=== PATIENT | female | born 1995 | race Caucasian/White ===

== ENCOUNTER 2021-11-25 11:50 | Emergency (ER) | payer OTHER, SELFPAY ==
--- NOTE | ~2021-11-25 | CT_ITS ---
EXAMINATION: NONCONTRAST HEAD CT NONCONTRAST CERVICAL SPINE CT INDICATION INFORMATION: Fall on head with frontal laceration. COMPARISON: None TECHNIQUE: Separate noncontrast CT examinations of the head and cervical spine were performed. Coronal and sagittal images were created for each examination at the technologist workstation. This CT examination was performed using dose optimization techniques as appropriate, variously including the following: *Automated exposure control *Adjustment of mA and/or kV according to patient size (this includes techniques or standardized protocols for targeted exams where dose is matched to indication/reason for exam; i.e. extremities or head) *Use of iterative reconstruction technique DLP: 840 mGy-cm FINDINGS: HEAD: No intra or extra-axial fluid collection, hemorrhage, or mass. No ventriculomegaly. No midline shift or herniation. Basal cisterns are patent. Gill-white matter differentiation is maintained. No territorial encephalomalacia. No significant volume loss. There is no abnormal attenuation within the brain parenchyma. Mild soft tissue swelling and laceration in the right frontal scalp/forehead. No calvarial fracture. The mastoid air cells and visualized portions of the paranasal sinuses are well aerated. CERVICAL SPINE: Alignment: Normal. No subluxation. Vertebra: No acute fracture. No prevertebral soft tissue swelling. Degenerative disc disease: No significant. Preserved intervertebral disc heights. Anterior intervertebral disc calcification at C5-C6 noted. Other findings: No cervical lymphadenopathy. Visualized major salivary glands and thyroid gland are unremarkable. Visualized lung apices are clear. CT/CT cervical spine wo IV con IMPRESSION: 1. No intracranial hemorrhage or calvarial fracture. 2. Mild anterior right scalp/forehead swelling and laceration. 3. No traumatic subluxation or acute cervical spine fracture.
--- NOTE | ~2021-11-25 | CT_ITS ---
EXAMINATION: NONCONTRAST HEAD CT NONCONTRAST CERVICAL SPINE CT INDICATION INFORMATION: Fall on head with frontal laceration. COMPARISON: None TECHNIQUE: Separate noncontrast CT examinations of the head and cervical spine were performed. Coronal and sagittal images were created for each examination at the technologist workstation. This CT examination was performed using dose optimization techniques as appropriate, variously including the following: *Automated exposure control *Adjustment of mA and/or kV according to patient size (this includes techniques or standardized protocols for targeted exams where dose is matched to indication/reason for exam; i.e. extremities or head) *Use of iterative reconstruction technique DLP: 840 mGy-cm FINDINGS: HEAD: No intra or extra-axial fluid collection, hemorrhage, or mass. No ventriculomegaly. No midline shift or herniation. Basal cisterns are patent. Gill-white matter differentiation is maintained. No territorial encephalomalacia. No significant volume loss. There is no abnormal attenuation within the brain parenchyma. Mild soft tissue swelling and laceration in the right frontal scalp/forehead. No calvarial fracture. The mastoid air cells and visualized portions of the paranasal sinuses are well aerated. CERVICAL SPINE: Alignment: Normal. No subluxation. Vertebra: No acute fracture. No prevertebral soft tissue swelling. Degenerative disc disease: No significant. Preserved intervertebral disc heights. Anterior intervertebral disc calcification at C5-C6 noted. Other findings: No cervical lymphadenopathy. Visualized major salivary glands and thyroid gland are unremarkable. Visualized lung apices are clear. CT/CT head/brain wo IV con IMPRESSION: 1. No intracranial hemorrhage or calvarial fracture. 2. Mild anterior right scalp/forehead swelling and laceration. 3. No traumatic subluxation or acute cervical spine fracture.
[2021-11-25 13:18] VITALS: BP 143/79; PULSE 69; RESP 18; TEMP 36.9; O2SAT 100; BMI 25.8
--- NOTE | 2021-11-25 15:29 | ED_ITS ---
HPI - General Adult General Chief complaint: Head Injury Stated complaint: Head INJ Time Seen by Provider: 11/25/21 15:21 Source: patient Mode of arrival: ambulatory Limitations: no limitations History of Present Illness HPI narrative: 26-year-old female healthy presents to ED for head trauma. Patient states she t ripped and fell at work. Patient states she fell face forward onto her head which caused right frontal laceration. Patient states she felt slight nausea and dizziness and since than has been asymptomatic. Patient denies loss of consciousness. Patient states incident occurred around 10:00. Related Data Allergies Allergy/AdvReac Type Severity Reaction Status Date / Time No Known Allergies Allergy Verified 11/25/21 15:27 Review of Systems Review of Systems: Right fore laceration. Fall Yes all other systems are reviewed and are negative [facility] Social History Social History Advance Directives: No Advance Directives Information Provided: No Physical Exam ED Vital Signs: Vital Signs - 24 hr 11/25/21 13:18 Temperature 98.5 F Pulse Rate 69 Respiratory Rate 18 Blood Pressure 143/79 H Pulse Oximetry 100 Oxygen Delivery Method Room Air BMI result Body Mass Index 25.8 Const General: cooperative, healthy appearing, comfortable, no acute distress, well developed, alert, awake and Physically active Orientation/consciousness: oriented to time and patient oriented x3 HENMT Head: Yes normal to inspection, Yes No palpable skull fracture present, Yes normocephalic, Yes atraumatic and Yes abrasion Head images: 1. Very small it is very superficial laceration and bleeding control. No laceration repair indicated. Eyes General: appearance normal, both eyes and all related structures Neck Neck: Yes normal visual inspection, Yes full ROM, Yes no lymphadenopathy, Yes no meningeal signs, Yes trachea midline, Yes supple, No anterior neck swelling and No tender Chest Chest palpation & inspection: normal inspection of the chest and normal palpation of entire chest wall Resp Effort & Inspection: normal respiratory effort and able to speak in complete sentences Auscultation: clear to auscultation bilaterally Cardio Jugular venous distension: no JVD Heart sounds: S1 normal heart sound present and S2 normal heart sound present GI Inspection: Yes normal to inspection and No abdominal wall ecchymosis Palpation (GI): Soft to palpation, not firm, nontender, no guarding and not ri gid General: No CVA tenderness and Yes no CVA tenderness Back/Spine/Pelvis Back: no CVA tenderness, No CVA tenderness and No back tenderness Skin General skin exam: no rashes or lesions noted and elasticity normal Neuro General: oriented to time, patient oriented x3, gait normal, tone normal and no meningeal signs Extrem General: Yes normal to inspection and Yes full ROM Psych Appearance: grossly normal, well kempt and not disheveled Course Course Course Narrative: Patient well-appearing. Laceration done the repair. Up-to-date with tetanus. D mechanism patient have imaging although very unlikely brain bleed. Reevaluation(s) Reevaluation #1: Head CT cervical spine CT normal. Patient is safe for discharge. Patient to follow-up were connection. Patient given packets of bacitracin to clean very superficial laceration Time: 16:57 Medical Decision Making MDM Narrative Medical decision making narrative: Head injury Discharge Plan Discharge Clinical Impression: Closed head injury Patient Disposition: Home, Self-Care Instructions: Head Injury (ED) Additional Instructions: You're images came back normal. You laceration does not need repair. Please follow up with work connection. Return to the ED immediately for headache, nausea, vomitting, photophobia, weakness, chest pain, shortness of breath, abdominal pain, bleeding from any orifice, or any other concerning symptoms. Referrals: [facility] [Outside] (Head Injury at work) Stand Alone Forms: Work/School Release Interventions: ED Discharge Assessment Last Done: 11/25/21 18:00 Discharge Date/Time: 11/25/21 18:01 Print Language: Gabonese
--- OUTSIDE RECORDS SUMMARY | 2021-11-25 15:49 | XMS_ITS | Continuity of Care Document ---
:1995 Author Organization [facility] ic Address [address] [place] [id number]- Care Team Providers Name Role Phone Tutu MCINTOSH, Kelvin Duffy Primary Care Physician Encounter [facility] Date(s): 09/06/20 - 10/14/[address] [address]- Attending Physician: Not on Staff, Attending MD Allergies, Adverse Reactions, Alerts Substance Reaction Severity Status penicillin Rash Active Extent of radial penetration Immunizations Given and Recorded Vaccine Date Status Refusal Reason influenza virus vaccine, inactivated 11/24/14 Given influenza virus vaccine, inactivated1 12/14/11 Given influenza virus vaccine, inactivated 11/14/10 Given influenza virus vaccine, inactivated 04/22/10 Given influenza virus vaccine, inactivated2 12/04/07 Given tetanus/diphtheria/pertussis, acel(Tdap) 10/09/14 Given influ virus vac, H1N1, inactive(oldterm)3 12/23/08 Given Human Papillomavirus Vaccine 12/09/08 Given Human Papillomavirus Vaccine 12/04/07 Given Human Papillomavirus Vaccine4 04/30/07 Given Meningococcal Conjugate Vaccine5 04/30/07 Given Influenza Virus Vaccine (oldterm)6 04/30/07 Given Tet/Diphth/Acel, Pertussis (oldterm)7 04/30/07 Given Influenza Inactive (IM) (oldterm)8 01/06/03 Given Measles/Mumps/Rubella Virus Vaccine9 11/04/98 Given Measles/Mumps/Rubella Virus Pomhzvl77 07/10/94 Given Poliovirus Vaccine, Gfkdyvqaqye23 11/04/98 Given Poliovirus Vaccine, Ockanbcbkvc45 03/12/96 Given Poliovirus Vaccine, Frbdgoyzksv83 05/08/95 Given Poliovirus Vaccine, Ogpuyintcic55 07/10/94 Given Diphth/Pertussis, Whl Cell/Tet(oldterm)15 11/04/98 Given Diphth/Pertussis, Whl Cell/Tet(oldterm)16 10/15/96 Given Diphth/Pertussis, Whl Cell/Tet(oldterm)17 03/12/96 Given Diphth/Pertussis, Whl Cell/Tet(oldterm)18 05/08/95 Given Diphth/Pertussis, Whl Cell/Tet(oldterm)19 07/10/94 Given Haemophilus B Conj Vaccine (oldterm)20 10/15/96 Given Haemophilus B Conj Vaccine (oldterm)21 07/10/94 Given Hepatitis B Vaccine (old term) 05/08/95 Given Hepatitis B Vaccine (old term)22 07/10/94 Given Hepatitis B Vaccine (old term) 93 Given 1Early/Late Reason: Accommodate D/K0Mcgqf Note: INEQFN4Esmbw Note: VIS given4 Admin Note: VIS BFASH9Nbrxt Note: VIS GIVEN---MENACTRA, SANOFI VWNFELE2Khdem Note: SANOFI PASTEUR VIS GIVEN VETXV0Vhfbv Note: vis wuhcf4Digka Note: HX VARICELLA '959Admin Note: JRU61Dehqy Note: OBZ44Dsdjp Note: IPV/ROH82Eswxt Note: IPV/ANA71Flsdr Note: IPV/XQF89Sitrb Note: IPV/AMF87Vszwa Note: KHM49Squlv Note: XXC45Wwytj Note: YVY75Artsk Note: LFY60Xdtrv Note: EEW24Byudy Note: GYD04Ifzue Note: YBE60Uaqgl Note: HEP B Medications aspirin 81 mg oral delayed release tablet 162 mg, 2, tablet, By Mouth, Daily, To start at 12 weeks gestational age, July 13, 2020, # 90 tablet, Refills 2, Tot. Refills 2, Maintenance, 08/09/20 9:35:00 EDT, Route to Pharmacy Electronically, [facility] #[id number], Partial fill upon patie... Start Date: 08/09/20 Status: OrderedContour Next EZ Test Strips See Instructions, # 750 application, Refills 4, Tot. Refills 4, Maintenance, Test 6-8 times daily. 250.03, 648.03 using insulin pump, 07/29/15 9:46:21, Compound Start Date: 09/16/14 Status: OrderedHandheld Electric Breast Pump See Instructions, # 1 each, Maintenance, Per emergency specialist instructions, 12/06/14 6:03:50, Compound Start Date: 12/06/14 Status: OrderedHumalog Kwik Pen 100 units/mL subcutaneous injection See Instructions, Max daily dose 30 units. E10.65, # 30 mL, 5 Refills, Maintenance, 07/12/20 13:52:00 EDT, Solution, [facility] #[id number], Partial fill upon patient request if the prescription is for a schedule II opioid drug., 152.5, cm, 07/12... Start Date: 07/12/20 Status: OrderedInsulin Glargine Inj 0.24 mL = 24 units, Subcutaneous Injection, Daily at bedtime, 0 Refills, Maintenance, 09/03/20 11:10:00 EDT, Injection, Partial fill upon patient request if the prescription is for a schedule II opioiddrug. Start Date: 09/03/20 Status: OrderedKetostix See Instructions, # 50 each, Refills 11, Tot. Refills 11, Maintenance, Use to check urine for ketones up to 2 times/day for BGs above 250 mg/dl or when sick., 05/10/20 11:20:00 EDT, DxE10.65, Compound,152.5, cm, 07/09/19 12:58:00 EDT, Height Start Date: 05/10/20 Stop Date: 05/05/21 Status: Orderedlevothyroxine 0.05 mg oral tablet 1 tablet = 50 mcg, By Mouth, Daily, Take 1 tablet daily. Have labs in 4 weeks., # 30 tablet, 5 Refills, Maintenance, 08/19/20 12:01:00 EDT, Tablet, [facility] #[id number], 152.5, cm, 08/09/20 9:25:00 EDT, Height, 53, kg, 06/25/20 16:25:00 EDT, Start Date: 08/19/20 Status: Orderedmetoclopramide 10 mg oral tablet 1 tablet = 10 mg, By Mouth, 3 times a day before meals and bedtime, PRN Nausea & Vomiting, 30 minutes before meals and at bedtime, # 50 tablet, 0 Refills, Maintenance, 07/30/20 15:26:00 EDT, Tablet, [facility] #[id number], Partial fill upon patie... Start Date: 07/30/20 Stop Date: 08/13/20 Status: Orderedondansetron 4 mg oral tablet, disintegrating 1 tablet = 4 mg, By Mouth, Every 8 hours, PRN as needed for nausea/vomiting, # 25 tablet, 0 Refills,Maintenance, 09/03/20 14:41:00 EDT, DIS Tablet, [facility], Partial fill upon patient request if the prescription is for a schedule II o... Start Date: 09/03/20 Status: OrderedPen [place], 32 G x 4 mm BD Ultra Fine III See instructions, # 200 each, Refills 11, Tot. Refills 11, Maintenance, use as directed for Type 1 Diabetes Mellitus; tests up to 7 times/d, 06/11/14 16:56:06, Compound Start Date: 06/11/14 Stop Date: 06/06/15 Status: OrderedPrenatal 1 1, Every 24 hours, 0 Refills, Maintenance, 08/31/20 23:25:00 EDT, Partial fill upon patient request if the prescription is for a schedule II opioid drug. Start Date: 08/31/20 Status: OrderedUnisom 25 mg oral tablet 1 tablet = 25 mg, By Mouth, Daily at bedtime, PRN Nausea, # 32 tablet, 0 Refills, Maintenance, 09/03/20 14:41:00 EDT, Tablet, [facility], Partial fill upon patient request if the prescription is for a schedule II opioid drug., 150, cm, 0... Start Date: 09/03/20 Status: OrderedVitamin B6 50 mg oral tablet 25 mg, 0.5, tablet, By Mouth, 3 times a day, # 100 tablet, Refills 0, Tot. Refills 0, Maintenance, 09/03/20 11:11:00 EDT, Route to Pharmacy Electronically, [facility], Partial fill upon patient request if the prescription is for a schedu... 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 Active delivery, antepartum(Confirmed) Social History Social History Type Response Smoking Status Never smoker entered on: 01/08/14 Sex Female
--- OUTSIDE RECORDS SUMMARY | 2021-11-25 15:49 | XMS_ITS | Continuity of Care Document ---
:1995 Author Organization [facility] Address [address] [place] [address]- Care Team Providers Name Role Phone Tutu MCINTOSH, Kelvin Duffy Primary Care Physician Encounter [facility] Date(s): 05/31/20 - 06/30/20 [facility] [address] [place] [id number] Allergies, Adverse Reactions, Alerts Substance Reaction Severity [...] Measles/Mumps/Rubella Virus Vaccine9 11/04/98 Given Measles/Mumps/Rubella Virus Kkzpgvz27 07/10/94 Given Poliovirus Vaccine, Wtxdfakvlyk58 11/04/98 Given Poliovirus Vaccine, Hawbkijglku85 03/12/96 Given Poliovirus Vaccine, Vspaeaoykww44 05/08/95 Given Poliovirus Vaccine, Batgegtlrmw89 07/10/94 Given Diphth/Pertussis, Whl Cell/Tet(oldterm)15 11/04/98 Given [...] (old term) 93 Given 1Early/Late Reason: Accommodate D/T0Oqoys Note: PTCDLU2Fwvvn Note: VIS given4 Admin Note: VIS PGQSV7Xobgy Note: VIS GIVEN---MENACTRA, SANOFI ZKZXJGJ6Rdjlh Note: SANOFI PASTEUR VIS GIVEN VUYGD6Mwsvp Note: vis pxedi4Vrdck Note: HX VARICELLA '959Admin Note: TIZ23Elpld Note: YEW01Bcciu Note: IPV/MWQ46Kxias Note: IPV/XLZ92Lbehy Note: IPV/MHG15Mlmxb Note: IPV/GGU58Ajekd Note: JDJ77Skjas Note: PUX81Zlvmx Note: ENO15Nsnbe Note: VRE11Qjuob Note: MEU71Hoqzf Note: GYY57Dbxzy Note: WSA19Csrqy Note: HEP B Medications aspirin 81 mg oral delayed release tablet 162 mg, 2, tablet, By Mouth, Daily, To start at 12 weeks gestational age, July 13, 2020, # 90 tablet, Refills 2, Tot. Refills 2, Maintenance, 06/25/20 16:23:00 EDT, Route to Pharmacy Electronically, [facility] #[id number], Partial fill upon irais... Start Date: 06/25/20 Status: OrderedContour Next EZ Test Strips See Instructions, # 725 application, Refills 4, Tot. Refills 4, Maintenance, BGM 8 times/day. 250.03, 648.03 using insulin pump, 06/03/14 15:36:12, Compound Start Date: 06/03/14 Status: OrderedContour Next EZ Test Strips See Instructions, # 750 application, Refills 4, Tot. Refills 4, Maintenance, Test 6-8 times daily. 250.03, 648.03 using insulin pump, 09/16/14 9:46:21, Compound Start Date: 09/16/14 Status: OrdereddiphenhydrAMINE 25 mg oral tablet 1 tablet = 25 mg, By Mouth, Every 6 hours, PRN as needed for nausea/vomiting, for 14 days, # 56 tablet, 0 Refills, Acute 07/07/20 10:43:00 EDT, 06/23/20 10:43:00 EDT, Tablet, [facility], Partial fill upon patient request if the prescript... Start Date: 06/23/20 Stop Date: 07/07/20 Status: Orderedfamotidine 20 mg oral tablet 20 mg, 1, tablet, By Mouth, 2 times a day, # 60 tablet, Refills 0, Tot. Refills 0, Maintenance, 06/22/20 9:26:00 EDT, Route to Pharmacy Electronically, [facility], Partial fill upon patient request if the prescription is for a schedule I... Start Date: 06/22/20 Status: OrderedHandheld Electric Breast Pump See Instructions, # 1 each, Maintenance, Per food inspector instructions, 12/06/14 6:03:50, Compound Start Date: 12/06/14 Status: OrderedInsulin Lispro 2-8 units, Subcutaneous Injection, 3 times a day before meals, << Sliding Scale Comments >> 70 - 119 2 units Call if less than 100 120 - 169 3 units 170 - 219 4 units 220 - 269 5 units 270 - 319 6 units 320 - 369 7 units 370 -... Start Date: 06/23/20 Status: OrderedKetostix See Instructions, # 50 each, Refills 11, Tot. Refills 11, Maintenance, Use to check urine for ketones up to 2 times/day for BGs above 250 mg/dl or when sick., 05/10/20 11:20:00 EDT, DxE10.65, Compound,152.5, cm, 07/09/19 12:58:00 EDT, Height Start Date: 05/10/20 Stop Date: 05/05/21 Status: OrderedLantus Inj 0.28 mL = 28 units, Subcutaneous Injection, Daily before lunch, 0 Refills, Maintenance, 06/23/20 10:37:00 EDT, Injection, Partial fill upon patient request if the prescription is for a schedule II opioid drug. Start Date: 06/23/20 Status: Orderedmetoclopramide 10 mg oral tablet 1 tablet = 10 mg, By Mouth, 3 times a day before meals and bedtime, PRN Nausea & Vomiting, 30 minutes before meals and at bedtime, # 50 tablet, 0 Refills, Maintenance, 06/23/20 10:45:00 EDT, Tablet, [facility], Partial fill upon patient... Start Date: 06/23/20 Stop Date: 07/07/20 Status: OrderedPen [place], 32 G x 4 mm BD Ultra Fine III See instructions, # 200 each, Refills 11, Tot. Refills 11, Maintenance, use as directed for Type 1 Diabetes Mellitus; tests up to 7 times/d, 06/11/14 16:56:06, Compound Start Date: 06/11/14 Stop Date: 06/06/15 Status: OrderedPrenatal Multivitamins with Folic Acid 0.4 mg oral tablet 1 tablet, By Mouth, Daily, # 90 tablet, 0 Refills, Maintenance, 04/26/20 15:33:00 EST, Tablet, [facility] #[id number], Partial fill upon patient request if the prescription is for a schedule II opioid drug., 1 tablet By Mouth Daily, 152.5, cm, 05... Start Date: 04/26/20 Status: Orderedsucralfate 1 gm oral tablet 1 Gm, 1, tablet, By Mouth, Every 6 hours, # 56 tablet, Refills 0, Tot. Refills 0, Maintenance, 06/23/20 10:43:00 EDT, Route to Pharmacy Electronically, [facility], Partial fill upon patient request if the prescription is for a schedule I... Start Date: 06/23/20 Stop Date: 07/07/20 Status: OrderedVitamin B6 25 mg oral tablet 1 tablet = 25 mg, By Mouth, 3 times a day, PRN Nausea & Vomiting, # 90 tablet, 1 Refills, Acute 09/03/20 14:24:00 EDT, 06/03/20 14:24:00 EDT, [facility] #[id number], Partial fill upon patient request if the prescription is for a schedule II opioi... Start Date: 06/03/20 Stop Date: 09/03/20 Status: Ordered Problem List Condition Effective Dates Status Health Status Informant Depression(Confirmed) Active Diabetes mellitus type 1(Confirmed) Active Fibroadenoma(Confirmed) 07/05/12 Active Hyperthyroidism(Confirmed) Active Iron deficiency anemia(Confirmed) Active Microalbuminuria(Confirmed) Active Hypertension in , Active preeclampsia, severe(Confirmed) Social History Social History Type Response Smoking Status Never smoker entered on: 01/08/14 Sex Female
--- OUTSIDE RECORDS SUMMARY | 2021-11-25 15:49 | XMS_ITS | Continuity of Care Document ---
:1995 Author Organization [facility] Address [address] [place] [address]- Care Team Providers Name Role Phone Kelvin Cam MD Primary Care Physician Encounter [facility] Date(s): 07/10/20 - 11/07/20 [facility] [address] [place] [id number] Attending Physician: Claudia Diaz MD Admitting Physician: Constantino Diaz MDitordi Referring Physician: Kelvin Cam MD Allergies, Adverse Reactions, Alerts Substance Reaction [...] Measles/Mumps/Rubella Virus Vaccine9 11/04/98 Given Measles/Mumps/Rubella Virus Fnvukql14 07/10/94 Given Poliovirus Vaccine, Rafzzcsygkt04 11/04/98 Given Poliovirus Vaccine, Ozcyptahswr56 03/12/96 Given Poliovirus Vaccine, Uwdplcnuvzv94 05/08/95 Given Poliovirus Vaccine, Apuwrstfiws69 07/10/94 Given Diphth/Pertussis, Whl Cell/Tet(oldterm)15 11/04/98 Given [...] (old term) 93 Given 1Early/Late Reason: Accommodate D/V0Dvxvx Note: YYOPIF6Kweql Note: VIS given4 Admin Note: VIS ASKAN6Hxbes Note: VIS GIVEN---MENACTRA, SANOFI FGGJDNA3Hpriw Note: SANOFI PASTEUR VIS GIVEN OFGMM2Lbcvh Note: vis icyox4Adtmv Note: HX VARICELLA '959Admin Note: PBU00Dhppk Note: UXF95Bwndw Note: IPV/DQD84Hfatw Note: IPV/BEA12Uelec Note: IPV/VSN87Lnyrt Note: IPV/VBO33Xgsmy Note: RAV75Jvdzt Note: QWE55Cuntq Note: CYC07Zwkdq Note: DGC39Bkwvl Note: TUG23Qgawe Note: ADP52Psuxs Note: VMR44Iflco Note: HEP B Medications aspirin 81 mg oral delayed release tablet 162 mg, 2, tablet, By Mouth, Daily, To start at 12 weeks gestational age, July 13, 2020, # 90 tablet, Refills 2, Tot. Refills 2, Maintenance, 08/09/20 9:35:00 EDT, Route to Pharmacy Electronically, [facility] #[id number], Partial fill upon patie... Start Date: 08/09/20 Status: OrderedContour Next EZ Test Strips See Instructions, # 750 application, Refills 4, Tot. Refills 4, Maintenance, Test 6-8 times daily. 250.03, 648.03 using insulin pump, 09/16/14 9:46:21, Compound Start Date: 09/16/14 Status: Orderedferrous sulfate 325 mg oral tablet 1 tablet = 325 mg, By Mouth, 2 times a day, # 60 tablet, 3 Refills, Maintenance, 11/01/20 16:56:00 EDT, [facility] #[id number], Partial fill upon patient request if the prescription is for a schedule II opioid drug., 150, cm, 11/01/20 9:32:00 EDT... Start Date: 11/01/20 Status: OrderedHandheld Electric Breast Pump See Instructions, # 1 each, Maintenance, Per supervisor shuttle veneering instructions, 12/06/14 6:03:50, Compound Start Date: 12/06/14 Status: OrderedHumalog Kwik Pen 100 units/mL subcutaneous injection See Instructions, Max daily dose 30 units. E10.65, # 30 mL, 5 Refills, Maintenance, 07/12/20 13:52:00 EDT, Solution, [facility] #[id number], Partial fill upon patient request if the [...] 5 Refills, Maintenance, 08/19/20 12:01:00 EDT, Tablet, [facility] #[id number], 152.5, cm, 08/09/20 9:25:00 EDT, Height, 53, kg, 06/25/20 16:25:00 EDT, Start Date: 08/19/20 Status: Orderedmetoclopramide 10 mg oral tablet 1 tablet = 10 mg, By Mouth, 3 times a day before meals and bedtime, PRN Nausea & Vomiting, 30 minutes before meals and at bedtime, # 50 tablet, 0 Refills, Maintenance, 07/30/20 15:26:00 EDT, Tablet, [facility] #[id number], Partial fill upon patie... Start Date: 07/30/20 Stop Date: 08/13/20 Status: OrderedPen [place], 32 G x 4 mm BD Ultra [...] II opioid drug. Start Date: 08/31/20 Status: OrderedVitamin B6 50 mg oral tablet 25 mg, 0.5, tablet, By Mouth, 3 times a day, # 100 tablet, Refills 0, Tot. Refills 0, Maintenance, 09/03/20 11:11:00 EDT, Route to Pharmacy Electronically, [facility], Partial fill upon patient request [...]
--- OUTSIDE RECORDS SUMMARY | 2021-11-25 15:49 | XMS_ITS | Continuity of Care Document ---
:1995 Author Organization [facility] Address [address] [place] [phone]- Care Team Providers Name Role Phone Tutu MCINTOSH, Kelvin Duffy Primary Care Physician [place] [facility] [place]20 - 02/10/21 [facility] [address] [place] [id number] Attending Physician: Tim Angulo MD Admitting Physician: Adele MCINTOSH, Tim Referring Physician: Tim Angulo MD Allergies, Adverse Reactions, Alerts Substance Reaction Severity Status penicillin Rash Active Extent of radial penetration Immunizations Given and Recorded Vaccine Date Status Refusal Reason SARS-CoV-2 (COVID-19) mRNA BNT-162b2 vac 12/20/20 Recorde d SARS-CoV-2 (COVID-19) mRNA BNT-162b2 vac1 11/29/20 Given tetanus/diphtheria/pertussis, acel(Tdap) 11/22/20 Given tetanus/diphtheria/pertussis, acel(Tdap) 10/09/14 Given influenza virus vaccine, inactivated 11/24/14 Given influenza virus vaccine, inactivated2 12/14/11 Given influenza virus vaccine, inactivated 11/14/10 Given influenza virus vaccine, inactivated 04/22/10 Given influenza virus vaccine, inactivated3 12/04/07 Given influ virus vac, H1N1, inactive(oldterm)4 12/23/08 Given Human Papillomavirus Vaccine 12/09/08 Given Human Papillomavirus Vaccine 12/04/07 Given Human Papillomavirus Vaccine5 04/30/07 Given Meningococcal Conjugate Vaccine6 04/30/07 Given Influenza Virus Vaccine (oldterm)7 04/30/07 Given Tet/Diphth/Acel, Pertussis (oldterm)8 04/30/07 Given Influenza Inactive (IM) (oldterm)9 01/06/03 Given Measles/Mumps/Rubella Virus Ddxrwpq68 11/04/98 Given Measles/Mumps/Rubella Virus Jbmcciy70 07/10/94 Given Poliovirus Vaccine, Nhebfsbptka80 11/04/98 Given Poliovirus Vaccine, Esocxxwgvsf80 03/12/96 Given Poliovirus Vaccine, Snhfnmeytvs39 05/08/95 Given Poliovirus Vaccine, Vsvjvymurep92 07/10/94 Given Diphth/Pertussis, Whl Cell/Tet(oldterm)16 11/04/98 Given Diphth/Pertussis, Whl Cell/Tet(oldterm)17 10/15/96 Given Diphth/Pertussis, Whl Cell/Tet(oldterm)18 03/12/96 Given Diphth/Pertussis, Whl Cell/Tet(oldterm)19 05/08/95 Given Diphth/Pertussis, Whl Cell/Tet(oldterm)20 07/10/94 Given Haemophilus B Conj Vaccine (oldterm)21 10/15/96 Given Haemophilus B Conj Vaccine (oldterm)22 07/10/94 Given Hepatitis B Vaccine (old term) 05/08/95 Given Hepatitis B Vaccine (old term)23 07/10/94 Given Hepatitis B Vaccine (old term) 93 Given Not Given Vaccine Date Status Refusal Reason influenza virus vaccine, inactivated 01/10/21 Not Given Patient Refuses 1Early/Late Reason: Early/Late Reason: Med Not Zsabteush5Qfban/Late Reason: Accommodate D/N0Pvzln Note: AMXUTP4Wqkzp Note: VIS zoakx1Morxi Note: VIS JJBPQ3Eunff Note: VIS GIVEN---MENACTRA, SANOFI RAXDKXL4Qskhh Note: SANOFI PASTEUR VIS GIVEN PDJRF6Nnxyl Note: vis aajah4Jbkzg Note: HX VARICELLA '9510Admin Note: SDH22Akiew Note: HIY74Bafgk Note: IPV/OPV13 Admin Note: IPV/ATQ67Nrmjf Note: IPV/AGK29Nkuvm Note: IPV/ZXW46Hmygu Note: DPT17 Admin Note: GKK18Oeerc Note: [place]46Pozmr Note: FNZ09Bbhqw Note: WLT66Nzbcn Note: BXX81Sogbl Note: YEU75Uivvh Note: HEP B Medications acetaminophen 500 mg oral tablet 2 tablet = 1,000 mg, By Mouth, Every 6 hours, PRN for fever, # 50 tablet, 0 Refills, Maintenance, 12/28/20 9:44:00 EST, Tablet, [email or web address] #[id number], Partial fill upon patient request if the prescription is for a schedule II opioid drug., 155,... Start Date: 12/28/20 Status: OrderedContour Next EZ Test Strips See Instructions, # 750 application, Refills 4, Tot. Refills 4, Maintenance, Test 6-8 times daily. 250.03, 648.03 using insulin pump, 09/16/14 9:46:21, Compound Start Date: 09/16/14 Status: OrderedHandheld Electric Breast Pump See Instructions, # 1 each, Maintenance, Per sap solution manager consultant instructions, 12/06/14 6:03:50, Compound Start Date: 12/06/14 Status: OrderedHumaLOG 100 units/mL injectable solution See Instructions, via pump , for type 1 DM, max daily dose 50 units., # 10 mL, 3 Refills, Maintenance, 01/11/21 11:25:00 EST, [email or web address] #[id number], Partial fill upon patient request if the prescription is for a schedule II opioid drug., 155, cm... Start Date: 01/11/21 Status: OrderedHumalog Kwik Pen 100 units/mL subcutaneous injection See Instructions, Inject 2 units Subcutaneously for blood sugar 120 mg/dL and 1 additional unit for every 50 mg/dL increment in blood sugar 3 times daily before meals, with a maximum of 4 units, 0 Refills, Maintenance, 11/26/20 16:21:00 EDT, Partial f... Start Date: 11/26/20 Status: Orderedibuprofen 800 mg oral tablet 800 mg, 1, tablet, By Mouth, Every 8 hours, # 50 tablet, Refills 0, Tot. Refills 0, Maintenance, 12/28/20 9:44:00 EST, Route to Pharmacy Electronically, [email or web address] #[id number], Partial fill upon patient request if the prescription is for a schedu... Start Date: 12/28/20 Status: OrderedInsulin Lispro 0.19 mL = 19 units, Subcutaneous Injection, 3 times a day before meals, << Sliding Scale Comments >> 10 - 19 1 units 20 - 29 2 units 30 - 39 3 units 40 - 49 4 units 50 - 59 5 units 60 - 69 6 units 70 - 79 7 units 80 - 89... Start Date: 01/10/21 Status: Orderedinsulin lispro 100 u/ml subcutaneous injection 1-7 units, Subcutaneous Injection, 3 times a day before meals, << Sliding Scale Comments >> 150 - 199 1 units Call if less than 70 200 - 249 2 units 250 - 299 3 units 300 - 349 4 units 350 - 399 5 units 400 - 449 6 units 450 -... Start Date: 01/10/21 Status: OrderedKetostix See Instructions, # 50 each, Refills 11, Tot. Refills 11, Maintenance, Use to check urine for ketones up to 2 times/day for BGs above 250 mg/dl or when sick., 05/10/20 11:20:00 EDT, DxE10.65, Compound,152.5, cm, 07/09/19 12:58:00 EDT, Height Start Date: 05/10/20 Stop Date: 05/05/21 Status: OrderedLantus Inj 0.2 mL = 20 units, Subcutaneous Injection, Daily at bedtime, 0 Refills, Maintenance, 01/10/21 13:55:00 EST, Injection, Partial fill upon patient request if the prescription is for a schedule II opioid drug. Start Date: 01/10/21 Status: Orderedlevothyroxine 0.05 mg oral tablet 1 tablet = 50 mcg, By Mouth, Daily, Take 1 tablet daily. Have labs in 4 weeks., # 30 tablet, 7 Refills, Maintenance, 12/08/20 17:50:00 EDT, Tablet, [facility] #[id number], 156, cm, 12/06/20 11:33:00 EDT, Height, 56.2, kg, 11/25/20 12:46:00 EDT, D... Start Date: 12/08/20 Status: OrderedMiraLax oral powder for reconstitution = 17 Gm, By Mouth, Daily, dissolve in water before taking, # 255 Gm, 0 Refills, Maintenance, 12/28/20 9:45:00 EST, REC Powder, [facility] #[id number], Partial fill upon patient request if the prescription is for a schedule II opioid drug., 17 Gm... Start Date: 12/28/20 Status: OrderedNIFEdipine 30 mg oral tablet, extended release 30 mg, 1, tablet, By Mouth, Daily, # 30 tablet, Refills 0, Tot. Refills 0, Maintenance, 12/29/20 8:31:00 EST, Route to Pharmacy Electronically, [email or web address] #[id number], Partial fill upon patient request if the prescription is for a schedule II opi... Start Date: 12/29/20 Status: OrderedoxyCODONE 5 mg oral tablet 5 mg, 1, tablet, By Mouth, Every 3 hours, PRN, (7-10), # 12 tablet, Refills 0, Tot. Refills 0, Maintenance, Pain , Severe, 12/28/20 9:44:00 EST, Route to Pharmacy Electronically, [email or web address] #[id number], Partial fill upon patient request if the pr... Start Date: 12/28/20 Status: OrderedPen [place], 32 G x 4 mm BD Ultra Fine III See instructions, # 200 each, Refills 11, Tot. Refills 11, Maintenance, use as directed for Type 1 Diabetes Mellitus; tests up to 7 times/d, 06/11/14 16:56:06, Compound Start Date: 06/11/14 Stop Date: 06/06/15 Status: Orderedsimethicone 80 mg oral tablet, chewable 80 mg, 1, tablet, Chew, 3 times a day, # 36 tablet, Refills 0, Tot. Refills 0, Maintenance, 219:44:00 EST, Route to Pharmacy Electronically, [email or web address] #[id number], Partial fill upon patient request if the prescription is for a schedule II... Start Date: 12/28/20 Status: Ordered Problem List Condition Effective Dates Status Health Status Informant Depression(Confirmed) Active Diabetes mellitus type 1(Confirmed) Active History of severe Active pre-eclampsia(Confirmed) Hyperthyroidism(Confirmed) Active Hypothyroidism(Confirmed) Active Microalbuminuria(Confirmed) Active Uterine scar from previous Active delivery, antepartum(Confirmed) Social History Social History Type Response Smoking Status Never smoker entered on: 01/08/14 Sex
--- OUTSIDE RECORDS SUMMARY | 2021-11-25 15:49 | XMS_ITS | Continuity of Care Document ---
:1995 Author Organization [facility] Address [address] [place] [address]- Care Team Providers Name Role Phone Tutu MCINTOSH, Kelvin Duffy Primary Care Physician Encounter [facility] [place]s): 11/01/20 - 12/29/20 [facility] [address] [place] [address] Attending Physician: Arnold Pate MD Admitting Physician: Arnold Pate MD Referring Physician: Arnold Pate MD Allergies, Adverse Reactions, Alerts Substance Reaction Severity Status penicillin Rash Active Extent of radial penetration Immunizations Given and Recorded Vaccine Date Status Refusal Reason SARS-CoV-2 (COVID-19) mRNA BNT-162b2 vac1 11/29/20 Given [...] Inactive (IM) (oldterm)9 01/06/03 Given Measles/Mumps/Rubella Virus Ztkwmmx79 11/04/98 Given Measles/Mumps/Rubella Virus Jumbthb24 07/10/94 Given Poliovirus Vaccine, Kgntsuzzrgt68 11/04/98 Given Poliovirus Vaccine, Ofgzxldvgae13 03/12/96 Given Poliovirus Vaccine, Rdkhivtvkel17 05/08/95 Given Poliovirus Vaccine, Symgwbcxlwj09 07/10/94 Given Diphth/Pertussis, Whl Cell/Tet(oldterm)16 11/04/98 Given [...] Vaccine (old term) 93 Given 1Early/Late Reason: Early/Late Reason: Med Not Exmbmievs7Ausmy/Late Reason: Accommodate D/B0Edipc Note: NWUDZD4Aeeuk Note: VIS xzvmt5Ifaog Note: VIS TFIUJ9Xwtha Note: VIS GIVEN---MENACTRA, SANOFI XENWVIK6Dqecp Note: SANOFI PASTEUR VIS GIVEN SCGSI0Bkgkm Note: vis ngbqf3Dhimd Note: HX VARICELLA '9510Admin Note: YPE29Wrcho Note: PHF97Ybzgb Note: IPV/OPV13 Admin Note: IPV/OFK01Fihdo Note: IPV/QBD34Hmrnv Note: IPV/MMB93Bgxqr Note: DPT17 Admin Note: OCR84Difle Note: ANL80Uowta Note: HAZ10Inzcj Note: YWV30Bzicr Note: REP36Ssdxl Note: EYK05Inpcs Note: HEP B Medications acetaminophen 500 mg oral tablet 2 tablet = 1,000 mg, By Mouth, Every 6 hours, PRN for fever, # 50 tablet, 0 Refills, Maintenance, 12/28/20 9:44:00 EST, Tablet, [facility] #[id number], Partial fill upon patient request if the prescription is for a schedule II opioid drug., 155,... Start Date: 12/28/20 Status: OrderedContour Next EZ Test Strips See Instructions, # 750 application, Refills 4, Tot. Refills 4, Maintenance, Test 6-8 times daily. 250.03, 648.03 using insulin pump, 09/16/14 9:46:21, Compound Start Date: 09/16/14 Status: OrderedHandheld Electric Breast Pump See Instructions, # 1 each, Maintenance, Per vice president of news instructions, 12/06/14 6:03:50, Compound Start Date: 12/06/14 Status: OrderedHumalog Kwik Pen 100 units/mL subcutaneous injection <Using sliding scale > 70 -119 10 units 120-169 12 units 170-219 14 units 220- 269 16 units 270- 319 18 units 320 - 369 20 units 370 and up 22 units if you are not using the scale, please give 16units for breakfast and 20 units for lunch and... Start Date: 11/26/20 Status: Orderedibuprofen 800 mg oral tablet 800 mg, 1, tablet, By Mouth, Every 8 hours, # 50 tablet, Refills 0, Tot. Refills 0, Maintenance, 12/28/20 9:44:00 EST, Route to Pharmacy Electronically, [facility] #[id number], Partial fill upon patient request if the prescription is for a schedu... Start Date: 12/28/20 Status: OrderedInsulin Glargine Inj 27, Subcutaneous Injection, Daily at bedtime, 0 Refills, Maintenance, 11/29/20 16:57:00 EDT, Injection, Partial fill upon patient request if the prescription is for a schedule II opioid drug. Start Date: 11/29/20 Status: OrderedKetostix See Instructions, # 50 each, [...] 7 Refills, Maintenance, 12/08/20 17:50:00 EDT, Tablet, [facility] #[id number], 156, cm, 12/06/20 11:33:00 EDT, Height, 56.2, kg, 11/25/20 12:46:00 EDT, D... Start Date: 12/08/20 Status: OrderedMiraLax oral powder for reconstitution = 17 Gm, By Mouth, Daily, dissolve in water before taking, # 255 Gm, 0 Refills, Maintenance, 12/28/20 9:45:00 EST, REC Powder, [facility] #[id number], Partial fill upon patient request if the prescription is for a schedule II opioid drug., 17 Gm... Start Date: 12/28/20 Status: OrderedNIFEdipine 30 mg oral tablet, extended release 30 mg, 1, tablet, By Mouth, Daily, # 30 tablet, Refills 0, Tot. Refills 0, Maintenance, 12/29/20 8:31:00 EST, Route to Pharmacy Electronically, [facility] #[id number], Partial fill upon patient request if the prescription is for a schedule II opi... Start Date: 12/29/20 Status: OrderedoxyCODONE 5 mg oral tablet 5 mg, 1, tablet, By Mouth, Every 3 hours, PRN, (7-10), # 12 tablet, Refills 0, Tot. Refills 0, Maintenance, Pain , Severe, 12/28/20 9:44:00 EST, Route to Pharmacy Electronically, [facility] #[id number], Partial fill upon patient request if the pr... Start Date: 12/28/20 Status: OrderedPen [place], 32 G x 4 mm BD Ultra [...] II opioid drug. Start Date: 08/31/20 Status: Orderedsimethicone 80 mg oral tablet, chewable 80 mg, 1, tablet, Chew, 3 times a day, # 36 tablet, Refills 0, Tot. Refills 0, Maintenance, 219:44:00 EST, Route to Pharmacy Electronically, [facility] #[id number], Partial fill upon patient request if the [...]
--- OUTSIDE RECORDS SUMMARY | 2021-11-25 15:49 | XMS_ITS | Continuity of Care Document ---
:1995 Author Organization [facility] Address [address] [place] [address]- Care Team Providers Name Role Phone Tutu MCINTOSH, Kelvin Duffy Primary Care Physician Encounter [facility] [place] Date(s): 11/12/20 - 11/12/[address] [id number] Discharge Disposition: A-D/C Home Attending Physician: Wanda Carter NP Admitting Physician: Wanda Carter NP Referring Physician: Wanda Carter NP Allergies, Adverse Reactions, Alerts Substance Reaction Severity [...] Measles/Mumps/Rubella Virus Vaccine9 11/04/98 Given Measles/Mumps/Rubella Virus Xlzuutq28 07/10/94 Given Poliovirus Vaccine, Glqwegezqjx98 11/04/98 Given Poliovirus Vaccine, Bfzjxswpmqa75 03/12/96 Given Poliovirus Vaccine, Etscvhszluo43 05/08/95 Given Poliovirus Vaccine, Jjbvazvfety72 07/10/94 Given Diphth/Pertussis, Whl Cell/Tet(oldterm)15 11/04/98 Given [...] (old term) 93 Given 1Early/Late Reason: Accommodate D/J5Vcdyb Note: DBOONY6Ajqxx Note: VIS given4 Admin Note: VIS CBTOJ9Delua Note: VIS GIVEN---MENACTRA, SANOFI NUCZPVF0Mtcir Note: SANOFI PASTEUR VIS GIVEN VCFFA9Gjhjb Note: vis jpjcf5Ehhym Note: HX VARICELLA '959Admin Note: TAL03Qeawj Note: WVU17Ffcyk Note: IPV/BRL14Mvkrf Note: IPV/GQJ59Qnzid Note: IPV/DDS52Bchsb Note: IPV/HQJ39Qcxel Note: DTV09Whatm Note: ZZY00Nnjgm Note: ZRE81Zkisw Note: WJF54Zqhgv Note: LUS22Perwv Note: YYJ59Uhqbl Note: FGQ67Qrasz Note: HEP B Medications aspirin 81 mg oral delayed release tablet 162 mg, 2, tablet, By Mouth, Daily, To start at 12 weeks gestational age, July 13, 2020, # 90 tablet, Refills 2, Tot. Refills 2, Maintenance, 08/09/20 9:35:00 EDT, Route to Pharmacy Electronically, [facility] #[id number], Partial fill upon patie... Start Date: 08/09/20 [...] tablet, 3 Refills, Maintenance, 11/01/20 16:56:00 EDT, [facility] #[id number], Partial fill upon patient request if the prescription is for a schedule II opioid drug., 150, cm, 11/01/20 9:32:00 EDT... Start Date: 11/01/20 Status: OrderedHandheld Electric Breast Pump See Instructions, # 1 each, Maintenance, Per geophysical prospecting surveyor instructions, 12/06/14 6:03:50, Compound Start Date: 12/06/14 Status: OrderedHumalog Kwik Pen 100 units/mL subcutaneous injection See Instructions, 12 units before breakfast; 12 units before lunch; 20 units before dinner, # 30 mL,5 Refills, Maintenance, 07/12/20 13:52:00 EDT, Solution, [facility] #[id number], Partial fill upon patient request if the prescription is for a s... Start Date: 07/12/20 Status: OrderedInsulin Glargine Inj [...] 5 Refills, Maintenance, 08/19/20 12:01:00 EDT, Tablet, [facility] #[id number], 152.5, cm, 08/09/20 9:25:00 EDT, Height, 53, kg, 06/25/20 16:25:00 EDT, Start Date: 08/19/20 Status: Orderedmetoclopramide 10 mg oral tablet 1 tablet = 10 mg, By Mouth, 3 times a day before meals and bedtime, PRN Nausea & Vomiting, 30 minutes before meals and at bedtime, # 50 tablet, 0 Refills, Maintenance, 07/30/20 15:26:00 EDT, Tablet, [facility] #[id number], Partial fill upon patie... Start Date: 07/30/20 Stop Date: 08/13/20 Status: OrderedPen [place], 32 G x 4 mm BD Ultra [...] 09/03/20 11:11:00 EDT, Route to Pharmacy Electronically, [facility], Partial fill upon patient request if [...]
--- OUTSIDE RECORDS SUMMARY | 2021-11-25 15:49 | XMS_ITS | Continuity of Care Document ---
:1995 Author Organization [facility] Address [address] [place] [phone]- Care Team Providers Name Role Phone Tutu MCINTOSH, Kelvin Duffy Primary Care Physician Encounter [facility] [place](s): 12/29/20 - 02/10/21 [facility] [address] [place] [id number] Attending Physician: Tim Angulo MD Admitting Physician: Tim Angulo MD Referring Physician: Wanda Carter NP Allergies, Adverse [...] Inactive (IM) (oldterm)9 01/06/03 Given Measles/Mumps/Rubella Virus Xmazskw37 11/04/98 Given Measles/Mumps/Rubella Virus Whfomnk32 07/10/94 Given Poliovirus Vaccine, Ntobuqvgpye06 11/04/98 Given Poliovirus Vaccine, Ucqoqorgmuw26 03/12/96 Given Poliovirus Vaccine, Mlvsxulualv54 05/08/95 Given Poliovirus Vaccine, Grfdpdljfko39 07/10/94 Given Diphth/Pertussis, Whl Cell/Tet(oldterm)16 11/04/98 Given [...] Refuses 1Early/Late Reason: Early/Late Reason: Med Not Omlwowavg9Sjzdu/Late Reason: Accommodate D/I3Meoti Note: DYLQEL2Wfqvm Note: VIS syzyr2Bakxi Note: VIS YYFXJ3Ejeft Note: VIS GIVEN---MENACTRA, SANOFI LVMOUUR0Eplkp Note: SANOFI PASTEUR VIS GIVEN LGUHE3Xqruy Note: vis gkloh2Dthaw Note: HX VARICELLA '9510Admin Note: TCP49Awfwd Note: GFE14Neuvp Note: IPV/OPV13 Admin Note: IPV/TDT45Vlxvl Note: IPV/UXT31Whfrx Note: IPV/QOT27Hyeuc Note: DPT17 Admin Note: MYJ58Qcroa Note: VTE15Qfjsd Note: HXE18Phbqz Note: DGU45Mtnxk Note: HZI94Fnkyp Note: CFD83Cbvye Note: HEP B Medications acetaminophen 500 mg oral tablet 2 tablet = 1,000 mg, By Mouth, Every 6 hours, PRN for fever, # 50 tablet, 0 Refills, Maintenance, 12/28/20 9:44:00 EST, Tablet, [facility] #[id number], Partial fill upon patient request if the prescription is for a schedule II opioid drug., 155,... Start Date: 12/28/20 Status: OrderedContour Next EZ Test Strips See Instructions, # 750 application, Refills 4, Tot. Refills 4, Maintenance, Test 6-8 times daily. 250.03, 648.03 using insulin pump, 09/16/14 9:46:21, Compound Start Date: 09/16/14 Status: OrderedHandheld Electric Breast Pump See Instructions, # 1 each, Maintenance, Per gas charger instructions, 12/06/14 6:03:50, Compound Start Date: 12/06/14 Status: OrderedHumaLOG 100 units/mL injectable solution See Instructions, via pump , for type 1 DM, max daily dose 50 units., # 10 mL, 3 Refills, Maintenance, 01/11/21 11:25:00 EST, [facility] #[id number], Partial fill upon patient request if the [...] 12/28/20 9:44:00 EST, Route to Pharmacy Electronically, [facility] #[id number], Partial fill upon patient request if the [...] 7 Refills, Maintenance, 12/08/20 17:50:00 EDT, Tablet, [facility] #[id number], 156, cm, 12/06/20 11:33:00 EDT, Height, 56.2, kg, 11/25/20 12:46:00 EDT, D... Start Date: 12/08/20 Status: OrderedMiraLax oral powder for reconstitution = 17 Gm, By Mouth, Daily, dissolve in water before taking, # 255 Gm, 0 Refills, Maintenance, 12/28/20 9:45:00 EST, REC Powder, [facility][id number], Partial fill upon patient request if the prescription is for a schedule II opioid drug., 17 Gm... Start Date: 12/28/20 Status: OrderedNIFEdipine 30 mg oral tablet, extended release 30 mg, 1, tablet, By Mouth, Daily, # 30 tablet, Refills 0, Tot. Refills 0, Maintenance, 12/29/20 8:31:00 EST, Route to Pharmacy Electronically, [facility] #[id number], Partial fill upon patient request if the prescription is for a schedule II opi... Start Date: 12/29/20 Status: OrderedoxyCODONE 5 mg oral tablet 5 mg, 1, tablet, By Mouth, Every 3 hours, PRN, (7-10), # 12 tablet, Refills 0, Tot. Refills 0, Maintenance, Pain , Severe, 12/28/20 9:44:00 EST, Route to Pharmacy Electronically, [facility] #[id number], Partial fill upon patient request if the pr... Start Date: 12/28/20 Status: OrderedPen [place], 32 G x 4 mm BD Ultra [...] Maintenance, 219:44:00 EST, Route to Pharmacy Electronically, [facility] #[id number], Partial fill upon patient request if the [...]
--- OUTSIDE RECORDS SUMMARY | 2021-11-25 15:49 | XMS_ITS | Continuity of Care Document ---
:1995 Author Organization [facility] Address [address] [place] [address]- Care Team Providers Name Role Phone Kelvin Cam MD Primary Care Physician Encounter [facility] [place] Date(s): 06/27/19 - 09/26/19 [facility] [address] [place] [address]- [facility] Attending Physician: Malika Olivarez MD Admitting Physician: Malika Olivarez MD Referring Physician: Kelvin Cam MD Allergies, Adverse [...] Measles/Mumps/Rubella Virus Vaccine9 11/04/98 Given Measles/Mumps/Rubella Virus Xmpcthv37 07/10/94 Given Poliovirus Vaccine, Ufdthvuxyjg92 11/04/98 Given Poliovirus Vaccine, Tfdkoddrrir44 03/12/96 Given Poliovirus Vaccine, Cmgenzpncsq82 05/08/95 Given Poliovirus Vaccine, Achgyjaxfbk71 07/10/94 Given Diphth/Pertussis, Whl Cell/Tet(oldterm)15 11/04/98 Given [...] (old term) 93 Given 1Early/Late Reason: Accommodate D/Q5Ezfdg Note: LETNKJ3Fxutu Note: VIS given4 Admin Note: VIS MBAJB8Wfnps Note: VIS GIVEN---MENACTRA, SANOFI FJRRIPG3Demya Note: SANOFI PASTEUR VIS GIVEN EKFFR7Gwpxo Note: vis ngknu7Ijcqc Note: HX VARICELLA '959Admin Note: VKO86Newmm Note: TWT74Vjxnu Note: IPV/JSH53Klaqr Note: IPV/CJA89Ughfv Note: IPV/HHM78Bgpwd Note: IPV/PER26Njeyu Note: XYL38Kpggs Note: QPE42Gwiis Note: ADN04Hhakv Note: FHU07Kwmyz Note: UFQ07Ohfjm Note: VMS99Wbogg Note: YTH91Hrmar Note: HEP B Medications Admelog SoloStar 100 units/mL injectable solution See Instructions, Inject 2-15 units tid w/ meals via ISS, Max dose daily dose 45 units, E10.9, # 30 mL, 6 Refills, Maintenance, 06/27/19 14:42:00 EDT, [facility] #[id number], 152.5, cm, 05/29/19 11:15:00 EDT, Height Start Date: 06/27/19 Status: OrderedContour Next EZ Test Strips See Instructions, # 750 application, Refills 4, Tot. Refills 4, Maintenance, Test 6-8 times daily. 250.03, 648.03 using insulin pump, 09/16/14 9:46:21, Compound Start Date: 09/16/14 Status: OrderedContour Next EZ Test Strips See Instructions, # 725 application, Refills 4, Tot. Refills 4, Maintenance, BGM 8 times/day. 250.03, 648.03 using insulin pump, 06/03/14 15:36:12, Compound Start Date: 06/03/14 Status: OrderedHandheld Electric Breast Pump See Instructions, # 1 each, Maintenance, Per tunnel drier operator instructions, 12/06/14 6:03:50, Compound Start Date: 12/06/14 Status: OrderedHumalog 100 u/ml subcutaneous injection See Instructions, Subcutaneous Infusionj via insulin pump up to 70 units/day, 0 Refills, Maintenance, 06/05/14 9:53:51 Start Date: 06/05/14 Status: OrderedHumalog 100 u/ml subcutaneous injection See Instructions, Pt to infuse up to 50 units via insulin pump for dx of E10, # 20 mL, 3 Refills, Maintenance, 02/24/15 7:40:00, Pt to infuse up to 50 units via insulin pump for dx of E10 Start Date: 02/24/15 Status: OrderedHumalog Kwik Pen 100 units/mL subcutaneous injection See Instructions, Subcutaneous Infusion, Use as directed for Diabetes mellitus type 1. (Max Dose=50 units/day), # 3 each, 11 Refills, Maintenance, 06/11/14 16:55:52, Use as directed for Diabetes mellitus type 1. (Max Dose=50 units/day) Start Date: 06/11/14 Stop Date: 06/06/15 Status: OrderedKetostix See Instructions, # 2 vials, Refills 11, Tot. Refills 11, Maintenance, use as directed for Type 1 Diabetes Mellitus, 08/12/14 13:56:14, Compound Start Date: 08/12/14 Stop Date: 08/07/15 Status: OrderedLantus Solostar Pen 100 units/mL subcutaneous solution See Instructions, 50 units Subcutaneous Injection twice a day, # 50 mL, 3 Refills, Maintenance, 06/27/19 13:50:00 EDT, Solution, [facility] #[id number], 152.5, cm, 05/29/19 11:15:00 EDT, Height Start Date: 06/27/19 Status: OrderedLevemir FlexTouch 100 units/mL subcutaneous solution See Instructions, 15 units subQ twice daily, # 3 units, 11 Refills, Maintenance, 06/11/14 15:29:26, 15 units subQ twice daily Start Date: 06/11/14 Status: Orderedlevothyroxine 0.05 mg oral tablet 1 tablet = 50 mcg, By Mouth, Daily, # 90 tablet, 0 Refills, Maintenance, 07/23/19 13:25:00 EDT, Tablet, [facility] #[id number], 152.5, cm, 07/09/19 12:58:00 EDT, Height Start Date: 07/23/19 Status: OrderedNexplanon 68 mg subcutaneous implant 1 each = 68 mg, Subcutaneous Infusion, Once, # 1 each, 0 Refills, Soft Stop, 10/31/16 16:43:40, [id number] Start Date: 10/31/16 Status: OrderedNovoLOG FlexPen 100 units/mL subcutaneous solution See Instructions, 2-8 units Subcutaneous Injection 3 times a day, # 30 mL, 3 Refills, Maintenance, 06/27/19 13:50:00 EDT, Solution, [facility] #[id number], 152.5, cm, 05/29/19 11:15:00 EDT, Height Start Date: 06/27/19 Status: OrderedPen [place], 32 G x 4 mm BD Ultra Fine III See instructions, # 200 each, Refills 11, Tot. Refills 11, Maintenance, use as directed for Type 1 Diabetes Mellitus; tests up to 7 times/d, 06/11/14 16:56:06, Compound Start Date: 06/11/14 Stop Date: 06/06/15 Status: Ordered Problem List Condition Effective Dates Status Health Status Informant Depression(Confirmed) Active Diabetes mellitus type 1(Confirmed) Active Fibroadenoma(Confirmed) 07/05/12 Active Hyperthyroidism(Confirmed) Active Iron deficiency anemia(Confirmed) Active Microalbuminuria(Confirmed) Active Hypertension in , Active preeclampsia, severe(Confirmed) Social History Social History Type Response Smoking Status Never smoker entered on: 01/08/14 Sex Female
--- OUTSIDE RECORDS SUMMARY | 2021-11-25 15:49 | XMS_ITS | Continuity of Care Document ---
:1995 Author Organization [facility] Address [address] [place] [address]- Care Team Providers Name Role Phone Tutu MCINTOSH, Kelvin Duffy Primary Care Physician En[place] [facility] [place] Date(s): 11/23/20 - 12/29/20 [facility] [address] [place] [id number] Attending Physician: Wanda Carter NP Admitting Physician: [...] Inactive (IM) (oldterm)9 01/06/03 Given Measles/Mumps/Rubella Virus Eybagni44 11/04/98 Given Measles/Mumps/Rubella Virus Sfpmetz43 07/10/94 Given Poliovirus Vaccine, Fljeknquzzd19 11/04/98 Given Poliovirus Vaccine, Cwfuwcwutly57 03/12/96 Given Poliovirus Vaccine, Gshnuaafrlo16 05/08/95 Given Poliovirus Vaccine, Dkqaebrtzfw63 07/10/94 Given Diphth/Pertussis, Whl Cell/Tet(oldterm)16 11/04/98 Given [...] Given 1Early/Late Reason: Early/Late Reason: Med Not Ixhplhywm7Anrqa/Late Reason: Accommodate D/L2Kaeqz Note: KQATXK1Kxiro Note: VIS ghcsw4Clvfo Note: VIS OEYKW9Lyive Note: VIS GIVEN---MENACTRA, SANOFI UVIHFBL5Mwfqu Note: SANOFI PASTEUR VIS GIVEN HADFQ1Yojkp Note: vis lzupv2Nvnwh Note: HX VARICELLA '9510Admin Note: UTL83Sashr Note: UZE65Crukd Note: IPV/OPV13 Admin Note: IPV/ZXZ21Rzzee Note: IPV/CLH04Pthfv Note: IPV/YVB99Bbsti Note: DPT17 Admin Note: BGY81Jynhc Note: KOP69Csrwt Note: SET61Qxfim Note: YUG40Jkfyv Note: TQD31Zryki Note: EPR38Tqtcc Note: HEP B Medications acetaminophen 500 mg oral tablet 2 tablet = 1,000 mg, By Mouth, Every 6 hours, PRN for fever, # 50 tablet, 0 Refills, Maintenance, 12/28/20 9:44:00 EST, Tablet, [facility] #[id number], Partial fill upon patient request if the prescription is for a schedule II opioid drug., 155,... Start Date: 12/28/20 Status: OrderedContour Next EZ Test Strips See Instructions, # 750 application, Refills 4, Tot. Refills 4, Maintenance, Test 6-8 times daily. 250.03, 648.03 using insulin pump, 09/16/14 9:46:21, Compound Start Date: 09/16/14 Status: OrderedHandheld Electric Breast Pump See Instructions, # 1 each, Maintenance, Per linemarker instructions, 12/06/14 6:03:50, Compound Start Date: 12/06/14 [...] 12/28/20 9:44:00 EST, Route to Pharmacy Electronically, [facility] #[id number], Partial fill upon patient request if the [...] 7 Refills, Maintenance, 12/08/20 17:50:00 EDT, Tablet, [facility] #[id number], 156, cm, 12/06/20 11:33:00 EDT, Height, 56.2, kg, 11/25/20 12:46:00 EDT, D... Start Date: 12/08/20 Status: OrderedMiraLax oral powder for reconstitution = 17 Gm, By Mouth, Daily, dissolve in water before taking, # 255 Gm, 0 Refills, Maintenance, 12/28/20 9:45:00 EST, REC Powder, [facility] #[id number], Partial fill upon patient request if the prescription is for a schedule II opioid drug., 17 Gm... Start Date: 12/28/20 Status: OrderedNIFEdipine 30 mg oral tablet, extended release 30 mg, 1, tablet, By Mouth, Daily, # 30 tablet, Refills 0, Tot. Refills 0, Maintenance, 12/29/20 8:31:00 EST, Route to Pharmacy Electronically, [facility] #[id number], Partial fill upon patient request if the prescription is for a schedule II opi... Start Date: 12/29/20 Status: OrderedoxyCODONE 5 mg oral tablet 5 mg, 1, tablet, By Mouth, Every 3 hours, PRN, (7-10), # 12 tablet, Refills 0, Tot. Refills 0, Maintenance, Pain , Severe, 12/28/20 9:44:00 EST, Route to Pharmacy Electronically, [facility] #[id number], Partial fill upon patient request if the pr... Start Date: 12/28/20 Status: OrderedPen [place], 32 G x 4 mm BD Ultra [...] Maintenance, 219:44:00 EST, [facility], [id number], Partial fill upon patient request if the [...]
--- OUTSIDE RECORDS SUMMARY | 2021-11-25 15:49 | XMS_ITS | Continuity of Care Document ---
:1995 Author Organization [facility] Address [address] [place] [phone]- Care Team Providers Name Role Phone Tutu MCINTOSH, Kelvin Duffy Primary Care Physician Encounter [facility] [place] Date(s): 09/16/20 - 10/16/20 [facility] [address] [place] [address] Attending Physician: Jacklyn Franco Admitting Physician: AdmJacklyn garland Referring Physician: Admtr, Jacklyn Allergies, Adverse Reactions, Alerts Substance Reaction Severity [...] Measles/Mumps/Rubella Virus Vaccine9 11/04/98 Given Measles/Mumps/Rubella Virus Lngkonn25 07/10/94 Given Poliovirus Vaccine, Gmjjurehzsc30 11/04/98 Given Poliovirus Vaccine, Xndroyztids12 03/12/96 Given Poliovirus Vaccine, Bzhwmfnoafz75 05/08/95 Given Poliovirus Vaccine, Xblghelngkx35 07/10/94 Given Diphth/Pertussis, Whl Cell/Tet(oldterm)15 11/04/98 Given [...] (old term) 93 Given 1Early/Late Reason: Accommodate D/E0Lwgbc Note: MPPITL2Cmgbe Note: VIS given4 Admin Note: VIS FLSKG9Ndunb Note: VIS GIVEN---MENACTRA, SANOFI JLTFOMK6Cncfj Note: SANOFI PASTEUR VIS GIVEN YXOSA7Zxtgp Note: vis olsme5Gcgpi Note: HX VARICELLA '959Admin Note: BQE33Nqbdl Note: CDZ54Gbuqi Note: IPV/IBM31Mtsty Note: IPV/LSS07Qdmov Note: IPV/ZKI24Raeag Note: IPV/CTW52Eghgd Note: ILK15Xaxoa Note: OGV66Whxcx Note: HDM86Khpqd Note: MUO51Uejtv Note: SMI66Qmrfc Note: XUY73Rbgyr Note: QIJ76Dqusm Note: HEP B Medications aspirin 81 mg oral delayed release tablet 162 mg, 2, tablet, By Mouth, Daily, To start at 12 weeks gestational age, July 13, 2020, # 90 tablet, Refills 2, Tot. Refills 2, Maintenance, 08/09/20 9:35:00 EDT, Route to Pharmacy Electronically, [facility] #[id number], Partial fill upon patie... Start Date: 08/09/20 Status: OrderedContour Next EZ Test Strips See Instructions, # 750 application, Refills 4, Tot. Refills 4, Maintenance, Test 6-8 times daily. 250.03, 648.03 using insulin pump, 09/16/14 9:46:21, Compound Start Date: 09/16/14 Status: OrderedHandheld Electric Breast Pump See Instructions, # 1 each, Maintenance, Per surplus property disposal agent instructions, 12/06/14 6:03:50, Compound Start Date: 12/06/14 Status: OrderedHumalog Kwik Pen 100 units/mL subcutaneous injection See Instructions, Max daily dose 30 units. E10.65, # 30 mL, 5 Refills, Maintenance, 07/12/20 13:52:00 EDT, Solution, [facility] #[id number], Partial fill upon patient request if the [...] 5 Refills, Maintenance, 08/19/20 12:01:00 EDT, Tablet, [facility] #[id number], 152.5, cm, 08/09/20 9:25:00 EDT, Height, 53, kg, 06/25/20 16:25:00 EDT, Start Date: 08/19/20 Status: Orderedmetoclopramide 10 mg oral tablet 1 tablet = 10 mg, By Mouth, 3 times a day before meals and bedtime, PRN Nausea & Vomiting, 30 minutes before meals and at bedtime, # 50 tablet, 0 Refills, Maintenance, 07/30/20 15:26:00 EDT, Tablet, [facility] #[id number], Partial fill upon patie... Start Date: 07/30/20 Stop Date: 08/13/20 Status: Orderedondansetron 4 mg oral tablet, disintegrating 1 tablet = 4 mg, By Mouth, Every 8 hours, PRN as needed for nausea/vomiting, # 25 tablet, 0 Refills,Maintenance, 09/03/20 14:41:00 EDT, DIS Tablet, [facility], Partial fill upon patient request if the prescription is for a schedule II o... Start Date: 09/03/20 Status: OrderedPen [place], 32 G x 4 mm BD Ultra [...] 0 Refills, Maintenance, 09/03/20 14:41:00 EDT, Tablet, [facility], Partial fill upon patient request if the prescription is for a schedule II opioid drug., 150, cm, 0... Start Date: 09/03/20 Status: OrderedVitamin B6 50 mg oral tablet 25 mg, 0.5, tablet, By Mouth, 3 times a day, # 100 tablet, Refills 0, Tot. Refills 0, Maintenance, 09/03/20 11:11:00 EDT, Route to Pharmacy Electronically, [facility], Partial fill upon patient request [...]
--- OUTSIDE RECORDS SUMMARY | 2021-11-25 15:49 | XMS_ITS | Continuity of Care Document ---
:1995 Author Organization [facility] Address [address] [place] [address]- Care Team Providers Name Role Phone Tutu MCINTOSH, Kelvin Duffy Primary Care Physician Encounter [facility] [place] Date(s): 03/03/21 - 04/02/21 [facility] [address] [place] [id number] Attending Physician: AdmJacklyn garland Admitting Physician: AdmtrJacklyn Referring Physician: Admtr, Ar8 Allergies, Adverse Reactions, Alerts Substance Reaction Severity [...] Inactive (IM) (oldterm)9 01/06/03 Given Measles/Mumps/Rubella Virus Tiifrvu00 11/04/98 Given Measles/Mumps/Rubella Virus Ctyuwnc91 07/10/94 Given Poliovirus Vaccine, Fmdzqzdxrue49 11/04/98 Given Poliovirus Vaccine, Jndvaszlxul18 03/12/96 Given Poliovirus Vaccine, Lmwrljrccvn81 05/08/95 Given Poliovirus Vaccine, Erjcbdjbwkq58 07/10/94 Given Diphth/Pertussis, Whl Cell/Tet(oldterm)16 11/04/98 Given [...] Refuses 1Early/Late Reason: Early/Late Reason: Med Not Aevnbfkxs6Rcrvs/Late Reason: Accommodate D/K7Diuzw Note: EWVSGB1Lypcr Note: VIS hsiwk5Igmmm Note: VIS QBEMM4Zbhbz Note: VIS GIVEN---MENACTRA, SANOFI MHWBDVU7Bwlxi Note: SANOFI PASTEUR VIS GIVEN TRRXN6Fuklx Note: vis gbtre3Pifsj Note: HX VARICELLA '9510Admin Note: FTB01Ogthj Note: FJQ21Umdjw Note: IPV/OPV13 Admin Note: IPV/ABQ68Xcdcq Note: IPV/AKP90Jyvey Note: IPV/RGA50Cgdgt Note: DPT17 Admin Note: SWY41Jahzf Note: TZQ30Evdsv Note: MMO02Wwkec Note: YGH18Vnefp Note: TKB54Btpko Note: RNR04Ghhft Note: HEP B Medications acetaminophen 500 mg oral tablet 2 tablet = 1,000 mg, By Mouth, Every 6 hours, PRN for fever, # 50 tablet, 0 Refills, Maintenance, 12/28/20 9:44:00 EST, Tablet, [facility] #[id number], Partial fill upon patient request if the prescription is for a schedule II opioid drug., 155,... Start Date: 12/28/20 Status: OrderedContour Next EZ Test Strips See Instructions, # 750 application, Refills 4, Tot. Refills 4, Maintenance, Test 6-8 times daily. 250.03, 648.03 using insulin pump, 09/16/14 9:46:21, Compound Start Date: 09/16/14 Status: OrderedHandheld Electric Breast Pump See Instructions, # 1 each, Maintenance, Per carbide grinder instructions, 12/06/14 6:03:50, Compound Start Date: 12/06/14 Status: OrderedHumaLOG 100 units/mL injectable solution See Instructions, via pump , for type 1 DM, max daily dose 50 units., # 10 mL, 3 Refills, Maintenance, 01/11/21 11:25:00 EST, [facility] #[id number], Partial fill upon patient request if the [...] 12/28/20 9:44:00 EST, Route to Pharmacy Electronically, [facility] #[id number], Partial fill upon patient request if the [...] 7 Refills, Maintenance, 12/08/20 17:50:00 EDT, Tablet, [facility] #[id number], 156, cm, 12/06/20 11:33:00 EDT, Height, 56.2, kg, 11/25/20 12:46:00 EDT, D... Start Date: 12/08/20 Status: OrderedMiraLax oral powder for reconstitution = 17 Gm, By Mouth, Daily, dissolve in water before taking, # 255 Gm, 0 Refills, Maintenance, 12/28/20 9:45:00 EST, REC Powder, [facility] #[id number], Partial fill upon patient request if the prescription is for a schedule II opioid drug., 17 Gm... Start Date: 12/28/20 Status: OrderedNIFEdipine 30 mg oral tablet, extended release 30 mg, 1, tablet, By Mouth, Daily, # 30 tablet, Refills 0, Tot. Refills 0, Maintenance, 12/29/20 8:31:00 EST, Route to Pharmacy Electronically, [facility] #[id number], Partial fill upon patient request if the prescription is for a schedule II opi... Start Date: 12/29/20 Status: OrderedoxyCODONE 5 mg oral tablet 5 mg, 1, tablet, By Mouth, Every 3 hours, PRN, (7-10), # 12 tablet, Refills 0, Tot. Refills 0, Maintenance, Pain , Severe, 12/28/20 9:44:00 EST, Route to Pharmacy Electronically, [facility] #[id number], Partial fill upon patient request if the pr... Start Date: 12/28/20 Status: OrderedPen [place], 32 G x 4 mm BD Ultra [...] Maintenance, 219:44:00 EST, Route to Pharmacy Electronically, [facility] #[id number], Partial fill upon patient request if the [...]
--- OUTSIDE RECORDS SUMMARY | 2021-11-25 15:50 | XMS_ITS | Continuity of Care Document ---
:1995 Author Organization [facility] Address [address] [place] [address]- Care Team Providers Name Role Phone Kelvin Cam MD Primary Care Physician Encounter [facility] [place] Date(s): 08/21/19 - 10/09/[address] [address]- [facility] Attending Physician: Claudia Diaz MD Admitting Physician: Claudia Diaz MD Referring Physician: Kelvin Cam MD Allergies, [...] Measles/Mumps/Rubella Virus Vaccine9 11/04/98 Given Measles/Mumps/Rubella Virus Jddcqea70 07/10/94 Given Poliovirus Vaccine, Daxucpthfmn72 11/04/98 Given Poliovirus Vaccine, Nxomapghzzj33 03/12/96 Given Poliovirus Vaccine, Dqgtfrmuwpc14 05/08/95 Given Poliovirus Vaccine, Gnltcvivncy93 07/10/94 Given Diphth/Pertussis, Whl Cell/Tet(oldterm)15 11/04/98 Given [...] (old term) 93 Given 1Early/Late Reason: Accommodate D/T6Jfemd Note: HGQFPJ8Jyjmv Note: VIS given4 Admin Note: VIS QYMGH1Utywv Note: VIS GIVEN---MENACTRA, SANOFI NNLAZGK3Rvgep Note: SANOFI PASTEUR VIS GIVEN GPRLE6Tpeqg Note: vis avxwx7Bqrws Note: HX VARICELLA '959Admin Note: UFG61Klogg Note: USC50Hpxop Note: IPV/VQB32Jkekn Note: IPV/DSI18Jaott Note: IPV/JHL79Gzify Note: IPV/BTV90Vwzag Note: YSH73Gelgb Note: POF75Lymvw Note: OBI46Icchi Note: XKG10Ysqox Note: QIF13Pfovy Note: IKR90Kvgtx Note: WHW07Gcnnq Note: HEP B Medications Admelog SoloStar 100 units/mL injectable solution See Instructions, Inject 2-15 units tid w/ meals via ISS, Max dose daily dose 45 units, E10.9, # 30 mL, 6 Refills, Maintenance, 06/27/19 14:42:00 EDT, [facility] #[id number], 152.5, cm, 05/29/19 11:15:00 EDT, Height Start [...] See Instructions, # 1 each, Maintenance, Per ore miner blasting instructions, 12/06/14 6:03:50, Compound Start Date: 12/06/14 [...] 3 Refills, Maintenance, 06/27/19 13:50:00 EDT, Solution, [facility] #[id number], 152.5, cm, 05/29/19 11:15:00 EDT, Height Start Date: 06/27/19 Status: OrderedLevemir FlexTouch 100 units/mL subcutaneous solution See Instructions, 15 units subQ twice daily, # 3 units, 11 Refills, Maintenance, 06/11/14 15:29:26, 15 units subQ twice daily Start Date: 06/11/14 Status: Orderedlevothyroxine 0.05 mg oral tablet 1 tablet = 50 mcg, By Mouth, Daily, # 90 tablet, 0 Refills, Maintenance, 07/23/19 13:25:00 EDT, Tablet, [facility] #[id number], 152.5, cm, 07/09/19 12:58:00 EDT, Height Start Date: 07/23/19 Status: OrderedNexplanon 68 mg subcutaneous implant 1 each = 68 mg, Subcutaneous Infusion, Once, # 1 each, 0 Refills, Soft Stop, 10/31/16 16:43:40, [id number] Start Date: 10/31/16 Status: OrderedNovoLOG FlexPen 100 units/mL subcutaneous solution See Instructions, 2-8 units Subcutaneous Injection 3 times a day, # 30 mL, 3 Refills, Maintenance, 06/27/19 13:50:00 EDT, Solution, [facility] #[id number], 152.5, cm, 05/29/19 11:15:00 EDT, Height Start Date: 06/27/19 Status: OrderedPen [place], 32 G x 4 mm BD Ultra [...]
--- OUTSIDE RECORDS SUMMARY | 2021-11-25 15:50 | XMS_ITS | Continuity of Care Document ---
:1995 Author Organization [facility] Address [address] [place] [address]- Care Team Providers Name Role Phone Tutu MCINTOSH, Kelvin Duffy Primary Care Physician Encounter [facility] Date(s): 09/06/20 - 11/04/[address] [address]- Attending Physician: Not on Staff, Attending MD [...] Measles/Mumps/Rubella Virus Vaccine9 11/04/98 Given Measles/Mumps/Rubella Virus Wqmtjru34 07/10/94 Given Poliovirus Vaccine, Mgejbgisljg91 11/04/98 Given Poliovirus Vaccine, Pdgwrfzhewl54 03/12/96 Given Poliovirus Vaccine, Zcsqqvvfmns53 05/08/95 Given Poliovirus Vaccine, Uohmioxqcrr26 07/10/94 Given Diphth/Pertussis, Whl Cell/Tet(oldterm)15 11/04/98 Given [...] (old term) 93 Given 1Early/Late Reason: Accommodate D/E8Lhdjo Note: JGCISR7Vpexe Note: VIS given4 Admin Note: VIS XOYHD6Ytdsw Note: VIS GIVEN---MENACTRA, SANOFI HAYRWEZ5Wbgzb Note: SANOFI PASTEUR VIS GIVEN AWNWE4Nfufs Note: vis tsqzl3Kdabs Note: HX VARICELLA '959Admin Note: EDM88Skoei Note: TIX14Bgosz Note: IPV/JZD04Cqocq Note: IPV/HPD39Xanry Note: IPV/USH66Nlusa Note: IPV/RZP28Lspjx Note: FVZ01Cdmxq Note: FZS15Thmde Note: VSC20Itwnd Note: UXE07Zvghj Note: RED61Jhxml Note: ZMB37Umgia Note: FVB23Qzyhx Note: HEP B Medications aspirin 81 mg oral delayed release tablet 162 mg, 2, tablet, By Mouth, Daily, To start at 12 weeks gestational age, July 13, 2020, # 90 tablet, Refills 2, Tot. Refills 2, Maintenance, 08/09/20 9:35:00 EDT, Route to Pharmacy Electronically, [facility] #[id number], Partial fill upon patie... Start Date: 08/09/20 [...] tablet, 3 Refills, Maintenance, 11/01/20 16:56:00 EDT, [facility] #[id number], Partial fill upon patient request if the prescription is for a schedule II opioid drug., 150, cm, 11/01/20 9:32:00 EDT... Start Date: 11/01/20 Status: OrderedHandheld Electric Breast Pump See Instructions, # 1 each, Maintenance, Per steak tenderizer machine instructions, 12/06/14 6:03:50, Compound Start Date: 12/06/14 Status: OrderedHumalog Kwik Pen 100 units/mL subcutaneous injection See Instructions, Max daily dose 30 units. E10.65, # 30 mL, 5 Refills, Maintenance, 07/12/20 13:52:00 EDT, Solution, [facility] #[id number], Partial fill upon patient request if the [...] 5 Refills, Maintenance, 08/19/20 12:01:00 EDT, Tablet, [facility] #[id number], 152.5, cm, 08/09/20 9:25:00 EDT, Height, 53, kg, 06/25/20 16:25:00 EDT, Start Date: 08/19/20 Status: Orderedmetoclopramide 10 mg oral tablet 1 tablet = 10 mg, By Mouth, 3 times a day before meals and bedtime, PRN Nausea & Vomiting, 30 minutes before meals and at bedtime, # 50 tablet, 0 Refills, Maintenance, 07/30/20 15:26:00 EDT, Tablet, [facility] #[id number], Partial fill upon patie... Start Date: 07/30/20 Stop Date: 08/13/20 Status: OrderedPen [place], 32 G x 4 mm BD Ultra [...] 09/03/20 11:11:00 EDT, Route to Pharmacy Electronically, [facility], Partial fill upon patient request [...]
--- OUTSIDE RECORDS SUMMARY | 2021-11-25 15:50 | XMS_ITS | Continuity of Care Document ---
:1995 Author Organization [facility] ic Address [address] [place] [address]- Care Team Providers Name Role Phone Tutu MCINTOSH, Kelvin Duffy Primary Care Physician Encounter [facility] Date(s): 10/05/20 - 12/30/[address] [address]- Attending Physician: Not on Staff, Attending MD [...] Inactive (IM) (oldterm)9 01/06/03 Given Measles/Mumps/Rubella Virus Yxsrwtf50 11/04/98 Given Measles/Mumps/Rubella Virus Covlbhc83 07/10/94 Given Poliovirus Vaccine, Nosotrepznc61 11/04/98 Given Poliovirus Vaccine, Tmslikoxorr11 03/12/96 Given Poliovirus Vaccine, Oorqgwnmyvb55 05/08/95 Given Poliovirus Vaccine, Lqzjzgkwhjj26 07/10/94 Given Diphth/Pertussis, Whl Cell/Tet(oldterm)16 11/04/98 Given [...] Given 1Early/Late Reason: Early/Late Reason: Med Not Waqromgfg9Rbmzb/Late Reason: Accommodate D/N0Tjhwr Note: NLAFQF2Pqcnc Note: VIS hllag4Ciscq Note: VIS LFYJC0Atmwt Note: VIS GIVEN---MENACTRA, SANOFI SVCAAJA5Gqzit Note: SANOFI PASTEUR VIS GIVEN ENQXV7Incmv Note: vis dpkte3Wjcix Note: HX VARICELLA '9510Admin Note: JMI05Pujpm Note: MVP59Ryhvi Note: IPV/OPV13 Admin Note: IPV/AYZ38Wafhp Note: IPV/ERS36Atyxx Note: IPV/MMF00Nvhnw Note: DPT17 Admin Note: WMD62Bnqxm Note: FAK02Tuazc Note: DNN53Tzhqr Note: CPX11Qwdre Note: BPA71Yorau Note: KGK12Zwuey Note: HEP B Medications acetaminophen 500 mg oral tablet 2 tablet = 1,000 mg, By Mouth, Every 6 hours, PRN for fever, # 50 tablet, 0 Refills, Maintenance, 12/28/20 9:44:00 EST, Tablet, [facility] #[id number], Partial fill upon patient request if the prescription is for a schedule II opioid drug., 155,... Start Date: 12/28/20 Status: OrderedContour Next EZ Test Strips See Instructions, # 750 application, Refills 4, Tot. Refills 4, Maintenance, Test 6-8 times daily. 250.03, 648.03 using insulin pump, 09/16/14 9:46:21, Compound Start Date: 09/16/14 Status: OrderedHandheld Electric Breast Pump See Instructions, # 1 each, Maintenance, Per manufacturing mechanic instructions, 12/06/14 6:03:50, Compound Start Date: 12/06/14 [...] 12/28/20 9:44:00 EST, Route to Pharmacy Electronically, [facility] #[id number], Partial fill upon patient request if the prescription is for a schedu... Start Date: 12/28/20 Status: OrderedInsulin Glargine Inj = 6 units, Subcutaneous Injection, Daily at bedtime, 0 [...] 7 Refills, Maintenance, 12/08/20 17:50:00 EDT, Tablet, [facility] #[id number], 156, cm, 12/06/20 11:33:00 EDT, Height, 56.2, kg, 11/25/20 12:46:00 EDT, D... Start Date: 12/08/20 Status: OrderedMiraLax oral powder for reconstitution = 17 Gm, By Mouth, Daily, dissolve in water before taking, # 255 Gm, 0 Refills, Maintenance, 12/28/20 9:45:00 EST, REC Powder, [facility] #[id number], Partial fill upon patient request if the prescription is for a schedule II opioid drug., 17 Gm... Start Date: 12/28/20 Status: OrderedNIFEdipine 30 mg oral tablet, extended release 30 mg, 1, tablet, By Mouth, Daily, # 30 tablet, Refills 0, Tot. Refills 0, Maintenance, 12/29/20 8:31:00 EST, Route to Pharmacy Electronically, [facility] #[id number], Partial fill upon patient request if the prescription is for a schedule II opi... Start Date: 12/29/20 Status: OrderedoxyCODONE 5 mg oral tablet 5 mg, 1, tablet, By Mouth, Every 3 hours, PRN, (7-10), # 12 tablet, Refills 0, Tot. Refills 0, Maintenance, Pain , Severe, 12/28/20 9:44:00 EST, Route to Pharmacy Electronically, [facility] #[id number], Partial fill upon patient request if the pr... Start Date: 12/28/20 Status: OrderedPen [place], 32 G x 4 mm BD Ultra [...] Maintenance, 219:44:00 EST, Route to Pharmacy Electronically, [facility] #[id number], Partial fill upon patient request if the [...]
--- OUTSIDE RECORDS SUMMARY | 2021-11-25 15:50 | XMS_ITS | Continuity of Care Document ---
:1995 Author Organization [facility] Address [address] [place] [address]- Care Team Providers Name Role Phone Tutu MCINTOSH, Kelvin Duffy Primary Care Physician Encounter [facility] Date(s): 11/26/20 - 12/26/20 [facility] [address] [place] [id number] Allergies, Adverse Reactions, Alerts Substance Reaction Severity [...] Inactive (IM) (oldterm)9 01/06/03 Given Measles/Mumps/Rubella Virus Gxltmsl85 11/04/98 Given Measles/Mumps/Rubella Virus Crztdzy80 07/10/94 Given Poliovirus Vaccine, Treyyhelmna35 11/04/98 Given Poliovirus Vaccine, Ljkjknismah62 03/12/96 Given Poliovirus Vaccine, Gylgczbpywz51 05/08/95 Given Poliovirus Vaccine, Qwsaemytgmh14 07/10/94 Given Diphth/Pertussis, Whl Cell/Tet(oldterm)16 11/04/98 Given [...] Given 1Early/Late Reason: Early/Late Reason: Med Not Jdugewxxx2Arfdv/Late Reason: Accommodate D/K9Brave Note: PZFTOZ1Byrls Note: VIS kbtiy4Zzzru Note: VIS XWZXA4Ykfzd Note: VIS GIVEN---MENACTRA, SANOFI SCHTDSU8Bwjzr Note: SANOFI PASTEUR VIS GIVEN BUEPU5Smkds Note: vis qrsnr6Wqwrb Note: HX VARICELLA '9510Admin Note: ZKZ06Foxmv Note: BIH03Dldlg Note: IPV/OPV13 Admin Note: IPV/VUM66Bcjee Note: IPV/ZOB47Gacqo Note: IPV/DJT67Nbzwt Note: DPT17 Admin Note: DZI05Hftzs Note: MHE43Mehuc Note: VLC80Ctzpt Note: CQJ37Obddv Note: HOG51Yucld Note: KNU75Yiayd Note: HEP B Medications aspirin 81 mg oral delayed release tablet 162 mg, 2, tablet, By Mouth, Daily, To start at 12 weeks gestational age, July 13, 2020, # 90 tablet, Refills 2, Tot. Refills 2, Maintenance, 08/09/20 9:35:00 EDT, Route to Pharmacy Electronically, [facility] #[id number], Partial fill upon patie... Start Date: 08/09/20 [...] tablet, 3 Refills, Maintenance, 11/01/20 16:56:00 EDT, [facility] #[id number], Partial fill upon patient request if the prescription is for a schedule II opioid drug., 150, cm, 11/01/20 9:32:00 EDT... Start Date: 11/01/20 Status: OrderedHandheld Electric Breast Pump See Instructions, # 1 each, Maintenance, Per raimann machine operator instructions, 12/06/14 6:03:50, Compound Start Date: [...] for lunch and... Start Date: 11/26/20 Status: OrderedInsulin Glargine Inj 27, Subcutaneous Injection, [...] 7 Refills, Maintenance, 12/08/20 17:50:00 EDT, Tablet, [facility] #[id number], 156, cm, 12/06/20 11:33:00 EDT, Height, 56.2, kg, 11/25/20 12:46:00 EDT, D... Start Date: 12/08/20 Status: Orderedmetoclopramide 10 mg oral tablet 1 tablet = 10 mg, By Mouth, 3 times a day before meals and bedtime, PRN Nausea & Vomiting, 30 minutes before meals and at bedtime, # 50 tablet, 0 Refills, Maintenance, 12/14/20 12:03:00 EDT, Tablet, [facility] #[id number], Partial fill upon patie... Start Date: 12/14/20 Stop Date: 12/28/20 Status: OrderedPen [place], 32 G x 4 mm BD [...] 09/03/20 11:11:00 EDT, Route to Pharmacy Electronically, [facility], Partial fill upon patient [...]
--- OUTSIDE RECORDS SUMMARY | 2021-11-25 15:50 | XMS_ITS | Continuity of Care Document ---
:1995 Author Organization [facility] Address [address] [place] [address]- Care Team Providers Name Role Phone Tutu MCINTOSH, Kelvin Duffy Primary Care Physician Encounter [facility] Date(s): 01/19/21 - 02/18/21 [facility] [address] [place] [id number] Attending Physician: Not on Staff, Attending MD Referring Physician: Adele MCINTOSH, Tim Allergies, Adverse Reactions, Alerts Substance Reaction Severity [...] Inactive (IM) (oldterm)9 01/06/03 Given Measles/Mumps/Rubella Virus Hfbbsew35 11/04/98 Given Measles/Mumps/Rubella Virus Zmmwkrr90 07/10/94 Given Poliovirus Vaccine, Auacpblordb06 11/04/98 Given Poliovirus Vaccine, Gonjruqplis89 03/12/96 Given Poliovirus Vaccine, Trqoxyfcgcy27 05/08/95 Given Poliovirus Vaccine, Nkqqnhblkhi00 07/10/94 Given Diphth/Pertussis, Whl Cell/Tet(oldterm)16 11/04/98 Given [...] Refuses 1Early/Late Reason: Early/Late Reason: Med Not Vwccfvlhl6Tlggk/Late Reason: Accommodate D/H4Eulef Note: OSWHOL3Fuwge Note: VIS rmsft2Avrvz Note: VIS FDHHZ4Evzry Note: VIS GIVEN---MENACTRA, SANOFI XOLOZVR6Fggqj Note: SANOFI PASTEUR VIS GIVEN DKPMM5Jknmt Note: vis akbdo5Ewcvd Note: HX VARICELLA '9510Admin Note: IXN53Tevvb Note: JIM39Tnjwe Note: IPV/OPV13 Admin Note: IPV/BBG61Ywqvb Note: IPV/GLI51Zlbbk Note: IPV/SKV10Wcyjj Note: DPT17 Admin Note: FCT08Tkaur Note: XGW53Mxptt Note: AJR20Jqcni Note: NDR14Jqsex Note: DSY25Comxn Note: NHX20Paycs Note: HEP B Medications acetaminophen 500 mg oral tablet 2 tablet = 1,000 mg, By Mouth, Every 6 hours, PRN for fever, # 50 tablet, 0 Refills, Maintenance, 12/28/20 9:44:00 EST, Tablet, [facility] #[id number], Partial fill upon patient request if the prescription is for a schedule II opioid drug., 155,... Start Date: 12/28/20 Status: OrderedContour Next EZ Test Strips See Instructions, # 750 application, Refills 4, Tot. Refills 4, Maintenance, Test 6-8 times daily. 250.03, 648.03 using insulin pump, 09/16/14 9:46:21, Compound Start Date: 09/16/14 Status: OrderedHandheld Electric Breast Pump See Instructions, # 1 each, Maintenance, Per antisqueak applier instructions, 12/06/14 6:03:50, Compound Start Date: 12/06/14 Status: OrderedHumaLOG 100 units/mL injectable solution See Instructions, via pump , for type 1 DM, max daily dose 50 units., # 10 mL, 3 Refills, Maintenance, 01/11/21 11:25:00 EST, [facility] #[id number], Partial fill upon patient request if the [...] 12/28/20 9:44:00 EST, Route to Pharmacy Electronically, [facility] #[id number], Partial fill upon patient request if the [...] 7 Refills, Maintenance, 12/08/20 17:50:00 EDT, Tablet, [facility] #[id number], 156, cm, 12/06/20 11:33:00 EDT, Height, 56.2, kg, 11/25/20 12:46:00 EDT, D... Start Date: 12/08/20 Status: OrderedMiraLax oral powder for reconstitution = 17 Gm, By Mouth, Daily, dissolve in water before taking, # 255 Gm, 0 Refills, Maintenance, 12/28/20 9:45:00 EST, REC Powder, [facility] #[id number], Partial fill upon patient request if the prescription is for a schedule II opioid drug., 17 Gm... Start Date: 12/28/20 Status: OrderedNIFEdipine 30 mg oral tablet, extended release 30 mg, 1, tablet, By Mouth, Daily, # 30 tablet, Refills 0, Tot. Refills 0, Maintenance, 12/29/20 8:31:00 EST, Route to Pharmacy Electronically, [facility] #[id number], Partial fill upon patient request if the prescription is for a schedule II opi... Start Date: 12/29/20 Status: OrderedoxyCODONE 5 mg oral tablet 5 mg, 1, tablet, By Mouth, Every 3 hours, PRN, (7-10), # 12 tablet, Refills 0, Tot. Refills 0, Maintenance, Pain , Severe, 12/28/20 9:44:00 EST, Route to Pharmacy Electronically, [facility] #[id number], Partial fill upon patient request if the pr... Start Date: 12/28/20 Status: OrderedPen [place], 32 G x 4 mm BD Ultra [...] Maintenance, 219:44:00 EST, Route to Pharmacy Electronically, [facility] #[id number], Partial fill upon patient request if the [...]
--- OUTSIDE RECORDS SUMMARY | 2021-11-25 15:50 | XMS_ITS | Continuity of Care Document ---
:1995 Author Organization [facility] Address [address] [place] [address]- Care Team Providers Name Role Phone Tutu MCINTOSH, Kelvin Duffy Primary Care Physician Encounter [facility] Date(s): 12/09/20 - 01/08/[address] [address]- Attending Physician: Jacklyn Franco Admitting Physician: AdmJacklyn garland Referring Physician: AdmtrJacklyn Allergies, Adverse Reactions, Alerts Substance Reaction Severity [...] (oldterm)8 04/30/07 Given Influenza Inactive (IM) (oldterm)9 11/18/03 Given Measles/Mumps/Rubella Virus Ssipery30 11/04/98 Given Measles/Mumps/Rubella Virus Yfgjurc85 07/10/94 Given Poliovirus Vaccine, Tacfvycpcon36 11/04/98 Given Poliovirus Vaccine, Oezrnkgofkm51 03/12/96 Given Poliovirus Vaccine, Ctsxnoshxrs74 05/08/95 Given Poliovirus Vaccine, Sskawdxfdad59 07/10/94 Given Diphth/Pertussis, Whl Cell/Tet(oldterm)16 11/04/98 Given [...] Given 1Early/Late Reason: Early/Late Reason: Med Not Snxdmqczo5Rvyjw/Late Reason: Accommodate D/D1Ynkjz Note: RDQSNY6Nnsgr Note: VIS yhtgm5Xowzf Note: VIS VPGTD1Owkqr Note: VIS GIVEN---MENACTRA, SANOFI OHCXWKL8Eewud Note: SANOFI PASTEUR VIS GIVEN NJIUY3Mqxlk Note: vis nvpan7Kclis Note: HX VARICELLA '9510Admin Note: RXU32Scsja Note: IXM88Ptmia Note: IPV/OPV13 Admin Note: IPV/IVK10Vxxkd Note: IPV/FJW23Gkskr Note: IPV/ADZ03Xfeqc Note: DPT17 Admin Note: MPH96Sjads Note: SQK77Gozyj Note: MGO93Miitm Note: SCQ79Znxrs Note: OKV37Fczww Note: CHZ15Idahm Note: HEP B Medications acetaminophen 500 mg oral tablet 2 tablet = 1,000 mg, By Mouth, Every 6 hours, PRN for fever, # 50 tablet, 0 Refills, Maintenance, 12/28/20 9:44:00 EST, Tablet, [facility] #[id number], Partial fill upon patient request if the prescription is for a schedule II opioid drug., 155,... Start Date: 12/28/20 Status: OrderedContour Next EZ Test Strips See Instructions, # 750 application, Refills 4, Tot. Refills 4, Maintenance, Test 6-8 times daily. 250.03, 648.03 using insulin pump, 09/16/14 9:46:21, Compound Start Date: 09/16/14 Status: OrderedHandheld Electric Breast Pump See Instructions, # 1 each, Maintenance, Per expander machine operator instructions, 12/06/14 6:03:50, Compound Start [...] 12/28/20 9:44:00 EST, Route to Pharmacy Electronically, [facility] #[id number], Partial fill upon patient request if the [...] 7 Refills, Maintenance, 12/08/20 17:50:00 EDT, Tablet, [facility] #[id number], 156, cm, 12/06/20 11:33:00 EDT, Height, 56.2, kg, 11/25/20 12:46:00 EDT, D... Start Date: 12/08/20 Status: OrderedMiraLax oral powder for reconstitution = 17 Gm, By Mouth, Daily, dissolve in water before taking, # 255 Gm, 0 Refills, Maintenance, 12/28/20 9:45:00 EST, REC Powder, [facility] #[id number], Partial fill upon patient request if the prescription is for a schedule II opioid drug., 17 Gm... Start Date: 12/28/20 Status: OrderedNIFEdipine 30 mg oral tablet, extended release 30 mg, 1, tablet, By Mouth, Daily, # 30 tablet, Refills 0, Tot. Refills 0, Maintenance, 12/29/20 8:31:00 EST, Route to Pharmacy Electronically, [facility] #[id number], Partial fill upon patient request if the prescription is for a schedule II opi... Start Date: 12/29/20 Status: OrderedoxyCODONE 5 mg oral tablet 5 mg, 1, tablet, By Mouth, Every 3 hours, PRN, (7-10), # 12 tablet, Refills 0, Tot. Refills 0, Maintenance, Pain , Severe, 12/28/20 9:44:00 EST, Route to Pharmacy Electronically, [facility] #[id number], Partial fill upon patient request if the pr... Start Date: 12/28/20 Status: OrderedPen [place], 32 G x 4 mm BD Ultra [...] Maintenance, 219:44:00 EST, [id number], Partial fill upon patient request if the [...]
--- OUTSIDE RECORDS SUMMARY | 2021-11-25 15:50 | XMS_ITS | Continuity of Care Document ---
:1995 Author Organization [facility] ic Address [address] [place] [address]- Care Team Providers Name Role Phone Tutu MCINTOSH, Kelvin Duffy Primary Care Physician Encounter [facility] Date(s): 07/12/20 - 10/07/[address] [address]- Attending Physician: Not on Staff, Attending MD [...] Measles/Mumps/Rubella Virus Vaccine9 11/04/98 Given Measles/Mumps/Rubella Virus Tfqzfpd13 07/10/94 Given Poliovirus Vaccine, Klyvmlutqyu46 11/04/98 Given Poliovirus Vaccine, Rcqyyqerphi90 03/12/96 Given Poliovirus Vaccine, Qrcfughwjte35 05/08/95 Given Poliovirus Vaccine, Nayhdtvruxr23 07/10/94 Given Diphth/Pertussis, Whl Cell/Tet(oldterm)15 11/04/98 Given [...] (old term) 93 Given 1Early/Late Reason: Accommodate D/U8Usxpa Note: YVNIBF5Gflyx Note: VIS given4 Admin Note: VIS WTSBT6Ptsfx Note: VIS GIVEN---MENACTRA, SANOFI XFDUWCH5Ilrcu Note: SANOFI PASTEUR VIS GIVEN QLUTU2Cbpvh Note: vis zitbx3Kzqpz Note: HX VARICELLA '959Admin Note: MFY54Lscsi Note: BXE35Vksge Note: IPV/ZNX12Qogph Note: IPV/JGT29Fgqbn Note: IPV/FUG08Gefvt Note: IPV/BDM36Qydrb Note: RLF44Snjjn Note: BSK09Mctjh Note: NNT13Xxjnx Note: DZV35Bhomr Note: SFL97Vikhi Note: IWU21Ariig Note: NUT45Jwpku Note: HEP B Medications aspirin 81 mg oral delayed release tablet 162 mg, 2, tablet, By Mouth, Daily, To start at 12 weeks gestational age, July 13, 2020, # 90 tablet, Refills 2, Tot. Refills 2, Maintenance, 08/09/20 9:35:00 EDT, Route to Pharmacy Electronically, [facility] #[id number], Partial fill upon patie... Start Date: 08/09/20 Status: OrderedContour Next EZ Test Strips See Instructions, # 750 application, Refills 4, Tot. Refills 4, Maintenance, Test 6-8 times daily. 250.03, 648.03 using insulin pump, 07/29/15 9:46:21, Compound Start Date: 09/16/14 Status: OrderedHandheld Electric Breast Pump See Instructions, # 1 each, Maintenance, Per cloth presser instructions, 12/06/14 6:03:50, Compound Start Date: 12/06/14 Status: OrderedHumalog Kwik Pen 100 units/mL subcutaneous injection See Instructions, Max daily dose 30 units. E10.65, # 30 mL, 5 Refills, Maintenance, 07/12/20 13:52:00 EDT, Solution, [facility] #[id number], Partial fill upon patient request if the [...] 5 Refills, Maintenance, 08/19/20 12:01:00 EDT, Tablet, [facility] #[id number], 152.5, cm, 08/09/20 9:25:00 EDT, Height, 53, kg, 06/25/20 16:25:00 EDT, Start Date: 08/19/20 Status: Orderedmetoclopramide 10 mg oral tablet 1 tablet = 10 mg, By Mouth, 3 times a day before meals and bedtime, PRN Nausea & Vomiting, 30 minutes before meals and at bedtime, # 50 tablet, 0 Refills, Maintenance, 07/30/20 15:26:00 EDT, Tablet, [facility] #[id number], Partial fill upon patie... Start Date: 07/30/20 Stop Date: 08/13/20 Status: Orderedondansetron 4 mg oral tablet, disintegrating 1 tablet = 4 mg, By Mouth, Every 8 hours, PRN as needed for nausea/vomiting, # 25 tablet, 0 Refills,Maintenance, 09/03/20 14:41:00 EDT, DIS Tablet, [facility], Partial fill upon patient request if the prescription is for a schedule II o... Start Date: 09/03/20 Status: OrderedPen [place], 32 G x 4 mm BD Ultra [...] 0 Refills, Maintenance, 09/03/20 14:41:00 EDT, Tablet, [facility], Partial fill upon patient request if the prescription is for a schedule II opioid drug., 150, cm, 0... Start Date: 09/03/20 Status: OrderedVitamin B6 50 mg oral tablet 25 mg, 0.5, tablet, By Mouth, 3 times a day, # 100 tablet, Refills 0, Tot. Refills 0, Maintenance, 09/03/20 11:11:00 EDT, Route to Pharmacy Electronically, [facility], Partial fill upon patient request if [...]
--- OUTSIDE RECORDS SUMMARY | 2021-11-25 15:50 | XMS_ITS | Continuity of Care Document ---
:1995 Author Organization [facility] ic Address [address] [place] [address]- Care Team Providers Name Role Phone Tutu MCINTOSH, Kelvin Duffy Primary Care Physician Encounter [facility] Date(s): 09/28/20 - 11/03/[address] [address]- Attending Physician: Janet Stanford MD Admitting Physician: Janet Stanford MD Referring Physician: Latisha Luis DO Allergies, Adverse Reactions, Alerts Substance Reaction Severity [...] Measles/Mumps/Rubella Virus Vaccine9 11/04/98 Given Measles/Mumps/Rubella Virus Ontmycx09 07/10/94 Given Poliovirus Vaccine, Mhgztepzosb31 11/04/98 Given Poliovirus Vaccine, Gnxofctqutb42 03/12/96 Given Poliovirus Vaccine, Zrmtmfnrlas27 05/08/95 Given Poliovirus Vaccine, Miighcuzkuq51 07/10/94 Given Diphth/Pertussis, Whl Cell/Tet(oldterm)15 11/04/98 Given [...] (old term) 93 Given 1Early/Late Reason: Accommodate D/I2Uipac Note: HFHSTI8Lcncw Note: VIS given4 Admin Note: VIS POWJP8Bkzxa Note: VIS GIVEN---MENACTRA, SANOFI IUVMYOM4Wlnft Note: SANOFI PASTEUR VIS GIVEN HTIYF8Wxbwl Note: vis xthvi6Dzljx Note: HX VARICELLA '959Admin Note: YTK70Hxukz Note: MKB52Ewtth Note: IPV/QGN81Btqcn Note: IPV/JRB75Rxvey Note: IPV/IGL17Lfues Note: IPV/NNO78Qnizn Note: ITM44Gkgry Note: XMP93Pkusu Note: VBQ85Nclft Note: VRT35Slytw Note: ILM43Csnda Note: HVN46Ipjeo Note: KFT91Bruyi Note: HEP B Medications aspirin 81 mg oral delayed release tablet 162 mg, 2, tablet, By Mouth, Daily, To start at 12 weeks gestational age, July 13, 2020, # 90 tablet, Refills 2, Tot. Refills 2, Maintenance, 08/09/20 9:35:00 EDT, Route to Pharmacy Electronically, [facility] #[id number], Partial fill upon patie... Start Date: 08/09/20 [...] tablet, 3 Refills, Maintenance, 11/01/20 16:56:00 EDT, [facility] #[id number], Partial fill upon patient request if the prescription is for a schedule II opioid drug., 150, cm, 11/01/20 9:32:00 EDT... Start Date: 11/01/20 Status: OrderedHandheld Electric Breast Pump See Instructions, # 1 each, Maintenance, Per manager of manufacturing instructions, 12/06/14 6:03:50, Compound Start Date: 12/06/14 Status: OrderedHumalog Kwik Pen 100 units/mL subcutaneous injection See Instructions, Max daily dose 30 units. E10.65, # 30 mL, 5 Refills, Maintenance, 07/12/20 13:52:00 EDT, Solution, [facility] #[id number], Partial fill upon patient request if the [...] 5 Refills, Maintenance, 08/19/20 12:01:00 EDT, Tablet, [facility] #[id number], 152.5, cm, 08/09/20 9:25:00 EDT, Height, 53, kg, 06/25/20 16:25:00 EDT, Start Date: 08/19/20 Status: Orderedmetoclopramide 10 mg oral tablet 1 tablet = 10 mg, By Mouth, 3 times a day before meals and bedtime, PRN Nausea & Vomiting, 30 minutes before meals and at bedtime, # 50 tablet, 0 Refills, Maintenance, 07/30/20 15:26:00 EDT, Tablet, [facility] #[id number], Partial fill upon patie... Start Date: 07/30/20 Stop Date: 08/13/20 Status: OrderedPen [place], 32 G x 4 mm BD Ultra [...] 09/03/20 11:11:00 EDT, Route to Pharmacy Electronically, [facility], Partial fill upon patient request [...]
--- OUTSIDE RECORDS SUMMARY | 2021-11-25 15:50 | XMS_ITS | Continuity of Care Document ---
:1995 Author Organization [facility] Address [address] [place] [phone]- Care Team Providers Name Role Phone Tutu MCINTOSH, Kelvin Duffy Primary Care Physician [place] [facility] [place] 03/11/[facility] [address] [place] [id number] Attending Physician: Jacklyn Franco Admitting Physician: Jacklyn Franco Referring Physician: Jacklyn Franco Referring Physician: Niesha Snell Allergies, Adverse Reactions, Alerts Substance Reaction Severity [...] Inactive (IM) (oldterm)9 01/06/03 Given Measles/Mumps/Rubella Virus Rvimytn19 11/04/98 Given Measles/Mumps/Rubella Virus Dufefjg70 07/10/94 Given Poliovirus Vaccine, Rutaiygnknn31 11/04/98 Given Poliovirus Vaccine, Poojjtdcmdg59 03/12/96 Given Poliovirus Vaccine, Vvcnxmgurfz36 05/08/95 Given Poliovirus Vaccine, Fquocefzmhr08 07/10/94 Given Diphth/Pertussis, Whl Cell/Tet(oldterm)16 11/04/98 Given [...] Refuses 1Early/Late Reason: Early/Late Reason: Med Not Fhonyzegc7Phbrk/Late Reason: Accommodate D/K1Sbqfk Note: ITRWHR7Pycii Note: VIS messr5Odveg Note: VIS NOBNQ9Xaylf Note: VIS GIVEN---MENACTRA, SANOFI LMQIYZY1Geuvi Note: SANOFI PASTEUR VIS GIVEN SEJFM5Pjvwp Note: vis bgpqw1Lwjoa Note: HX VARICELLA '9510Admin Note: QGB91Psynv Note: HUX80Audtm Note: IPV/OPV13 Admin Note: IPV/YNX44Zlxbz Note: IPV/UNJ72Nyfcj Note: IPV/ISB80Gobfa Note: DPT17 Admin Note: RPA72Upfub Note: IMO42Bunqi Note: ZDB08Ozatn Note: WEE55Mzrfd Note: DIK69Opmlm Note: PTL50Adsis Note: HEP B Medications acetaminophen 500 mg oral tablet 2 tablet = 1,000 mg, By Mouth, Every 6 hours, PRN for fever, # 50 tablet, 0 Refills, Maintenance, 12/28/20 9:44:00 EST, Tablet, [facility] #[id number], Partial fill upon patient request if the prescription is for a schedule II opioid drug., 155,... Start Date: 12/28/20 Status: OrderedContour Next EZ Test Strips See Instructions, # 750 application, Refills 4, Tot. Refills 4, Maintenance, Test 6-8 times daily. 250.03, 648.03 using insulin pump, 09/16/14 9:46:21, Compound Start Date: 09/16/14 Status: OrderedHandheld Electric Breast Pump See Instructions, # 1 each, Maintenance, Per communications systems engineer instructions, 12/06/14 6:03:50, Compound Start Date: 12/06/14 Status: OrderedHumaLOG 100 units/mL injectable solution See Instructions, via pump , for type 1 DM, max daily dose 50 units., # 10 mL, 3 Refills, Maintenance, 01/11/21 11:25:00 EST, [facility] #[id number], Partial fill upon patient request if the [...] 12/28/20 9:44:00 EST, Route to Pharmacy Electronically, [facility] #[id number], Partial fill upon patient request if the [...] 7 Refills, Maintenance, 12/08/20 17:50:00 EDT, Tablet, [facility] #[id number], 156, cm, 12/06/20 11:33:00 EDT, Height, 56.2, kg, 11/25/20 12:46:00 EDT, D... Start Date: 12/08/20 Status: OrderedMiraLax oral powder for reconstitution = 17 Gm, By Mouth, Daily, dissolve in water before taking, # 255 Gm, 0 Refills, Maintenance, 12/28/20 9:45:00 EST, REC Powder, [facility] #[id number], Partial fill upon patient request if the prescription is for a schedule II opioid drug., 17 Gm... Start Date: 12/28/20 Status: OrderedNIFEdipine 30 mg oral tablet, extended release 30 mg, 1, tablet, By Mouth, Daily, # 30 tablet, Refills 0, Tot. Refills 0, Maintenance, 12/29/20 8:31:00 EST, Route to Pharmacy Electronically, [facility] #[id number], Partial fill upon patient request if the prescription is for a schedule II opi... Start Date: 12/29/20 Status: OrderedoxyCODONE 5 mg oral tablet 5 mg, 1, tablet, By Mouth, Every 3 hours, PRN, (7-10), # 12 tablet, Refills 0, Tot. Refills 0, Maintenance, Pain , Severe, 12/28/20 9:44:00 EST, Route to Pharmacy Electronically, [facility] #[id number], Partial fill upon patient request if the pr... Start Date: 12/28/20 Status: OrderedPen Krypton, 32 G x 4 mm BD Ultra [...] Maintenance, 219:44:00 EST, Route to Pharmacy Electronically, [facility] #[id number], Partial fill upon patient request if the [...]
--- OUTSIDE RECORDS SUMMARY | 2021-11-25 15:50 | XMS_ITS | Continuity of Care Document ---
:1995 Author Organization [facility] Address [address] [place] [address]- Care Team Providers Name Role Phone Kelvin Cam MD Primary Care Physician En[place] [facility] [place](s): 06/22/20 - 10/03/20 [facility] [address] [place] [id number] Attending Physician: Claudia Diaz MD Admitting [...] Measles/Mumps/Rubella Virus Vaccine9 11/04/98 Given Measles/Mumps/Rubella Virus Uovlgxl69 07/10/94 Given Poliovirus Vaccine, Vraajakoqdf97 11/04/98 Given Poliovirus Vaccine, Gtgpilttsvu59 03/12/96 Given Poliovirus Vaccine, Niybqtsvsfv02 05/08/95 Given Poliovirus Vaccine, Yokzxvdebuj20 07/10/94 Given Diphth/Pertussis, Whl Cell/Tet(oldterm)15 11/04/98 Given [...] (old term) 93 Given 1Early/Late Reason: Accommodate D/C4Zopoi Note: XIPFNI5Eyuwt Note: VIS given4 Admin Note: VIS GGLCQ3Xdwut Note: VIS GIVEN---MENACTRA, SANOFI UJUHAPW3Pxkck Note: SANOFI PASTEUR VIS GIVEN CSSED9Ijpll Note: vis azcio4Ijvdt Note: HX VARICELLA '959Admin Note: YLK00Pwekb Note: RVQ94Vvtui Note: IPV/PGG36Eydjr Note: IPV/EZF12Bwzbe Note: IPV/JUD22Spcer Note: IPV/SJL00Sdnym Note: JHH31Djhpy Note: OKC84Cwqaf Note: CBV45Nodfg Note: JWK96Yvvek Note: SCH47Hrpqw Note: UWT26Svvnm Note: FMO34Agrnz Note: HEP B Medications aspirin 81 mg oral delayed release tablet 162 mg, 2, tablet, By Mouth, Daily, To start at 12 weeks gestational age, July 13, 2020, # 90 tablet, Refills 2, Tot. Refills 2, Maintenance, 08/09/20 9:35:00 EDT, Route to Pharmacy Electronically, [facility] #[id number], Partial fill upon patie... Start Date: 08/09/20 Status: OrderedContour Next EZ Test Strips See Instructions, # 750 application, Refills 4, Tot. Refills 4, Maintenance, Test 6-8 times daily. 250.03, 648.03 using insulin pump, 09/16/14 9:46:21, Compound Start Date: 09/16/14 Status: OrderedHandheld Electric Breast Pump See Instructions, # 1 each, Maintenance, Per broadcast correspondent instructions, 12/06/14 6:03:50, Compound Start Date: 12/06/14 Status: OrderedHumalog Kwik Pen 100 units/mL subcutaneous injection See Instructions, Max daily dose 30 units. E10.65, # 30 mL, 5 Refills, Maintenance, 07/12/20 13:52:00 EDT, Solution, [facility] #[id number], Partial fill upon patient request if the [...] 5 Refills, Maintenance, 08/19/20 12:01:00 EDT, Tablet, [facility] #[id number], 152.5, cm, 08/09/20 9:25:00 EDT, Height, 53, kg, 06/25/20 16:25:00 EDT, . Start Date: 08/19/20 Status: Orderedmetoclopramide 10 mg oral tablet 1 tablet = 10 mg, By Mouth, 3 times a day before meals and bedtime, PRN Nausea & Vomiting, 30 minutes before meals and at bedtime, # 50 tablet, 0 Refills, Maintenance, 07/30/20 15:26:00 EDT, Tablet, [facility] #[id number], Partial fill upon patie... Start Date: 07/30/20 Stop Date: 08/13/20 Status: Orderedondansetron 4 mg oral tablet, disintegrating 1 tablet = 4 mg, By Mouth, Every 8 hours, PRN as needed for nausea/vomiting, # 25 tablet, 0 Refills,Maintenance, 09/03/20 14:41:00 EDT, DIS Tablet, [facility], Partial fill upon patient request if the prescription is for a schedule II o... Start Date: 09/03/20 Status: OrderedPen [place], 32 G x 4 mm BD Ultra [...] 0 Refills, Maintenance, 09/03/20 14:41:00 EDT, Tablet, [facility], Partial fill upon patient request if the prescription is for a schedule II opioid drug., 150, cm, 0... Start Date: 09/03/20 Status: OrderedVitamin B6 50 mg oral tablet 25 mg, 0.5, tablet, By Mouth, 3 times a day, # 100 tablet, Refills 0, Tot. Refills 0, Maintenance, 09/03/20 11:11:00 EDT, Route to Pharmacy Electronically, [facility], Partial fill upon patient request if [...]
--- OUTSIDE RECORDS SUMMARY | 2021-11-25 15:50 | XMS_ITS | Continuity of Care Document ---
:1995 Author Organization [facility] Address [address] [place] [phone]- Care Team Providers Name Role Phone Tutu MCINTOSH, Kelvin Duffy Primary Care Physician [place] [facility] 02/06/21 [facility] [address] [place] [address]- Attending Physician: Jacklyn Franco Admitting Physician: Admtr, Jacklyn Referring Physician: Admtr, Ar8 Allergies, Adverse Reactions, [...] Inactive (IM) (oldterm)9 01/06/03 Given Measles/Mumps/Rubella Virus Rxydbml73 11/04/98 Given Measles/Mumps/Rubella Virus Irfjqre29 07/10/94 Given Poliovirus Vaccine, Kpibrabwpnt72 11/04/98 Given Poliovirus Vaccine, Oxqwpzjadpc54 03/12/96 Given Poliovirus Vaccine, Cbbcuicospq20 05/08/95 Given Poliovirus Vaccine, Rjyzvqcevyf30 07/10/94 Given Diphth/Pertussis, Whl Cell/Tet(oldterm)16 11/04/98 Given [...] Refuses 1Early/Late Reason: Early/Late Reason: Med Not Akljspyti8Ihkkx/Late Reason: Accommodate D/Q5Gqwpi Note: CSHWQZ3Qsqsh Note: VIS ulxub2Tdhbs Note: VIS KMSMX7Txuwd Note: VIS GIVEN---MENACTRA, SANOFI WCKWGUO3Kbhzx Note: SANOFI PASTEUR VIS GIVEN QXJBV4Xuxth Note: vis nysjc1Xwjuc Note: HX VARICELLA '9510Admin Note: DRN39Jikks Note: AWF19Mnqse Note: IPV/OPV13 Admin Note: IPV/GEH45Ebrcj Note: IPV/DQN73Cniik Note: IPV/BZB58Appyy Note: DPT17 Admin Note: OBU52Lasmu Note: USB01Jmuft Note: COV49Ljwhu Note: FBW29Pumwt Note: AQQ85Yqton Note: WWR16Xosyc Note: HEP B Medications acetaminophen 500 mg oral tablet 2 tablet = 1,000 mg, By Mouth, Every 6 hours, PRN for fever, # 50 tablet, 0 Refills, Maintenance, 12/28/20 9:44:00 EST, Tablet, [facility] #[id number], Partial fill upon patient request if the prescription is for a schedule II opioid drug., 155,... Start Date: 12/28/20 Status: OrderedContour Next EZ Test Strips See Instructions, # 750 application, Refills 4, Tot. Refills 4, Maintenance, Test 6-8 times daily. 250.03, 648.03 using insulin pump, 09/16/14 9:46:21, Compound Start Date: 09/16/14 Status: OrderedHandheld Electric Breast Pump See Instructions, # 1 each, Maintenance, Per business loan processor instructions, 12/06/14 6:03:50, Compound Start Date: 12/06/14 Status: OrderedHumaLOG 100 units/mL injectable solution See Instructions, via pump , for type 1 DM, max daily dose 50 units., # 10 mL, 3 Refills, Maintenance, 01/11/21 11:25:00 EST, [facility] #[id number], Partial fill upon patient request if the [...] 12/28/20 9:44:00 EST, Route to Pharmacy Electronically, [facility] #[id number], Partial fill upon patient request if the [...] 7 Refills, Maintenance, 12/08/20 17:50:00 EDT, Tablet, [facility] #[id number], 156, cm, 12/06/20 11:33:00 EDT, Height, 56.2, kg, 11/25/20 12:46:00 EDT, D... Start Date: 12/08/20 Status: OrderedMiraLax oral powder for reconstitution = 17 Gm, By Mouth, Daily, dissolve in water before taking, # 255 Gm, 0 Refills, Maintenance, 12/28/20 9:45:00 EST, REC Powder, [facility] #[id number], Partial fill upon patient request if the prescription is for a schedule II opioid drug., 17 Gm... Start Date: 12/28/20 Status: OrderedNIFEdipine 30 mg oral tablet, extended release 30 mg, 1, tablet, By Mouth, Daily, # 30 tablet, Refills 0, Tot. Refills 0, Maintenance, 12/29/20 8:31:00 EST, Route to Pharmacy Electronically, [facility] #[id number], Partial fill upon patient request if the prescription is for a schedule II opi... Start Date: 12/29/20 Status: OrderedoxyCODONE 5 mg oral tablet 5 mg, 1, tablet, By Mouth, Every 3 hours, PRN, (7-10), # 12 tablet, Refills 0, Tot. Refills 0, Maintenance, Pain , Severe, 12/28/20 9:44:00 EST, Route to Pharmacy Electronically, [facility] #[id number], Partial fill upon patient request if the pr... Start Date: 12/28/20 Status: OrderedPen [place], 32 G x 4 mm BD Ultra [...] Maintenance, 219:44:00 EST, Route to Pharmacy Electronically, [facility] #[id number], Partial fill upon patient request if the [...]
--- OUTSIDE RECORDS SUMMARY | 2021-11-25 15:50 | XMS_ITS | Continuity of Care Document ---
:1993 Author Organization [facility] Address [address] [place] [phone]- Care Team Providers Name Role Phone Tutu MCINTOSH, Kelvin Duffy Primary Care Physician [place] [facility] [place]s): 06/23/20 - 08/21/20 [facility] [address] [place] [id number] Attending Physician: Tim Angulo MD Admitting Physician: Adele MCINTOSH, Tim Referring Physician: Nancy Kwon MD Allergies, Adverse Reactions, Alerts Substance Reaction [...] Measles/Mumps/Rubella Virus Vaccine9 11/04/98 Given Measles/Mumps/Rubella Virus Dfrqopw81 07/10/94 Given Poliovirus Vaccine, Jhqqxwyiodn90 11/04/98 Given Poliovirus Vaccine, Jpmzbugrdnn98 03/12/96 Given Poliovirus Vaccine, Bdisudoxmpo85 05/08/95 Given Poliovirus Vaccine, Mjdprangzfq34 07/10/94 Given Diphth/Pertussis, Whl Cell/Tet(oldterm)15 11/04/98 Given [...] (old term) 93 Given 1Early/Late Reason: Accommodate D/Q6Ywnpk Note: UFUSBZ2Gwrty Note: VIS given4 Admin Note: VIS SEQAK9Irtdl Note: VIS GIVEN---MENACTRA, SANOFI DRHVYUK8Azmmx Note: SANOFI PASTEUR VIS GIVEN ENBIF6Wtyae Note: vis lushq2Chdyb Note: HX VARICELLA '959Admin Note: RWV20Corpz Note: WOM53Lksjm Note: IPV/UUY75Zrfkp Note: IPV/OWO56Hgtpv Note: IPV/SXC72Hhoqn Note: IPV/CUS55Rpxum Note: GUQ35Ubcyt Note: GHY84Fzlkg Note: PGZ72Drziy Note: YGG19Qoeiw Note: AJJ54Wxqxi Note: FFF47Gokzs Note: DEG28Texlr Note: HEP B Medications aspirin 81 mg oral delayed release tablet 162 mg, 2, tablet, By Mouth, Daily, To start at 12 weeks gestational age, July 13, 2020, # 90 tablet, Refills 2, Tot. Refills 2, Maintenance, 08/09/20 9:35:00 EDT, Route to Pharmacy Electronically, [facility][id number], Partial fill upon patie... Start Date: 08/09/20 Status: OrderedContour Next EZ Test Strips See Instructions, # 750 application, Refills 4, Tot. Refills 4, Maintenance, Test 6-8 times daily. 250.03, 648.03 using insulin pump, 09/16/14 9:46:21, Compound Start Date: 09/16/14 Status: OrderedHandheld Electric Breast Pump See Instructions, # 1 each, Maintenance, Per molding process technician instructions, 12/06/14 6:03:50, Compound Start Date: 12/06/14 Status: OrderedHumalog Kwik Pen 100 units/mL subcutaneous injection See Instructions, Max daily dose 30 units. E10.65, # 30 mL, 5 Refills, Maintenance, 07/12/20 13:52:00 EDT, Solution, [facility] #[id number], Partial fill upon patient request if the prescription is for a schedule II opioid drug., 152.5, cm, 07/12... Start Date: 07/12/20 Status: OrderedKetostix See Instructions, # 50 each, [...] II opioid drug. Start Date: 06/23/20 Status: Orderedlevothyroxine 0.05 mg oral tablet 1 tablet = 50 mcg, By Mouth, Daily, Take 1 tablet daily. Have labs in 4 weeks., # 30 tablet, 5 Refills, Maintenance, 08/19/20 12:01:00 EDT, Tablet, [facility] #[id number], 152.5, cm, 08/09/20 9:25:00 EDT, Height, 53, kg, 06/25/20 16:25:00 EDT, . Start Date: 08/19/20 Status: Orderedmetoclopramide 10 mg oral tablet 1 tablet = 10 mg, By Mouth, 3 times a day before meals and bedtime, PRN Nausea & Vomiting, 30 minutes before meals and at bedtime, # 50 tablet, 0 Refills, Maintenance, 07/30/20 15:26:00 EDT, Tablet, [id number], Partial fill upon patie... Start Date: 07/30/20 Stop Date: 08/13/20 Status: OrderedPen [place], 32 G x 4 mm BD Ultra [...] History of severe Active pre-eclampsia(Confirmed) Hyperthyroidism(Confirmed) Active Microalbuminuria(Confirmed) Active Uterine scar from previous Active delivery, antepartum(Confirmed) Social History Social History Type Response Smoking Status Never smoker entered on: 01/08/14 Sex Female
--- OUTSIDE RECORDS SUMMARY | 2021-11-25 15:50 | XMS_ITS | Continuity of Care Document ---
:1995 Author Organization [facility] Address [address] [place] [phone]- Care Team Providers Name Role Phone Tutu MCINTOSH, Kelvin Duffy Primary Care Physician Encounter [facility] Date(s): 07/15/19 - 07/22/[address] [address]- [facility] Attending Physician: Emily MCINTOSH, Claudia Referring Physician: Kelvin Cam MD Allergies, Adverse [...] Measles/Mumps/Rubella Virus Vaccine9 11/04/98 Given Measles/Mumps/Rubella Virus Jujhsgj28 07/10/94 Given Poliovirus Vaccine, Qdowhycszcg65 11/04/98 Given Poliovirus Vaccine, Clfsvvfzjyy50 03/12/96 Given Poliovirus Vaccine, Roucwdlxqor30 05/08/95 Given Poliovirus Vaccine, Drdcpeomqfw78 07/10/94 Given Diphth/Pertussis, Whl Cell/Tet(oldterm)15 11/04/98 Given [...] (old term) 93 Given 1Early/Late Reason: Accommodate D/I8Bnqoz Note: WUKIOJ6Rgmsy Note: VIS given4 Admin Note: VIS KRULW1Jjemz Note: VIS GIVEN---MENACTRA, SANOFI CNBVULX7Jnuwy Note: SANOFI PASTEUR VIS GIVEN RUSKC7Mfeaz Note: vis acbiu1Qzzqv Note: HX VARICELLA '959Admin Note: SFA16Vxeys Note: PCG79Ckjjc Note: IPV/EIG11Nwnpb Note: IPV/QAS29Zxerr Note: IPV/IWP22Licgi Note: IPV/GOL06Rzzef Note: NSA48Hhkgt Note: DXB88Hfoin Note: JKT27Eqcrb Note: GHA38Zfdkm Note: FKW10Xyaka Note: TPM84Ihxxe Note: SUL24Qteum Note: HEP B Medications Admelog SoloStar 100 units/mL injectable solution See Instructions, Inject 2-15 units tid w/ meals via ISS, Max dose daily dose 45 units, E10.9, # 30 mL, 6 Refills, Maintenance, 06/27/19 14:42:00 EDT, [facility] #[id number], 152.5, cm, 05/29/19 11:15:00 EDT, Height Start [...] See Instructions, # 1 each, Maintenance, Per supply specialist instructions, 12/06/14 6:03:50, Compound Start Date: [...] 3 Refills, Maintenance, 06/27/19 13:50:00 EDT, Solution, [facility] #[id number], 152.5, cm, 05/29/19 11:15:00 EDT, Height Start Date: 06/27/19 Status: OrderedLevemir FlexTouch 100 units/mL subcutaneous solution See Instructions, 15 units subQ twice daily, # 3 units, 11 Refills, Maintenance, 06/11/14 15:29:26, 15 units subQ twice daily Start Date: 06/11/14 Status: OrderedNexplanon 68 mg subcutaneous implant 1 each = 68 mg, Subcutaneous Infusion, Once, # 1 each, 0 Refills, Soft Stop, 10/31/16 16:43:40, [id number] Start Date: 10/31/16 Status: OrderedNovoLOG FlexPen 100 units/mL subcutaneous solution See Instructions, 2-8 units Subcutaneous Injection 3 times a day, # 30 mL, 3 Refills, Maintenance, 06/27/19 13:50:00 EDT, Solution, [facility] #[id number], 152.5, cm, 05/29/19 11:15:00 EDT, Height Start Date: 06/27/19 Status: OrderedPen [place], 32 G x 4 mm BD Ultra [...]
--- OUTSIDE RECORDS SUMMARY | 2021-11-25 15:50 | XMS_ITS | Continuity of Care Document ---
:1995 Author Organization [facility] Address [address] [place] [address]- Care Team Providers Name Role Phone Tutu MCINTOSH, Kelvin Duffy Primary Care Physician [place] [facility] [place] [facility] [address] [place] [id number] Allergies, Adverse Reactions, Alerts Substance Reaction Severity [...] Inactive (IM) (oldterm)9 01/06/03 Given Measles/Mumps/Rubella Virus Nzujict22 11/04/98 Given Measles/Mumps/Rubella Virus Aavhgrh67 07/10/94 Given Poliovirus Vaccine, Txoqnxpqghv47 11/04/98 Given Poliovirus Vaccine, Lgtpzyjslfg85 03/12/96 Given Poliovirus Vaccine, Ilrruvfvpuk13 05/08/95 Given Poliovirus Vaccine, Lucqlbpotot34 07/10/94 Given Diphth/Pertussis, Whl Cell/Tet(oldterm)16 11/04/98 Given [...] Refuses 1Early/Late Reason: Early/Late Reason: Med Not Fezkikhky8Kcrhs/Late Reason: Accommodate D/A1Foovc Note: ZOUQNY7Brech Note: VIS hdskw2Jupyk Note: VIS JSWIX8Xfwqi Note: VIS GIVEN---MENACTRA, SANOFI WNZWHUU5Sbiop Note: SANOFI PASTEUR VIS GIVEN PQMZO1Zlqiz Note: vis jsuwp3Yjpsx Note: HX VARICELLA '9510Admin Note: GPM02Utgsc Note: NTA75Laduf Note: IPV/OPV13 Admin Note: IPV/BUF69Cqeol Note: IPV/LRG75Lawmh Note: IPV/XTB75Mcorz Note: DPT17 Admin Note: JTU44Htahd Note: CCK83Ugjlx Note: TCB99Wyoja Note: OAA64Gqhem Note: IAY57Mnvxc Note: ISH25Ebuqn Note: HEP B Medications Apri 0.15 mg-0.03 mg oral tablet 1 tablet, By Mouth, Daily, # 84 tablet, 4 Refills, Maintenance, 10/03/21 13:56:00 EDT, [id number], Partial fill upon patient request if the prescription is for a schedule II opioid drug., 1 tablet By Mouth Daily, 155, cm, 09/19... Start Date: 10/03/21 Status: OrderedContour Next EZ Test Strips See Instructions, # 750 application, Refills 4, Tot. Refills 4, Maintenance, Test 6-8 times daily. 250.03, 648.03 using insulin pump, 09/16/14 9:46:21, Compound Start Date: 09/16/14 Status: OrderedHandheld Electric Breast Pump See Instructions, # 1 each, Maintenance, Per wood milling machine tender instructions, 12/06/14 6:03:50, Compound Start Date: 12/06/14 Status: OrderedHumaLOG 100 units/mL injectable solution See Instructions, via pump , for type 1 DM, max daily dose 50 units., # 10 mL, 6 Refills, Maintenance, 07/28/21 15:26:00 EDT, [facility] #[id number], Partial fill upon patient request if the prescription is for a schedule II opioid drug., 155, cm... Start Date: 07/28/21 Status: OrderedInsulin Lispro 0.19 mL = 19 units, Subcutaneous Injection, 3 times a day before meals, << Sliding Scale Comments >> 10 - 19 1 units 20 - 29 2 units 30 - 39 3 units 40 - 49 4 units 50 - 59 5 units 60 - 69 6 units 70 - 79 7 units 80 - 89... Start Date: 01/10/21 Status: OrderedKetostix See Instructions, [...] 7 Refills, Maintenance, 12/08/20 17:50:00 EDT, Tablet, [facility] #[id number], 156, cm, 12/06/20 11:33:00 EDT, Height, 56.2, kg, 11/25/20 12:46:00 EDT, D... Start Date: 12/08/20 Status: OrderedPen [place], 32 G x 4 mm BD Ultra [...]
--- OUTSIDE RECORDS SUMMARY | 2021-11-25 15:50 | XMS_ITS | Continuity of Care Document ---
:1995 Author Organization [facility] Address [address] [place] [address]- Care Team Providers Name Role Phone Tutu MCINTOSH, Kelvin Duffy Primary Care Physician Encounter [facility] Date(s): 07/22/20 - 08/21/20 [facility] [address] [place] [address] Attending Physician: Jacklyn Franco Admitting Physician: AdmJacklyn [...] Measles/Mumps/Rubella Virus Vaccine9 11/04/98 Given Measles/Mumps/Rubella Virus Hkkwrck30 07/10/94 Given Poliovirus Vaccine, Okhaiqxeysv39 11/04/98 Given Poliovirus Vaccine, Laavsnphtao23 03/12/96 Given Poliovirus Vaccine, Iykilousmzg98 05/08/95 Given Poliovirus Vaccine, Lumltfihzyw69 07/10/94 Given Diphth/Pertussis, Whl Cell/Tet(oldterm)15 11/04/98 Given [...] (old term) 93 Given 1Early/Late Reason: Accommodate D/O3Yaarq Note: HQMAJK6Eaqzm Note: VIS given4 Admin Note: VIS YFJFW4Jipty Note: VIS GIVEN---MENACTRA, SANOFI NSZCLHH1Wbeqx Note: SANOFI PASTEUR VIS GIVEN ORONB7Mfcik Note: vis feund4Inivr Note: HX VARICELLA '959Admin Note: ISV10Hjnul Note: ASO64Inqso Note: IPV/AMG02Zwdic Note: IPV/TDX38Ubpmh Note: IPV/FEC75Rsjgr Note: IPV/DVA21Xqbov Note: EKG37Wlcwk Note: GKU50Aporr Note: YFR24Vqibm Note: EAC19Phrtb Note: VSS77Wyjjp Note: JOT89Abzqu Note: YQL83Hlqca Note: HEP B Medications aspirin 81 mg oral delayed release tablet 162 mg, 2, tablet, By Mouth, Daily, To start at 12 weeks gestational age, July 13, 2020, # 90 tablet, Refills 2, Tot. Refills 2, Maintenance, 08/09/20 9:35:00 EDT, Route to Pharmacy Electronically, [facility] #[id number], Partial fill upon patie... Start Date: 08/09/20 Status: OrderedContour Next EZ Test Strips See Instructions, # 750 application, Refills 4, Tot. Refills 4, Maintenance, Test 6-8 times daily. 250.03, 648.03 using insulin pump, 09/16/14 9:46:21, Compound Start Date: 09/16/14 Status: OrderedHandheld Electric Breast Pump See Instructions, # 1 each, Maintenance, Per casting technician instructions, 12/06/14 6:03:50, Compound Start Date: 12/06/14 Status: OrderedHumalog Kwik Pen 100 units/mL subcutaneous injection See Instructions, Max daily dose 30 units. E10.65, # 30 mL, 5 Refills, Maintenance, 07/12/20 13:52:00 EDT, Solution, [facility] #[id number], Partial fill upon patient request if the [...] 5 Refills, Maintenance, 08/19/20 12:01:00 EDT, Tablet, [facility] #[id number], 152.5, cm, 08/09/20 9:25:00 EDT, Height, 53, kg, 06/25/20 16:25:00 EDT, . Start Date: 08/19/20 Status: Orderedmetoclopramide 10 mg oral tablet 1 tablet = 10 mg, By Mouth, 3 times a day before meals and bedtime, PRN Nausea & Vomiting, 30 minutes before meals and at bedtime, # 50 tablet, 0 Refills, Maintenance, 07/30/20 15:26:00 EDT, Tablet, [facility] #[id number], Partial fill upon patie... Start Date: 07/30/20 Stop Date: 08/13/20 Status: OrderedPen [place], 32 G x 4 mm BD Ultra [...]
--- OUTSIDE RECORDS SUMMARY | 2021-11-25 15:50 | XMS_ITS | Continuity of Care Document ---
:1995 Author Organization [facility] ic Address [address] [place] [address]- Care Team Providers Name Role Phone Not on Staff, PCP Primary Care Physician Unavailable Encounter [facility] Date(s): 05/24/20 - 06/23/[address] [address] Allergies, Adverse Reactions, Alerts Substance Reaction [...] Measles/Mumps/Rubella Virus Vaccine9 11/04/98 Given Measles/Mumps/Rubella Virus Qghqzjo06 07/10/94 Given Poliovirus Vaccine, Zagjmztolgf20 11/04/98 Given Poliovirus Vaccine, Xnrzgpykrqb14 03/12/96 Given Poliovirus Vaccine, Babwnriopfz40 05/08/95 Given Poliovirus Vaccine, Ajfwsnkukzg83 07/10/94 Given Diphth/Pertussis, Whl Cell/Tet(oldterm)15 11/04/98 Given [...] (old term) 93 Given 1Early/Late Reason: Accommodate D/A5Rhcry Note: PXMBFW5Ekzfm Note: VIS given4 Admin Note: VIS AAIBI2Fqmkp Note: VIS GIVEN---MENACTRA, SANOFI VHCQTEY5Ufdnk Note: SANOFI PASTEUR VIS GIVEN OVUJI2Zcmqx Note: vis elwoy8Bymxc Note: HX VARICELLA '959Admin Note: GJH11Dkyvw Note: LBY41Lxhrh Note: IPV/CWK84Kxhpp Note: IPV/OLJ51Ubdvs Note: IPV/CDT66Dwtpd Note: IPV/OOH00Ldxdv Note: YQZ04Kxvqx Note: OKL47Jkoug Note: VQI44Irzde Note: GIH08Qugnd Note: HEW97Mqtkf Note: BUG46Ivdve Note: SKE78Wkrlx Note: HEP B Medications Contour Next EZ Test Strips See Instructions, # [...] 07/07/20 10:43:00 EDT, 06/23/20 10:43:00 EDT, Tablet, [facility], Partial fill upon patient request if the prescript... Start Date: 06/23/20 Stop Date: 07/07/20 Status: Orderedfamotidine 20 mg oral tablet 20 mg, 1, tablet, By Mouth, 2 times a day, # 60 tablet, Refills 0, Tot. Refills 0, Maintenance, 06/22/20 9:26:00 EDT, Route to Pharmacy Electronically, [facility], Partial fill upon patient request if the prescription is for a schedule I... Start Date: 06/22/20 Status: OrderedHandheld Electric Breast Pump See Instructions, # 1 each, Maintenance, Per public health service officer instructions, 12/06/14 6:03:50, Compound Start Date: 12/06/14 [...] 0 Refills, Maintenance, 06/23/20 10:45:00 EDT, Tablet, [facility], Partial fill upon patient... Start Date: 06/23/20 Stop Date: 07/07/20 Status: OrderedPen [place], 32 G x 4 mm BD Ultra [...] 0 Refills, Maintenance, 04/26/20 15:33:00 EST, Tablet, [facility] #[id number], Partial fill upon patient request if the prescription is for a schedule II opioid drug., 1 tablet By Mouth Daily, 152.5, cm, 05... Start Date: 04/26/20 Status: Orderedsucralfate 1 gm oral tablet 1 Gm, 1, tablet, By Mouth, Every 6 hours, # 56 tablet, Refills 0, Tot. Refills 0, Maintenance, 06/23/20 10:43:00 EDT, Route to Pharmacy Electronically, [facility], Partial fill upon patient request if the prescription is for a schedule I... Start Date: 06/23/20 Stop Date: 07/07/20 Status: OrderedVitamin B6 25 mg oral tablet 1 tablet = 25 mg, By Mouth, 3 times a day, PRN Nausea & Vomiting, # 90 tablet, 1 Refills, Acute 09/03/20 14:24:00 EDT, 06/03/20 14:24:00 EDT, [facility] #[id number], Partial fill upon patient request if the [...]
--- OUTSIDE RECORDS SUMMARY | 2021-11-25 15:50 | XMS_ITS | Continuity of Care Document ---
:1995 Author Organization [facility] Address [address] [place] [address]- Care Team Providers Name Role Phone Kelvin Cam MD Primary Care Physician Encounter [facility] Date(s): 08/21/19 - 12/11/19 [facility] [address] [place] [address] [facility] Attending Physician: Claudia Diaz MD Admitting Physician: [...] Measles/Mumps/Rubella Virus Vaccine9 11/04/98 Given Measles/Mumps/Rubella Virus Bciuxid04 07/10/94 Given Poliovirus Vaccine, Veuagwpdmym96 11/04/98 Given Poliovirus Vaccine, Xbghvectvob51 03/12/96 Given Poliovirus Vaccine, Cxdgvctomyc52 05/08/95 Given Poliovirus Vaccine, Ipycfthrzhb59 07/10/94 Given Diphth/Pertussis, Whl Cell/Tet(oldterm)15 11/04/98 Given [...] (old term) 93 Given 1Early/Late Reason: Accommodate D/H5Ohzxk Note: IKZAOM9Iptdj Note: VIS given4 Admin Note: VIS KYSHM7Nnoqs Note: VIS GIVEN---MENACTRA, SANOFI LJLGPZY2Rvqqh Note: SANOFI PASTEUR VIS GIVEN TRCQJ0Bosyx Note: vis keuhm6Ciqlt Note: HX VARICELLA '959Admin Note: EOL65Qkgft Note: DLS17Zxxvs Note: IPV/EQM59Ldlbb Note: IPV/LBE35Hebch Note: IPV/LUH70Ebktw Note: IPV/IOT83Ehbup Note: GMH38Hwuvb Note: ROR55Rakyp Note: SDY09Xxkwo Note: SSG31Cmhhz Note: CFK01Ikmnj Note: TJR13Hyshr Note: ZHE43Tufkx Note: HEP B Medications Admelog SoloStar 100 units/mL injectable solution See Instructions, Inject 2-15 units tid w/ meals via ISS, Max dose daily dose 45 units, E10.9, # 30 mL, 6 Refills, Maintenance, 06/27/19 14:42:00 EDT, [facility] #[id number], 152.5, cm, 05/29/19 11:15:00 EDT, Height Start [...] See Instructions, # 1 each, Maintenance, Per academic services coordinator instructions, 12/06/14 6:03:50, Compound Start Date: 12/06/14 [...] 3 Refills, Maintenance, 06/27/19 13:50:00 EDT, Solution, [facility] #[id number], 152.5, cm, 05/29/19 11:15:00 EDT, Height Start Date: 06/27/19 Status: OrderedLevemir FlexTouch 100 units/mL subcutaneous solution See Instructions, 15 units subQ twice daily, # 3 units, 11 Refills, Maintenance, 06/11/14 15:29:26, 15 units subQ twice daily Start Date: 06/11/14 Status: Orderedlevothyroxine 0.05 mg oral tablet 1 tablet = 50 mcg, By Mouth, Daily, # 90 tablet, 0 Refills, Maintenance, 07/23/19 13:25:00 EDT, Tablet, [facility] #[id number], 152.5, cm, 07/09/19 12:58:00 EDT, Height Start Date: 07/23/19 Status: OrderedNexplanon 68 mg subcutaneous implant 1 each = 68 mg, Subcutaneous Infusion, Once, # 1 each, 0 Refills, Soft Stop, 10/31/16 16:43:40, [id number] Start Date: 10/31/16 Status: OrderedNovoLOG FlexPen 100 units/mL subcutaneous solution See Instructions, 2-8 units Subcutaneous Injection 3 times a day, # 30 mL, 3 Refills, Maintenance, 06/27/19 13:50:00 EDT, Solution, [facility] #[id number], 152.5, cm, 05/29/19 11:15:00 EDT, Height Start Date: 06/27/19 Status: OrderedPen [place], 32 G x 4 mm BD Ultra [...]
--- OUTSIDE RECORDS SUMMARY | 2021-11-25 15:50 | XMS_ITS | Continuity of Care Document ---
:1995 Author Organization [facility] Address [address] [place] [address]- Care Team Providers Name Role Phone Kelvin Cam MD Primary Care Physician Encounter [facility] [facility] Date(s): 08/11/19 - 09/13/[address] [address] [facility] Attending Physician: Kelvin Cam MD Admitting Physician: Kelvin Cam MD Referring Physician: Malika Olivarez MD Allergies, Adverse Reactions, Alerts Substance Reaction [...] Measles/Mumps/Rubella Virus Vaccine9 11/04/98 Given Measles/Mumps/Rubella Virus Rriupbd40 07/10/94 Given Poliovirus Vaccine, Uovtcigpgou41 11/04/98 Given Poliovirus Vaccine, Dppnqmaohae33 03/12/96 Given Poliovirus Vaccine, Rscztxdotau54 05/08/95 Given Poliovirus Vaccine, Pvhizaefjun02 07/10/94 Given Diphth/Pertussis, Whl Cell/Tet(oldterm)15 11/04/98 Given [...] (old term) 93 Given 1Early/Late Reason: Accommodate D/P6Fifbj Note: OTNLJT6Ilxlq Note: VIS given4 Admin Note: VIS XSRDH3Ifauc Note: VIS GIVEN---MENACTRA, SANOFI MHXHRCL9Himoo Note: SANOFI PASTEUR VIS GIVEN SXZNX0Nbpcf Note: vis wgkem6Vbqen Note: HX VARICELLA '959Admin Note: KDI00Oruif Note: RFA96Giqyd Note: IPV/HWZ74Ffdck Note: IPV/DXW68Fngtk Note: IPV/QHO42Fsrlx Note: IPV/XVK56Zhxbq Note: ZSG34Pdyxx Note: KHT54Slruf Note: TOX96Gfaew Note: IMO60Yjgqd Note: IJD94Ubznr Note: KTP98Ljtpj Note: FRD47Knvnm Note: HEP B Medications Admelog SoloStar 100 units/mL injectable solution See Instructions, Inject 2-15 units tid w/ meals via ISS, Max dose daily dose 45 units, E10.9, # 30 mL, 6 Refills, Maintenance, 06/27/19 14:42:00 EDT, [facility] #[id number], 152.5, cm, 05/29/19 11:15:00 EDT, Height Start [...] See Instructions, # 1 each, Maintenance, Per emt intermediate instructions, 12/06/14 6:03:50, Compound Start Date: 12/06/14 [...] 3 Refills, Maintenance, 06/27/19 13:50:00 EDT, Solution, [facility] #[id number], 152.5, cm, 05/29/19 11:15:00 EDT, Height Start Date: 06/27/19 Status: OrderedLevemir FlexTouch 100 units/mL subcutaneous solution See Instructions, 15 units subQ twice daily, # 3 units, 11 Refills, Maintenance, 06/11/14 15:29:26, 15 units subQ twice daily Start Date: 06/11/14 Status: Orderedlevothyroxine 0.05 mg oral tablet 1 tablet = 50 mcg, By Mouth, Daily, # 90 tablet, 0 Refills, Maintenance, 07/23/19 13:25:00 EDT, Tablet, [facility] #[id number], 152.5, cm, 07/09/19 12:58:00 EDT, Height Start Date: 07/23/19 Status: OrderedNexplanon 68 mg subcutaneous implant 1 each = 68 mg, Subcutaneous Infusion, Once, # 1 each, 0 Refills, Soft Stop, 10/31/16 16:43:40, [id number] Start Date: 10/31/16 Status: OrderedNovoLOG FlexPen 100 units/mL subcutaneous solution See Instructions, 2-8 units Subcutaneous Injection 3 times a day, # 30 mL, 3 Refills, Maintenance, 06/27/19 13:50:00 EDT, Solution, [facility] #74170, 152.5, cm, 05/29/19 11:15:00 EDT, Height Start Date: 06/27/19 Status: OrderedPen [place], 32 G x 4 mm BD Ultra [...]
--- OUTSIDE RECORDS SUMMARY | 2021-11-25 15:51 | XMS_ITS | Continuity of Care Document ---
:1995 Author Organization [facility] ic Address [address] [place] [address]- Care Team Providers Name Role Phone Tutu MCINTOSH, Kelvin Duffy Primary Care Physician Encounter [facility] Date(s): 09/21/20 - 10/21/[address] [address]- Allergies, Adverse Reactions, Alerts Substance Reaction Severity [...] Measles/Mumps/Rubella Virus Vaccine9 11/04/98 Given Measles/Mumps/Rubella Virus Kkkdnyt74 07/10/94 Given Poliovirus Vaccine, Wqktedixxwl95 11/04/98 Given Poliovirus Vaccine, Tguqdtnzops60 03/12/96 Given Poliovirus Vaccine, Ayvmktqwzdv52 05/08/95 Given Poliovirus Vaccine, Noypbvibypj07 07/10/94 Given Diphth/Pertussis, Whl Cell/Tet(oldterm)15 11/04/98 Given [...] (old term) 93 Given 1Early/Late Reason: Accommodate D/Z2Btrjo Note: YXZSXP4Kitcl Note: VIS given4 Admin Note: VIS BFLZN6Tvzgj Note: VIS GIVEN---MENACTRA, SANOFI TUYQKDZ5Vcfno Note: SANOFI PASTEUR VIS GIVEN NUOLQ9Gixvn Note: vis zejzn1Arrtp Note: HX VARICELLA '959Admin Note: RGO10Rhyat Note: DTK54Xazmv Note: IPV/FCL76Ltxhe Note: IPV/WJW86Dblpj Note: IPV/FGE00Lhtqa Note: IPV/GMC63Bzsfj Note: XDW41Dwnnp Note: IKU49Vpoxy Note: HQM01Bztqr Note: CHA03Blsmi Note: BBH77Cgseb Note: QVZ97Pbmkh Note: BNQ03Pwyzy Note: HEP B Medications aspirin 81 mg oral delayed release tablet 162 mg, 2, tablet, By Mouth, Daily, To start at 12 weeks gestational age, July 13, 2020, # 90 tablet, Refills 2, Tot. Refills 2, Maintenance, 08/09/20 9:35:00 EDT, Route to Pharmacy Electronically, [facility] #[id number], Partial fill upon patie... Start Date: 08/09/20 Status: OrderedContour Next EZ Test Strips See Instructions, # 750 application, Refills 4, Tot. Refills 4, Maintenance, Test 6-8 times daily. 250.03, 648.03 using insulin pump, 09/16/14 9:46:21, Compound Start Date: 09/16/14 Status: OrderedHandheld Electric Breast Pump See Instructions, # 1 each, Maintenance, Per naval aircrewman tactical helicopter instructions, 12/06/14 6:03:50, Compound Start Date: 12/06/14 Status: OrderedHumalog Kwik Pen 100 units/mL subcutaneous injection See Instructions, Max daily dose 30 units. E10.65, # 30 mL, 5 Refills, Maintenance, 07/12/20 13:52:00 EDT, Solution, [facility] #[id number], Partial fill upon patient request if the [...] 5 Refills, Maintenance, 08/19/20 12:01:00 EDT, Tablet, [facility] #[id number], 152.5, cm, 08/09/20 9:25:00 EDT, Height, 53, kg, 06/25/20 16:25:00 EDT, . Start Date: 08/19/20 Status: Orderedmetoclopramide 10 mg oral tablet 1 tablet = 10 mg, By Mouth, 3 times a day before meals and bedtime, PRN Nausea & Vomiting, 30 minutes before meals and at bedtime, # 50 tablet, 0 Refills, Maintenance, 07/30/20 15:26:00 EDT, Tablet, [facility] #[id number], Partial fill upon patie... Start Date: 07/30/20 Stop Date: 08/13/20 Status: OrderedPen [place], 32 G x 4 mm BD Ultra [...] 09/03/20 11:11:00 EDT, Route to Pharmacy Electronically, [facility], Partial fill upon patient request if [...]
--- OUTSIDE RECORDS SUMMARY | 2021-11-25 15:51 | XMS_ITS | Continuity of Care Document ---
:1993 Author Organization [facility] Address [address] [place] [address]- Care Team Providers Name Role Phone Tutu MCINTOSH, Kelvin Duffy Primary Care Physician Encounter [facility] Date(s): 03/24/21 - 04/23/[address] [address] Attending Physician: AdmJacklyn garland Admitting Physician: Admtr, Jacklyn Referring Physician: Admtr, [...] Inactive (IM) (oldterm)9 01/06/03 Given Measles/Mumps/Rubella Virus Dlfkpih49 11/04/98 Given Measles/Mumps/Rubella Virus Rtgmouj84 07/10/94 Given Poliovirus Vaccine, Dyjwwfylqcy31 11/04/98 Given Poliovirus Vaccine, Telnnabocie78 03/12/96 Given Poliovirus Vaccine, Nqhvncjkrdc37 05/08/95 Given Poliovirus Vaccine, Siryjckbefv62 07/10/94 Given Diphth/Pertussis, Whl Cell/Tet(oldterm)16 11/04/98 Given [...] Refuses 1Early/Late Reason: Early/Late Reason: Med Not Sqmguzyiv5Gxebz/Late Reason: Accommodate D/D7Wpkzx Note: JBZTQR2Silqh Note: VIS txucj7Wmuli Note: VIS WFEZT9Sjfcg Note: VIS GIVEN---MENACTRA, SANOFI BBBOTXA7Ighkb Note: SANOFI PASTEUR VIS GIVEN KXMHZ0Tingb Note: vis hqnvf7Djokj Note: HX VARICELLA '9510Admin Note: HFV13Rsmcc Note: PKV88Dwegh Note: IPV/OPV13 Admin Note: IPV/KDS56Ebrfb Note: IPV/OZS93Hxdpf Note: IPV/UAN50Fdzmu Note: DPT17 Admin Note: FMS76Sdnun Note: KSM01Fvwhg Note: ITH73Dxvey Note: ZYS22Pxjjb Note: LIF91Zptyj Note: YUM67Onrgn Note: HEP B Medications acetaminophen 500 mg oral tablet 2 tablet = 1,000 mg, By Mouth, Every 6 hours, PRN for fever, # 50 tablet, 0 Refills, Maintenance, 11/09/21 9:44:00 EST, Tablet, [facility] #[id number], Partial fill upon patient request if the prescription is for a schedule II opioid drug., 155,... Start Date: 12/28/20 Status: OrderedContour Next EZ Test Strips See Instructions, # 750 application, Refills 4, Tot. Refills 4, Maintenance, Test 6-8 times daily. 250.03, 648.03 using insulin pump, 09/16/14 9:46:21, Compound Start Date: 09/16/14 Status: OrderedHandheld Electric Breast Pump See Instructions, # 1 each, Maintenance, Per medical assistant float instructions, 12/06/14 6:03:50, Compound Start Date: 12/06/14 Status: OrderedHumaLOG 100 units/mL injectable solution See Instructions, via pump , for type 1 DM, max daily dose 50 units., # 10 mL, 3 Refills, Maintenance, 01/11/21 11:25:00 EST, [facility] #[id number], Partial fill upon patient request if the [...] 12/28/20 9:44:00 EST, Route to Pharmacy Electronically, [facility] #[id number], Partial fill upon patient request if the [...] 7 Refills, Maintenance, 12/08/20 17:50:00 EDT, Tablet, [facility] #[id number], 156, cm, 12/06/20 11:33:00 EDT, Height, 56.2, kg, 11/25/20 12:46:00 EDT, D... Start Date: 12/08/20 Status: OrderedMiraLax oral powder for reconstitution = 17 Gm, By Mouth, Daily, dissolve in water before taking, # 255 Gm, 0 Refills, Maintenance, 12/28/20 9:45:00 EST, REC Powder, [facility] #[id number], Partial fill upon patient request if the prescription is for a schedule II opioid drug., 17 Gm... Start Date: 12/28/20 Status: OrderedNIFEdipine 30 mg oral tablet, extended release 30 mg, 1, tablet, By Mouth, Daily, # 30 tablet, Refills 0, Tot. Refills 0, Maintenance, 12/29/20 8:31:00 EST, Route to Pharmacy Electronically, [facility] #[id number], Partial fill upon patient request if the prescription is for a schedule II opi... Start Date: 12/29/20 Status: OrderedoxyCODONE 5 mg oral tablet 5 mg, 1, tablet, By Mouth, Every 3 hours, PRN, (7-10), # 12 tablet, Refills 0, Tot. Refills 0, Maintenance, Pain , Severe, 12/28/20 9:44:00 EST, Route to Pharmacy Electronically, [facility] #[id number], Partial fill upon patient request if the pr... Start Date: 12/28/20 Status: OrderedPen [place], 32 G x 4 mm BD Ultra [...] Maintenance, 219:44:00 EST, Route to Pharmacy Electronically, [facility] #[id number], Partial fill upon patient request if the [...]
--- OUTSIDE RECORDS SUMMARY | 2021-11-25 15:51 | XMS_ITS | Continuity of Care Document ---
:1993 Author Organization [facility] ic Address [address] [place] [address]- Care Team Providers Name Role Phone Tutu MCINTOSH, Kelvin Duffy Primary Care Physician Encounter [facility] Date(s): 08/09/20 - 11/03/[address] [address]- Attending Physician: Not on Staff, Attending MD [...] Measles/Mumps/Rubella Virus Vaccine9 11/04/98 Given Measles/Mumps/Rubella Virus Uvjdcaa50 07/10/94 Given Poliovirus Vaccine, Dtnqtrxmdtv92 11/04/98 Given Poliovirus Vaccine, Vknvoxhggse23 03/12/96 Given Poliovirus Vaccine, Dhrbhutuzua23 05/08/95 Given Poliovirus Vaccine, Pfcralnmsdb95 07/10/94 Given Diphth/Pertussis, Whl Cell/Tet(oldterm)15 11/04/98 Given [...] (old term) 93 Given 1Early/Late Reason: Accommodate D/C6Aeaua Note: QUPWCC4Rcvnn Note: VIS given4 Admin Note: VIS FGRGT3Quuni Note: VIS GIVEN---MENACTRA, SANOFI QGSPWKB0Imqak Note: SANOFI PASTEUR VIS GIVEN XFHEE4Qjibj Note: vis hltgz4Xszcc Note: HX VARICELLA '959Admin Note: CTE80Itgge Note: VOF44Hckcj Note: IPV/ZZP59Zobiw Note: IPV/KNB30Zdqef Note: IPV/WJK69Wwicf Note: IPV/REC35Hlrof Note: WFC03Hortv Note: NWR02Georq Note: EIQ84Pbtzs Note: BQB06Ycghe Note: BJK42Hphzo Note: ZWW25Jfnxg Note: RWS22Alngf Note: HEP B Medications aspirin 81 mg oral delayed release tablet 162 mg, 2, tablet, By Mouth, Daily, To start at 12 weeks gestational age, July 13, 2020, # 90 tablet, Refills 2, Tot. Refills 2, Maintenance, 08/09/20 9:35:00 EDT, Route to Pharmacy Electronically, [facility] #[id number], Partial fill upon patie... Start Date: 08/09/20 [...] tablet, 3 Refills, Maintenance, 11/01/20 16:56:00 EDT, [facility] #[id number], Partial fill upon patient request if the prescription is for a schedule II opioid drug., 150, cm, 11/01/20 9:32:00 EDT... Start Date: 11/01/20 Status: OrderedHandheld Electric Breast Pump See Instructions, # 1 each, Maintenance, Per bioinformatics technician instructions, 12/06/14 6:03:50, Compound Start Date: 12/06/14 Status: OrderedHumalog Kwik Pen 100 units/mL subcutaneous injection See Instructions, Max daily dose 30 units. E10.65, # 30 mL, 5 Refills, Maintenance, 07/12/20 13:52:00 EDT, Solution, [facility] #[id number], Partial fill upon patient request if the [...] 5 Refills, Maintenance, 08/19/20 12:01:00 EDT, Tablet, [facility] #[id number], 152.5, cm, 08/09/20 9:25:00 EDT, Height, 53, kg, 06/25/20 16:25:00 EDT, Start Date: 08/19/20 Status: Orderedmetoclopramide 10 mg oral tablet 1 tablet = 10 mg, By Mouth, 3 times a day before meals and bedtime, PRN Nausea & Vomiting, 30 minutes before meals and at bedtime, # 50 tablet, 0 Refills, Maintenance, 07/30/20 15:26:00 EDT, Tablet, [facility] #[id number], Partial fill upon patie... Start Date: 07/30/20 Stop Date: 08/13/20 Status: OrderedPen [place], 32 G x 4 mm BD Ultra [...] 09/03/20 11:11:00 EDT, Route to Pharmacy Electronically, [facility], Partial fill upon patient request if [...]
--- OUTSIDE RECORDS SUMMARY | 2021-11-25 15:51 | XMS_ITS | Continuity of Care Document ---
:1995 Author Organization [facility] ic Address [address] [place] [address]- Care Team Providers Name Role Phone Not on Staff, PCP Primary Care Physician Unavailable [facility] Date[facility]): [facility]/20 - 06/24/[address] [address] Allergies, Adverse Reactions, Alerts Substance Reaction Severity [...] Measles/Mumps/Rubella Virus Vaccine9 11/04/98 Given Measles/Mumps/Rubella Virus Vwszxez41 07/10/94 Given Poliovirus Vaccine, Pohcdllslqs88 11/04/98 Given Poliovirus Vaccine, Dpqlwwjhyku81 03/12/96 Given Poliovirus Vaccine, Rkruyveuwyd29 05/08/95 Given Poliovirus Vaccine, Fjdqgboifnw10 07/10/94 Given Diphth/Pertussis, Whl Cell/Tet(oldterm)15 11/04/98 Given [...] (old term) 93 Given 1Early/Late Reason: Accommodate D/W5Nxdgg Note: ICLIMV9Hnaal Note: VIS given4 Admin Note: VIS LZHRH8Wuwhj Note: VIS GIVEN---MENACTRA, SANOFI SIWDVBD1Ynxoi Note: SANOFI PASTEUR VIS GIVEN QOMFS2Vajcl Note: vis rgchq8Gsyss Note: HX VARICELLA '959Admin Note: PTS51Isaau Note: CDF73Vmzgu Note: IPV/JYL70Wrpoo Note: IPV/FQM02Tnfuu Note: IPV/JAY55Pkozt Note: IPV/MEF15Fcfbn Note: KPQ49Qmuly Note: LMJ51Ohfbj Note: RCK32Capwq Note: JGS92Dmpiw Note: FNB11Iyqxb Note: IVW64Wxmul Note: JWZ19Xvtvw Note: HEP B Medications Contour Next EZ [...] 07/07/20 10:43:00 EDT, 06/23/20 10:43:00 EDT, Tablet, [facility], Partial fill upon patient request if the prescript... Start Date: 06/23/20 Stop Date: 07/07/20 Status: Orderedfamotidine 20 mg oral tablet 20 mg, 1, tablet, By Mouth, 2 times a day, # 60 tablet, Refills 0, Tot. Refills 0, Maintenance, 06/22/20 9:26:00 EDT, Route to Pharmacy Electronically, [facility], Partial fill upon patient request if the prescription is for a schedule I... Start Date: 06/22/20 Status: OrderedHandheld Electric Breast Pump See Instructions, # 1 each, Maintenance, Per tile layer helper instructions, 12/06/14 6:03:50, Compound Start Date: 12/06/14 [...] 0 Refills, Maintenance, 06/23/20 10:45:00 EDT, Tablet, [facility], Partial fill upon patient... Start Date: 06/23/20 Stop Date: 07/07/20 Status: OrderedPen [place], 32 G x 4 mm BD Ultra [...] 0 Refills, Maintenance, 04/26/20 15:33:00 EST, Tablet, [facility] #[id number], Partial fill upon patient request if the prescription is for a schedule II opioid drug., 1 tablet By Mouth Daily, 152.5, cm, 05... Start Date: 04/26/20 Status: Orderedsucralfate 1 gm oral tablet 1 Gm, 1, tablet, By Mouth, Every 6 hours, # 56 tablet, Refills 0, Tot. Refills 0, Maintenance, 06/23/20 10:43:00 EDT, Route to Pharmacy Electronically, [facility], Partial fill upon patient request if the prescription is for a schedule I... Start Date: 06/23/20 Stop Date: 07/07/20 Status: OrderedVitamin B6 25 mg oral tablet 1 tablet = 25 mg, By Mouth, 3 times a day, PRN Nausea & Vomiting, # 90 tablet, 1 Refills, Acute 09/03/20 14:24:00 EDT, 06/03/20 14:24:00 EDT, [facility] #[id number], Partial fill upon patient request if the [...]
--- OUTSIDE RECORDS SUMMARY | 2021-11-25 15:51 | XMS_ITS | Continuity of Care Document ---
:1995 Author Organization [facility] Address [address] [place] [address]- Care Team Providers Name Role Phone Tutu MCINTOSH, Kelvin Duffy Primary Care Physician [facility] Date(s): 06/27/19 - 07/04/19 [facility] [address] [place] [address]- [facility] Attending Physician: Malika Olivarez MD Referring Physician: Ashutosh PALOMO, Sharla Lopez Allergies, Adverse Reactions, Alerts Substance Reaction Severity [...] Measles/Mumps/Rubella Virus Vaccine9 11/04/98 Given Measles/Mumps/Rubella Virus Mfrprmu83 07/10/94 Given Poliovirus Vaccine, Cpxqxtbrtia85 11/04/98 Given Poliovirus Vaccine, Xqmqoslehsf22 03/12/96 Given Poliovirus Vaccine, Aknxhbxwazv41 05/08/95 Given Poliovirus Vaccine, Nowebnpmyqz96 07/10/94 Given Diphth/Pertussis, Whl Cell/Tet(oldterm)15 11/04/98 Given [...] (old term) 93 Given 1Early/Late Reason: Accommodate D/X3Rhfpc Note: OSUIPZ7Ynhdt Note: VIS given4 Admin Note: VIS KOFYY9Rongr Note: VIS GIVEN---MENACTRA, SANOFI PMCORZS4Ibeck Note: SANOFI PASTEUR VIS GIVEN EDXME7Rvcdc Note: vis zycmw4Wiqqa Note: HX VARICELLA '959Admin Note: KFX03Ffqbr Note: CAW96Pcuzp Note: IPV/AOX53Anrvw Note: IPV/HTT41Wuwiz Note: IPV/PRY09Drcqt Note: IPV/KMY29Mucix Note: YZL97Dhtpj Note: TTQ85Cousd Note: MQN44Toila Note: YIQ58Fmfaf Note: IIP74Wfltb Note: RWG61Apvjr Note: BER99Jtknh Note: HEP B Medications Admelog SoloStar 100 units/mL injectable solution See Instructions, Inject 2-15 units tid w/ meals via ISS, Max dose daily dose 45 units, E10.9, # 30 mL, 6 Refills, Maintenance, 06/27/19 14:42:00 EDT, [facility] #[id number], 152.5, cm, 05/29/19 11:15:00 EDT, Height Start [...] See Instructions, # 1 each, Maintenance, Per central office supervisor instructions, 12/06/14 6:03:50, Compound Start Date: 12/06/14 [...] 3 Refills, Maintenance, 06/27/19 13:50:00 EDT, Solution, [facility] #[id number], 152.5, cm, 05/29/19 11:15:00 EDT, Height Start Date: 06/27/19 Status: OrderedLevemir FlexTouch 100 units/mL subcutaneous solution See Instructions, 15 units subQ twice daily, # 3 units, 11 Refills, Maintenance, 06/11/14 15:29:26, 15 units subQ twice daily Start Date: 06/11/14 Status: OrderedNexplanon 68 mg subcutaneous implant 1 each = 68 mg, Subcutaneous Infusion, Once, # 1 each, 0 Refills, Soft Stop, 10/31/16 16:43:40, [id number] Start Date: 10/31/16 Status: OrderedNovoLOG FlexPen 100 units/mL subcutaneous solution See Instructions, 2-8 units Subcutaneous Injection 3 times a day, # 30 mL, 3 Refills, Maintenance, 06/27/19 13:50:00 EDT, Solution, [id number], 152.5, cm, 05/29/19 11:15:00 EDT, Height Start Date: 06/27/19 Status: OrderedPen [place], 32 G x 4 mm BD Ultra [...]
--- OUTSIDE RECORDS SUMMARY | 2021-11-25 15:51 | XMS_ITS | Continuity of Care Document ---
:1995 Author Organization [facility] ic Address [address] [place] [address]- Care Team Providers Name Role Phone Tutu MCINTOSH, Kelvin Duffy Primary Care Physician [facility] Date[facility]s): 06/08/20 - 07/10/[address] [address]- Attending Physician: Not on Staff, Attending MD [...] Measles/Mumps/Rubella Virus Vaccine9 11/04/98 Given Measles/Mumps/Rubella Virus Etrkvch12 07/10/94 Given Poliovirus Vaccine, Ontdzrpsgnp78 11/04/98 Given Poliovirus Vaccine, Iyntxgzpqlf87 03/12/96 Given Poliovirus Vaccine, Cgppatodebh80 05/08/95 Given Poliovirus Vaccine, Afhxzfzuzfl27 07/10/94 Given Diphth/Pertussis, Whl Cell/Tet(oldterm)15 11/04/98 Given [...] (old term) 93 Given 1Early/Late Reason: Accommodate D/M8Dryqq Note: QLSTRQ9Uvmof Note: VIS given4 Admin Note: VIS LJDQJ8Qoszs Note: VIS GIVEN---MENACTRA, SANOFI ICCJQLH3Zrgxo Note: SANOFI PASTEUR VIS GIVEN IQAFQ7Fvxej Note: vis lycsd3Almrw Note: HX VARICELLA '959Admin Note: WOD78Wcfxg Note: WPE94Imldl Note: IPV/VRI85Mldit Note: IPV/NQQ52Fyszz Note: IPV/KYG55Bcjct Note: IPV/OIN86Oyxqz Note: VNO37Rrtuw Note: QBI03Skjyc Note: SUS99Gsqik Note: RBY49Luhik Note: DUX72Gycpm Note: XQB03Kvaha Note: GMA47Dbtuc Note: HEP B Medications aspirin 81 mg oral delayed release tablet 162 mg, 2, tablet, By Mouth, Daily, To start at 12 weeks gestational age, July 13, 2020, # 90 tablet, Refills 2, Tot. Refills 2, Maintenance, 06/25/20 16:23:00 EDT, Route to Pharmacy Electronically, [facility] #[id number], Partial fill upon irais... Start Date: 06/25/20 [...] 09/16/14 9:46:21, Compound Start Date: 09/16/14 Status: Orderedfamotidine 20 mg oral tablet 20 mg, 1, tablet, By Mouth, 2 times a day, # 60 tablet, Refills 0, Tot. Refills 0, Maintenance, 06/22/20 9:26:00 EDT, Route to Pharmacy Electronically, [facility], Partial fill upon patient request if the prescription is for a schedule I... Start Date: 06/22/20 Status: OrderedHandheld Electric Breast Pump See Instructions, # 1 each, Maintenance, Per strand buncher fine wire instructions, 12/06/14 6:03:50, Compound Start Date: 12/06/14 [...] 0 Refills, Maintenance, 06/23/20 10:45:00 EDT, Tablet, [facility], Partial fill upon patient... Start Date: 06/23/20 Stop Date: 07/07/20 Status: OrderedPen [place], 32 G x 4 mm BD Ultra [...] 0 Refills, Maintenance, 04/26/20 15:33:00 EST, Tablet, [facility], [facility] #[id number], Partial fill upon patient request if the prescription is for a schedule II opioid drug., 1 tablet By Mouth Daily, 152.5, cm, 05... Start Date: 04/26/20 Status: Orderedsucralfate 1 gm oral tablet 1 Gm, 1, tablet, By Mouth, Every 6 hours, # 56 tablet, Refills 0, Tot. Refills 0, Maintenance, 06/23/20 10:43:00 EDT, Route to Pharmacy Electronically, [facility], Partial fill upon patient request if the prescription is for a schedule I... Start Date: 06/23/20 Stop Date: 07/07/20 Status: OrderedVitamin B6 25 mg oral tablet 1 tablet = 25 mg, By Mouth, 3 times a day, PRN Nausea & Vomiting, # 90 tablet, 1 Refills, Acute 09/03/20 14:24:00 EDT, 06/03/20 14:24:00 EDT, [facility], an [facility] #[id number], Partial fill upon patient request if the [...]
--- OUTSIDE RECORDS SUMMARY | 2021-11-25 15:51 | XMS_ITS | Continuity of Care Document ---
:1995 Author Organization [facility] ic Address [address] [place] [address]- Care Team Providers Name Role Phone Tutu MCINTOSH, Kelvin Duffy Primary Care Physician [facility]counter [facility] Date(s): 04/26/20 - 05/26/[address] [address]- Allergies, Adverse Reactions, Alerts Substance Reaction Severity [...] Measles/Mumps/Rubella Virus Vaccine9 11/04/98 Given Measles/Mumps/Rubella Virus Jbglrad02 07/10/94 Given Poliovirus Vaccine, Gwabqcjjmhg70 11/04/98 Given Poliovirus Vaccine, Moczgvuwrox51 03/12/96 Given Poliovirus Vaccine, Vyfflqzkidl15 05/08/95 Given Poliovirus Vaccine, Mdgvtcpxftv67 07/10/94 Given Diphth/Pertussis, Whl Cell/Tet(oldterm)15 11/04/98 Given [...] (old term) 93 Given 1Early/Late Reason: Accommodate D/F0Pzcxn Note: CXXUIC8Jinuf Note: VIS given4 Admin Note: VIS JGUAL5Qjvtf Note: VIS GIVEN---MENACTRA, SANOFI ZDVCNIZ8Kwabe Note: SANOFI PASTEUR VIS GIVEN ZXMVZ4Cokkh Note: vis ygllt8Hychu Note: HX VARICELLA '959Admin Note: EVH07Evrpj Note: EXI41Zvpuj Note: IPV/RDV03Uuwez Note: IPV/VDK98Gumcg Note: IPV/IEU48Jthko Note: IPV/HKE32Gbnsj Note: HXV79Sevsl Note: PWG23Ecbqd Note: ODG62Hfkla Note: APP63Xzptx Note: SUH20Xuzqm Note: BYA00Wbfiq Note: YYM98Vmuga Note: HEP B Medications Contour Next EZ [...] See Instructions, # 1 each, Maintenance, Per master rigger instructions, 12/06/14 6:03:50, Compound Start Date: 12/06/14 Status: OrderedHumalog Kwik Pen 100 units/mL subcutaneous injection See Instructions, Inject 3 times/day with meals per sliding scale. Max daily dose 75 units, # 30 mL,5 Refills, Maintenance, 05/10/20 14:14:00 EDT, [facility] #[id number], Partial fill upon patient request if the prescription is for a schedule II... Start Date: 05/10/20 Status: OrderedKetostix See Instructions, # 50 each, Refills 11, Tot. Refills 11, Maintenance, Use to check urine for ketones up to 2 times/day for BGs above 250 mg/dl or when sick., 05/10/20 11:20:00 EDT, DxE10.65, Compound,152.5, cm, 07/09/19 12:58:00 EDT, Height Start Date: 05/10/20 Stop Date: 05/05/21 Status: OrderedLantus Solostar Pen 100 units/mL subcutaneous solution See Instructions, 50 units Subcutaneous Injection twice a day, # 50 mL, 3 Refills, Maintenance, 06/27/19 13:50:00 EDT, Solution, [facility] #[id number], 152.5, cm, 05/29/19 11:15:00 EDT, Height Start Date: 06/27/19 Status: Orderedlevothyroxine 0.05 mg oral tablet 1 tablet = 50 mcg, By Mouth, Daily, # 90 tablet, 0 Refills, Maintenance, 07/23/19 13:25:00 EDT, Tablet, [facility] #[id number], 152.5, cm, 07/09/19 12:58:00 EDT, Height Start Date: 07/23/19 Status: OrderedNexplanon 68 mg subcutaneous implant 1 each = 68 mg, Subcutaneous Infusion, Once, # 1 each, 0 Refills, Soft Stop, 10/31/16 16:43:40, [id number] Start Date: 10/31/16 Status: OrderedPen [place], 32 G x 4 mm BD Ultra Fine III See instructions, # 200 each, Refills 11, Tot. Refills 11, Maintenance, use as directed for Type 1 Diabetes Mellitus; tests up to 7 times/d, 04/23/15 16:56:06, Compound Start Date: 06/11/14 Stop Date: 06/06/15 Status: OrderedPrenatal Multivitamins with Folic Acid 0.4 mg oral tablet 1 tablet, By Mouth, Daily, # 90 tablet, 0 Refills, Maintenance, 04/26/20 15:33:00 EST, Tablet, [facility] #[id number], Partial fill upon patient request if the prescription is for a schedule II opioid drug., 1 tablet By Mouth Daily, 152.5, cm, 05... Start Date: 04/26/20 Status: Ordered Problem List Condition Effective Dates Status Health Status Informant Depression(Confirmed) Active Diabetes mellitus type 1(Confirmed) Active Fibroadenoma(Confirmed) 07/05/12 Active Hyperthyroidism(Confirmed) Active Iron deficiency anemia(Confirmed) Active Microalbuminuria(Confirmed) Active Hypertension in , Active preeclampsia, severe(Confirmed) Social History Social History Type Response Smoking Status Never smoker entered on: 01/08/14 Sex Female
--- OUTSIDE RECORDS SUMMARY | 2021-11-25 15:51 | XMS_ITS | Continuity of Care Document ---
:1995 Author Organization [facility] Address [address] [place] [address]- Care Team Providers Name Role Phone Tutu MCINTOSH, Kelvin Duffy Primary Care Physician Encounter [facility] Date(s): 02/04/21 - 03/06/21 [facility] [address] [place] [id number] Allergies, Adverse Reactions, Alerts Substance [...] Inactive (IM) (oldterm)9 01/06/03 Given Measles/Mumps/Rubella Virus Toyurwp09 11/04/98 Given Measles/Mumps/Rubella Virus Ssugcjg99 07/10/94 Given Poliovirus Vaccine, Ptkpiakomdx85 11/04/98 Given Poliovirus Vaccine, Ijqzuqumvfr21 03/12/96 Given Poliovirus Vaccine, Nxqnecblgpe27 05/08/95 Given Poliovirus Vaccine, Qfsqdziajew37 07/10/94 Given Diphth/Pertussis, Whl Cell/Tet(oldterm)16 11/04/98 Given [...] Refuses 1Early/Late Reason: Early/Late Reason: Med Not Muarbchxs4Fxlui/Late Reason: Accommodate D/B0Kxoco Note: EVSMJJ0Puqsy Note: VIS rtfsx9Qarci Note: VIS GYEYD7Xraue Note: VIS GIVEN---MENACTRA, SANOFI FYISYSM1Tmkls Note: SANOFI PASTEUR VIS GIVEN CMOIC1Nssaf Note: vis qryqn0Vzuow Note: HX VARICELLA '95[address]Admin Note: ALV41Skfug Note: RQP99Irbnw Note: IPV/OPV13 Admin Note: IPV/DQX31Dehcb Note: IPV/MWS63Hggoy Note: IPV/FVD32Zegwv Note: DPT17 Admin Note: QHO50Wgnfg Note: AMP38Uoidh Note: DOW36Hwarr Note: PKZ12Yndub Note: XZN97Salyy Note: IXC31Vjxzl Note: HEP B Medications acetaminophen 500 mg oral tablet 2 tablet = 1,000 mg, By Mouth, Every 6 hours, PRN for fever, # 50 tablet, 0 Refills, Maintenance, 12/28/20 9:44:00 EST, Tablet, [facility] #[id number], Partial fill upon patient request if the prescription is for a schedule II opioid drug., 155,... Start Date: 12/28/20 Status: OrderedContour Next EZ Test Strips See Instructions, # 750 application, Refills 4, Tot. Refills 4, Maintenance, Test 6-8 times daily. 250.03, 648.03 using insulin pump, 09/16/14 9:46:21, Compound Start Date: 09/16/14 Status: OrderedHandheld Electric Breast Pump See Instructions, # 1 each, Maintenance, Per outside solar sales consultant instructions, 12/06/14 6:03:50, Compound Start Date: 12/06/14 Status: OrderedHumaLOG 100 units/mL injectable solution See Instructions, via pump , for type 1 DM, max daily dose 50 units., # 10 mL, 3 Refills, Maintenance, 01/11/21 11:25:00 EST, [facility] #[id number], Partial fill upon patient request if the [...] 12/28/20 9:44:00 EST, Route to Pharmacy Electronically, [facility] #[id number], Partial fill upon patient request if the [...] 7 Refills, Maintenance, 12/08/20 17:50:00 EDT, Tablet, [facility] #[id number], 156, cm, 12/06/20 11:33:00 EDT, Height, 56.2, kg, 11/25/20 12:46:00 EDT, D... Start Date: 12/08/20 Status: OrderedMiraLax oral powder for reconstitution = 17 Gm, By Mouth, Daily, dissolve in water before taking, # 255 Gm, 0 Refills, Maintenance, 12/28/20 9:45:00 EST, REC Powder, [facility] #[id number], Partial fill upon patient request if the prescription is for a schedule II opioid drug., 17 Gm... Start Date: 12/28/20 Status: OrderedNIFEdipine 30 mg oral tablet, extended release 30 mg, 1, tablet, By Mouth, Daily, # 30 tablet, Refills 0, Tot. Refills 0, Maintenance, 12/29/20 8:31:00 EST, Route to Pharmacy Electronically, [facility] #[id number], Partial fill upon patient request if the prescription is for a schedule II opi... Start Date: 12/29/20 Status: OrderedoxyCODONE 5 mg oral tablet 5 mg, 1, tablet, By Mouth, Every 3 hours, PRN, (7-10), # 12 tablet, Refills 0, Tot. Refills 0, Maintenance, Pain , Severe, 12/28/20 9:44:00 EST, Route to Pharmacy Electronically, [facility] #[id number], Partial fill upon patient request if the pr... Start Date: 12/28/20 Status: OrderedPen [place], 32 G x 4 mm BD Ultra [...] Maintenance, 219:44:00 EST, Route to Pharmacy Electronically, [facility] #[id number], Partial fill upon patient request if the [...]
--- OUTSIDE RECORDS SUMMARY | 2021-11-25 15:51 | XMS_ITS | Continuity of Care Document ---
:1995 Author Organization [facility] Address [address] [place] [phone]- Care Team Providers Name Role Phone Tutu MCINTOSH, Kelvin Duffy Primary Care Physician [place] [facility] [place] 08/07/21 [facility] [address] [place] [address] Allergies, Adverse Reactions, Alerts Substance Reaction Severity [...] Inactive (IM) (oldterm)9 01/06/03 Given Measles/Mumps/Rubella Virus Zuassar87 11/04/98 Given Measles/Mumps/Rubella Virus Qfylyek79 07/10/94 Given Poliovirus Vaccine, Wmghmjwnldz59 11/04/98 Given Poliovirus Vaccine, Ghythnpkqwi52 03/12/96 Given Poliovirus Vaccine, Gxnwkygboog50 05/08/95 Given Poliovirus Vaccine, Olmkfzqvddj88 07/10/94 Given Diphth/Pertussis, Whl Cell/Tet(oldterm)16 11/04/98 Given [...] Refuses 1Early/Late Reason: Early/Late Reason: Med Not Piantvxtk4Uxksh/Late Reason: Accommodate D/O6Zgxyp Note: HASIOK0Tonyr Note: VIS oyabt5Otpqq Note: VIS VJGZA6Rjzrb Note: VIS GIVEN---MENACTRA, SANOFI LFXMOWW3Ebaap Note: SANOFI PASTEUR VIS GIVEN LOQHZ1Eljzr Note: vis sgwdo1Brqzw Note: HX VARICELLA '95[address]Admin Note: DBB51Hwrrt Note: QTR24Rsnay Note: IPV/OPV13 Admin Note: IPV/YQD44Wcywb Note: IPV/OVH59Aznpu Note: IPV/FKE84Yahdp Note: DPT17 Admin Note: SWV48Bxkst Note: NXA36Vkcfd Note: KZC91Hlzqi Note: LUS68Tzfto Note: BBW98Klaol Note: SKQ50Rwbmr Note: HEP B Medications acetaminophen 500 mg oral tablet 2 tablet = 1,000 mg, By Mouth, Every 6 hours, PRN for fever, # 50 tablet, 0 Refills, Maintenance, 12/28/20 9:44:00 EST, Tablet, [facility] #[id number], Partial fill upon patient request if the prescription is for a schedule II opioid drug., 155,... Start Date: 12/28/20 Status: OrderedContour Next EZ Test Strips See Instructions, # 750 application, Refills 4, Tot. Refills 4, Maintenance, Test 6-8 times daily. 250.03, 648.03 using insulin pump, 09/16/14 9:46:21, Compound Start Date: 09/16/14 Status: OrderedHandheld Electric Breast Pump See Instructions, # 1 each, Maintenance, Per scientific database curator instructions, 12/06/14 6:03:50, Compound Start Date: 12/06/14 Status: OrderedHumaLOG 100 units/mL injectable solution See Instructions, via pump , for type 1 DM, max daily dose 50 units., # 10 mL, 6 Refills, Maintenance, 07/28/21 15:26:00 EDT, [facility] #[id number], Partial fill upon patient request if the prescription is for a schedule II opioid drug., 155, cm... Start Date: 07/28/21 Status: Orderedibuprofen 800 mg oral tablet 800 mg, 1, tablet, By Mouth, Every 8 hours, # 50 tablet, Refills 0, Tot. Refills 0, Maintenance, 12/28/20 9:44:00 EST, Route to Pharmacy Electronically, [facility] #[id number], Partial fill upon patient request if the [...] 7 Refills, Maintenance, 12/08/20 17:50:00 EDT, Tablet, [facility] #[id number], 156, cm, 12/06/20 11:33:00 EDT, Height, 56.2, kg, 11/25/20 12:46:00 EDT, D... Start Date: 12/08/20 Status: OrderedMiraLax oral powder for reconstitution = 17 Gm, By Mouth, Daily, dissolve in water before taking, # 255 Gm, 0 Refills, Maintenance, 12/28/20 9:45:00 EST, REC Powder, [facility] #[id number], Partial fill upon patient request if the prescription is for a schedule II opioid drug., 17 Gm... Start Date: 12/28/20 Status: OrderedNIFEdipine 30 mg oral tablet, extended release 30 mg, 1, tablet, By Mouth, Daily, # 30 tablet, Refills 0, Tot. Refills 0, Maintenance, 12/29/20 8:31:00 EST, Route to Pharmacy Electronically, [facility] #[id number], Partial fill upon patient request if the prescription is for a schedule II opi... Start Date: 12/29/20 Status: OrderedoxyCODONE 5 mg oral tablet 5 mg, 1, tablet, By Mouth, Every 3 hours, PRN, (7-10), # 12 tablet, Refills 0, Tot. Refills 0, Maintenance, Pain , Severe, 12/28/20 9:44:00 EST, Route to Pharmacy Electronically, [facility] #[id number], Partial fill upon patient request if the pr... Start Date: 12/28/20 Status: OrderedPen [place], 32 G x 4 mm BD Ultra [...] Maintenance, 219:44:00 EST, Route to Pharmacy Electronically, [facility] #[id number], Partial fill upon patient request if the [...]
--- OUTSIDE RECORDS SUMMARY | 2021-11-25 15:51 | XMS_ITS | Continuity of Care Document ---
:1995 Author Organization [facility] ic Address [address] [place] [phone]- Care Team Providers Name Role Phone Tutu MCINTOSH, Kelvin Duffy Primary Care Physician [place] [facility] [place] 08/17/20 - 12/15/[address] [address]- Attending Physician: Not on Staff, Attending MD Admitting Physician: Not on Staff, Admitting MD Referring Physician: Not on Staff, Referring MD Allergies, Adverse Reactions, Alerts Substance Reaction [...] Inactive (IM) (oldterm)9 01/06/03 Given Measles/Mumps/Rubella Virus Aibewiq68 11/04/98 Given Measles/Mumps/Rubella Virus Soowjbj53 07/10/94 Given Poliovirus Vaccine, Tylgllkpmrj94 11/04/98 Given Poliovirus Vaccine, Zfaexzjquuu88 03/12/96 Given Poliovirus Vaccine, Awmrvewfwqp41 05/08/95 Given Poliovirus Vaccine, Ouoskuovouh01 07/10/94 Given Diphth/Pertussis, Whl Cell/Tet(oldterm)16 11/04/98 Given [...] Given 1Early/Late Reason: Early/Late Reason: Med Not Scqesczkd4Fhfnt/Late Reason: Accommodate D/H9Vpkzs Note: YZALTB9Fiwil Note: VIS ejmpr4Phvoc Note: VIS HREEW5Fvlxf Note: VIS GIVEN---MENACTRA, SANOFI LUAQPLF7Mtysi Note: SANOFI PASTEUR VIS GIVEN WSVPU9Fowrg Note: vis xqbna7Dcrdi Note: HX VARICELLA '9510Admin Note: RJX75Rxunr Note: CWE18Zcboh Note: IPV/OPV13 Admin Note: IPV/ZBN79Biutb Note: IPV/SFS08Iwtce Note: IPV/NOM46Vdhvw Note: DPT17 Admin Note: FNH57Bying Note: ZNG39Redpf Note: BTU07Cgmfq Note: GKU43Slrva Note: BWI32Sxteu Note: IUF08Anpjv Note: HEP B Medications aspirin 81 mg oral delayed release tablet 162 mg, 2, tablet, By Mouth, Daily, To start at 12 weeks gestational age, July 13, 2020, # 90 tablet, Refills 2, Tot. Refills 2, Maintenance, 08/09/20 9:35:00 EDT, Route to Pharmacy Electronically, [facility] #[id number], Partial fill upon patie... Start Date: 08/09/20 [...] tablet, 3 Refills, Maintenance, 11/01/20 16:56:00 EDT, [facility] #[id number], Partial fill upon patient request if the prescription is for a schedule II opioid drug., 150, cm, 11/01/20 9:32:00 EDT... Start Date: 11/01/20 Status: OrderedHandheld Electric Breast Pump See Instructions, # 1 each, Maintenance, Per data warehouse consultant instructions, 12/06/14 6:03:50, Compound Start Date: [...] Start Date: 11/26/20 Status: OrderedInsulin Glargine Inj 0.28 mL = 28 units, Subcutaneous Injection, Daily at bedtime, 0 Refills, Maintenance, 11/29/20 16:57:00 EDT, Injection, Partial fill upon patient request if the prescription is for a schedule II opioiddrug. Start Date: 11/29/20 Status: OrderedKetostix See Instructions, [...] 7 Refills, Maintenance, 12/08/20 17:50:00 EDT, Tablet, [facility] #[id number], 156, cm, 12/06/20 11:33:00 EDT, Height, 56.2, kg, 11/25/20 12:46:00 EDT, D... Start Date: 12/08/20 Status: Orderedmetoclopramide 10 mg oral tablet 1 tablet = 10 mg, By Mouth, 3 times a day before meals and bedtime, PRN Nausea & Vomiting, 30 minutes before meals and at bedtime, # 50 tablet, 0 Refills, Maintenance, 12/14/20 12:03:00 EDT, Tablet, [facility] #[id number], Partial fill upon patie... Start Date: 12/14/20 Stop Date: 12/28/20 Status: OrderedPen [place], 32 G x 4 mm BD Ultra [...] 09/03/20 11:11:00 EDT, Route to Pharmacy Electronically, [facility], Partial fill upon patient [...]
--- OUTSIDE RECORDS SUMMARY | 2021-11-25 15:51 | XMS_ITS | Continuity of Care Document ---
:1995 Author Organization [facility] Address [address] [place] [address]- Care Team Providers Name Role Phone Tutu MCINTOSH, Kelvin Duffy Primary Care Physician [place] [facility] [place] [facility] [address] [place] [id number] Attending Physician: Jacklyn Franco Admitting Physician: Admtr, [...] Inactive (IM) (oldterm)9 01/06/03 Given Measles/Mumps/Rubella Virus Akcxjlr63 11/04/98 Given Measles/Mumps/Rubella Virus Nvdyvqn64 07/10/94 Given Poliovirus Vaccine, Sxjvdjdhakz42 11/04/98 Given Poliovirus Vaccine, Zpfefkqjpis77 03/12/96 Given Poliovirus Vaccine, Otxsdtmoruc54 05/08/95 Given Poliovirus Vaccine, Ynssofjyfrx17 07/10/94 Given Diphth/Pertussis, Whl Cell/Tet(oldterm)16 11/04/98 Given [...] Given 1Early/Late Reason: Early/Late Reason: Med Not Hzsblpwfz5Ugpaz/Late Reason: Accommodate D/X2Mfnlj Note: DRRFOO6Vrgow Note: VIS qlobq7Eqxal Note: VIS HDCWI3Uthco Note: VIS GIVEN---MENACTRA, SANOFI SZXNYVY6Lqlfd Note: SANOFI PASTEUR VIS GIVEN NBOZL7Mvxvj Note: vis pfjwx7Pzqgt Note: HX VARICELLA '9510Admin Note: XIY77Yqfgv Note: EWX99Gxofd Note: IPV/OPV13 Admin Note: IPV/AKP93Vinzc Note: IPV/FJL50Dzdmt Note: IPV/CSV12Obkhd Note: DPT17 Admin Note: DVT02Ogxmh Note: JKT57Kktnz Note: OKI65Fawjx Note: VZK49Tbtqg Note: OMJ92Wieto Note: PSM62Lxsfn Note: HEP B Medications acetaminophen 500 mg oral tablet 2 tablet = 1,000 mg, By Mouth, Every 6 hours, PRN for fever, # 50 tablet, 0 Refills, Maintenance, 12/28/20 9:44:00 EST, Tablet, [facility] #[id number], Partial fill upon patient request if the prescription is for a schedule II opioid drug., 155,... Start Date: 12/28/20 Status: OrderedContour Next EZ Test Strips See Instructions, # 750 application, Refills 4, Tot. Refills 4, Maintenance, Test 6-8 times daily. 250.03, 648.03 using insulin pump, 09/16/14 9:46:21, Compound Start Date: 09/16/14 Status: OrderedHandheld Electric Breast Pump See Instructions, # 1 each, Maintenance, Per fire ranger instructions, 12/06/14 6:03:50, Compound Start Date: 12/06/14 [...] 12/28/20 9:44:00 EST, Route to Pharmacy Electronically, [facility] #[id number], Partial fill upon patient request if the [...] 7 Refills, Maintenance, 12/08/20 17:50:00 EDT, Tablet, [facility] #[id number], 156, cm, 12/06/20 11:33:00 EDT, Height, 56.2, kg, 11/25/20 12:46:00 EDT, D... Start Date: 12/08/20 Status: OrderedMiraLax oral powder for reconstitution = 17 Gm, By Mouth, Daily, dissolve in water before taking, # 255 Gm, 0 Refills, Maintenance, 12/28/20 9:45:00 EST, REC Powder, [facility] #[id number], Partial fill upon patient request if the prescription is for a schedule II opioid drug., 17 Gm... Start Date: 12/28/20 Status: OrderedNIFEdipine 30 mg oral tablet, extended release 30 mg, 1, tablet, By Mouth, Daily, # 30 tablet, Refills 0, Tot. Refills 0, Maintenance, 12/29/20 8:31:00 EST, Route to Pharmacy Electronically, [facility] #[id number], Partial fill upon patient request if the prescription is for a schedule II opi... Start Date: 12/29/20 Status: OrderedoxyCODONE 5 mg oral tablet 5 mg, 1, tablet, By Mouth, Every 3 hours, PRN, (7-10), # 12 tablet, Refills 0, Tot. Refills 0, Maintenance, Pain , Severe, 12/28/20 9:44:00 EST, Route to Pharmacy Electronically, [facility] #[id number], Partial fill upon patient request if the pr... Start Date: 12/28/20 Status: OrderedPen [place], 32 G x 4 mm BD Ultra [...] Maintenance, 219:44:00 EST, Route to Pharmacy Electronically, [facility] #[id number], Partial fill upon patient request if the [...]
--- OUTSIDE RECORDS SUMMARY | 2021-11-25 15:51 | XMS_ITS | Continuity of Care Document ---
:1995 Author Organization [facility] ic Address [address] [place] [address]- Care Team Providers Name Role Phone Tutu MCINTOSH, Kelvin Duffy Primary Care Physician Encounter [facility] Date(s): 04/21/20 - 05/21/[address] [address]- Allergies, Adverse Reactions, Alerts Substance Reaction Severity [...] Measles/Mumps/Rubella Virus Vaccine9 11/04/98 Given Measles/Mumps/Rubella Virus Ibjyufz31 07/10/94 Given Poliovirus Vaccine, Uofuvrdlutn22 11/04/98 Given Poliovirus Vaccine, Mahxzkoncat90 03/12/96 Given Poliovirus Vaccine, Zbazlodjktg70 05/08/95 Given Poliovirus Vaccine, Cydtmcylxyo04 07/10/94 Given Diphth/Pertussis, Whl Cell/Tet(oldterm)15 11/04/98 Given [...] (old term) 93 Given 1Early/Late Reason: Accommodate D/Z1Rnuoe Note: BCJJWC2Nafax Note: VIS given4 Admin Note: VIS VGHNH9Gkqoa Note: VIS GIVEN---MENACTRA, SANOFI RIOGXPY6Nfzse Note: SANOFI PASTEUR VIS GIVEN MUBBF4Zvqlt Note: vis dptbt5Snbfp Note: HX VARICELLA '959Admin Note: KXU99Mvfef Note: RDG71Lrloa Note: IPV/FMI05Oxciq Note: IPV/OHO13Jgjdz Note: IPV/VZA91Qfbpl Note: IPV/LBA66Sfoni Note: OTA94Oqohf Note: SIJ29Uoqgh Note: WVK07Pgami Note: STP25Sdskf Note: BNU81Cfnfq Note: LSR17Ewuce Note: OPY41Ibjpr Note: HEP B Medications Contour Next EZ [...] See Instructions, # 1 each, Maintenance, Per side laster staple instructions, 12/06/14 6:03:50, Compound Start Date: 12/06/14 Status: OrderedHucecilia Kwik Pen 100 units/mL subcutaneous injection See Instructions, Inject 3 times/day with meals per sliding scale. Max daily dose 75 units, # 30 mL,5 Refills, Maintenance, 05/10/20 14:14:00 EDT, [facility] #[id number], Partial fill upon patient request if the [...] 3 Refills, Maintenance, 06/27/19 13:50:00 EDT, Solution, [facility] #[id number], 152.5, cm, 05/29/19 11:15:00 EDT, Height Start Date: 06/27/19 Status: Orderedlevothyroxine 0.05 mg oral tablet 1 tablet = 50 mcg, By Mouth, Daily, # 90 tablet, 0 Refills, Maintenance, 07/23/19 13:25:00 EDT, Tablet, [facility] #[id number], 152.5, cm, 07/09/19 12:58:00 EDT, Height Start Date: 07/23/19 Status: OrderedNexplanon 68 mg subcutaneous implant 1 each = 68 mg, Subcutaneous Infusion, Once, # 1 each, 0 Refills, Soft Stop, 10/31/16 16:43:40, [id number] Start Date: 10/31/16 Status: OrderedPen [place], 32 G x 4 mm BD [...] 0 Refills, Maintenance, 04/26/20 15:33:00 EST, Tablet, [facility] #[id number], Partial fill upon patient request if the [...]
--- OUTSIDE RECORDS SUMMARY | 2021-11-25 15:51 | XMS_ITS | Continuity of Care Document ---
:1995 Author Organization [facility] Address [address] [place] [address]- Care Team Providers Name Role Phone Tutu MCINTOSH, Kelvin Duffy Primary Care Physician [place] [facility] [place] 01/09/21 - 01/10/[address] [address] Discharge Disposition: A-D/C Home Attending Physician: Arnold Pate MD Admitting Physician: [...] Inactive (IM) (oldterm)9 01/06/03 Given Measles/Mumps/Rubella Virus Juzwxfj85 11/04/98 Given Measles/Mumps/Rubella Virus Nzuzhrc54 07/10/94 Given Poliovirus Vaccine, Ljcwdeiwtmv70 11/04/98 Given Poliovirus Vaccine, Evnhfrhdqgx99 03/12/96 Given Poliovirus Vaccine, Rcgtjozzioq02 05/08/95 Given Poliovirus Vaccine, Cymvtuanvzf64 07/10/94 Given Diphth/Pertussis, Whl Cell/Tet(oldterm)16 11/04/98 Given [...] Refuses 1Early/Late Reason: Early/Late Reason: Med Not Iugeldxvp0Egvbv/Late Reason: Accommodate D/D0Rdqgp Note: YUOAST2Iuyiz Note: VIS kpqyk9Xtxek Note: VIS STGAE1Daaim Note: VIS GIVEN---MENACTRA, SANOFI RSPBLRZ1Dbpvc Note: SANOFI PASTEUR VIS GIVEN IIHDZ4Bfgyd Note: vis qthxv6Bktti Note: HX VARICELLA '95[address]Admin Note: VXL56Yoava Note: MIW06Btrjy Note: IPV/OPV13 Admin Note: IPV/VNL20Xlerd Note: IPV/AYH81Jbqga Note: IPV/QCH42Yriby Note: DPT17 Admin Note: CSS19Fsiax Note: DOH13Artdi Note: KWT77Xkbii Note: LPI39Kmgkn Note: KJF57Hjovq Note: XJY17Iided Note: HEP B Medications acetaminophen 500 mg oral tablet 2 tablet = 1,000 mg, By Mouth, Every 6 hours, PRN for fever, # 50 tablet, 0 Refills, Maintenance, 12/28/20 9:44:00 EST, Tablet, [facility] #[id number], Partial fill upon patient request if the prescription is for a schedule II opioid drug., 155,... Start Date: 12/28/20 Status: OrderedContour Next EZ Test Strips See Instructions, # 750 application, Refills 4, Tot. Refills 4, Maintenance, Test 6-8 times daily. 250.03, 648.03 using insulin pump, 09/16/14 9:46:21, Compound Start Date: 09/16/14 Status: OrderedHandheld Electric Breast Pump See Instructions, # 1 each, Maintenance, Per network engineering advisor instructions, 12/06/14 6:03:50, Compound Start Date: 12/06/14 [...] 12/28/20 9:44:00 EST, Route to Pharmacy Electronically, [facility] #[id number], Partial fill upon patient request if the [...] 7 Refills, Maintenance, 12/08/20 17:50:00 EDT, Tablet, [facility] #[id number], 156, cm, 12/06/20 11:33:00 EDT, Height, 56.2, kg, 11/25/20 12:46:00 EDT, D... Start Date: 12/08/20 Status: OrderedMiraLax oral powder for reconstitution = 17 Gm, By Mouth, Daily, dissolve in water before taking, # 255 Gm, 0 Refills, Maintenance, 12/28/20 9:45:00 EST, REC Powder, [facility] #[id number], Partial fill upon patient request if the prescription is for a schedule II opioid drug., 17 Gm... Start Date: 12/28/20 Status: OrderedNIFEdipine 30 mg oral tablet, extended release 30 mg, 1, tablet, By Mouth, Daily, # 30 tablet, Refills 0, Tot. Refills 0, Maintenance, 12/29/20 8:31:00 EST, Route to Pharmacy Electronically, [facility] #[id number], Partial fill upon patient request if the prescription is for a schedule II opi... Start Date: 12/29/20 Status: OrderedoxyCODONE 5 mg oral tablet 5 mg, 1, tablet, By Mouth, Every 3 hours, PRN, (7-10), # 12 tablet, Refills 0, Tot. Refills 0, Maintenance, Pain , Severe, 12/28/20 9:44:00 EST, Route to Pharmacy Electronically, [facility] #[id number], Partial fill upon patient request if the pr... Start Date: 12/28/20 Status: OrderedPen [place], 32 G x 4 mm BD Ultra [...] Maintenance, 219:44:00 EST, Route to Pharmacy Electronically, [facility] #[id number], Partial fill upon patient request if the prescription is for a schedule II... Start Date: 12/28/20 Status: Ordered Problem List Condition Effective Dates Status Health Status Informant Depression(Confirmed) Active Diabetes mellitus type 1(Confirmed) Active History of severe Active pre-eclampsia(Confirmed) Hyperthyroidism(Confirmed) Active Hypothyroidism(Confirmed) Active Microalbuminuria(Confirmed) Active Uterine scar from previous Active delivery, antepartum(Confirmed) Vital Signs Most recent to oldest 1 2 3 [Reference Range]: Height 155 cm 155 cm (01/09/21 5:07 AM) (01/08/21 10:59 PM) Weight 52.0 kg 50.2 kg (01/09/21 5:07 AM) (01/08/21 10:59 PM) Oxygen Saturation [94-100 100 % 99 % 98 % %] (01/10/21 6:00 AM) (01/10/21 5:00 AM) (01/10/21 4:00 AM) Pulse Rate [55-90 bpm] 58 bpm (01/09/21 5:07 AM) Body Mass Index 21.64 [18.5-24.99] (01/09/21 5:07 AM) Blood Pressure 104/60 mm Hg 107/60 mm Hg 107/67 mm Hg [90-138/55-84 mm Hg] (01/10/21 1:34 PM) (01/10/21 10:06 AM) ( 7:58 AM) Respiratory Rate [16-30 16 br/min 16 br/min 16 br/mi n br/min] (01/10/21 7:58 AM) (01/09/21 5:04 PM) (01/09/21 4:00 PM) Temperature [96.8-100.4 98.4 DegF 97.8 DegF 97.7 Deg F DegF] (01/10/21 7:58 AM) (01/10/21 12:00 AM) (01/09/21 4:00 PM) Mode of Delivery (Oxygen) Room air Room air Room a ir (01/09/21 10:26 AM) (01/09/21 7:35 AM) (01/09/21 7:00 AM) Blood pressure sites Arm, left Arm, left Arm, left (01/09/21 7:35 AM) (01/09/21 7:00 AM) (01/09/21 6:31 AM) Temperature Route Oral Oral Oral (01/10/21 7:58 AM) (01/10/21 12:00 AM) (01/09/21 5:07 AM) Dry Weight 52.0 kg 50.2 kg (01/09/21 5:07 AM) (01/08/21 10:59 PM) Weight Obtained Via Standing scale (01/08/21 10:59 PM) Dry Weight Obtained Via Standing scale (01/08/21 10:59 PM) Social History Social History Type Response Smoking Status Never smoker entered on: 01/08/14 Sex
--- OUTSIDE RECORDS SUMMARY | 2021-11-25 15:51 | XMS_ITS | Continuity of Care Document ---
:1995 Author Organization [facility] Address [address] [place] [address]- Care Team Providers Name Role Phone Tutu MCINTOSH, Kelvin Duffy Primary Care Physician [place] [facility] [place] 11/12/20 - 12/18/[address] [address] Attending Physician: Wanda Carter NP Admitting Physician: [...] Inactive (IM) (oldterm)9 01/06/03 Given Measles/Mumps/Rubella Virus Ieqyrxx68 11/04/98 Given Measles/Mumps/Rubella Virus Oxreogx10 07/10/94 Given Poliovirus Vaccine, Skmmvuvragu09 11/04/98 Given Poliovirus Vaccine, Fpowymjvpww27 03/12/96 Given Poliovirus Vaccine, Lwgcrzyeqkd04 05/08/95 Given Poliovirus Vaccine, Sxkbmxtunae36 07/10/94 Given Diphth/Pertussis, Whl Cell/Tet(oldterm)16 11/04/98 Given [...] Given 1Early/Late Reason: Early/Late Reason: Med Not Vgeovknpg8Xhxgz/Late Reason: Accommodate D/M7Fuynu Note: UFOLZK5Ekbeo Note: VIS awjxa6Imjtf Note: VIS GXKII8Dkhcr Note: VIS GIVEN---MENACTRA, SANOFI QCZROCU1Cnjxe Note: SANOFI PASTEUR VIS GIVEN KKTIQ2Tzqzn Note: vis kaqrh6Anbuo Note: HX VARICELLA '9510Admin Note: MFU88Fiucu Note: ZVU87Xdmxs Note: IPV/OPV13 Admin Note: IPV/QKP32Gwrey Note: IPV/TJR63Kcdxh Note: IPV/BIQ89Ooxky Note: DPT17 Admin Note: VTE72Ttkpp Note: NSI96Tzjbf Note: OGE92Wsysz Note: OGD69Dfvqc Note: OVE00Wwxpb Note: AZB46Ueeah Note: HEP B Medications aspirin 81 mg oral delayed release tablet 162 mg, 2, tablet, By Mouth, Daily, To start at 12 weeks gestational age, July 13, 2020, # 90 tablet, Refills 2, Tot. Refills 2, Maintenance, 08/09/20 9:35:00 EDT, Route to Pharmacy Electronically, [facility] #[id number], Partial fill upon patie... Start Date: 08/09/20 [...] tablet, 3 Refills, Maintenance, 11/01/20 16:56:00 EDT, [facility] #[id number], Partial fill upon patient request if the prescription is for a schedule II opioid drug., 150, cm, 11/01/20 9:32:00 EDT... Start Date: 11/01/20 Status: OrderedHandheld Electric Breast Pump See Instructions, # 1 each, Maintenance, Per associate editor instructions, 12/06/14 6:03:50, Compound Start Date: 12/06/14 [...] 7 Refills, Maintenance, 12/08/20 17:50:00 EDT, Tablet, [facility] #[id number], 156, cm, 12/06/20 11:33:00 EDT, Height, 56.2, kg, 11/25/20 12:46:00 EDT, D... Start Date: 12/08/20 Status: Orderedmetoclopramide 10 mg oral tablet 1 tablet = 10 mg, By Mouth, 3 times a day before meals and bedtime, PRN Nausea & Vomiting, 30 minutes before meals and at bedtime, # 50 tablet, 0 Refills, Maintenance, 12/14/20 12:03:00 EDT, Tablet, [facility] #[id number], Partial fill upon patie... Start Date: 12/14/20 Stop Date: 12/28/20 Status: OrderedPen [place], 32 G x 4 mm BD Ultra [...] 11:11:00 EDT, Route to Pharmacy Electronically, [facility], Partial fill upon patient [...]
--- OUTSIDE RECORDS SUMMARY | 2021-11-25 15:51 | XMS_ITS | Continuity of Care Document ---
:1995 Author Organization [facility] Address [address] [place] [address]- Care Team Providers Name Role Phone Tutu MCINTOSH, Kelvin Duffy Primary Care Physician Encounter [facility] Date(s): 08/31/20 - 09/30/[address] [address]- Allergies, Adverse Reactions, Alerts Substance Reaction Severity [...] Measles/Mumps/Rubella Virus Vaccine9 11/04/98 Given Measles/Mumps/Rubella Virus Pxdqybv26 07/10/94 Given Poliovirus Vaccine, Kneifwwuimk00 11/04/98 Given Poliovirus Vaccine, Pmawjovfzqr50 03/12/96 Given Poliovirus Vaccine, Dmvjcvbuqcj81 05/08/95 Given Poliovirus Vaccine, Cqtwoglihxx76 07/10/94 Given Diphth/Pertussis, Whl Cell/Tet(oldterm)15 11/04/98 Given [...] (old term) 93 Given 1Early/Late Reason: Accommodate D/O3Mdhcq Note: IDOMXZ5Dqyrc Note: VIS given4 Admin Note: VIS VBBAY3Dcnnv Note: VIS GIVEN---MENACTRA, SANOFI UGJWHWK9Iiuha Note: SANOFI PASTEUR VIS GIVEN LOSGB2Eicnd Note: vis nomdo1Fdvql Note: HX VARICELLA '959Admin Note: HQL02Excia Note: LVS94Qqarf Note: IPV/QIZ44Teqdz Note: IPV/RSD75Tafyw Note: IPV/TQD11Zqlfq Note: IPV/AYE94Qtffm Note: BOE94Thrtm Note: IBH45Jjmyf Note: UIQ11Wmvpa Note: RSW62Onaxq Note: COS24Btamx Note: HAF20Xhpdc Note: JHF00Gpuxd Note: HEP B Medications aspirin 81 mg oral delayed release tablet 162 mg, 2, tablet, By Mouth, Daily, To start at 12 weeks gestational age, July 13, 2020, # 90 tablet, Refills 2, Tot. Refills 2, Maintenance, 08/09/20 9:35:00 EDT, Route to Pharmacy Electronically, [facility] #[id number], Partial fill upon patie... Start Date: 08/09/20 Status: OrderedContour Next EZ Test Strips See Instructions, # 750 application, Refills 4, Tot. Refills 4, Maintenance, Test 6-8 times daily. 250.03, 648.03 using insulin pump, 09/16/14 9:46:21, Compound Start Date: 09/16/14 Status: OrderedHandheld Electric Breast Pump See Instructions, # 1 each, Maintenance, Per private household worker instructions, 12/06/14 6:03:50, Compound Start Date: 12/06/14 Status: OrderedHumalog Kwik Pen 100 units/mL subcutaneous injection See Instructions, Max daily dose 30 units. E10.65, # 30 mL, 5 Refills, Maintenance, 07/12/20 13:52:00 EDT, Solution, [facility] #[id number], Partial fill upon patient request if the [...] 5 Refills, Maintenance, 08/19/20 12:01:00 EDT, Tablet, [facility] #[id number], 152.5, cm, 08/09/20 9:25:00 EDT, Height, 53, kg, 06/25/20 16:25:00 EDT, . Start Date: 08/19/20 Status: Orderedmetoclopramide 10 mg oral tablet 1 tablet = 10 mg, By Mouth, 3 times a day before meals and bedtime, PRN Nausea & Vomiting, 30 minutes before meals and at bedtime, # 50 tablet, 0 Refills, Maintenance, 07/30/20 15:26:00 EDT, [id number], Partial fill upon patie... Start Date: 07/30/20 Stop Date: 08/13/20 Status: Orderedondansetron 4 mg oral tablet, disintegrating 1 tablet = 4 mg, By Mouth, Every 8 hours, PRN as needed for nausea/vomiting, # 25 tablet, 0 Refills,Maintenance, 09/03/20 14:41:00 EDT, DIS Tablet, [facility], Partial fill upon patient request if the prescription is for a schedule II o... Start Date: 09/03/20 Status: OrderedPen [place], 32 G x 4 mm BD Ultra [...] 0 Refills, Maintenance, 09/03/20 14:41:00 EDT, Tablet, [facility], Partial fill upon patient request if the prescription is for a schedule II opioid drug., 150, cm, 0... Start Date: 09/03/20 Status: OrderedVitamin B6 50 mg oral tablet 25 mg, 0.5, tablet, By Mouth, 3 times a day, # 100 tablet, Refills 0, Tot. Refills 0, Maintenance, 09/03/20 11:11:00 EDT, Route to Pharmacy Electronically, [facility], Partial fill upon patient [...]
--- OUTSIDE RECORDS SUMMARY | 2021-11-25 15:51 | XMS_ITS | Continuity of Care Document ---
:1995 Author Organization [facility] Address [address] [place] [address] Drive [address] [place] [address]- Care Team Providers Name Role Phone Tutu MCINTOSH, Kelvin Duffy Primary Care Physician Encounter [facility] [place] Date(s): 04/09/20 - 05/09/20 [facility] [address] [place] [address] Drive [address] [place], [place] [address] Allergies, Adverse Reactions, [...] Measles/Mumps/Rubella Virus Vaccine9 11/04/98 Given Measles/Mumps/Rubella Virus Xjokjka51 07/10/94 Given Poliovirus Vaccine, Culkiglhmzy89 11/04/98 Given Poliovirus Vaccine, Mrdvgxzawmr91 03/12/96 Given Poliovirus Vaccine, Ivsbaesidbz16 05/08/95 Given Poliovirus Vaccine, Nkucrlrpqnt74 07/10/94 Given Diphth/Pertussis, Whl Cell/Tet(oldterm)15 11/04/98 Given [...] (old term) 93 Given 1Early/Late Reason: Accommodate D/X4Pjfle Note: HPIMPN9Gckzy Note: VIS given4 Admin Note: VIS GPLFL5Uekxk Note: VIS GIVEN---MENACTRA, SANOFI LWCRXSB4Isiba Note: SANOFI PASTEUR VIS GIVEN BVPRE4Pyyua Note: vis rjhaa6Izhkw Note: HX VARICELLA '959Admin Note: BGH71Qidbe Note: LQI72Mgvmj Note: IPV/HLT60Dfhzp Note: IPV/JEX57Rjjtj Note: IPV/IQM28Pwbzr Note: IPV/COG97Ycwxy Note: YOV90Exfay Note: HHT24Hvacr Note: LJW21Aimqn Note: NKQ58Oobew Note: ZWT17Zvngn Note: YNJ25Mzwwc Note: FWM07Qahhr Note: HEP B Medications Contour Next EZ [...] See Instructions, # 1 each, Maintenance, Per decision support analyst instructions, 12/06/14 6:03:50, Compound Start Date: 12/06/14 Status: OrderedKetostix See Instructions, # 2 vials, Refills 11, Tot. Refills 11, Maintenance, use as directed for Type 1 Diabetes Mellitus, 08/12/14 13:56:14, Compound Start Date: 08/12/14 Stop Date: 08/07/15 Status: OrderedLantus Solostar Pen 100 units/mL subcutaneous solution See Instructions, 50 units Subcutaneous Injection twice a day, # 50 mL, 3 Refills, Maintenance, 06/27/19 13:50:00 EDT, Solution, [facility] #[id number], 152.5, cm, 05/29/19 11:15:00 EDT, Height Start Date: 06/27/19 Status: OrderedLevemir FlexTouch 100 units/mL subcutaneous solution See Instructions, 15 units subQ twice daily, # 3 units, 11 Refills, Maintenance, 06/11/14 15:29:26, 15 units subQ twice daily Start Date: 06/11/14 Status: Orderedlevothyroxine 0.05 mg oral tablet 1 tablet = 50 mcg, By Mouth, Daily, # 90 tablet, 0 Refills, Maintenance, 07/23/19 13:25:00 EDT, Tablet, [facility] #[id number], 152.5, cm, 07/09/19 12:58:00 EDT, Height Start Date: 07/23/19 Status: OrderedNexplanon 68 mg subcutaneous implant 1 each = 68 mg, Subcutaneous Infusion, Once, # 1 each, 0 Refills, Soft Stop, 10/31/16 16:43:40, [id number] Start Date: 10/31/16 Status: OrderedNovoLOG FlexPen 100 units/mL subcutaneous solution See Instructions, Inject insulin subcutaneously 3x a day via Insulin sliding scale, Max daily dose 75 units, E10.9, # 45 mL, 3 Refills, Maintenance, 04/28/20 13:06:00 EST, Solution, [facility] #[id number], 152.5, cm, 07/09/19 12:58:00 EDT, Height Start Date: 04/28/20 Status: OrderedPen [place], 32 G x 4 mm BD Ultra [...] 0 Refills, Maintenance, 04/26/20 15:33:00 EST, Tablet, [facility] #[id number], Partial fill upon patient request if the [...]
--- OUTSIDE RECORDS SUMMARY | 2021-11-25 15:51 | XMS_ITS | Continuity of Care Document ---
:1995 Author Organization [facility] ic Address [address] [place] [address]- Care Team Providers Name Role Phone Tutu MCINTOSH, Kelvin Duffy Primary Care Physician Encounter [facility] Date(s): 02/24/20 - 03/25/[address] [address]- Attending Physician: Jacklyn Franco Admitting Physician: Jacklyn Franco Referring Physician: Jacklyn Franco Allergies, Adverse Reactions, Alerts Substance Reaction Severity [...] Measles/Mumps/Rubella Virus Vaccine9 11/04/98 Given Measles/Mumps/Rubella Virus Fiwtbjt91 07/10/94 Given Poliovirus Vaccine, Aeijssrjzby28 11/04/98 Given Poliovirus Vaccine, Stqvnzozspg99 03/12/96 Given Poliovirus Vaccine, Indhzjxkgua07 05/08/95 Given Poliovirus Vaccine, Ypfuabambgn39 07/10/94 Given Diphth/Pertussis, Whl Cell/Tet(oldterm)15 11/04/98 Given [...] (old term) 93 Given 1Early/Late Reason: Accommodate D/G4Fnxaw Note: IQIGMT8Rmvou Note: VIS given4 Admin Note: VIS BOJKM1Ddfva Note: VIS GIVEN---MENACTRA, SANOFI BXXNIRN0Sswhb Note: SANOFI PASTEUR VIS GIVEN MCEMA7Qlheh Note: vis cwjeo8Dbliz Note: HX VARICELLA '959Admin Note: INE09Auzds Note: LLT65Nmhvh Note: IPV/SSI28Guqvq Note: IPV/XFA03Fouzc Note: IPV/XXK01Rczqf Note: IPV/OAN14Hvapd Note: JEN35Gmuce Note: XVI67Xjlow Note: AHP04Gknwy Note: YLR66Yezoy Note: ZMB83Dftqm Note: YCK43Tnxfn Note: XBO17Giwmj Note: HEP B Medications Admelog SoloStar 100 units/mL injectable solution See Instructions, Inject 2-15 units tid w/ meals via ISS, Max dose daily dose 45 units, E10.9, # 30 mL, 6 Refills, Maintenance, 06/27/19 14:42:00 EDT, [facility] #[id number], 152.5, cm, 05/29/19 11:15:00 EDT, Height Start [...] See Instructions, # 1 each, Maintenance, Per hospital nurse instructions, 12/06/14 6:03:50, Compound Start Date: 12/06/14 Status: OrderedHumalog 100 u/ml subcutaneous injection See Instructions, Pt to infuse up to 50 units via insulin pump for dx of E10, # 20 mL, 3 Refills, Maintenance, 02/24/15 7:40:00, Pt to infuse up to 50 units via insulin pump for dx of E10 Start Date: 02/24/15 Status: OrderedHumalog 100 u/ml subcutaneous injection See Instructions, Subcutaneous Infusionj via insulin pump up to 70 units/day, 0 Refills, Maintenance, 06/05/14 9:53:51 Start Date: 06/05/14 Status: OrderedHumalog Kwik Pen 100 units/mL subcutaneous [...] 3 Refills, Maintenance, 06/27/19 13:50:00 EDT, Solution, [facility] #[id number], 152.5, cm, 05/29/19 11:15:00 EDT, Height Start Date: 06/27/19 Status: OrderedLevemir FlexTouch 100 units/mL subcutaneous solution See Instructions, 15 units subQ twice daily, # 3 units, 11 Refills, Maintenance, 06/11/14 15:29:26, 15 units subQ twice daily Start Date: 06/11/14 Status: Orderedlevothyroxine 0.05 mg oral tablet 1 tablet = 50 mcg, By Mouth, Daily, # 90 tablet, 0 Refills, Maintenance, 07/23/19 13:25:00 EDT, Tablet, [facility] #74690, 152.5, cm, 07/09/19 12:58:00 EDT, Height Start Date: 07/23/19 Status: OrderedNexplanon 68 mg subcutaneous implant 1 each = 68 mg, Subcutaneous Infusion, Once, # 1 each, 0 Refills, Soft Stop, 10/31/16 16:43:40, [id number] Start Date: 10/31/16 Status: OrderedNovoLOG FlexPen 100 units/mL subcutaneous solution See Instructions, 2-8 units Subcutaneous Injection 3 times a day, # 30 mL, 3 Refills, Maintenance, 06/27/19 13:50:00 EDT, Solution, [facility] #07942, 152.5, cm, 05/29/19 11:15:00 EDT, Height Start Date: 06/27/19 Status: OrderedPen [place], 32 G x 4 mm BD [...]
--- OUTSIDE RECORDS SUMMARY | 2021-11-25 15:51 | XMS_ITS | Continuity of Care Document ---
:1995 Author Organization [facility] Address [address] [place] [address]- Care Team Providers Name Role Phone Tutu MCINTOSH, Kelvin Duffy Primary Care Physician [place] [facility] 03/01/20 - 03/31/20 [facility] [address] [place] [address] [address] Attending Physician: Jacklyn Franco Admitting Physician: [...] Measles/Mumps/Rubella Virus Vaccine9 11/04/98 Given Measles/Mumps/Rubella Virus Imvosrv52 07/10/94 Given Poliovirus Vaccine, Cobriqeethy50 11/04/98 Given Poliovirus Vaccine, Ckhfidproiv37 03/12/96 Given Poliovirus Vaccine, Nfvpbebvkug58 05/08/95 Given Poliovirus Vaccine, Olciovtmfnq76 07/10/94 Given Diphth/Pertussis, Whl Cell/Tet(oldterm)15 11/04/98 Given [...] (old term) 93 Given 1Early/Late Reason: Accommodate D/D4Sbqlb Note: SPTRYG7Yigxf Note: VIS given4 Admin Note: VIS KYDJO6Mzrrg Note: VIS GIVEN---MENACTRA, SANOFI FXVQXBH2Gpbmd Note: SANOFI PASTEUR VIS GIVEN ZEYMU9Lkyeb Note: vis uzfzx4Xneqr Note: HX VARICELLA '959Admin Note: PVD21Wemwg Note: GWG43Rdmnu Note: IPV/TTM86Gxugv Note: IPV/GVL46Ianoq Note: IPV/IUA84Dzvmp Note: IPV/YNS68Gmoop Note: IRJ82Jgioi Note: QQH05Mhyoc Note: XNA06Bqqix Note: IRX37Cscmx Note: OVJ74Katcb Note: GCP25Hkvgt Note: ZLS88Wtjke Note: HEP B Medications Admelog SoloStar 100 units/mL injectable solution See Instructions, Inject 2-15 units tid w/ meals via ISS, Max dose daily dose 45 units, E10.9, # 30 mL, 6 Refills, Maintenance, 06/27/19 14:42:00 EDT, [facility] #[id number], 152.5, cm, 05/29/19 11:15:00 EDT, Height Start [...] See Instructions, # 1 each, Maintenance, Per hog worker instructions, 12/06/14 6:03:50, Compound Start Date: [...] 3 Refills, Maintenance, 06/27/19 13:50:00 EDT, Solution, [facility] #44527, 152.5, cm, 05/29/19 11:15:00 EDT, Height Start Date: 06/27/19 Status: OrderedLevemir FlexTouch 100 units/mL subcutaneous solution See Instructions, 15 units subQ twice daily, # 3 units, 11 Refills, Maintenance, 06/11/14 15:29:26, 15 units subQ twice daily Start Date: 06/11/14 Status: Orderedlevothyroxine 0.05 mg oral tablet 1 tablet = 50 mcg, By Mouth, Daily, # 90 tablet, 0 Refills, Maintenance, 07/23/19 13:25:00 EDT, Tablet, [facility] #97195, 152.5, cm, 07/09/19 12:58:00 EDT, Height Start Date: 07/23/19 Status: OrderedNexplanon 68 mg subcutaneous implant 1 each = 68 mg, Subcutaneous Infusion, Once, # 1 each, 0 Refills, Soft Stop, 10/31/16 16:43:40, [id number] Start Date: 10/31/16 Status: OrderedNovoLOG FlexPen 100 units/mL subcutaneous solution See Instructions, 2-8 units Subcutaneous Injection 3 times a day, # 30 mL, 3 Refills, Maintenance, 06/27/19 13:50:00 EDT, Solution, [facility] #[id number], 152.5, cm, 05/29/19 11:15:00 EDT, Height Start Date: 06/27/19 Status: OrderedPen [place], 32 G x 4 mm BD Ultra [...]
--- OUTSIDE RECORDS SUMMARY | 2021-11-25 15:51 | XMS_ITS | Continuity of Care Document ---
:1995 Author Organization [facility] Address [address] [place] [address]- Care Team Providers Name Role Phone Tutu MCINTOSH, eKlvin Duffy Primary Care Physician Encounter [facility] [place] Date(s): 11/25/20 - 11/25/[address] [address] Discharge Disposition: A-D/C Home Attending Physician: Wanda Carter NP Admitting Physician: Wanda Carter NP Referring Physician: Wanda Carter NP Allergies, Adverse Reactions, Alerts Substance Reaction Severity Status penicillin Rash Active Extent of radial penetration Immunizations Given and Recorded Vaccine Date Status Refusal Reason tetanus/diphtheria/pertussis, acel(Tdap) 11/22/20 Given tetanus/diphtheria/pertussis, acel(Tdap) 10/09/14 Given influenza virus vaccine, inactivated 11/24/14 Given influenza virus vaccine, inactivated1 12/14/11 Given influenza virus vaccine, inactivated 11/14/10 Given influenza virus vaccine, inactivated 04/22/10 Given influenza virus vaccine, inactivated2 12/04/07 Given influ virus vac, H1N1, inactive(oldterm)3 12/23/08 Given Human Papillomavirus Vaccine 12/09/08 Given Human Papillomavirus Vaccine 12/04/07 Given Human Papillomavirus Vaccine4 04/30/07 Given Meningococcal Conjugate Vaccine5 04/30/07 Given Influenza Virus Vaccine (oldterm)6 04/30/07 Given Tet/Diphth/Acel, Pertussis (oldterm)7 04/30/07 Given Influenza Inactive (IM) (oldterm)8 01/06/03 Given Measles/Mumps/Rubella Virus Vaccine9 11/04/98 Given Measles/Mumps/Rubella Virus Oaqwzfl29 07/10/94 Given Poliovirus Vaccine, Nmqnwgtdugv32 11/04/98 Given Poliovirus Vaccine, Wqjwftzzddl14 03/12/96 Given Poliovirus Vaccine, Mliwadlefhb64 05/08/95 Given Poliovirus Vaccine, Ygusnimdsck48 07/10/94 Given Diphth/Pertussis, Whl Cell/Tet(oldterm)15 11/04/98 Given [...] (old term) 93 Given 1Early/Late Reason: Accommodate D/B4Dmkny Note: OBEWNY4Fovhi Note: VIS given4 Admin Note: VIS FNVEQ4Tvaen Note: VIS GIVEN---MENACTRA, SANOFI TYQKFED6Abfzs Note: SANOFI PASTEUR VIS GIVEN JMSVZ2Caqvc Note: vis xqauq2Cnheg Note: HX VARICELLA '959Admin Note: VDV78Hixni Note: TOM31Oxuhu Note: IPV/QSH03Nrfsv Note: IPV/MCT47Vlbtm Note: IPV/ULH99Cxbmg Note: IPV/BKJ27Rrnes Note: FMN85Cvrig Note: LSL27Xvcff Note: BXN78Uwzrh Note: MVA80Pfjcr Note: CXC54Hqtzv Note: BTW62Tnjei Note: ZZE42Utcuj Note: HEP B Medications aspirin 81 mg oral delayed release tablet 162 mg, 2, tablet, By Mouth, Daily, To start at 12 weeks gestational age, July 13, 2020, # 90 tablet, Refills 2, Tot. Refills 2, Maintenance, 08/09/20 9:35:00 EDT, Route to Pharmacy Electronically, [facility] #[id number], Partial fill upon patie... Start Date: 08/09/20 [...] tablet, 3 Refills, Maintenance, 11/01/20 16:56:00 EDT, [facility] #[id number], Partial fill upon patient request if the prescription is for a schedule II opioid drug., 150, cm, 11/01/20 9:32:00 EDT... Start Date: 11/01/20 Status: OrderedHandheld Electric Breast Pump See Instructions, # 1 each, Maintenance, Per port crane operator instructions, 12/06/14 6:03:50, Compound Start Date: 12/06/14 Status: OrderedHumalog Kwik Pen 100 units/mL subcutaneous injection See Instructions, 12 units before breakfast; 12 units before lunch; 20 units before dinner, # 30 mL,5 Refills, Maintenance, 07/12/20 13:52:00 EDT, Solution, [facility] #[id number], Partial fill upon patient request if the [...] 5 Refills, Maintenance, 08/19/20 12:01:00 EDT, Tablet, [facility] #[id number], 152.5, cm, 08/09/20 9:25:00 EDT, Height, 53, kg, 06/25/20 16:25:00 EDT, Start Date: 08/19/20 Status: Orderedmetoclopramide 10 mg oral tablet 1 tablet = 10 mg, By Mouth, 3 times a day before meals and bedtime, PRN Nausea & Vomiting, 30 minutes before meals and at bedtime, # 50 tablet, 0 Refills, Maintenance, 07/30/20 15:26:00 EDT, Tablet, [facility] #[id number], Partial fill upon patie... Start Date: 07/30/20 Stop Date: 08/13/20 Status: OrderedPen [place], 32 G x 4 mm BD Ultra [...] 09/03/20 11:11:00 EDT, Route to Pharmacy Electronically, [facility], Partial fill upon patient request [...]
--- OUTSIDE RECORDS SUMMARY | 2021-11-25 15:52 | XMS_ITS | Continuity of Care Document ---
:1995 Author Organization [facility] ic Address [address] [place] [address]- Care Team Providers Name Role Phone Tutu MCINTOSH, Kelvin Duffy Primary Care Physician En[place] [facility] [place] Date(s): 10/05/20 - 12/16/[address] [address]- Attending Physician: Not on Staff, Attending MD [...] Inactive (IM) (oldterm)9 01/06/03 Given Measles/Mumps/Rubella Virus Llknhzv02 11/04/98 Given Measles/Mumps/Rubella Virus Acioqwq75 07/10/94 Given Poliovirus Vaccine, Baddnnwafwb83 11/04/98 Given Poliovirus Vaccine, Axhcetyhjhx75 03/12/96 Given Poliovirus Vaccine, Ljiyvcsxsnh78 05/08/95 Given Poliovirus Vaccine, Ekokmchkifh07 07/10/94 Given Diphth/Pertussis, Whl Cell/Tet(oldterm)16 11/04/98 Given [...] Given 1Early/Late Reason: Early/Late Reason: Med Not Gjhltsogd8Wvtol/Late Reason: Accommodate D/D1Qxasm Note: LFZEEO1Hxsne Note: VIS yvqoq0Oblxd Note: VIS PYZUO2Mgozz Note: VIS GIVEN---MENACTRA, SANOFI FPFBJCS2Nbbxk Note: SANOFI PASTEUR VIS GIVEN ANGHA4Urikk Note: vis dlozm9Hoyeh Note: HX VARICELLA '9510Admin Note: AET50Qfpwb Note: WJV37Dnmkl Note: IPV/OPV13 Admin Note: IPV/HOX59Iufyl Note: IPV/VCD76Nytpr Note: IPV/JXI09Oasgs Note: DPT17 Admin Note: MOS95Tchlw Note: VOA28Mnuvu Note: GVU57Wtxyq Note: ICQ13Rxhgu Note: YEH40Lgkpf Note: ZIT46Djilc Note: HEP B Medications aspirin 81 mg oral delayed release tablet 162 mg, 2, tablet, By Mouth, Daily, To start at 12 weeks gestational age, July 13, 2020, # 90 tablet, Refills 2, Tot. Refills 2, Maintenance, 08/09/20 9:35:00 EDT, Route to Pharmacy Electronically, [facility] #[id number], Partial fill upon patie... Start Date: 08/09/20 [...] tablet, 3 Refills, Maintenance, 11/01/20 16:56:00 EDT, [facility] #[id number], Partial fill upon patient request if the prescription is for a schedule II opioid drug., 150, cm, 11/01/20 9:32:00 EDT... Start Date: 11/01/20 Status: OrderedHandheld Electric Breast Pump See Instructions, # 1 each, Maintenance, Per sales representative canvas products instructions, 12/06/14 6:03:50, Compound Start Date: 12/06/14 [...] 7 Refills, Maintenance, 12/08/20 17:50:00 EDT, Tablet, [facility] #[id number], 156, cm, 12/06/20 11:33:00 EDT, Height, 56.2, kg, 11/25/20 12:46:00 EDT, D... Start Date: 12/08/20 Status: Orderedmetoclopramide 10 mg oral tablet 1 tablet = 10 mg, By Mouth, 3 times a day before meals and bedtime, PRN Nausea & Vomiting, 30 minutes before meals and at bedtime, # 50 tablet, 0 Refills, Maintenance, 12/14/20 12:03:00 EDT, Tablet, [facility] #[id number], Partial fill upon patie... Start Date: 12/14/20 Stop Date: 12/28/20 Status: OrderedPen [place], 32 G x 4 mm BD Ultra [...] 09/03/20 11:11:00 EDT, Route to Pharmacy Electronically, [facility], Partial fill upon patient [...]
--- OUTSIDE RECORDS SUMMARY | 2021-11-25 15:52 | XMS_ITS | Continuity of Care Document ---
:1995 Author Organization [facility] Address [address] [place] [address]- Care Team Providers Name Role Phone Kelvin Cam MD Primary Care Physician [place] [facility] [place] - 09/10/[address] [address] Attending Physician: Kelvin Cam MD Admitting Physician: [...] Measles/Mumps/Rubella Virus Vaccine9 11/04/98 Given Measles/Mumps/Rubella Virus Eqhknna16 07/10/94 Given Poliovirus Vaccine, Vcanmzasauh76 11/04/98 Given Poliovirus Vaccine, Aywswocfnhb26 03/12/96 Given Poliovirus Vaccine, Bohsqnngbvz33 05/08/95 Given Poliovirus Vaccine, Botbmylwxfz27 07/10/94 Given Diphth/Pertussis, Whl Cell/Tet(oldterm)15 11/04/98 Given [...] (old term) 93 Given 1Early/Late Reason: Accommodate D/E2Rnmyp Note: QVJMDO1Knojk Note: VIS given4 Admin Note: VIS NJZYC1Sahgs Note: VIS GIVEN---MENACTRA, SANOFI NMWIABD0Dpapu Note: SANOFI PASTEUR VIS GIVEN HZZOB9Xxgup Note: vis ppmpi9Nbzlo Note: HX VARICELLA '959Admin Note: EZZ24Jjhes Note: LNR49Osxyg Note: IPV/WIS29Jpycc Note: IPV/RKZ26Kyjbi Note: IPV/BWP30Icrvw Note: IPV/YBE04Tfewj Note: TSY68Kjxdk Note: KNA24Yigeq Note: PZU96Fvmzb Note: PWC68Rcyht Note: AJN93Bzkrz Note: PTC04Jaowh Note: FTX20Ylvpq Note: HEP B Medications Admelog SoloStar 100 units/mL injectable solution See Instructions, Inject 2-15 units tid w/ meals via ISS, Max dose daily dose 45 units, E10.9, # 30 mL, 6 Refills, Maintenance, 06/27/19 14:42:00 EDT, [facility] #[id number], 152.5, cm, 05/29/19 11:15:00 EDT, Height Start [...] See Instructions, # 1 each, Maintenance, Per scoring machine operator instructions, 12/06/14 6:03:50, Compound Start [...] 3 Refills, Maintenance, 06/27/19 13:50:00 EDT, Solution, [facility] #[id number], 152.5, cm, 05/29/19 11:15:00 EDT, Height Start Date: 06/27/19 Status: OrderedLevemir FlexTouch 100 units/mL subcutaneous solution See Instructions, 15 units subQ twice daily, # 3 units, 11 Refills, Maintenance, 06/11/14 15:29:26, 15 units subQ twice daily Start Date: 06/11/14 Status: Orderedlevothyroxine 0.05 mg oral tablet 1 tablet = 50 mcg, By Mouth, Daily, # 90 tablet, 0 Refills, Maintenance, 07/23/19 13:25:00 EDT, Tablet, [facility] #[id number], 152.5, cm, 07/09/19 12:58:00 EDT, Height Start Date: 07/23/19 Status: OrderedNexplanon 68 mg subcutaneous implant 1 each = 68 mg, Subcutaneous Infusion, Once, # 1 each, 0 Refills, Soft Stop, 10/31/16 16:43:40, [id number] Start Date: 10/31/16 Status: OrderedNovoLOG FlexPen 100 units/mL subcutaneous solution See Instructions, 2-8 units Subcutaneous Injection 3 times a day, # 30 mL, 3 Refills, Maintenance, 06/27/19 13:50:00 EDT, Solution, [facility] #[id number], 152.5, cm, 05/29/19 11:15:00 EDT, Height Start Date: 06/27/19 Status: OrderedPen [place], 32 G x 4 mm BD Ultra [...]
--- OUTSIDE RECORDS SUMMARY | 2021-11-25 15:52 | XMS_ITS | Continuity of Care Document ---
:1995 Author Organization [facility] ic Address [address] [place] [address]- Care Team Providers Name Role Phone Tutu MCINTOSH, Kelvin Duffy Primary Care Physician Encounter [facility] Date(s): 06/20/21 - 07/20/[address] [address]- Attending Physician: Jacklyn Franco Admitting Physician: Jacklyn [...] Inactive (IM) (oldterm)9 01/06/03 Given Measles/Mumps/Rubella Virus Qznvxth50 11/04/98 Given Measles/Mumps/Rubella Virus Kbdfype98 07/10/94 Given Poliovirus Vaccine, Fahkvqigncz58 11/04/98 Given Poliovirus Vaccine, Crokjiwuuap35 03/12/96 Given Poliovirus Vaccine, Mstokuuujqc88 05/08/95 Given Poliovirus Vaccine, Wybgbyyexwk67 07/10/94 Given Diphth/Pertussis, Whl Cell/Tet(oldterm)16 11/04/98 Given [...] Refuses 1Early/Late Reason: Early/Late Reason: Med Not Zpfcymwcv4Njiyw/Late Reason: Accommodate D/N5Fqkkk Note: IDWMOB0Imwzm Note: VIS rssrx8Ywhsy Note: VIS TGXIF9Rkrki Note: VIS GIVEN---MENACTRA, SANOFI ZJIFFKS6Zkuoz Note: SANOFI PASTEUR VIS GIVEN NIVTU9Geifw Note: vis ibmzs8Wlylj Note: HX VARICELLA '9510Admin Note: CLO57Mjrea Note: ANZ03Axouw Note: IPV/OPV13 Admin Note: IPV/FMH95Ledur Note: IPV/VTV07Zaslg Note: IPV/TXD33Gplas Note: DPT17 Admin Note: CBW10Stmtm Note: UQY95Amulg Note: DQD33Cfkxp Note: PQZ44Ekuas Note: XCO51Djvjm Note: SET43Ouuia Note: HEP B Medications acetaminophen 500 mg oral tablet 2 tablet = 1,000 mg, By Mouth, Every 6 hours, PRN for fever, # 50 tablet, 0 Refills, Maintenance, 12/28/20 9:44:00 EST, Tablet, [facility] #[id number], Partial fill upon patient request if the prescription is for a schedule II opioid drug., 155,... Start Date: 12/28/20 Status: OrderedContour Next EZ Test Strips See Instructions, # 750 application, Refills 4, Tot. Refills 4, Maintenance, Test 6-8 times daily. 250.03, 648.03 using insulin pump, 09/16/14 9:46:21, Compound Start Date: 09/16/14 Status: OrderedHandheld Electric Breast Pump See Instructions, # 1 each, Maintenance, Per phlebotomist lab assistant instructions, 12/06/14 6:03:50, Compound Start Date: 12/06/14 Status: OrderedHumaLOG 100 units/mL injectable solution See Instructions, via pump , for type 1 DM, max daily dose 50 units., # 10 mL, 3 Refills, Maintenance, 01/11/21 11:25:00 EST, [facility] #[id number], Partial fill upon patient request if the [...] 12/28/20 9:44:00 EST, Route to Pharmacy Electronically, [facility] #[id number], Partial fill upon patient request if the [...] 7 Refills, Maintenance, 12/08/20 17:50:00 EDT, Tablet, [facility] #[id number], 156, cm, 12/06/20 11:33:00 EDT, Height, 56.2, kg, 11/25/20 12:46:00 EDT, D... Start Date: 12/08/20 Status: OrderedMiraLax oral powder for reconstitution = 17 Gm, By Mouth, Daily, dissolve in water before taking, # 255 Gm, 0 Refills, Maintenance, 12/28/20 9:45:00 EST, REC Powder, [facility] #[id number], Partial fill upon patient request if the prescription is for a schedule II opioid drug., 17 Gm... Start Date: 12/28/20 Status: OrderedNIFEdipine 30 mg oral tablet, extended release 30 mg, 1, tablet, By Mouth, Daily, # 30 tablet, Refills 0, Tot. Refills 0, Maintenance, 12/29/20 8:31:00 EST, Route to Pharmacy Electronically, [facility] #[id number], Partial fill upon patient request if the prescription is for a schedule II opi... Start Date: 12/29/20 Status: OrderedoxyCODONE 5 mg oral tablet 5 mg, 1, tablet, By Mouth, Every 3 hours, PRN, (7-10), # 12 tablet, Refills 0, Tot. Refills 0, Maintenance, Pain , Severe, 12/28/20 9:44:00 EST, Route to Pharmacy Electronically, [facility] #[id number], Partial fill upon patient request if the pr... Start Date: 12/28/20 Status: OrderedPen [place], 32 G x 4 mm BD Ultra [...] tablet, Refills 0, Tot. Refills 0, Maintenance, :44:00 EST, Route to Pharmacy Electronically, [facility] #[id number], Partial fill upon patient request if the [...]
--- OUTSIDE RECORDS SUMMARY | 2021-11-25 15:52 | XMS_ITS | Continuity of Care Document ---
:1995 Author Organization [facility] Address [address] [place] [address]- Care Team Providers Name Role Phone Tutu MCINTOSH, Kelvin Duffy Primary Care Phys[place] [facility] [place]/[address] [address] Discharge Disposition: A-D/C Home Attending Physician: Flaca Joseph MD Admitting Physician: Flaca Joseph MD Referring Physician: Flaca Joseph MD Allergies, Adverse Reactions, Alerts Substance Reaction [...] Inactive (IM) (oldterm)9 01/06/03 Given Measles/Mumps/Rubella Virus Sasfaew03 11/04/98 Given Measles/Mumps/Rubella Virus Llgmnxl26 07/10/94 Given Poliovirus Vaccine, Pgnrclkipop90 11/04/98 Given Poliovirus Vaccine, Yqnpqfuwbmt91 03/12/96 Given Poliovirus Vaccine, Iiwugsgwdrj95 05/08/95 Given Poliovirus Vaccine, Bwhexxxuesx73 07/10/94 Given Diphth/Pertussis, Whl Cell/Tet(oldterm)16 11/04/98 Given [...] Given 1Early/Late Reason: Early/Late Reason: Med Not Iudgylfrd4Sapmr/Late Reason: Accommodate D/G7Kxxvt Note: AQKEVD7Tungg Note: VIS zdkcg9Gjexh Note: VIS SEPXR0Qzcjw Note: VIS GIVEN---MENACTRA, SANOFI BYHWSOZ5Baetp Note: SANOFI PASTEUR VIS GIVEN YMLRY4Aklwq Note: vis roasq9Oybhz Note: HX VARICELLA '9510Admin Note: SYM67Meqjv Note: IVN02Scgnv Note: IPV/OPV13 Admin Note: IPV/ZMK10Totha Note: IPV/UDT58Kbknr Note: IPV/EDJ79Opkyo Note: DPT17 Admin Note: UTK45Daeku Note: WIJ40Zazlh Note: CNJ29Qetqt Note: XSX64Giwij Note: GWC34Ocull Note: QFT39Vicsd Note: HEP B Medications Acetaminophen Tablet 650 mg, Tablet, By Mouth, Every 4 hours, PRN for Pain , Moderate, Routine, 12/23/20 16:15:00 EDT Start Date: 12/23/20 Stop Date: 12/24/20 Status: Discontinuedaspirin 81 mg oral delayed release tablet 162 mg, 2, tablet, By Mouth, Daily, To start at 12 weeks gestational age, July 13, 2020, # 90 tablet, Refills 2, Tot. Refills 2, Maintenance, 08/09/20 9:35:00 EDT, Route to Pharmacy Electronically, [facility] #[id number], Partial fill upon patie... Start Date: 08/09/20 [...] tablet, 3 Refills, Maintenance, 11/01/20 16:56:00 EDT, [facility] #[id number], Partial fill upon patient request if the prescription is for a schedule II opioid drug., 150, cm, 11/01/20 9:32:00 EDT... Start Date: 11/01/20 Status: OrderedHandheld Electric Breast Pump See Instructions, # 1 each, Maintenance, Per slip bridge operator instructions, 12/06/14 6:03:50, Compound Start Date: [...] 7 Refills, Maintenance, 12/08/20 17:50:00 EDT, Tablet, [email or web address] #[id number], 156, cm, 12/06/20 11:33:00 EDT, Height, 56.2, kg, 11/25/20 12:46:00 EDT, D... Start Date: 12/08/20 Status: Orderedmetoclopramide 10 mg oral tablet 1 tablet = 10 mg, By Mouth, 3 times a day before meals and bedtime, PRN Nausea & Vomiting, 30 minutes before meals and at bedtime, # 50 tablet, 0 Refills, Maintenance, 12/14/20 12:03:00 EDT, Tablet, [email or web address] #[id number], Partial fill upon patie... Start Date: 12/14/20 Stop Date: 12/28/20 Status: OrderedPen [place], 32 G x 4 mm BD Ultra [...] 09/03/20 11:11:00 EDT, Route to Pharmacy Electronically, [facility], Partial fill upon patient request if the prescription is for a schedu... 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 Active delivery, antepartum(Confirmed) Vital Signs Most recent to oldest 1 2 3 [Reference Range]: Weight 60 kg (12/23/20 2:33 PM) Oxygen Saturation [94-100 %] 100 % 99 % 100 % (12/23/20 4:29 PM) (12/23/20 3:14 PM) (12/23/20 2:4 5 PM) Blood Pressure [90-138/55-84 mm 115/70 mm Hg 134/74 mm Hg 116/68 mm Hg Hg] (12/23/20 4:29 PM) (12/23/20 3:14 PM) (12/23/20 2:4 5 PM) Respiratory Rate [16-30 br/min] 18 br/min 16 br/min (12/23/20 5:25 PM) (12/23/20 2:46 PM) Temperature [96.8-100.4 DegF] 98.9 DegF (12/23/20 2:33 PM) Blood pressure sites Arm, left 1 Arm, left (12/23/20 3:14 PM) (12/23/20 2:45 PM) Temperature Route Oral (12/23/20 2:33 PM) Dry Weight 60 kg (12/23/20 2:33 PM) Weight Obtained Via Standing scale (12/23/20 2:33 PM) 1Result Comment: Left arm circ 25cm Social History Social History Type Response Smoking Status Never smoker entered on: 01/08/14 Sex Female
--- OUTSIDE RECORDS SUMMARY | 2021-11-25 15:52 | XMS_ITS | Continuity of Care Document ---
:1995 Author Organization [facility] Address [address] [place] [address]- Care Team Providers Name Role Phone Tutu MCINTOSH, Kelvin Duffy Primary Care Phys[place] [facility] [place] 02/04/[facility] [address] [place] [id number] Attending Physician: Not on Staff, Attending MD Referring Physician: Shea Alarcon MD Allergies, Adverse Reactions, Alerts Substance Reaction [...] Inactive (IM) (oldterm)9 01/06/03 Given Measles/Mumps/Rubella Virus Mjdsfke37 11/04/98 Given Measles/Mumps/Rubella Virus Azshylw33 07/10/94 Given Poliovirus Vaccine, Rfsvtrdgeso54 11/04/98 Given Poliovirus Vaccine, Uiynmnfwqld02 03/12/96 Given Poliovirus Vaccine, Ifgamlrkzni49 05/08/95 Given Poliovirus Vaccine, Amobnqgjkuc09 07/10/94 Given Diphth/Pertussis, Whl Cell/Tet(oldterm)16 11/04/98 Given [...] Refuses 1Early/Late Reason: Early/Late Reason: Med Not Kjincgsju1Hcbcw/Late Reason: Accommodate D/B9Xwpwb Note: HSCGSS8Ytxfn Note: VIS wanja5Uktlo Note: VIS MCQLH0Cplqn Note: VIS GIVEN---MENACTRA, SANOFI HJJNBTX8Ophpi Note: SANOFI PASTEUR VIS GIVEN QTDRS9Hawvn Note: vis jhvdo2Gvsmd Note: HX VARICELLA '9510Admin Note: ELK09Xpljy Note: SBQ02Pfrqx Note: IPV/OPV13 Admin Note: IPV/SID76Dbvcr Note: IPV/AFM33Pzqcv Note: IPV/BRA71Clmle Note: DPT17 Admin Note: YBV87Cpthv Note: RKI18Mkhhf Note: LEX02Kugbh Note: RTK82Wsaxp Note: UQK47Lyucs Note: SWZ07Cqtki Note: HEP B Medications acetaminophen 500 mg oral tablet 2 tablet = 1,000 mg, By Mouth, Every 6 hours, PRN for fever, # 50 tablet, 0 Refills, Maintenance, 12/28/20 9:44:00 EST, Tablet, [facility] #[id number], Partial fill upon patient request if the prescription is for a schedule II opioid drug., 155,... Start Date: 12/28/20 Status: OrderedContour Next EZ Test Strips See Instructions, # 750 application, Refills 4, Tot. Refills 4, Maintenance, Test 6-8 times daily. 250.03, 648.03 using insulin pump, 09/16/14 9:46:21, Compound Start Date: 09/16/14 Status: OrderedHandheld Electric Breast Pump See Instructions, # 1 each, Maintenance, Per cardiology physician instructions, 12/06/14 6:03:50, Compound Start Date: 12/06/14 Status: OrderedHumaLOG 100 units/mL injectable solution See Instructions, via pump , for type 1 DM, max daily dose 50 units., # 10 mL, 3 Refills, Maintenance, 01/11/21 11:25:00 EST, [facility] #[id number], Partial fill upon patient request if the [...] 12/28/20 9:44:00 EST, Route to Pharmacy Electronically, [facility] #[id number], Partial fill upon patient request if the [...] 7 Refills, Maintenance, 12/08/20 17:50:00 EDT, Tablet, [facility] #[id number], 156, cm, 12/06/20 11:33:00 EDT, Height, 56.2, kg, 11/25/20 12:46:00 EDT, D... Start Date: 12/08/20 Status: OrderedMiraLax oral powder for reconstitution = 17 Gm, By Mouth, Daily, dissolve in water before taking, # 255 Gm, 0 Refills, Maintenance, 12/28/20 9:45:00 EST, REC Powder, [facility] #[id number], Partial fill upon patient request if the prescription is for a schedule II opioid drug., 17 Gm... Start Date: 12/28/20 Status: OrderedNIFEdipine 30 mg oral tablet, extended release 30 mg, 1, tablet, By Mouth, Daily, # 30 tablet, Refills 0, Tot. Refills 0, Maintenance, 12/29/20 8:31:00 EST, Route to Pharmacy Electronically, [facility] #[id number], Partial fill upon patient request if the prescription is for a schedule II opi... Start Date: 12/29/20 Status: OrderedoxyCODONE 5 mg oral tablet 5 mg, 1, tablet, By Mouth, Every 3 hours, PRN, (7-10), # 12 tablet, Refills 0, Tot. Refills 0, Maintenance, Pain , Severe, 12/28/20 9:44:00 EST, Route to Pharmacy Electronically, [facility] #[id number], Partial fill upon patient request if the pr... Start Date: 12/28/20 Status: OrderedPen [place], 32 G x 4 mm BD Ultra [...] Maintenance, 219:44:00 EST, Route to Pharmacy Electronically, [facility] #[id number], Partial fill upon patient request if the [...]
--- OUTSIDE RECORDS SUMMARY | 2021-11-25 15:52 | XMS_ITS | Continuity of Care Document ---
:1995 Author Organization [facility] Address [address] [place] [address]- Care Team Providers Name Role Phone Kelvin Cam MD Primary Care Physician En[place] [facility] [place] 02/07/21 - 04/23/[address] [address] Attending Physician: Claudia Diaz MD Admitting Physician: [...] Inactive (IM) (oldterm)9 01/06/03 Given Measles/Mumps/Rubella Virus Iiyujon98 11/04/98 Given Measles/Mumps/Rubella Virus Batiifk05 07/10/94 Given Poliovirus Vaccine, Fypdewfmxdg09 11/04/98 Given Poliovirus Vaccine, Igjwtgaoouw72 03/12/96 Given Poliovirus Vaccine, Fbyytotxjnv09 05/08/95 Given Poliovirus Vaccine, Yuqogflyhtw75 07/10/94 Given Diphth/Pertussis, Whl Cell/Tet(oldterm)16 11/04/98 Given [...] Refuses 1Early/Late Reason: Early/Late Reason: Med Not Tuvebwhex7Tmdeo/Late Reason: Accommodate D/F4Muapa Note: DFLPKS0Fanoh Note: VIS mvixl2Elqyy Note: VIS MLKSC0Nqwdd Note: VIS GIVEN---MENACTRA, SANOFI EDXVXLO6Hrtcd Note: SANOFI PASTEUR VIS GIVEN KDAVW3Bpxab Note: vis jfull9Wihev Note: HX VARICELLA '9510Admin Note: UCG62Tiorb Note: ZTJ89Cjjzj Note: IPV/OPV13 Admin Note: IPV/XQQ35Usaop Note: IPV/DFW85Rtkij Note: IPV/AAN52Mnqez Note: DPT17 Admin Note: IWA58Ocomb Note: ZOM19Jwlei Note: PBV83Iragq Note: KXO18Fvnqr Note: IQZ66Batwg Note: XES18Jgzsp Note: HEP B Medications acetaminophen 500 mg oral tablet 2 tablet = 1,000 mg, By Mouth, Every 6 hours, PRN for fever, # 50 tablet, 0 Refills, Maintenance, 12/28/20 9:44:00 EST, Tablet, [facility] #[id number], Partial fill upon patient request if the prescription is for a schedule II opioid drug., 155,... Start Date: 12/28/20 Status: OrderedContour Next EZ Test Strips See Instructions, # 750 application, Refills 4, Tot. Refills 4, Maintenance, Test 6-8 times daily. 250.03, 648.03 using insulin pump, 09/16/14 9:46:21, Compound Start Date: 09/16/14 Status: OrderedHandheld Electric Breast Pump See Instructions, # 1 each, Maintenance, Per licensed staff mft instructions, 12/06/14 6:03:50, Compound Start Date: 12/06/14 Status: OrderedHumaLOG 100 units/mL injectable solution See Instructions, via pump , for type 1 DM, max daily dose 50 units., # 10 mL, 3 Refills, Maintenance, 01/11/21 11:25:00 EST, [facility] #[id number], Partial fill upon patient request if the [...] 12/28/20 9:44:00 EST, Route to Pharmacy Electronically, [facility] #[id number], Partial fill upon patient request if the [...] 7 Refills, Maintenance, 12/08/20 17:50:00 EDT, Tablet, [facility] #[id number], 156, cm, 12/06/20 11:33:00 EDT, Height, 56.2, kg, 11/25/20 12:46:00 EDT, D... Start Date: 12/08/20 Status: OrderedMiraLax oral powder for reconstitution = 17 Gm, By Mouth, Daily, dissolve in water before taking, # 255 Gm, 0 Refills, Maintenance, 12/28/20 9:45:00 EST, REC Powder, [facility] #[id number], Partial fill upon patient request if the prescription is for a schedule II opioid drug., 17 Gm... Start Date: 12/28/20 Status: OrderedNIFEdipine 30 mg oral tablet, extended release 30 mg, 1, tablet, By Mouth, Daily, # 30 tablet, Refills 0, Tot. Refills 0, Maintenance, 12/29/20 8:31:00 EST, Route to Pharmacy Electronically, [facility] #[id number], Partial fill upon patient request if the prescription is for a schedule II opi... Start Date: 12/29/20 Status: OrderedoxyCODONE 5 mg oral tablet 5 mg, 1, tablet, By Mouth, Every 3 hours, PRN, (7-10), # 12 tablet, Refills 0, Tot. Refills 0, Maintenance, Pain , Severe, 12/28/20 9:44:00 EST, Route to Pharmacy Electronically, [facility] #[id number], Partial fill upon patient request if the pr... Start Date: 12/28/20 Status: OrderedPen [place], 32 G x 4 mm BD Ultra [...] Maintenance, 219:44:00 EST, Route to Pharmacy Electronically, [facility] #[id number], Partial fill upon patient request if the [...]
--- OUTSIDE RECORDS SUMMARY | 2021-11-25 15:52 | XMS_ITS | Continuity of Care Document ---
:1995 Author Organization [facility] Address [address] [place] [address]- Care Team Providers Name Role Phone Tutu MCINTOSH, Kelvin Duffy Primary Care Physician Encounter [facility] Date(s): 07/09/19 - 08/08/[address] [address]- [facility] Attending Physician: Jakclyn Franco Admitting Physician: Jacklyn Franco Referring Physician: [...] Measles/Mumps/Rubella Virus Vaccine9 11/04/98 Given Measles/Mumps/Rubella Virus Xkwpmzi55 07/10/94 Given Poliovirus Vaccine, Xgzpepsafaa16 11/04/98 Given Poliovirus Vaccine, Htgcyundbxy77 03/12/96 Given Poliovirus Vaccine, Myqlyrtlusl03 05/08/95 Given Poliovirus Vaccine, Kswumaxrofw72 07/10/94 Given Diphth/Pertussis, Whl Cell/Tet(oldterm)15 11/04/98 Given [...] (old term) 93 Given 1Early/Late Reason: Accommodate D/P5Bpvot Note: HAZXMO9Ksnrz Note: VIS given4 Admin Note: VIS FJHGY3Vgwmq Note: VIS GIVEN---MENACTRA, SANOFI REKTCVL1Acjsn Note: SANOFI PASTEUR VIS GIVEN BTAUA9Wzssc Note: vis hjnlk0Vomaq Note: HX VARICELLA '959Admin Note: EEA87Iizan Note: IFQ26Jvghr Note: IPV/CVP92Ttwmo Note: IPV/ORA01Lpxcq Note: IPV/OHI43Bxnkh Note: IPV/XHG77Cxnja Note: HRK88Olfkr Note: EPH77Ufhig Note: YFR80Pglln Note: XPH20Lqmio Note: TQJ84Qajrt Note: AGN48Xmjng Note: JZS93Yelzj Note: HEP B Medications Admelog SoloStar 100 units/mL injectable solution See Instructions, Inject 2-15 units tid w/ meals via ISS, Max dose daily dose 45 units, E10.9, # 30 mL, 6 Refills, Maintenance, 06/27/19 14:42:00 EDT, [facility] #[id number], 152.5, cm, 05/29/19 11:15:00 EDT, Height Start [...] See Instructions, # 1 each, Maintenance, Per copyholder instructions, 12/06/14 6:03:50, Compound Start Date: 12/06/14 [...] 3 Refills, Maintenance, 06/27/19 13:50:00 EDT, Solution, [facility] #[id number], 152.5, cm, 05/29/19 11:15:00 EDT, Height Start Date: 06/27/19 Status: OrderedLevemir FlexTouch 100 units/mL subcutaneous solution See Instructions, 15 units subQ twice daily, # 3 units, 11 Refills, Maintenance, 06/11/14 15:29:26, 15 units subQ twice daily Start Date: 06/11/14 Status: Orderedlevothyroxine 0.05 mg oral tablet 1 tablet = 50 mcg, By Mouth, Daily, # 90 tablet, 0 Refills, Maintenance, 07/23/19 13:25:00 EDT, Tablet, [facility] #[id number], 152.5, cm, 07/09/19 12:58:00 EDT, Height Start Date: 07/23/19 Status: OrderedNexplanon 68 mg subcutaneous implant 1 each = 68 mg, Subcutaneous Infusion, Once, # 1 each, 0 Refills, Soft Stop, 10/31/16 16:43:40, [id number] Start Date: 10/31/16 Status: OrderedNovoLOG FlexPen 100 units/mL subcutaneous solution See Instructions, 2-8 units Subcutaneous Injection 3 times a day, # 30 mL, 3 Refills, Maintenance, 06/27/19 13:50:00 EDT, Solution, [facility] #[id number], 152.5, cm, 05/29/19 11:15:00 EDT, Height Start Date: 06/27/19 Status: OrderedPen [place], 32 G x 4 mm BD Ultra [...]
--- OUTSIDE RECORDS SUMMARY | 2021-11-25 15:52 | XMS_ITS | Continuity of Care Document ---
:1995 Author Organization [facility] Address [address] [place] [address]- Care Team Providers Name Role Phone Tutu MCINTOSH, Kelvin Duffy Primary Care Physician [place] [facility] [place] - 10/21/[address] [address]- Attending Physician: Not on Staff, Attending MD [...] Measles/Mumps/Rubella Virus Vaccine9 11/04/98 Given Measles/Mumps/Rubella Virus Xpyddsx27 07/10/94 Given Poliovirus Vaccine, Xejtzhsjfgx40 11/04/98 Given Poliovirus Vaccine, Zafpzlifjvv28 03/12/96 Given Poliovirus Vaccine, Scevjbehgkt37 05/08/95 Given Poliovirus Vaccine, Lfcwasifqpu72 07/10/94 Given Diphth/Pertussis, Whl Cell/Tet(oldterm)15 11/04/98 Given [...] (old term) 93 Given 1Early/Late Reason: Accommodate D/H9Vjcpb Note: ALFOEL1Udjwk Note: VIS given4 Admin Note: VIS NQUFN2Pgwop Note: VIS GIVEN---MENACTRA, SANOFI TZOIAXZ9Hyxch Note: SANOFI PASTEUR VIS GIVEN AMLZC4Twumz Note: vis nbnoa6Nqzmt Note: HX VARICELLA '959Admin Note: HZG00Lgsqd Note: PGG45Asnwn Note: IPV/ILW83Yngxh Note: IPV/BGC12Qhqhz Note: IPV/IEL15Uafmo Note: IPV/MBU60Pxqve Note: BYD97Bbupt Note: XMH43Tnnyg Note: HSL37Riwla Note: FCG46Iokjq Note: RGO30Cpkve Note: PAW16Kricr Note: HTK86Ppfpb Note: HEP B Medications aspirin 81 mg oral delayed release tablet 162 mg, 2, tablet, By Mouth, Daily, To start at 12 weeks gestational age, July 13, 2020, # 90 tablet, Refills 2, Tot. Refills 2, Maintenance, 08/09/20 9:35:00 EDT, Route to Pharmacy Electronically, [facility] #[id number], Partial fill upon patie... Start Date: 08/09/20 Status: OrderedContour Next EZ Test Strips See Instructions, # 750 application, Refills 4, Tot. Refills 4, Maintenance, Test 6-8 times daily. 250.03, 648.03 using insulin pump, 09/16/14 9:46:21, Compound Start Date: 09/16/14 Status: OrderedHandheld Electric Breast Pump See Instructions, # 1 each, Maintenance, Per customer records division supervisor instructions, 12/06/14 6:03:50, Compound Start Date: 12/06/14 Status: OrderedHumalog Kwik Pen 100 units/mL subcutaneous injection See Instructions, Max daily dose 30 units. E10.65, # 30 mL, 5 Refills, Maintenance, 07/12/20 13:52:00 EDT, Solution, [facility] #[id number], Partial fill upon patient request if the [...] 5 Refills, Maintenance, 08/19/20 12:01:00 EDT, Tablet, [facility] #23768, 152.5, cm, 08/09/20 9:25:00 EDT, Height, 53, kg, 06/25/20 16:25:00 EDT, Start Date: 08/19/20 Status: Orderedmetoclopramide 10 mg oral tablet 1 tablet = 10 mg, By Mouth, 3 times a day before meals and bedtime, PRN Nausea & Vomiting, 30 minutes before meals and at bedtime, # 50 tablet, 0 Refills, Maintenance, 07/30/20 15:26:00 EDT, Tablet, [facility] #[id number], Partial fill upon patie... Start Date: 07/30/20 Stop Date: 08/13/20 Status: OrderedPen [place], 32 G x 4 mm BD Ultra [...] 09/03/20 11:11:00 EDT, Route to Pharmacy Electronically, [facility], Partial fill upon patient [...]
--- OUTSIDE RECORDS SUMMARY | 2021-11-25 15:52 | XMS_ITS | Continuity of Care Document ---
:1995 Author Organization [facility] Address [address] [place] [address]- Care Team Providers Name Role Phone Tutu MCINTOSH, Kelvin Duffy Primary Care Physician Encounter [facility] Date(s): 04/27/21 - 06/10/[address] [address]- Attending Physician: Not on Staff, Attending MD [...] Inactive (IM) (oldterm)9 01/06/03 Given Measles/Mumps/Rubella Virus Llysddc32 11/04/98 Given Measles/Mumps/Rubella Virus Wiyiunr92 07/10/94 Given Poliovirus Vaccine, Hnboewjnnok92 11/04/98 Given Poliovirus Vaccine, Ivluyvvzmej04 03/12/96 Given Poliovirus Vaccine, Psqvglufbbl74 05/08/95 Given Poliovirus Vaccine, Chqszxprsjd18 07/10/94 Given Diphth/Pertussis, Whl Cell/Tet(oldterm)16 11/04/98 Given [...] Refuses 1Early/Late Reason: Early/Late Reason: Med Not Efcecdtox8Mmhon/Late Reason: Accommodate D/G4Filmv Note: UZTUIF4Ehfrj Note: VIS fypfl1Llxrb Note: VIS MGBIO0Srxnn Note: VIS GIVEN---MENACTRA, SANOFI ICFYZCM9Grsmk Note: SANOFI PASTEUR VIS GIVEN TPYTH1Xjcwv Note: vis mlwkm2Baccv Note: HX VARICELLA '9510Admin Note: LRO44Stlig Note: KRG85Yifil Note: IPV/OPV13 Admin Note: IPV/DPV45Ocqwg Note: IPV/ORS27Lspgi Note: IPV/KWK83Nojto Note: DPT17 Admin Note: ARU61Ffesu Note: RKE84Ljckl Note: XOG86Qkzjl Note: JMC29Qowfj Note: KSE23Ygdfm Note: ESJ81Fxukg Note: HEP B Medications acetaminophen 500 mg oral tablet 2 tablet = 1,000 mg, By Mouth, Every 6 hours, PRN for fever, # 50 tablet, 0 Refills, Maintenance, 11/09/21 9:44:00 EST, Tablet, [facility] #[id number], Partial fill upon patient request if the prescription is for a schedule II opioid drug., 155,... Start Date: 12/28/20 Status: OrderedContour Next EZ Test Strips See Instructions, # 750 application, Refills 4, Tot. Refills 4, Maintenance, Test 6-8 times daily. 250.03, 648.03 using insulin pump, 09/16/14 9:46:21, Compound Start Date: 09/16/14 Status: OrderedHandheld Electric Breast Pump See Instructions, # 1 each, Maintenance, Per continuous improvement consultant instructions, 12/06/14 6:03:50, Compound Start Date: 12/06/14 Status: OrderedHumaLOG 100 units/mL injectable solution See Instructions, via pump , for type 1 DM, max daily dose 50 units., # 10 mL, 3 Refills, Maintenance, 01/11/21 11:25:00 EST, [facility] #[id number], Partial fill upon patient request if the [...] 12/28/20 9:44:00 EST, Route to Pharmacy Electronically, [facility] #[id number], Partial fill upon patient request if the [...] 7 Refills, Maintenance, 12/08/20 17:50:00 EDT, Tablet, [facility] #[id number], 156, cm, 12/06/20 11:33:00 EDT, Height, 56.2, kg, 11/25/20 12:46:00 EDT, D... Start Date: 12/08/20 Status: OrderedMiraLax oral powder for reconstitution = 17 Gm, By Mouth, Daily, dissolve in water before taking, # 255 Gm, 0 Refills, Maintenance, 12/28/20 9:45:00 EST, REC Powder, [facility] #[id number], Partial fill upon patient request if the prescription is for a schedule II opioid drug., 17 Gm... Start Date: 12/28/20 Status: OrderedNIFEdipine 30 mg oral tablet, extended release 30 mg, 1, tablet, By Mouth, Daily, # 30 tablet, Refills 0, Tot. Refills 0, Maintenance, 12/29/20 8:31:00 EST, Route to Pharmacy Electronically, [facility] #[id number], Partial fill upon patient request if the prescription is for a schedule II opi... Start Date: 12/29/20 Status: OrderedoxyCODONE 5 mg oral tablet 5 mg, 1, tablet, By Mouth, Every 3 hours, PRN, (7-10), # 12 tablet, Refills 0, Tot. Refills 0, Maintenance, Pain , Severe, 12/28/20 9:44:00 EST, Route to Pharmacy Electronically, [facility] #[id number], Partial fill upon patient request if the pr... Start Date: 12/28/20 Status: OrderedPen [place], 32 G x 4 mm BD Ultra [...] Maintenance, 219:44:00 EST, Route to Pharmacy Electronically, [facility] #[id number], Partial fill upon patient request if the [...]
--- OUTSIDE RECORDS SUMMARY | 2021-11-25 15:52 | XMS_ITS | Continuity of Care Document ---
:1995 Author Organization [facility] Address [address] [place] [address]- Care Team Providers Name Role Phone Tutu MCINTOSH, Kelvin Duffy Primary Care Physician Encounter [facility] Date(s): 04/08/20 - 05/12/[address] [address]- Attending Physician: Not on Staff, Attending MD [...] Measles/Mumps/Rubella Virus Vaccine9 11/04/98 Given Measles/Mumps/Rubella Virus Kibaajj95 07/10/94 Given Poliovirus Vaccine, Dveeiqxooqr29 11/04/98 Given Poliovirus Vaccine, Xukthkpjclk88 03/12/96 Given Poliovirus Vaccine, Bvsmzounvvv66 05/08/95 Given Poliovirus Vaccine, Rjnhfbmzkmn10 07/10/94 Given Diphth/Pertussis, Whl Cell/Tet(oldterm)15 11/04/98 Given [...] (old term) 93 Given 1Early/Late Reason: Accommodate D/I0Pgste Note: ONLAJU5Cvmrs Note: VIS given4 Admin Note: VIS DXUXL5Qyadh Note: VIS GIVEN---MENACTRA, SANOFI GAQPIAA6Wmlwo Note: SANOFI PASTEUR VIS GIVEN APDUM4Awptf Note: vis wlitf2Ecmny Note: HX VARICELLA '959Admin Note: OYW10Tydbf Note: DKH45Kfeln Note: IPV/HMD36Uodga Note: IPV/QEW70Uybvu Note: IPV/BGP14Xdbbn Note: IPV/ZJY89Oryud Note: NAF05Hjxom Note: WFF74Bsyts Note: PWY89Qlass Note: KCT33Khjvj Note: GIN18Sesoc Note: CYX15Wnqef Note: YBP76Xsqxh Note: HEP B Medications Contour Next EZ [...] See Instructions, # 1 each, Maintenance, Per set designer instructions, 12/06/14 6:03:50, Compound Start Date: 12/06/14 Status: OrderedHumalog Kwik Pen 100 units/mL subcutaneous injection See Instructions, Inject 3 times/day with meals per sliding scale. Max daily dose 75 units, # 30 mL,5 Refills, Maintenance, 05/10/20 14:14:00 EDT, [facility][id number], Partial fill upon patient request if the [...] 3 Refills, Maintenance, 06/27/19 13:50:00 EDT, Solution, [facility] #[id number], 152.5, cm, 05/29/19 11:15:00 EDT, Height Start Date: 06/27/19 Status: Orderedlevothyroxine 0.05 mg oral tablet 1 tablet = 50 mcg, By Mouth, Daily, # 90 tablet, 0 Refills, Maintenance, 07/23/19 13:25:00 EDT, Tablet, [facility] #[id number], 152.5, cm, 07/09/19 12:58:00 EDT, Height Start Date: 07/23/19 Status: OrderedNexplanon 68 mg subcutaneous implant 1 each = 68 mg, Subcutaneous Infusion, Once, # 1 each, 0 Refills, Soft Stop, 10/31/16 16:43:40, [id number] Start Date: 10/31/16 Status: OrderedPen [place], 32 G x 4 mm BD [...] 0 Refills, Maintenance, 04/26/20 15:33:00 EST, Tablet, [id number], Partial fill upon patient request if the [...]
--- OUTSIDE RECORDS SUMMARY | 2021-11-25 15:52 | XMS_ITS | Continuity of Care Document ---
:1995 Author Organization [facility] ic Address [address] [place] [address]- Care Team Providers Name Role Phone Tutu MCINTOSH, Kelvin Duffy Primary Care Physician Encounter [facility] Date(s): 11/30/20 - 12/30/[address] [address]- Attending Physician: Jacklyn Franco Admitting Physician: Jacklyn [...] Inactive (IM) (oldterm)9 01/06/03 Given Measles/Mumps/Rubella Virus Hvfgwpk69 11/04/98 Given Measles/Mumps/Rubella Virus Qhwvmpa52 07/10/94 Given Poliovirus Vaccine, Niyantbfndy03 11/04/98 Given Poliovirus Vaccine, Kinezaiclif42 03/12/96 Given Poliovirus Vaccine, Qczbnyfphaw95 05/08/95 Given Poliovirus Vaccine, Skornkbfued03 07/10/94 Given Diphth/Pertussis, Whl Cell/Tet(oldterm)16 11/04/98 Given [...] Given 1Early/Late Reason: Early/Late Reason: Med Not Cmkzfytvc8Lbcae/Late Reason: Accommodate D/R8Mlqcm Note: CBTRRP4Esnqx Note: VIS exvxa6Flnik Note: VIS JUGQL3Njrsn Note: VIS GIVEN---MENACTRA, SANOFI CCXDMVM0Rplac Note: SANOFI PASTEUR VIS GIVEN FMUWI3Ddtpu Note: vis pcbug3Mjaeg Note: HX VARICELLA '9510Admin Note: ZKF19Xxgdn Note: RBW28Lexzy Note: IPV/OPV13 Admin Note: IPV/AUZ02Zujwr Note: IPV/PVC08Mnumy Note: IPV/NNI99Hpabt Note: DPT17 Admin Note: OIN27Hmahv Note: UZA69Bnciy Note: LIQ83Ofvrx Note: FOP61Qeoox Note: LWX35Gyvhg Note: FEO65Qkpvo Note: HEP B Medications acetaminophen 500 mg oral tablet 2 tablet = 1,000 mg, By Mouth, Every 6 hours, PRN for fever, # 50 tablet, 0 Refills, Maintenance, 12/28/20 9:44:00 EST, Tablet, [facility] #[id number], Partial fill upon patient request if the prescription is for a schedule II opioid drug., 155,... Start Date: 12/28/20 Status: OrderedContour Next EZ Test Strips See Instructions, # 750 application, Refills 4, Tot. Refills 4, Maintenance, Test 6-8 times daily. 250.03, 648.03 using insulin pump, 09/16/14 9:46:21, Compound Start Date: 09/16/14 Status: OrderedHandheld Electric Breast Pump See Instructions, # 1 each, Maintenance, Per photographer news instructions, 12/06/14 6:03:50, Compound Start Date: [...] 12/28/20 9:44:00 EST, Route to Pharmacy Electronically, [facility] #[id number], Partial fill upon patient request if the [...] 7 Refills, Maintenance, 12/08/20 17:50:00 EDT, Tablet, [facility] #[id number], 156, cm, 12/06/20 11:33:00 EDT, Height, 56.2, kg, 11/25/20 12:46:00 EDT, D... Start Date: 12/08/20 Status: OrderedMiraLax oral powder for reconstitution = 17 Gm, By Mouth, Daily, dissolve in water before taking, # 255 Gm, 0 Refills, Maintenance, 12/28/20 9:45:00 EST, REC Powder, [facility] #[id number], Partial fill upon patient request if the prescription is for a schedule II opioid drug., 17 Gm... Start Date: 12/28/20 Status: OrderedNIFEdipine 30 mg oral tablet, extended release 30 mg, 1, tablet, By Mouth, Daily, # 30 tablet, Refills 0, Tot. Refills 0, Maintenance, 12/29/20 8:31:00 EST, Route to Pharmacy Electronically, [facility] #[id number], Partial fill upon patient request if the prescription is for a schedule II opi... Start Date: 12/29/20 Status: OrderedoxyCODONE 5 mg oral tablet 5 mg, 1, tablet, By Mouth, Every 3 hours, PRN, (7-10), # 12 tablet, Refills 0, Tot. Refills 0, Maintenance, Pain , Severe, 12/28/20 9:44:00 EST, Route to Pharmacy Electronically, [facility] #[id number], Partial fill upon patient request if the pr... Start Date: 12/28/20 Status: OrderedPen [place], 32 G x 4 mm BD Ultra [...] Maintenance, 219:44:00 EST, Route to Pharmacy Electronically, [facility] #[id number], Partial fill upon patient request if the [...]
--- OUTSIDE RECORDS SUMMARY | 2021-11-25 15:52 | XMS_ITS | Continuity of Care Document ---
:1995 Author Organization [facility] Address [address] [place] [address]- Care Team Providers Name Role Phone Tutu MCINTOSH, Kelvin Duffy Primary Care Physician Encounter [facility] Date(s): 12/18/20 - 01/23/[address] [address] Attending Physician: Wanda Carter NP Admitting [...] Inactive (IM) (oldterm)9 01/06/03 Given Measles/Mumps/Rubella Virus Rfxxmch78 11/04/98 Given Measles/Mumps/Rubella Virus Bueyvhu57 07/10/94 Given Poliovirus Vaccine, Ypgtwkigusr47 11/04/98 Given Poliovirus Vaccine, Klbleqwmneu33 03/12/96 Given Poliovirus Vaccine, Nupsuxskxut92 05/08/95 Given Poliovirus Vaccine, Lnspyeecwpr04 07/10/94 Given Diphth/Pertussis, Whl Cell/Tet(oldterm)16 11/04/98 Given [...] Refuses 1Early/Late Reason: Early/Late Reason: Med Not Dqpzokxjm0Zlliq/Late Reason: Accommodate D/T8Kzvkj Note: RQSHRN9Shxop Note: VIS dlakr9Affho Note: VIS QYRQJ9Kgfbe Note: VIS GIVEN---MENACTRA, SANOFI WKSUGPL3Vuirg Note: SANOFI PASTEUR VIS GIVEN FEWQD8Fbsaq Note: vis xsjdb3Fkgns Note: HX VARICELLA '9510Admin Note: HVC01Ebyag Note: MDI83Ncowo Note: IPV/OPV13 Admin Note: IPV/MVF60Nczcp Note: IPV/IFM70Ipciw Note: IPV/WEM19Jckph Note: DPT17 Admin Note: XXV51Gofrz Note: AJE20Ukrgc Note: HKE97Pvhnr Note: TKU51Xmlim Note: LXY25Qrayr Note: LDR27Xjmvj Note: HEP B Medications acetaminophen 500 mg oral tablet 2 tablet = 1,000 mg, By Mouth, Every 6 hours, PRN for fever, # 50 tablet, 0 Refills, Maintenance, 12/28/20 9:44:00 EST, Tablet, [facility] #[id number], Partial fill upon patient request if the prescription is for a schedule II opioid drug., 155,... Start Date: 12/28/20 Status: OrderedContour Next EZ Test Strips See Instructions, # 750 application, Refills 4, Tot. Refills 4, Maintenance, Test 6-8 times daily. 250.03, 648.03 using insulin pump, 09/16/14 9:46:21, Compound Start Date: 09/16/14 Status: OrderedHandheld Electric Breast Pump See Instructions, # 1 each, Maintenance, Per veneer marker instructions, 12/06/14 6:03:50, Compound Start Date: 12/06/14 Status: OrderedHumaLOG 100 units/mL injectable solution See Instructions, via pump , for type 1 DM, max daily dose 50 units., # 10 mL, 3 Refills, Maintenance, 01/11/21 11:25:00 EST, [facility] #[id number], Partial fill upon patient request if the [...] 12/28/20 9:44:00 EST, Route to Pharmacy Electronically, [facility] #[id number], Partial fill upon patient request if the [...] 7 Refills, Maintenance, 12/08/20 17:50:00 EDT, Tablet, [facility] #[id number], 156, cm, 12/06/20 11:33:00 EDT, Height, 56.2, kg, 11/25/20 12:46:00 EDT, D... Start Date: 12/08/20 Status: OrderedMiraLax oral powder for reconstitution = 17 Gm, By Mouth, Daily, dissolve in water before taking, # 255 Gm, 0 Refills, Maintenance, 12/28/20 9:45:00 EST, REC Powder, [facility] #[id number], Partial fill upon patient request if the prescription is for a schedule II opioid drug., 17 Gm... Start Date: 12/28/20 Status: OrderedNIFEdipine 30 mg oral tablet, extended release 30 mg, 1, tablet, By Mouth, Daily, # 30 tablet, Refills 0, Tot. Refills 0, Maintenance, 12/29/20 8:31:00 EST, Route to Pharmacy Electronically, [facility] #[id number], Partial fill upon patient request if the prescription is for a schedule II opi... Start Date: 12/29/20 Status: OrderedoxyCODONE 5 mg oral tablet 5 mg, 1, tablet, By Mouth, Every 3 hours, PRN, (7-10), # 12 tablet, Refills 0, Tot. Refills 0, Maintenance, Pain , Severe, 12/28/20 9:44:00 EST, Route to Pharmacy Electronically, [facility] #[id number], Partial fill upon patient request if the pr... Start Date: 12/28/20 Status: OrderedPen [place], 32 G x 4 mm BD Ultra [...] Maintenance, 219:44:00 EST, Route to Pharmacy Electronically, [facility] #[id number], Partial fill upon patient request if the [...]
--- OUTSIDE RECORDS SUMMARY | 2021-11-25 15:52 | XMS_ITS | Continuity of Care Document ---
:1995 Author Organization [facility] Address [address] [place] [address]- Care Team Providers Name Role Phone Tutu MCINTOSH, Kelvin Duffy Primary Care Physician Encounter [facility] Date(s): 08/31/20 - 09/03/[address] [address] Discharge Disposition: A-D/C Home Attending Physician: Supa Bowden DO Admitting Physician: Martha Wilson MD Referring Physician: Martha Wilson MD Allergies, Adverse Reactions, Alerts Substance Reaction [...] Measles/Mumps/Rubella Virus Vaccine9 11/04/98 Given Measles/Mumps/Rubella Virus Tgagdwd37 07/10/94 Given Poliovirus Vaccine, Euxnpbelkol98 11/04/98 Given Poliovirus Vaccine, Sspojfwrcyt05 03/12/96 Given Poliovirus Vaccine, Mowpberveha81 05/08/95 Given Poliovirus Vaccine, Baepjtoivof65 07/10/94 Given Diphth/Pertussis, Whl Cell/Tet(oldterm)15 11/04/98 Given [...] (old term) 93 Given 1Early/Late Reason: Accommodate D/G5Skego Note: IGJQBJ6Nbezv Note: VIS given4 Admin Note: VIS MWDWI2Pioqw Note: VIS GIVEN---MENACTRA, SANOFI SHEKLWX0Uhflf Note: SANOFI PASTEUR VIS GIVEN PMEJB6Dkccz Note: vis lpmyx3Jbuvw Note: HX VARICELLA '959Admin Note: POR66Lucbh Note: PMS68Lfths Note: IPV/VUS06Ubpkt Note: IPV/BPU50Vnxce Note: IPV/RNT56Sxltm Note: IPV/DYN76Gvxmn Note: LAP78Gptxw Note: XBL99Upkdp Note: IWK01Deytg Note: RCJ24Jwutn Note: TFP70Djrzz Note: JQX45Farbh Note: IPT84Icnir Note: HEP B Medications aspirin 81 mg oral delayed release tablet 162 mg, 2, tablet, By Mouth, Daily, To start at 12 weeks gestational age, July 13, 2020, # 90 tablet, Refills 2, Tot. Refills 2, Maintenance, 08/09/20 9:35:00 EDT, Route to Pharmacy Electronically, [facility] #[id number], Partial fill upon patie... Start Date: 08/09/20 Status: OrderedContour Next EZ Test Strips See Instructions, # 750 application, Refills 4, Tot. Refills 4, Maintenance, Test 6-8 times daily. 250.03, 648.03 using insulin pump, 09/16/14 9:46:21, Compound Start Date: 09/16/14 Status: OrderedHandheld Electric Breast Pump See Instructions, # 1 each, Maintenance, Per database designer instructions, 12/06/14 6:03:50, Compound Start Date: 12/06/14 Status: OrderedHumalog Kwik Pen 100 units/mL subcutaneous injection See Instructions, Max daily dose 30 units. E10.65, # 30 mL, 5 Refills, Maintenance, 07/12/20 13:52:00 EDT, Solution, [facility] #[id number], Partial fill upon patient request if the [...] 5 Refills, Maintenance, 08/19/20 12:01:00 EDT, Tablet, [facility] #[id number], 152.5, cm, 08/09/20 9:25:00 EDT, Height, 53, kg, 06/25/20 16:25:00 EDT, . Start Date: 08/19/20 Status: Orderedmetoclopramide 10 mg oral tablet 1 tablet = 10 mg, By Mouth, 3 times a day before meals and bedtime, PRN Nausea & Vomiting, 30 minutes before meals and at bedtime, # 50 tablet, 0 Refills, Maintenance, 07/30/20 15:26:00 EDT, Tablet, [facility] #[id number], Partial fill upon patie... Start Date: 07/30/20 Stop Date: 08/13/20 Status: Orderedondansetron 4 mg oral tablet, disintegrating 1 tablet = 4 mg, By Mouth, Every 8 hours, PRN as needed for nausea/vomiting, # 25 tablet, 0 Refills,Maintenance, 09/03/20 14:41:00 EDT, DIS Tablet, [facility], Partial fill upon patient request if the prescription is for a schedule II o... Start Date: 09/03/20 Status: OrderedPen [place], 32 G x 4 mm BD Ultra [...] 0 Refills, Maintenance, 09/03/20 14:41:00 EDT, Tablet, [facility], Partial fill upon patient request if the prescription is for a schedule II opioid drug., 150, cm, 0... Start Date: 09/03/20 Status: OrderedVitamin B6 50 mg oral tablet 25 mg, 0.5, tablet, By Mouth, 3 times a day, # 100 tablet, Refills 0, Tot. Refills 0, Maintenance, 09/03/20 11:11:00 EDT, Route to Pharmacy Electronically, [facility], Partial fill upon patient request if [...] oldest 1 2 3 [Reference Range]: Height 150 cm 150 cm 150 cm (09/03/20 11:16 AM) (09/03/20 9:55 AM) (09/02/20 11 :21 PM) Weight 52 kg 52.1 kg (08/31/20 11:50 PM) (08/31/20 5:21 PM) Oxygen Saturation [94-100 %] 100 % 99 % 99 % (09/03/20 11:16 AM) (09/03/20 7:00 AM) (09/02/20 11 :21 PM) Pulse Rate [55-90 bpm] 83 bpm 75 bpm 92 bpm (09/03/20 11:16 AM) (09/03/20 9:55 AM) *H* (09/03/20 7:00 AM ) Body Mass Index [18.5-24.99] 23.11 (08/31/20 11:50 PM) Blood Pressure [90-138/55-84 106/49 mm Hg 101/58 mm Hg 87/ 51 mm Hg mm Hg] (09/03/20 11:16 AM) (09/03/20 9:55 AM) *L* (09/03/20 7:00 AM ) Respiratory Rate [16-30 19 br/min 19 br/min 20 br/mi n br/min] (09/03/20 11:16 AM) (09/03/20 7:00 AM) (09/02/20 11 :21 PM) Temperature [96.8-100.4 DegF] 97.9 DegF 98.1 DegF 98 .7 DegF (09/03/20 11:16 AM) (09/03/20 7:00 AM) (09/02/20 11 :21 PM) Mode of Delivery (Oxygen) Room air Room air Room a ir (09/03/20 11:16 AM) (09/03/20 7:00 AM) (09/02/20 11 :21 PM) Blood pressure sites Arm, right Arm, left Arm, left (09/03/20 11:16 AM) (09/03/20 9:55 AM) (09/03/20 7: 00 AM) Temperature Route Oral Oral Oral (09/03/20 11:16 AM) (09/03/20 7:00 AM) (09/02/20 11 :21 PM) Dry Weight 52 kg (08/31/20 11:50 PM) Weight Obtained Via Bed scale Standing scale (08/31/20 11:50 PM) (08/31/20 5:21 PM) Social History Social History Type Response Smoking Status Never smoker entered on: 01/08/14 Sex Female
--- OUTSIDE RECORDS SUMMARY | 2021-11-25 15:52 | XMS_ITS | Continuity of Care Document ---
:1995 Author Organization [facility] ic Address [address] [place] [address]- Care Team Providers Name Role Phone Tutu MCINTOSH, Kelvin Duffy Primary Care Physician Encounter [facility] Date(s): 06/03/20 - 07/03/[address] [address]- Allergies, Adverse Reactions, Alerts Substance Reaction Severity [...] Measles/Mumps/Rubella Virus Vaccine9 11/04/98 Given Measles/Mumps/Rubella Virus Ypzdcoq32 07/10/94 Given Poliovirus Vaccine, Gntwsbohzsj83 11/04/98 Given Poliovirus Vaccine, Metjwvxcivo98 03/12/96 Given Poliovirus Vaccine, Hvtqtcdlknn20 05/08/95 Given Poliovirus Vaccine, Miyttwecpgj21 07/10/94 Given Diphth/Pertussis, Whl Cell/Tet(oldterm)15 11/04/98 Given [...] (old term) 93 Given 1Early/Late Reason: Accommodate D/V2Lhlgq Note: PRKHDX0Otdil Note: VIS given4 Admin Note: VIS MOKRY4Gildc Note: VIS GIVEN---MENACTRA, SANOFI LOTOUWP2Ptxap Note: SANOFI PASTEUR VIS GIVEN IKCTO7Bvvju Note: vis qqlsf9Fyqox Note: HX VARICELLA '959Admin Note: YRX56Hvgei Note: PFV59Esbnx Note: IPV/HWR57Bbpwt Note: IPV/MFY63Gnubn Note: IPV/YMZ48Jdpwa Note: IPV/JUX39Ufqzo Note: POE74Gdwbe Note: RNV58Pehpc Note: WGY79Sabim Note: VIH18Yptve Note: CDS72Pagri Note: WRS16Pggje Note: OPK96Mhtce Note: HEP B Medications aspirin 81 mg oral delayed release tablet 162 mg, 2, tablet, By Mouth, Daily, To start at 12 weeks gestational age, July 13, 2020, # 90 tablet, Refills 2, Tot. Refills 2, Maintenance, 06/25/20 16:23:00 EDT, Route to Pharmacy Electronically, [facility] #[id number], Partial fill upon irais... Start Date: 06/25/20 [...] 07/07/20 10:43:00 EDT, 06/23/20 10:43:00 EDT, Tablet, [facility], Partial fill upon patient request if the prescript... Start Date: 06/23/20 Stop Date: 07/07/20 Status: Orderedfamotidine 20 mg oral tablet 20 mg, 1, tablet, By Mouth, 2 times a day, # 60 tablet, Refills 0, Tot. Refills 0, Maintenance, 06/22/20 9:26:00 EDT, Route to Pharmacy Electronically, [facility], Partial fill upon patient request if the prescription is for a schedule I... Start Date: 06/22/20 Status: OrderedHandheld Electric Breast Pump See Instructions, # 1 each, Maintenance, Per milk drier instructions, 12/06/14 6:03:50, Compound Start Date: 12/06/14 [...] 0 Refills, Maintenance, 06/23/20 10:45:00 EDT, Tablet, [facility], Partial fill upon patient... Start Date: 06/23/20 Stop Date: 07/07/20 Status: OrderedPen [place], 32 G x 4 mm BD Ultra [...] 0 Refills, Maintenance, 04/26/20 15:33:00 EST, Tablet, [id number], Partial fill upon patient request if the prescription is for a schedule II opioid drug., 1 tablet By Mouth Daily, 152.5, cm, 05... Start Date: 04/26/20 Status: Orderedsucralfate 1 gm oral tablet 1 Gm, 1, tablet, By Mouth, Every 6 hours, # 56 tablet, Refills 0, Tot. Refills 0, Maintenance, 06/23/20 10:43:00 EDT, Route to Pharmacy Electronically, [facility], Partial fill upon patient request if the prescription is for a schedule I... Start Date: 06/23/20 Stop Date: 07/07/20 Status: OrderedVitamin B6 25 mg oral tablet 1 tablet = 25 mg, By Mouth, 3 times a day, PRN Nausea & Vomiting, # 90 tablet, 1 Refills, Acute 09/03/20 14:24:00 EDT, 06/03/20 14:24:00 EDT, [id number], Partial fill upon patient request if the [...]
--- OUTSIDE RECORDS SUMMARY | 2021-11-25 15:52 | XMS_ITS | Continuity of Care Document ---
:1995 Author Organization [facility] Address [address] [place] [address]- Care Team Providers Name Role Phone Tutu MCINTOSH, Kelvin Duffy Primary Care Physician Encounter [facility] Date(s): 05/10/20 - 06/09/20 [facility] [address] [place] [address] Allergies, Adverse Reactions, Alerts Substance [...] Measles/Mumps/Rubella Virus Vaccine9 11/04/98 Given Measles/Mumps/Rubella Virus Crfxubp93 07/10/94 Given Poliovirus Vaccine, Tfnzrxcjsyc89 11/04/98 Given Poliovirus Vaccine, Zkwwqcbwufn14 03/12/96 Given Poliovirus Vaccine, Qlfzccyfjgf05 05/08/95 Given Poliovirus Vaccine, Nbsmyxhqwda45 07/10/94 Given Diphth/Pertussis, Whl Cell/Tet(oldterm)15 11/04/98 Given [...] (old term) 93 Given 1Early/Late Reason: Accommodate D/Y1Ixrrf Note: CQIEXG3Gidsx Note: VIS given4 Admin Note: VIS NYMLC6Cojhf Note: VIS GIVEN---MENACTRA, SANOFI OEVSYQU0Olmgr Note: SANOFI PASTEUR VIS GIVEN PUTSR6Fhjiz Note: vis fbidb0Nawzo Note: HX VARICELLA '959Admin Note: ZMX19Jdxms Note: SYV94Ewgjv Note: IPV/HLA91Hkkjt Note: IPV/OWS64Nesdq Note: IPV/LGM79Aicmz Note: IPV/ZPL47Miczm Note: CDG74Zxtty Note: LQG78Pmusg Note: UAN03Iietp Note: WJM98Zuehd Note: DKO88Oaoao Note: LMK94Bmgof Note: FJI95Xdnqr Note: HEP B Medications Contour Next EZ [...] See Instructions, # 1 each, Maintenance, Per mold capper helper instructions, 12/06/14 6:03:50, Compound Start Date: 12/06/14 Status: OrderedHumalog Kwik Pen 100 units/mL subcutaneous injection See Instructions, Inject 3 times/day with meals per sliding scale. Max daily dose 75 units, # 30 mL,5 Refills, Maintenance, 05/10/20 14:14:00 EDT, [facility] #[id number], Partial fill upon patient request if the [...] 3 Refills, Maintenance, 06/27/19 13:50:00 EDT, Solution, [facility] #[id number], 152.5, cm, 05/29/19 11:15:00 EDT, Height Start Date: 06/27/19 Status: Orderedlevothyroxine 0.05 mg oral tablet 1 tablet = 50 mcg, By Mouth, Daily, # 90 tablet, 0 Refills, Maintenance, 07/23/19 13:25:00 EDT, Tablet, [facility] #[id number], 152.5, cm, 07/09/19 12:58:00 EDT, Height Start Date: 07/23/19 Status: OrderedNexplanon 68 mg subcutaneous implant 1 each = 68 mg, Subcutaneous Infusion, Once, # 1 each, 0 Refills, Soft Stop, 10/31/16 16:43:40, [id number] Start Date: 10/31/16 Status: OrderedPen [place], 32 G x 4 mm BD Ultra [...] 0 Refills, Maintenance, 04/26/20 15:33:00 EST, Tablet, [facility] #[id number], Partial fill upon patient request if the prescription is for a schedule II opioid drug., 1 tablet By Mouth Daily, 152.5, cm, 05... Start Date: 04/26/20 Status: OrderedUnisom 25 mg oral tablet 1 tablet = 25 mg, By Mouth, Daily at bedtime, PRN Nausea & Vomiting, # 1 tablet, 1 Refills, Acute 09/03/20 14:25:00 EDT, 06/03/20 14:24:00 EDT, [facility] #[id number], Partial fill upon patient request if the prescription is for a schedule II opi... Start Date: 06/03/20 Stop Date: 09/03/20 Status: OrderedVitamin B6 25 mg oral tablet 1 tablet = 25 mg, By Mouth, 3 times a day, PRN Nausea & Vomiting, # 90 tablet, 1 Refills, Acute 09/03/20 14:24:00 EDT, 06/03/20 14:24:00 EDT, [facility] #[id number], Partial fill upon patient request if the [...]
--- OUTSIDE RECORDS SUMMARY | 2021-11-25 15:52 | XMS_ITS | Continuity of Care Document ---
:1995 Author Organization [facility] Address [address] [place] [address]- Care Team Providers Name Role Phone Tutu MCINTOSH, Kelvin Duffy Primary Care Physician Encounter [facility] Date(s): 01/11/21 - 02/17/21 [facility] [address] [place] [id number] Attending Physician: Not on Staff, Attending MD Referring Physician: Wanda Carter NP Allergies, [...] Inactive (IM) (oldterm)9 01/06/03 Given Measles/Mumps/Rubella Virus Yhxgqpg93 11/04/98 Given Measles/Mumps/Rubella Virus Knhkkay32 07/10/94 Given Poliovirus Vaccine, Yhadenvggre86 11/04/98 Given Poliovirus Vaccine, Kbeetyhkfws44 03/12/96 Given Poliovirus Vaccine, Rukbrferfnk49 05/08/95 Given Poliovirus Vaccine, Oydgkbxugnt83 07/10/94 Given Diphth/Pertussis, Whl Cell/Tet(oldterm)16 11/04/98 Given [...] Refuses 1Early/Late Reason: Early/Late Reason: Med Not Rrsosjsiz2Dkwry/Late Reason: Accommodate D/A9Bpzfr Note: OHQQPZ6Tbram Note: VIS kgqoo6Xzwcn Note: VIS AXJBO7Nbvoq Note: VIS GIVEN---MENACTRA, SANOFI PJVPEBT5Xkcjl Note: SANOFI PASTEUR VIS GIVEN LUUVZ2Hgyst Note: vis xlgai2Wpslx Note: HX VARICELLA '9510Admin Note: ZJW23Xkmma Note: REE94Qyezk Note: IPV/OPV13 Admin Note: IPV/EIA53Qedge Note: IPV/CWR54Zvjks Note: IPV/ARB25Mjsxz Note: DPT17 Admin Note: SIY04Iojdo Note: IPZ77Zicsv Note: YTE57Suojt Note: KLU45Pieun Note: ASZ62Pughl Note: VOE72Sfmsz Note: HEP B Medications acetaminophen 500 mg oral tablet 2 tablet = 1,000 mg, By Mouth, Every 6 hours, PRN for fever, # 50 tablet, 0 Refills, Maintenance, 12/28/20 9:44:00 EST, Tablet, [facility] #[id number], Partial fill upon patient request if the prescription is for a schedule II opioid drug., 155,... Start Date: 12/28/20 Status: OrderedContour Next EZ Test Strips See Instructions, # 750 application, Refills 4, Tot. Refills 4, Maintenance, Test 6-8 times daily. 250.03, 648.03 using insulin pump, 09/16/14 9:46:21, Compound Start Date: 09/16/14 Status: OrderedHandheld Electric Breast Pump See Instructions, # 1 each, Maintenance, Per teacher's assistant instructions, 12/06/14 6:03:50, Compound Start Date: 12/06/14 Status: OrderedHumaLOG 100 units/mL injectable solution See Instructions, via pump , for type 1 DM, max daily dose 50 units., # 10 mL, 3 Refills, Maintenance, 01/11/21 11:25:00 EST, [facility] #[id number], Partial fill upon patient request if the [...] 12/28/20 9:44:00 EST, Route to Pharmacy Electronically, [facility] #[id number], Partial fill upon patient request if the [...] 7 Refills, Maintenance, 12/08/20 17:50:00 EDT, Tablet, [facility] #[id number], 156, cm, 12/06/20 11:33:00 EDT, Height, 56.2, kg, 11/25/20 12:46:00 EDT, D... Start Date: 12/08/20 Status: OrderedMiraLax oral powder for reconstitution = 17 Gm, By Mouth, Daily, dissolve in water before taking, # 255 Gm, 0 Refills, Maintenance, 12/28/20 9:45:00 EST, REC Powder, [facility] #[id number], Partial fill upon patient request if the prescription is for a schedule II opioid drug., 17 Gm... Start Date: 12/28/20 Status: OrderedNIFEdipine 30 mg oral tablet, extended release 30 mg, 1, tablet, By Mouth, Daily, # 30 tablet, Refills 0, Tot. Refills 0, Maintenance, 12/29/20 8:31:00 EST, Route to Pharmacy Electronically, [facility] #[id number], Partial fill upon patient request if the prescription is for a schedule II opi... Start Date: 12/29/20 Status: OrderedoxyCODONE 5 mg oral tablet 5 mg, 1, tablet, By Mouth, Every 3 hours, PRN, (7-10), # 12 tablet, Refills 0, Tot. Refills 0, Maintenance, Pain , Severe, 12/28/20 9:44:00 EST, Route to Pharmacy Electronically, [facility] #[id number], Partial fill upon patient request if the pr... Start Date: 12/28/20 Status: OrderedPen [place], 32 G x 4 mm BD Ultra [...] Maintenance, 219:44:00 EST, Route to Pharmacy Electronically, [facility] #[id number], Partial fill upon patient request if the [...]
--- OUTSIDE RECORDS SUMMARY | 2021-11-25 15:52 | XMS_ITS | Continuity of Care Document ---
:1995 Author Organization [facility] ic Address [address] [place] [phone]- Care Team Providers Name Role Phone Tutu MCINTOSH, Kelvin Duffy Primary Care Physician Encounter [facility] Date(s): 07/21/20 - 08/20/[address] [address]- Allergies, Adverse Reactions, Alerts Substance Reaction Severity [...] Measles/Mumps/Rubella Virus Vaccine9 11/04/98 Given Measles/Mumps/Rubella Virus Ypdpqkf70 07/10/94 Given Poliovirus Vaccine, Krasdccbcbg34 11/04/98 Given Poliovirus Vaccine, Igbuytspnyu49 03/12/96 Given Poliovirus Vaccine, Eucirwznoum96 05/08/95 Given Poliovirus Vaccine, Asykjvncklw87 07/10/94 Given Diphth/Pertussis, Whl Cell/Tet(oldterm)15 11/04/98 Given [...] (old term) 93 Given 1Early/Late Reason: Accommodate D/Z5Eijhv Note: YPOGSO2Mgury Note: VIS given4 Admin Note: VIS HPDAH1Xsmvv Note: VIS GIVEN---MENACTRA, SANOFI EZYCVRO8Pabax Note: SANOFI PASTEUR VIS GIVEN LCZXK1Eqduo Note: vis udclo3Gdoeg Note: HX VARICELLA '959Admin Note: DIB19Idlth Note: UKX71Vnqgr Note: IPV/BIU75Impby Note: IPV/YHX47Ajrcy Note: IPV/SGP93Fwjvk Note: IPV/GFH60Mmtkc Note: XPM64Lawtc Note: CNH51Jyfas Note: NWH75Imyju Note: MSD24Ebpez Note: LIX80Ydabe Note: ZTX82Imoxf Note: ZJS44Ogfje Note: HEP B Medications aspirin 81 mg oral delayed release tablet 162 mg, 2, tablet, By Mouth, Daily, To start at 12 weeks gestational age, July 13, 2020, # 90 tablet, Refills 2, Tot. Refills 2, Maintenance, 08/09/20 9:35:00 EDT, Route to Pharmacy Electronically, [facility] #[id number], Partial fill upon patie... Start Date: 08/09/20 Status: OrderedContour Next EZ Test Strips See Instructions, # 750 application, Refills 4, Tot. Refills 4, Maintenance, Test 6-8 times daily. 250.03, 648.03 using insulin pump, 09/16/14 9:46:21, Compound Start Date: 09/16/14 Status: OrderedHandheld Electric Breast Pump See Instructions, # 1 each, Maintenance, Per weed eradicator instructions, 12/06/14 6:03:50, Compound Start Date: 12/06/14 Status: OrderedHumalog Kwik Pen 100 units/mL subcutaneous injection See Instructions, Max daily dose 30 units. E10.65, # 30 mL, 5 Refills, Maintenance, 07/12/20 13:52:00 EDT, Solution, [facility] #[id number], Partial fill upon patient request if the [...] 5 Refills, Maintenance, 08/19/20 12:01:00 EDT, Tablet, [facility] #[id number], 152.5, cm, 08/09/20 9:25:00 EDT, Height, 53, kg, 06/25/20 16:25:00 EDT, . Start Date: 08/19/20 Status: Orderedmetoclopramide 10 mg oral tablet 1 tablet = 10 mg, By Mouth, 3 times a day before meals and bedtime, PRN Nausea & Vomiting, 30 minutes before meals and at bedtime, # 50 tablet, 0 Refills, Maintenance, 07/30/20 15:26:00 EDT, Tablet, [facility] #[id number], Partial fill upon patie... Start Date: 07/30/20 Stop Date: 08/13/20 Status: OrderedPen [place], 32 G x 4 mm BD Ultra [...]
--- OUTSIDE RECORDS SUMMARY | 2021-11-25 15:52 | XMS_ITS | Continuity of Care Document ---
:1995 Author Organization [facility] Address [address] [place] [address]- Care Team Providers Name Role Phone Kelvin Cam MD Primary Care Physician Encounter [facility] Date(s): 03/04/20 - 07/01/20 [facility] [address] [place] [id number] Attending Physician: Claudia Diaz MD Admitting Physician: [...] Measles/Mumps/Rubella Virus Vaccine9 11/04/98 Given Measles/Mumps/Rubella Virus Dclbgfd22 07/10/94 Given Poliovirus Vaccine, Fkyiolbyqle33 11/04/98 Given Poliovirus Vaccine, Csgwrvovbxg73 03/12/96 Given Poliovirus Vaccine, Tlohmuewftv38 05/08/95 Given Poliovirus Vaccine, Vtwpahfotcd09 07/10/94 Given Diphth/Pertussis, Whl Cell/Tet(oldterm)15 11/04/98 Given [...] (old term) 93 Given 1Early/Late Reason: Accommodate D/V9Dckhn Note: BBCLLE6Tkyyj Note: VIS given4 Admin Note: VIS HHKYU0Aevbc Note: VIS GIVEN---MENACTRA, SANOFI YJDMVID7Ctura Note: SANOFI PASTEUR VIS GIVEN ORWZP0Qnvgd Note: vis acjcv4Boodh Note: HX VARICELLA '959Admin Note: QHV29Zgirq Note: BCY08Mqcvp Note: IPV/KFM80Nkzpg Note: IPV/HBP80Lpppj Note: IPV/KMO62Zbmjf Note: IPV/QSZ77Gssln Note: TVR21Nkrce Note: SJY72Tbapa Note: BFI15Bhcvm Note: VYZ08Evxjh Note: KDH54Tqlne Note: OGG03Kkhkt Note: LBP08Fqhdh Note: HEP B Medications aspirin 81 mg oral delayed release tablet 162 mg, 2, tablet, By Mouth, Daily, To start at 12 weeks gestational age, July 13, 2020, # 90 tablet, Refills 2, Tot. Refills 2, Maintenance, 06/25/20 16:23:00 EDT, Route to Pharmacy Electronically, [id number], Partial fill upon irais... Start Date: 06/25/20 [...] 07/07/20 10:43:00 EDT, 06/23/20 10:43:00 EDT, Tablet, [facility], Partial fill upon patient request if the prescript... Start Date: 06/23/20 Stop Date: 07/07/20 Status: Orderedfamotidine 20 mg oral tablet 20 mg, 1, tablet, By Mouth, 2 times a day, # 60 tablet, Refills 0, Tot. Refills 0, Maintenance, 06/22/20 9:26:00 EDT, Route to Pharmacy Electronically, [facility], Partial fill upon patient request if the prescription is for a schedule I... Start Date: 06/22/20 Status: OrderedHandheld Electric Breast Pump See Instructions, # 1 each, Maintenance, Per manufacturing quality manager instructions, 12/06/14 6:03:50, Compound Start Date: 12/06/14 [...] sick., 05/10/20 11:20:00 EDT, DxE10.65, Compound,152.5, cm, 05/20/20 12:58:00 EDT, Height Start Date: 05/10/20 Stop [...] 0 Refills, Maintenance, 06/23/20 10:45:00 EDT, Tablet, [facility], Partial fill upon patient... Start Date: 06/23/20 Stop Date: 07/07/20 Status: OrderedPen [place], 32 G x 4 mm BD Ultra [...] 0 Refills, Maintenance, 04/26/20 15:33:00 EST, Tablet, [facility] #[id number], Partial fill upon patient request if the prescription is for a schedule II opioid drug., 1 tablet By Mouth Daily, 152.5, cm, 05... Start Date: 04/26/20 Status: Orderedsucralfate 1 gm oral tablet 1 Gm, 1, tablet, By Mouth, Every 6 hours, # 56 tablet, Refills 0, Tot. Refills 0, Maintenance, 06/23/20 10:43:00 EDT, Route to Pharmacy Electronically, [facility], Partial fill upon patient request if the prescription is for a schedule I... Start Date: 06/23/20 Stop Date: 07/07/20 Status: OrderedVitamin B6 25 mg oral tablet 1 tablet = 25 mg, By Mouth, 3 times a day, PRN Nausea & Vomiting, # 90 tablet, 1 Refills, Acute 09/03/20 14:24:00 EDT, 06/03/20 14:24:00 EDT, [facility] #[id number], Partial fill upon patient request if the [...]
--- OUTSIDE RECORDS SUMMARY | 2021-11-25 15:52 | XMS_ITS | Continuity of Care Document ---
:1995 Author Organization [facility] ic Address [address] [place] [address]- Care Team Providers Name Role Phone Kelvin Cam MD Primary Care Physician Encounter [facility] [place] Date(s): 10/07/20 - 11/11/[address] [address]- Attending Physician: Not on Staff, Attending MD Referring Physician: Kelvin Cam MD Allergies, [...] Measles/Mumps/Rubella Virus Vaccine9 11/04/98 Given Measles/Mumps/Rubella Virus Eyawojt51 07/10/94 Given Poliovirus Vaccine, Jvxoaoygmwn34 11/04/98 Given Poliovirus Vaccine, Zqwuvufcyhc01 03/12/96 Given Poliovirus Vaccine, Knbrerekfpr47 05/08/95 Given Poliovirus Vaccine, Fnnbjzelhdk21 07/10/94 Given Diphth/Pertussis, Whl Cell/Tet(oldterm)15 11/04/98 Given [...] (old term) 93 Given 1Early/Late Reason: Accommodate D/Q4Japxd Note: WWPEKE8Pfmxf Note: VIS given4 Admin Note: VIS SUMPX0Easib Note: VIS GIVEN---MENACTRA, SANOFI CEQSJFZ9Dadji Note: SANOFI PASTEUR VIS GIVEN ZHTYH7Utzmm Note: vis mcsuu4Akjbf Note: HX VARICELLA '959Admin Note: RTW45Cvgfd Note: YMB26Rclot Note: IPV/YNO56Labch Note: IPV/AWS58Nmqtj Note: IPV/GRF15Yhdqu Note: IPV/UXR24Mgpqz Note: TAH64Aifcs Note: YJD81Jlavu Note: ZGH91Lsgls Note: OTY80Xedkq Note: NWP98Adlzk Note: XDP86Eonpr Note: PZP48Ztyfr Note: HEP B Medications aspirin 81 mg oral delayed release tablet 162 mg, 2, tablet, By Mouth, Daily, To start at 12 weeks gestational age, July 13, 2020, # 90 tablet, Refills 2, Tot. Refills 2, Maintenance, 08/09/20 9:35:00 EDT, Route to Pharmacy Electronically, [facility] #[id number], Partial fill upon patie... Start Date: 08/09/20 [...] tablet, 3 Refills, Maintenance, 11/01/20 16:56:00 EDT, [facility] #[id number], Partial fill upon patient request if the prescription is for a schedule II opioid drug., 150, cm, 11/01/20 9:32:00 EDT... Start Date: 11/01/20 Status: OrderedHandheld Electric Breast Pump See Instructions, # 1 each, Maintenance, Per exercise physiologist certified instructions, 12/06/14 6:03:50, Compound Start Date: 12/06/14 Status: OrderedHumalog Kwik Pen 100 units/mL subcutaneous injection See Instructions, 12 units before breakfast; 12 units before lunch; 20 units before dinner, # 30 mL,5 Refills, Maintenance, 07/12/20 13:52:00 EDT, Solution, [facility] #[id number], Partial fill upon patient request if the [...] 5 Refills, Maintenance, 08/19/20 12:01:00 EDT, Tablet, [facility] #[id number], 152.5, cm, 08/09/20 9:25:00 EDT, Height, 53, kg, 06/25/20 16:25:00 EDT, Start Date: 08/19/20 Status: Orderedmetoclopramide 10 mg oral tablet 1 tablet = 10 mg, By Mouth, 3 times a day before meals and bedtime, PRN Nausea & Vomiting, 30 minutes before meals and at bedtime, # 50 tablet, 0 Refills, Maintenance, 07/30/20 15:26:00 EDT, Tablet, [facility] #[id number], Partial fill upon patie... Start Date: 07/30/20 Stop Date: 08/13/20 Status: OrderedPen [place], 32 G x 4 mm BD Ultra [...] 09/03/20 11:11:00 EDT, [facility], Partial fill upon patient request [...]
--- OUTSIDE RECORDS SUMMARY | 2021-11-25 15:53 | XMS_ITS | Continuity of Care Document ---
:1995 Author Organization [facility] ic Address [address] [place] [address]- Care Team Providers Name Role Phone Tutu MCINTOSH, Kelvin Duffy Primary Care Physician Encounter [facility] Date(s): 06/07/20 - 07/07/[address] [address]- Allergies, Adverse Reactions, Alerts Substance Reaction Severity [...] Measles/Mumps/Rubella Virus Vaccine9 11/04/98 Given Measles/Mumps/Rubella Virus Wzxjwxr18 07/10/94 Given Poliovirus Vaccine, Zbmqkqxklez24 11/04/98 Given Poliovirus Vaccine, Upwewtvuhuo22 03/12/96 Given Poliovirus Vaccine, Zklxfdkzwds78 05/08/95 Given Poliovirus Vaccine, Ubdttfncjub69 07/10/94 Given Diphth/Pertussis, Whl Cell/Tet(oldterm)15 11/04/98 Given [...] (old term) 93 Given 1Early/Late Reason: Accommodate D/C2Vyiud Note: CNCPLA5Gagbq Note: VIS given4 Admin Note: VIS UFPKF7Issbr Note: VIS GIVEN---MENACTRA, SANOFI LYNNDYH8Jqcvz Note: SANOFI PASTEUR VIS GIVEN DSOPX2Lmpxj Note: vis zwuas5Mbuug Note: HX VARICELLA '959Admin Note: DUD60Armwp Note: HOU13Seypt Note: IPV/LOF90Hivdt Note: IPV/SMN64Byomv Note: IPV/TLG62Ptlwv Note: IPV/RES34Qreqc Note: MQT17Xyfpi Note: UOF68Eaotw Note: JFR02Ajqqc Note: WIJ84Myajs Note: USL18Ngvdq Note: NWN43Eqjhs Note: FNQ33Afigq Note: HEP B Medications aspirin 81 mg oral delayed release tablet 162 mg, 2, tablet, By Mouth, Daily, To start at 12 weeks gestational age, July 13, 2020, # 90 tablet, Refills 2, Tot. Refills 2, Maintenance, 06/25/20 16:23:00 EDT, Route to Pharmacy Electronically, [facility] #[id number], Partial fill upon irais... Start Date: 06/25/20 [...] 06/22/20 9:26:00 EDT, Route to Pharmacy Electronically, [facility], Partial fill upon patient request if the prescription is for a schedule I... Start Date: 06/22/20 Status: OrderedHandheld Electric Breast Pump See Instructions, # 1 each, Maintenance, Per surveyor oil well directional instructions, 12/06/14 6:03:50, Compound Start Date: 12/06/14 [...] 0 Refills, Maintenance, 06/23/20 10:45:00 EDT, Tablet, [facility], Partial fill upon patient... Start Date: 06/23/20 Stop Date: 07/07/20 Status: OrderedPen [place], 32 G x 4 mm BD Ultra [...] 0 Refills, Maintenance, 04/26/20 15:33:00 EST, Tablet, [facility] #[id number], Partial fill upon patient request if the prescription is for a schedule II opioid drug., 1 tablet By Mouth Daily, 152.5, cm, 05... Start Date: 04/26/20 Status: Orderedsucralfate 1 gm oral tablet 1 Gm, 1, tablet, By Mouth, Every 6 hours, # 56 tablet, Refills 0, Tot. Refills 0, Maintenance, 06/23/20 10:43:00 EDT, Route to Pharmacy Electronically, [facility], Partial fill upon patient request if the prescription is for a schedule I... Start Date: 06/23/20 Stop Date: 07/07/20 Status: OrderedVitamin B6 25 mg oral tablet 1 tablet = 25 mg, By Mouth, 3 times a day, PRN Nausea & Vomiting, # 90 tablet, 1 Refills, Acute 09/03/20 14:24:00 EDT, 06/03/20 14:24:00 EDT, [facility] #[id number], Partial fill upon patient request if the [...]
--- OUTSIDE RECORDS SUMMARY | 2021-11-25 15:53 | XMS_ITS | Continuity of Care Document ---
:1993 Author Organization [facility] Address [address] [place] [address]- Care Team Providers Name Role Phone Kelvin Cam MD Primary Care Physician [place] [facility] [place] 12/24/20 - 12/29/[address] [address] Discharge Disposition: A-D/C Home Attending Physician: Flaca [...] Inactive (IM) (oldterm)9 01/06/03 Given Measles/Mumps/Rubella Virus Rpsxaxy55 11/04/98 Given Measles/Mumps/Rubella Virus Xbkvbns28 07/10/94 Given Poliovirus Vaccine, Tnsxyfnxeod82 11/04/98 Given Poliovirus Vaccine, Amijjpijrll71 03/12/96 Given Poliovirus Vaccine, Xcqnhhaewpq55 05/08/95 Given Poliovirus Vaccine, Stznposznef23 07/10/94 Given Diphth/Pertussis, Whl Cell/Tet(oldterm)16 11/04/98 Given [...] Given 1Early/Late Reason: Early/Late Reason: Med Not Wlgpbmnbj6Doywt/Late Reason: Accommodate D/W0Bzapn Note: OCFFSD0Evmtf Note: VIS xvtvw7Krnom Note: VIS GEJIU6Skesr Note: VIS GIVEN---MENACTRA, SANOFI OZIGETD8Dxmyc Note: SANOFI PASTEUR VIS GIVEN NUFWB6Hiacm Note: vis ptlkx7Ppuxa Note: HX VARICELLA '9510Admin Note: OUH69Fyotf Note: VPJ32Sekae Note: IPV/OPV13 Admin Note: IPV/OBF18Mafgc Note: IPV/EOK29Avwrj Note: IPV/NGN70Sesqy Note: DPT17 Admin Note: GBF77Bzsfc Note: YVL26Mfynx Note: FSE80Xqcec Note: BOQ84Jvylr Note: AYK38Kyjun Note: QGF90Fbtec Note: HEP B Medications acetaminophen 500 mg oral tablet 2 tablet = 1,000 mg, By Mouth, Every 6 hours, PRN for fever, # 50 tablet, 0 Refills, Maintenance, 12/28/20 9:44:00 EST, Tablet, [email or web address] #[id number], Partial fill upon patient request if the prescription is for a schedule II opioid drug., 155,... Start Date: 12/28/20 Status: OrderedAcetaminophen Tablet 650 mg, Tablet, By Mouth, (1-3), may give 325mg per patient preference and re- dose with 325mg within4 hours, if needed. Patient should only receive a total of 650mg of Acetaminophen every 4 hours., 12/29/20 2:00:00 EST Start Date: 12/29/20 Stop Date: 12/29/20 Status: CompletedContour Next EZ Test Strips See Instructions, # 750 application, Refills 4, Tot. Refills 4, Maintenance, Test 6-8 times daily. 250.03, 648.03 using insulin pump, 09/16/14 9:46:21, Compound Start Date: 09/16/14 Status: OrderedHandheld Electric Breast Pump See Instructions, # 1 each, Maintenance, Per drain tile press operator instructions, 12/06/14 6:03:50, Compound Start Date: [...] 12/28/20 9:44:00 EST, [id number], Partial fill upon patient request if the [...] 7 Refills, Maintenance, 12/08/20 17:50:00 EDT, Tablet, [facility] #[id number], 156, cm, 12/06/20 11:33:00 EDT, Height, 56.2, kg, 11/25/20 12:46:00 EDT, D... Start Date: 12/08/20 Status: OrderedMiraLax oral powder for reconstitution = 17 Gm, By Mouth, Daily, dissolve in water before taking, # 255 Gm, 0 Refills, Maintenance, 12/28/20 9:45:00 EST, REC Powder, [facility] #[id number], Partial fill upon patient request if the prescription is for a schedule II opioid drug., 17 Gm... Start Date: 12/28/20 Status: OrderedNIFEdipine 30 mg oral tablet, extended release 30 mg, 1, tablet, By Mouth, Daily, # 30 tablet, Refills 0, Tot. Refills 0, Maintenance, 12/29/20 8:31:00 EST, Route to Pharmacy Electronically, [facility] #[id number], Partial fill upon patient request if the prescription is for a schedule II opi... Start Date: 12/29/20 Status: OrderedNIFEdipine 30 mg oral tablet, extended release 30 mg, ER Tablet, By Mouth, 12/29/20 9:00:00 EST Start Date: 12/29/20 Stop Date: 12/29/20 Status: CompletedoxyCODONE 5 mg oral tablet 5 mg, 1, tablet, By Mouth, Every 3 hours, PRN, (7-10), # 12 tablet, Refills 0, Tot. Refills 0, Maintenance, Pain , Severe, 12/28/20 9:44:00 EST, Route to Pharmacy Electronically, [facility] #[id number], Partial fill upon patient request if the pr... Start Date: 12/28/20 Status: OrderedOxyCODONE IR Tablet 5 mg, Tablet, By Mouth, Every 3 hours, PRN for Pain , Severe, (7-10), Routine, 12/25/20 4:58:00 EDT Start Date: 12/25/20 Stop Date: 12/29/20 Status: DiscontinuedPen [place], 32 G x 4 mm BD Ultra [...] Maintenance, :44:00 EST, Route to Pharmacy Electronically, [facility] #[id number], Partial fill upon patient request if the prescription is for a schedule II... Start Date: 12/28/20 Status: Ordered Problem List Condition Effective Dates Status Health Status Informant Depression(Confirmed) Active Diabetes mellitus type 1(Confirmed) Active History of severe Active pre-eclampsia(Confirmed) Hyperthyroidism(Confirmed) Active Hypothyroidism(Confirmed) Active Microalbuminuria(Confirmed) Active Uterine scar from previous Active delivery, antepartum(Confirmed) Procedures Procedure Date Related Diagnosis Body Site Status delivery only; 12/24/20 Comp leted Vital Signs Most recent to oldest 1 2 3 4 [Reference Range]: Height 155 cm 155 cm 155 cm (12/29/20 9:26 AM) (12/29/20 5:15 AM) (12/29/20 3:19 A M) Weight 60 kg (12/24/20 1:45 AM) Oxygen Saturation 100 % 100 % 99 % [94-100 %] (12/29/20 8:00 AM) (12/29/20 5:15 AM) (12/29/20 3:19 A M) Pulse Rate [55-90 bpm] 62 bpm 51 bpm 53 bpm (12/29/20 8:00 AM) *L* *L* (12/29/20 5:15 AM) (12/29/20 3:19 AM) Body Mass Index 24.97 [18.5-24.99] (12/24/20 1:45 AM) Blood Pressure 143/67 mm Hg 122/62 mm Hg 155/73 mm Hg [90-138/55-84 mm Hg] *H* (12/29/20 5:15 AM) *H* (12/29/20 8:25 AM) (12/29/20 3:19 AM) Respiratory Rate [16-30 18 br/min 18 br/min 17 br/min 17 b r/min br/min] (12/29/20 8:00 AM) (12/29/20 5:15 AM) (12/29/20 4:41 A M) (12/29/20 4:41 AM) Temperature [96.8-100.4 98.7 DegF 98.5 DegF 98.6 DegF DegF] (12/29/20 8:00 AM) (12/28/20 11:00 PM) (12/28/20 7:30 PM ) Mode of Delivery Room air Room air Room air (Oxygen) (12/29/20 8:00 AM) (12/29/20 5:15 AM) (12/29/20 3:19 A M) Blood pressure sites Arm, right Arm, right Arm, right (12/29/20 8:00 AM) (12/29/20 5:15 AM) (12/29/20 3:19 A M) Temperature Route Oral Oral Oral (12/29/20 8:00 AM) (12/28/20 11:00 PM) (12/28/20 7:30 PM ) Dry Weight 60 kg (12/24/20 1:45 AM) Social History Social History Type Response Smoking Status Never smoker entered on: 01/08/14 Sex Female
--- OUTSIDE RECORDS SUMMARY | 2021-11-25 15:53 | XMS_ITS | Continuity of Care Document ---
:1995 Author Organization [facility] ic Address [address] [place] [address]- Care Team Providers Name Role Phone Tutu MCINTOSH, Kelvin Duffy Primary Care Physician Encounter [facility] Date(s): 10/05/20 - 12/02/[address] [address]- Attending Physician: Not on Staff, Attending MD [...] Inactive (IM) (oldterm)9 01/06/03 Given Measles/Mumps/Rubella Virus Zohxvsb04 11/04/98 Given Measles/Mumps/Rubella Virus Dhfxjyx60 5/22/95 Given Poliovirus Vaccine, Sadnpfjkodl63 11/04/98 Given Poliovirus Vaccine, Gwxhswinxru71 03/12/96 Given Poliovirus Vaccine, Dmmlmuzmexi93 05/08/95 Given Poliovirus Vaccine, Ddjpamuyggd86 07/10/94 Given Diphth/Pertussis, Whl Cell/Tet(oldterm)16 11/04/98 Given [...] Given 1Early/Late Reason: Early/Late Reason: Med Not Vhmqmgjcz6Kfaib/Late Reason: Accommodate D/X0Izgwj Note: NCZNLG5Qtjvg Note: VIS bzmnp8Wvudr Note: VIS LDVQB1Depje Note: VIS GIVEN---MENACTRA, SANOFI XJYJBPW9Iitdm Note: SANOFI PASTEUR VIS GIVEN WFPBL0Puvei Note: vis qontt4Rqehu Note: HX VARICELLA '9510Admin Note: GTU71Vtzjc Note: QJI34Idfmp Note: IPV/OPV13 Admin Note: IPV/DUZ00Ajlib Note: IPV/HIG89Wqtfr Note: IPV/NEZ45Fkksj Note: DPT17 Admin Note: RFN67Bkovk Note: PLC21Mmelb Note: PJI30Rylzd Note: EFO63Kwtop Note: OGE23Jkibb Note: RUE61Uruio Note: HEP B Medications aspirin 81 mg oral delayed release tablet 162 mg, 2, tablet, By Mouth, Daily, To start at 12 weeks gestational age, July 13, 2020, # 90 tablet, Refills 2, Tot. Refills 2, Maintenance, 08/09/20 9:35:00 EDT, Route to Pharmacy Electronically, [facility] #[id number], Partial fill upon patie... Start Date: 08/09/20 [...] tablet, 3 Refills, Maintenance, 11/01/20 16:56:00 EDT, [facility] #[id number], Partial fill upon patient request if the prescription is for a schedule II opioid drug., 150, cm, 11/01/20 9:32:00 EDT... Start Date: 11/01/20 Status: OrderedHandheld Electric Breast Pump See Instructions, # 1 each, Maintenance, Per biology faculty member instructions, 12/06/14 6:03:50, Compound Start Date: 12/06/14 [...] 5 Refills, Maintenance, 08/19/20 12:01:00 EDT, Tablet, [facility] #[id number], 152.5, cm, 08/09/20 9:25:00 EDT, Height, 53, kg, 06/25/20 16:25:00 EDT, Start Date: 08/19/20 Status: Orderedmetoclopramide 10 mg oral tablet 1 tablet = 10 mg, By Mouth, 3 times a day before meals and bedtime, PRN Nausea & Vomiting, 30 minutes before meals and at bedtime, # 50 tablet, 0 Refills, Maintenance, 07/30/20 15:26:00 EDT, Tablet, [facility] #[id number], Partial fill upon patie... Start Date: 07/30/20 Stop Date: 08/13/20 Status: OrderedPen [place], 32 G x 4 mm BD Ultra [...] 11:11:00 EDT, Route to Pharmacy Electronically, [facility], Partial fill upon patient [...]
--- OUTSIDE RECORDS SUMMARY | 2021-11-25 15:53 | XMS_ITS | Continuity of Care Document ---
:1995 Author Organization [facility] Address [address] [place] [address]- Care Team Providers Name Role Phone Tutu MCINTOSH, Kelvin Duffy Primary Care Physician Encounter [facility] [place] Date(s): 12/22/20 - 01/27/21 [facility] [address] [place] [id number] Attending Physician: Wanda Carter NP Admitting [...] Inactive (IM) (oldterm)9 01/06/03 Given Measles/Mumps/Rubella Virus Bnpqipv36 11/04/98 Given Measles/Mumps/Rubella Virus Amdmamp95 07/10/94 Given Poliovirus Vaccine, Pkkmdzvynqd23 11/04/98 Given Poliovirus Vaccine, Coizkeztiyl58 03/12/96 Given Poliovirus Vaccine, Zwbjfiehkcz03 05/08/95 Given Poliovirus Vaccine, Pdffjcedssw48 07/10/94 Given Diphth/Pertussis, Whl Cell/Tet(oldterm)16 11/04/98 Given [...] Refuses 1Early/Late Reason: Early/Late Reason: Med Not Ruftsybmy6Dcyrv/Late Reason: Accommodate D/L3Bgebi Note: UWRAOB8Ucphf Note: VIS bceco4Wxugb Note: VIS RPQQT9Qnskq Note: VIS GIVEN---MENACTRA, SANOFI RLEHKJO7Jqfvp Note: SANOFI PASTEUR VIS GIVEN QXWBS6Sojbx Note: vis wyqbz9Tezwx Note: HX VARICELLA '9510Admin Note: WBC39Omvyf Note: PWU92Lbzin Note: IPV/OPV13 Admin Note: IPV/BUX33Ytshg Note: IPV/INL10Dzhtz Note: IPV/ILS35Bqcve Note: DPT17 Admin Note: NZH80Dhwxw Note: XJY17Mywfy Note: TRC76Rkrqv Note: CDK54Uahft Note: DHE16Vsxbo Note: TYD39Pwbtn Note: HEP B Medications acetaminophen 500 mg oral tablet 2 tablet = 1,000 mg, By Mouth, Every 6 hours, PRN for fever, # 50 tablet, 0 Refills, Maintenance, 12/28/20 9:44:00 EST, Tablet, [facility] #[id number], Partial fill upon patient request if the prescription is for a schedule II opioid drug., 155,... Start Date: 12/28/20 Status: OrderedContour Next EZ Test Strips See Instructions, # 750 application, Refills 4, Tot. Refills 4, Maintenance, Test 6-8 times daily. 250.03, 648.03 using insulin pump, 09/16/14 9:46:21, Compound Start Date: 09/16/14 Status: OrderedHandheld Electric Breast Pump See Instructions, # 1 each, Maintenance, Per recreation therapy aides teacher instructions, 12/06/14 6:03:50, Compound Start Date: 12/06/14 Status: OrderedHumaLOG 100 units/mL injectable solution See Instructions, via pump , for type 1 DM, max daily dose 50 units., # 10 mL, 3 Refills, Maintenance, 01/11/21 11:25:00 EST, [facility] #[id number], Partial fill upon patient request if the [...] 12/28/20 9:44:00 EST, Route to Pharmacy Electronically, [facility] #[id number], Partial fill upon patient request if the [...] 7 Refills, Maintenance, 12/08/20 17:50:00 EDT, Tablet, [facility] #[id number], 156, cm, 12/06/20 11:33:00 EDT, Height, 56.2, kg, 11/25/20 12:46:00 EDT, D... Start Date: 12/08/20 Status: OrderedMiraLax oral powder for reconstitution = 17 Gm, By Mouth, Daily, dissolve in water before taking, # 255 Gm, 0 Refills, Maintenance, 12/28/20 9:45:00 EST, REC Powder, [facility] #[id number], Partial fill upon patient request if the prescription is for a schedule II opioid drug., 17 Gm... Start Date: 12/28/20 Status: OrderedNIFEdipine 30 mg oral tablet, extended release 30 mg, 1, tablet, By Mouth, Daily, # 30 tablet, Refills 0, Tot. Refills 0, Maintenance, 12/29/20 8:31:00 EST, Route to Pharmacy Electronically, [facility] #[id number], Partial fill upon patient request if the prescription is for a schedule II opi... Start Date: 12/29/20 Status: OrderedoxyCODONE 5 mg oral tablet 5 mg, 1, tablet, By Mouth, Every 3 hours, PRN, (7-10), # 12 tablet, Refills 0, Tot. Refills 0, Maintenance, Pain , Severe, 12/28/20 9:44:00 EST, Route to Pharmacy Electronically, [facility] #[id number], Partial fill upon patient request if the pr... Start Date: 12/28/20 Status: OrderedPen [place], 32 G x 4 mm BD Ultra [...] Maintenance, 219:44:00 EST, Route to Pharmacy Electronically, [facility] #[id number], Partial fill upon patient request if the [...]
--- OUTSIDE RECORDS SUMMARY | 2021-11-25 15:53 | XMS_ITS | Continuity of Care Document ---
:1995 Author Organization [facility] Address [address] [place] [phone]- Care Team Providers Name Role Phone Tutu MCINTOSH, Kelvin Duffy Primary Care Physician Encounter [facility] [place] [place] Date(s): 12/06/20 - 01/27/21 [facility] [address] [place] [id number] Attending Physician: Tim Angulo MD Admitting Physician: Adele MCINTOSH, Tim Referring Physician: Adele MCINTOSH, Tim Allergies, Adverse [...] Inactive (IM) (oldterm)9 01/06/03 Given Measles/Mumps/Rubella Virus Lnhcgnt26 11/04/98 Given Measles/Mumps/Rubella Virus Xbvycig58 07/10/94 Given Poliovirus Vaccine, Txkoknfqcbs92 11/04/98 Given Poliovirus Vaccine, Euffdkocadq16 03/12/96 Given Poliovirus Vaccine, Ycimtvrnrey03 05/08/95 Given Poliovirus Vaccine, Tssjpcykkfy83 07/10/94 Given Diphth/Pertussis, Whl Cell/Tet(oldterm)16 11/04/98 Given [...] Refuses 1Early/Late Reason: Early/Late Reason: Med Not Yougsdtxo4Ihpid/Late Reason: Accommodate D/R5Hvevl Note: UDGXMN6Qytxv Note: VIS kltlp5Tkibs Note: VIS ZGWII9Ykpvw Note: VIS GIVEN---MENACTRA, SANOFI SOFHTBB1Xukds Note: SANOFI PASTEUR VIS GIVEN QSUXO9Ohfbl Note: vis lenrd9Uddhc Note: HX VARICELLA '9510Admin Note: EPV07Khxkc Note: QDS69Uwhjt Note: IPV/OPV13 Admin Note: IPV/KBW75Mibvl Note: IPV/VSO72Tnkxm Note: IPV/HKI17Bpavh Note: DPT17 Admin Note: ZMT83Aqfdu Note: ULJ92Mduyr Note: JLV12Cbext Note: XKD39Mrfkl Note: BET93Cmzww Note: KQG14Ztrqz Note: HEP B Medications acetaminophen 500 mg oral tablet 2 tablet = 1,000 mg, By Mouth, Every 6 hours, PRN for fever, # 50 tablet, 0 Refills, Maintenance, 11/09/21 9:44:00 EST, Tablet, [facility][id number], Partial fill upon patient request if the prescription is for a schedule II opioid drug., 155,... Start Date: 12/28/20 Status: OrderedContour Next EZ Test Strips See Instructions, # 750 application, Refills 4, Tot. Refills 4, Maintenance, Test 6-8 times daily. 250.03, 648.03 using insulin pump, 09/16/14 9:46:21, Compound Start Date: 09/16/14 Status: OrderedHandheld Electric Breast Pump See Instructions, # 1 each, Maintenance, Per basic acoustic analyst instructions, 12/06/14 6:03:50, Compound Start Date: 12/06/14 Status: OrderedHumaLOG 100 units/mL injectable solution See Instructions, via pump , for type 1 DM, max daily dose 50 units., # 10 mL, 3 Refills, Maintenance, 01/11/21 11:25:00 EST, [facility] #[id number], Partial fill upon patient request if the [...] 12/28/20 9:44:00 EST, Route to Pharmacy Electronically, [facility] #[id number], Partial fill upon patient request if the [...] 7 Refills, Maintenance, 12/08/20 17:50:00 EDT, Tablet, [facility] #[id number], 156, cm, 12/06/20 11:33:00 EDT, Height, 56.2, kg, 11/25/20 12:46:00 EDT, D... Start Date: 12/08/20 Status: OrderedMiraLax oral powder for reconstitution = 17 Gm, By Mouth, Daily, dissolve in water before taking, # 255 Gm, 0 Refills, Maintenance, 12/28/20 9:45:00 EST, REC Powder, [facility] #[id number], Partial fill upon patient request if the prescription is for a schedule II opioid drug., 17 Gm... Start Date: 12/28/20 Status: OrderedNIFEdipine 30 mg oral tablet, extended release 30 mg, 1, tablet, By Mouth, Daily, # 30 tablet, Refills 0, Tot. Refills 0, Maintenance, 12/29/20 8:31:00 EST, Route to Pharmacy Electronically, [facility] #[id number], Partial fill upon patient request if the prescription is for a schedule II opi... Start Date: 12/29/20 Status: OrderedoxyCODONE 5 mg oral tablet 5 mg, 1, tablet, By Mouth, Every 3 hours, PRN, (7-10), # 12 tablet, Refills 0, Tot. Refills 0, Maintenance, Pain , Severe, 12/28/20 9:44:00 EST, Route to Pharmacy Electronically, [facility] #[id number], Partial fill upon patient request if the pr... Start Date: 12/28/20 Status: OrderedPen [place], 32 G x 4 mm BD Ultra [...] Maintenance, 219:44:00 EST, Route to Pharmacy Electronically, [facility] #[id number], Partial fill upon patient request if the [...]
--- OUTSIDE RECORDS SUMMARY | 2021-11-25 15:53 | XMS_ITS | Continuity of Care Document ---
:1995 Author Organization [facility] Address [address] [place] [address]- Care Team Providers Name Role Phone Tutu MCINTOSH, Kelvin Duffy Primary Care Physician Encounter [facility] [place] Date(s): 11/25/20 - 11/29/[address] [address] [place] Discharge Disposition: A-D/C Home Attending Physician: Flaca Joseph MD Admitting Physician: Flaca Joseph MD Referring Physician: Not on Staff, Referring [...] Inactive (IM) (oldterm)9 01/06/03 Given Measles/Mumps/Rubella Virus Sdpbnme02 11/04/98 Given Measles/Mumps/Rubella Virus Jkollgb40 07/10/94 Given Poliovirus Vaccine, Kcczthicfaq73 11/04/98 Given Poliovirus Vaccine, Zljvzdffeyn77 03/12/96 Given Poliovirus Vaccine, Hebvdkjojxi72 05/08/95 Given Poliovirus Vaccine, Gvolifepsne76 07/10/94 Given Diphth/Pertussis, Whl Cell/Tet(oldterm)16 11/04/98 Given [...] Given 1Early/Late Reason: Early/Late Reason: Med Not Smuwcjgfx4Ginaf/Late Reason: Accommodate D/V7Upjia Note: DVAGLR2Huaef Note: VIS flzwr3Sowyh Note: VIS WGPMN0Kjxgh Note: VIS GIVEN---MENACTRA, SANOFI ZSKCAST5Pazsd Note: SANOFI PASTEUR VIS GIVEN URVJO5Wdefd Note: vis wswhd0Ylghd Note: HX VARICELLA '9510Admin Note: PXI13Gapno Note: XBP58Hnfga Note: IPV/OPV13 Admin Note: IPV/KFD82Uoahk Note: IPV/KBT73Bykts Note: IPV/NSN82Rpstp Note: DPT17 Admin Note: MVF84Zmgnv Note: EPX33Uuaqm Note: FEX91Dhnrv Note: AEJ46Eiuqw Note: UAZ94Shsmg Note: GIL05Iyazg Note: HEP B Medications aspirin 81 mg oral delayed release tablet 162 mg, 2, tablet, By Mouth, Daily, To start at 12 weeks gestational age, July 13, 2020, # 90 tablet, Refills 2, Tot. Refills 2, Maintenance, 08/09/20 9:35:00 EDT, Route to Pharmacy Electronically, [facility] #[id number], Partial fill upon patie... Start Date: 08/09/20 [...] tablet, 3 Refills, Maintenance, 11/01/20 16:56:00 EDT, [facility] #[id number], Partial fill upon patient request if the prescription is for a schedule II opioid drug., 150, cm, 11/01/20 9:32:00 EDT... Start Date: 11/01/20 Status: OrderedHandheld Electric Breast Pump See Instructions, # 1 each, Maintenance, Per life management teacher instructions, 12/06/14 6:03:50, Compound Start Date: [...] 5 Refills, Maintenance, 08/19/20 12:01:00 EDT, Tablet, [facility] #[id number], 152.5, cm, 08/09/20 9:25:00 EDT, Height, 53, kg, 06/25/20 16:25:00 EDT, Start Date: 08/19/20 Status: Orderedmetoclopramide 10 mg oral tablet 1 tablet = 10 mg, By Mouth, 3 times a day before meals and bedtime, PRN Nausea & Vomiting, 30 minutes before meals and at bedtime, # 50 tablet, 0 Refills, Maintenance, 07/30/20 15:26:00 EDT, Tablet, [facility] #[id number], Partial fill upon patie... Start Date: 07/30/20 Stop Date: 08/13/20 Status: OrderedPen [place], 32 G x 4 mm BD Ultra [...] 09/03/20 11:11:00 EDT, Route to Pharmacy Electronically, [facility], Partial fill upon patient request [...] oldest 1 2 3 [Reference Range]: Height 156 cm (11/25/20 12:46 PM) Weight 56.2 kg (11/25/20 12:46 PM) Oxygen Saturation [94-100 98 % 100 % 100 % %] (11/28/20 11:09 PM) (11/28/20 10:12 AM) ( 1 10:00 AM) Pulse Rate [55-90 bpm] 18 bpm 17 bpm 90 bpm *L* *L* (11/25/20 12:46 P M) (11/27/20 8:36 AM) (11/26/20 10:36 PM) Body Mass Index 23.09 [18.5-24.99] (11/25/20 12:46 PM) Blood Pressure 103/64 mm Hg 104/55 mm Hg 105/53 mm Hg [90-138/55-84 mm Hg] (11/29/20 9:30 AM) (11/28/20 11:09 PM) (12/09 6:45 PM) Respiratory Rate [16-30 18 br/min 17 br/min 17 br/mi n br/min] (11/28/20 6:45 PM) (11/28/20 10:12 AM) (11/28/20 10:00 AM) Temperature [96.8-100.4 98.4 DegF 98.2 DegF 98.4 Deg F DegF] (11/29/20 9:30 AM) (11/28/20 11:09 PM) (11/28/20 6:45 PM) Mode of Delivery (Oxygen) Room air Room air Room a ir (11/27/20 8:36 AM) (11/26/20 10:36 PM) (11/26/20 8: 05 AM) Blood pressure sites Arm, right Arm, right Arm, right (11/28/20 6:45 PM) (11/28/20 10:12 AM) (11/28/20 10:00 AM) Temperature Route Oral Oral Oral (11/29/20 9:30 AM) (11/28/20 11:09 PM) (11/28/20 6:45 PM) Dry Weight 56.2 kg (11/25/20 12:46 PM) Social History Social History Type Response Smoking Status Never smoker entered on: 01/08/14 Sex Female
--- OUTSIDE RECORDS SUMMARY | 2021-11-25 15:53 | XMS_ITS | Continuity of Care Document ---
:1995 Author Organization [facility] Address [address] [place] [address]- Care Team Providers Name Role Phone Tutu MCINTOSH, Kelvin Duffy Primary Care Physician [place] [facility] [place] - 05/22/[address] [address]- Attending Physician: Jacklyn Franco Admitting Physician: Jacklyn Franco Referring Physician: AdmtrJacklyn Allergies, Adverse Reactions, Alerts [...] Measles/Mumps/Rubella Virus Vaccine9 11/04/98 Given Measles/Mumps/Rubella Virus Nnibela27 07/10/94 Given Poliovirus Vaccine, Bzmeyfhkhju68 11/04/98 Given Poliovirus Vaccine, Dnkrnsqrjgg96 03/12/96 Given Poliovirus Vaccine, Xcyomcdsxob79 05/08/95 Given Poliovirus Vaccine, Vdkartzgkec35 07/10/94 Given Diphth/Pertussis, Whl Cell/Tet(oldterm)15 11/04/98 Given [...] (old term) 93 Given 1Early/Late Reason: Accommodate D/Q4Oupxh Note: UFTZEM3Tcsdt Note: VIS given4 Admin Note: VIS LLRUA3Xmywu Note: VIS GIVEN---MENACTRA, SANOFI ZGCHYCJ5Rilqc Note: SANOFI PASTEUR VIS GIVEN KSGAP2Tcuoe Note: vis hqziq6Hhnny Note: HX VARICELLA '959Admin Note: BFH47Jyoml Note: SWU33Aeunm Note: IPV/AWO36Ccxgm Note: IPV/OQF95Mzccc Note: IPV/CHZ04Aptji Note: IPV/PRW81Kgniy Note: HOM07Hxtsp Note: ZJR72Hedpo Note: JZT73Rhnlo Note: OPW68Uaima Note: JJG75Rztqh Note: BDU93Scejb Note: SFZ96Lifrj Note: HEP B Medications Contour Next EZ [...] See Instructions, # 1 each, Maintenance, Per certified appliance service technician instructions, 12/06/14 6:03:50, Compound Start Date: 12/06/14 Status: OrderedHucecilia Kwik Pen 100 units/mL subcutaneous injection See Instructions, Inject 3 times/day with meals per sliding scale. Max daily dose 75 units, # 30 mL,5 Refills, Maintenance, 05/10/20 14:14:00 EDT, [facility] #[id number], Partial fill upon patient request if the [...] 3 Refills, Maintenance, 06/27/19 13:50:00 EDT, Solution, [facility] #[id number], 152.5, cm, 05/29/19 11:15:00 EDT, Height Start Date: 06/27/19 Status: Orderedlevothyroxine 0.05 mg oral tablet 1 tablet = 50 mcg, By Mouth, Daily, # 90 tablet, 0 Refills, Maintenance, 07/23/19 13:25:00 EDT, Tablet, [facility] #[id number], 152.5, cm, 07/09/19 12:58:00 EDT, Height Start Date: 07/23/19 Status: OrderedNexplanon 68 mg subcutaneous implant 1 each = 68 mg, Subcutaneous Infusion, Once, # 1 each, 0 Refills, Soft Stop, 10/31/16 16:43:40, [id number] Start Date: 10/31/16 Status: OrderedPen [place], 32 G x 4 mm BD Ultra [...] 0 Refills, Maintenance, 04/26/20 15:33:00 EST, Tablet, [facility] #[id number], Partial fill upon patient request if the [...]
--- OUTSIDE RECORDS SUMMARY | 2021-11-25 15:53 | XMS_ITS | Continuity of Care Document ---
:1995 Author Organization [facility] ic Address [address] [place] [address]- Care Team Providers Name Role Phone Tutu MCINTOSH, Kelvin Duffy Primary Care Physician [place] [facility] [place] - 11/02/[address] [address]- Attending Physician: Jacklyn Franco Admitting Physician: Jacklyn Franco Referring Physician: AdmJacklyn garland Allergies, Adverse Reactions, Alerts Substance Reaction Severity [...] Inactive (IM) (oldterm)9 01/06/03 Given Measles/Mumps/Rubella Virus Uwxljjs66 11/04/98 Given Measles/Mumps/Rubella Virus Klonzzt92 07/10/94 Given Poliovirus Vaccine, Jgnlqnrcfpq02 11/04/98 Given Poliovirus Vaccine, Vbsxojjexwj00 03/12/96 Given Poliovirus Vaccine, Dicrelsvnew63 05/08/95 Given Poliovirus Vaccine, Dmsspazpoyl41 07/10/94 Given Diphth/Pertussis, Whl Cell/Tet(oldterm)16 11/04/98 Given [...] Refuses 1Early/Late Reason: Early/Late Reason: Med Not Hfilvfvsn2Vrfag/Late Reason: Accommodate D/B2Wrbsz Note: KSWKSF4Maxbl Note: VIS awmvp9Wcjag Note: VIS YWNHR8Chqzx Note: VIS GIVEN---MENACTRA, SANOFI OOJFECH5Bymtn Note: SANOFI PASTEUR VIS GIVEN LQXEI7Kfabz Note: vis ydpck2Kpgsg Note: HX VARICELLA '9510Admin Note: DMN95Hfbdc Note: VWU46Xvkzs Note: IPV/OPV13 Admin Note: IPV/DSC26Caolx Note: IPV/SNT86Dlaqk Note: IPV/HZC00Rhefz Note: DPT17 Admin Note: JNV67Crqxu Note: UOA49Jread Note: HSG31Ebwaz Note: RNZ07Sfvza Note: MFQ01Wvfux Note: QCO60Qlpvv Note: HEP B Medications Apri 0.15 mg-0.03 mg oral tablet 1 tablet, By Mouth, Daily, # 84 tablet, 4 Refills, Maintenance, 10/03/21 13:56:00 EDT, Tablet, [facility] #[id number], Partial fill upon patient request if the [...] Instructions, # 1 each, Maintenance, Per customer strategy manager instructions, 12/06/14 6:03:50, Compound Start Date: 12/06/14 Status: OrderedHumaLOG 100 units/mL injectable solution See Instructions, via pump , for type 1 DM, max daily dose 50 units., # 10 mL, 6 Refills, Maintenance, 07/28/21 15:26:00 EDT, [facility] #[id number], Partial fill upon patient request if the [...] 7 Refills, Maintenance, 12/08/20 17:50:00 EDT, Tablet, [facility] #[id number], 156, cm, 12/06/20 11:33:00 EDT, Height, 56.2, kg, 11/25/20 12:46:00 EDT, D... Start Date: 12/08/20 Status: OrderedPen [place], 32 G x 4 mm BD Ultra [...] Status Never smoker entered on: 01/08/14 Sex Care Team PersonnelName: Kelvin Cam MD Address: [address] [place] [address]
--- OUTSIDE RECORDS SUMMARY | 2021-11-25 15:53 | XMS_ITS | Continuity of Care Document ---
:1995 Author Organization [facility] Address [address] [place] [address]- Care Team Providers Name Role Phone Tutu MCINTOSH, Kelvin Duffy Primary Care Physician Encounter [facility] [place] Date(s): 09/30/21 - 10/30/21 [facility] [address] [place] [address] Allergies, Adverse Reactions, Alerts Substance Reaction [...] Inactive (IM) (oldterm)9 01/06/03 Given Measles/Mumps/Rubella Virus Jbkezmv88 11/04/98 Given Measles/Mumps/Rubella Virus Euzoxyi82 07/10/94 Given Poliovirus Vaccine, Xbgirkqtkyh49 11/04/98 Given Poliovirus Vaccine, Hpekmqmckcq02 03/12/96 Given Poliovirus Vaccine, Uscwmyaguqa68 05/08/95 Given Poliovirus Vaccine, Wgpraqcrexn31 07/10/94 Given Diphth/Pertussis, Whl Cell/Tet(oldterm)16 11/04/98 Given [...] Refuses 1Early/Late Reason: Early/Late Reason: Med Not Kyjfyjvxz0Bglbn/Late Reason: Accommodate D/I6Lnkly Note: EQTAJM2Byhxr Note: VIS rztis9Ktgbo Note: VIS EPKAZ2Ctefp Note: VIS GIVEN---MENACTRA, SANOFI XTDLDAX9Hxgus Note: SANOFI PASTEUR VIS GIVEN LDINU4Infzu Note: vis hkrig6Cgeja Note: HX VARICELLA '9510Admin Note: CHQ69Ysodl Note: TKU99Crqry Note: IPV/OPV13 Admin Note: IPV/HFW58Ayyyx Note: IPV/TUS81Degdd Note: IPV/PPM82Vbyqf Note: DPT17 Admin Note: JVR37Ahatk Note: MVG81Cxrfv Note: YDM34Rcyyr Note: VMC18Bxlox Note: FXV05Gzyof Note: BOA19Oxnsx Note: HEP B Medications Apri 0.15 mg-0.03 mg oral tablet 1 tablet, By Mouth, Daily, # 84 tablet, 4 Refills, Maintenance, 10/03/21 13:56:00 EDT, Table[facility], [id number], Partial fill upon patient request if the [...] Instructions, # 1 each, Maintenance, Per manager sap instructions, 12/06/14 6:03:50, Compound Start Date: 12/06/14 Status: OrderedHumaLOG 100 units/mL injectable solution See Instructions, via pump , for type 1 DM, max daily dose 50 units., # 10 mL, 6 Refills, Maintenance, 07/28/21 15:26:00 EDT, [facility] #[id number], Partial fill upon patient request if the [...] 12/08/20 17:50:00 EDT, Tablet, [facility] #[id number], 156, cm, 12/06/20 11:33:00 EDT, Height, 56.2, kg, 11/25/20 12:46:00 EDT, D... Start Date: 12/08/20 Status: OrderedPen [place], 32 G x 4 mm BD [...] Care Team PersonnelName: Kelvin Cam MD Address: [address] [place] [address]
--- OUTSIDE RECORDS SUMMARY | 2021-11-25 15:53 | XMS_ITS | Continuity of Care Document ---
:1995 Author Organization [facility] Address [address] [place] [address]- Care Team Providers Name Role Phone Tutu MCINTOSH, Kelvin Duffy Primary Care Physician Encounter [facility] [place] Date(s): 12/09/20 - 01/26/[address] [address] Attending Physician: Arnold Pate MD Referring Physician: Arnold [...] Inactive (IM) (oldterm)9 01/06/03 Given Measles/Mumps/Rubella Virus Yhmvrdw07 11/04/98 Given Measles/Mumps/Rubella Virus Cggrlpg46 07/10/94 Given Poliovirus Vaccine, Kbtrwlsxaif08 11/04/98 Given Poliovirus Vaccine, Rvwwttfbsph39 03/12/96 Given Poliovirus Vaccine, Vhcvpotxkca22 05/08/95 Given Poliovirus Vaccine, Tlbdnefqove98 07/10/94 Given Diphth/Pertussis, Whl Cell/Tet(oldterm)16 11/04/98 Given [...] Refuses 1Early/Late Reason: Early/Late Reason: Med Not Lhqvjjuks3Nnhin/Late Reason: Accommodate D/C9Ljubb Note: SJCQOH9Svbyp Note: VIS bkucy9Kwsva Note: VIS SJMHS6Iankh Note: VIS GIVEN---MENACTRA, SANOFI XUVWLWA6Udicb Note: SANOFI PASTEUR VIS GIVEN PUOHS7Lmdzh Note: vis iubpt5Njfym Note: HX VARICELLA '9510Admin Note: ETV88Avqnp Note: JEY15Xofhd Note: IPV/OPV13 Admin Note: IPV/QRK96Mtook Note: IPV/CAF93Bzcsg Note: IPV/KAX94Qthxx Note: DPT17 Admin Note: PWZ02Sclyq Note: IET46Dalun Note: IZW89Wllbq Note: MNP90Jbcyp Note: LRT74Pvpqf Note: MIA72Vswqw Note: HEP B Medications acetaminophen 500 mg oral tablet 2 tablet = 1,000 mg, By Mouth, Every 6 hours, PRN for fever, # 50 tablet, 0 Refills, Maintenance, 12/28/20 9:44:00 EST, Tablet, [facility] #[id number], Partial fill upon patient request if the prescription is for a schedule II opioid drug., 155,... Start Date: 12/28/20 Status: OrderedContour Next EZ Test Strips See Instructions, # 750 application, Refills 4, Tot. Refills 4, Maintenance, Test 6-8 times daily. 250.03, 648.03 using insulin pump, 09/16/14 9:46:21, Compound Start Date: 09/16/14 Status: OrderedHandheld Electric Breast Pump See Instructions, # 1 each, Maintenance, Per loader operator instructions, 12/06/14 6:03:50, Compound Start Date: 12/06/14 Status: OrderedHumaLOG 100 units/mL injectable solution See Instructions, via pump , for type 1 DM, max daily dose 50 units., # 10 mL, 3 Refills, Maintenance, 01/11/21 11:25:00 EST, [facility] #[id number], Partial fill upon patient request if the [...] 12/28/20 9:44:00 EST, Route to Pharmacy Electronically, [facility] #[id number], Partial fill upon patient request if the [...] 7 Refills, Maintenance, 12/08/20 17:50:00 EDT, Tablet, [facility] #[id number], 156, cm, 12/06/20 11:33:00 EDT, Height, 56.2, kg, 11/25/20 12:46:00 EDT, D... Start Date: 12/08/20 Status: OrderedMiraLax oral powder for reconstitution = 17 Gm, By Mouth, Daily, dissolve in water before taking, # 255 Gm, 0 Refills, Maintenance, 12/28/20 9:45:00 EST, REC Powder, [facility] #[id number], Partial fill upon patient request if the prescription is for a schedule II opioid drug., 17 Gm... Start Date: 12/28/20 Status: OrderedNIFEdipine 30 mg oral tablet, extended release 30 mg, 1, tablet, By Mouth, Daily, # 30 tablet, Refills 0, Tot. Refills 0, Maintenance, 12/29/20 8:31:00 EST, Route to Pharmacy Electronically, [facility] #[id number], Partial fill upon patient request if the prescription is for a schedule II opi... Start Date: 12/29/20 Status: OrderedoxyCODONE 5 mg oral tablet 5 mg, 1, tablet, By Mouth, Every 3 hours, PRN, (7-10), # 12 tablet, Refills 0, Tot. Refills 0, Maintenance, Pain , Severe, 12/28/20 9:44:00 EST, Route to Pharmacy Electronically, [facility] #[id number], Partial fill upon patient request if the pr... Start Date: 12/28/20 Status: OrderedPen [place], 32 G x 4 mm BD Ultra [...] Maintenance, 219:44:00 EST, Route to Pharmacy Electronically, [facility] #[id number], Partial fill upon patient request if the [...]
--- OUTSIDE RECORDS SUMMARY | 2021-11-25 15:53 | XMS_ITS | Continuity of Care Document ---
:1995 Author Organization [facility] Address [address] [place] [phone]- Care Team Providers Name Role Phone Tutu MCINTOSH, Kelvin Duffy Primary Care Physician Encounter [facility] [place] Date(s): 08/26/20 - 09/25/20 [facility] [address] [place] [id number] Allergies, Adverse Reactions, Alerts Substance Reaction [...] Measles/Mumps/Rubella Virus Vaccine9 11/04/98 Given Measles/Mumps/Rubella Virus Boyjsai24 07/10/94 Given Poliovirus Vaccine, Sedhupkgvtc03 11/04/98 Given Poliovirus Vaccine, Jotnxuqifvz86 03/12/96 Given Poliovirus Vaccine, Joipngzkymm44 05/08/95 Given Poliovirus Vaccine, Nejiwbvqcdu90 07/10/94 Given Diphth/Pertussis, Whl Cell/Tet(oldterm)15 11/04/98 Given [...] (old term) 93 Given 1Early/Late Reason: Accommodate D/E9Ahrwv Note: MNIAWN4Neyme Note: VIS given4 Admin Note: VIS KGLJN1Lwrfc Note: VIS GIVEN---MENACTRA, SANOFI TSVQTHD1Qdwmw Note: SANOFI PASTEUR VIS GIVEN RUHPD6Pewbf Note: vis vwrlb4Adqjv Note: HX VARICELLA '959Admin Note: VPZ61Bdzbh Note: CRG91Cntqj Note: IPV/PGR61Lwbxd Note: IPV/TUH53Qdven Note: IPV/NGF59Ftibw Note: IPV/HYT41Icazi Note: OFX11Zazku Note: VNT85Qlgbs Note: DZX86Higed Note: BUT41Dvmvu Note: BZM16Tewvn Note: DMX51Ryllz Note: XPQ30Mhtja Note: HEP B Medications aspirin 81 mg oral delayed release tablet 162 mg, 2, tablet, By Mouth, Daily, To start at 12 weeks gestational age, July 13, 2020, # 90 tablet, Refills 2, Tot. Refills 2, Maintenance, 08/09/20 9:35:00 EDT, Route to Pharmacy Electronically, [facility] #[id number], Partial fill upon patie... Start Date: 08/09/20 Status: OrderedContour Next EZ Test Strips See Instructions, # 750 application, Refills 4, Tot. Refills 4, Maintenance, Test 6-8 times daily. 250.03, 648.03 using insulin pump, 09/16/14 9:46:21, Compound Start Date: 09/16/14 Status: OrderedHandheld Electric Breast Pump See Instructions, # 1 each, Maintenance, Per sumo wrestler instructions, 12/06/14 6:03:50, Compound Start Date: 12/06/14 Status: OrderedHumalog Kwik Pen 100 units/mL subcutaneous injection See Instructions, Max daily dose 30 units. E10.65, # 30 mL, 5 Refills, Maintenance, 07/12/20 13:52:00 EDT, Solution, [facility] #[id number], Partial fill upon patient request if the [...] 5 Refills, Maintenance, 08/19/20 12:01:00 EDT, Tablet, [facility] #[id number], 152.5, cm, 08/09/20 9:25:00 EDT, Height, 53, kg, 06/25/20 16:25:00 EDT, . Start Date: 08/19/20 Status: Orderedmetoclopramide 10 mg oral tablet 1 tablet = 10 mg, By Mouth, 3 times a day before meals and bedtime, PRN Nausea & Vomiting, 30 minutes before meals and at bedtime, # 50 tablet, 0 Refills, Maintenance, 07/30/20 15:26:00 EDT, [id number], Partial fill upon patie... Start Date: 07/30/20 Stop Date: 08/13/20 Status: Orderedondansetron 4 mg oral tablet, disintegrating 1 tablet = 4 mg, By Mouth, Every 8 hours, PRN as needed for nausea/vomiting, # 25 tablet, 0 Refills,Maintenance, 09/03/20 14:41:00 EDT, DIS Tablet, [facility], Partial fill upon patient request if the prescription is for a schedule II o... Start Date: 09/03/20 Status: OrderedPen [place], 32 G x 4 mm BD Ultra [...] 0 Refills, Maintenance, 09/03/20 14:41:00 EDT, Tablet, [facility], Partial fill upon patient request if the prescription is for a schedule II opioid drug., 150, cm, 0... Start Date: 09/03/20 Status: OrderedVitamin B6 50 mg oral tablet 25 mg, 0.5, tablet, By Mouth, 3 times a day, # 100 tablet, Refills 0, Tot. Refills 0, Maintenance, 09/03/20 11:11:00 EDT, Route to Pharmacy Electronically, [facility], Partial fill upon patient request [...]
--- OUTSIDE RECORDS SUMMARY | 2021-11-25 15:53 | XMS_ITS | Continuity of Care Document ---
:1995 Author Organization [facility] Address [address] [place] [address]- Care Team Providers Name Role Phone Tutu MCINTOSH, Kelvin Duffy Primary Care Physician Encounter [facility] [place] [place] Date(s): 08/21/19 - 10/10/[address] [address]- [facility] Attending Physician: Claudia Diaz MD Admitting Physician: Claudia Diaz MD Allergies, Adverse Reactions, Alerts Substance Reaction [...] Measles/Mumps/Rubella Virus Vaccine9 11/04/98 Given Measles/Mumps/Rubella Virus Gstiflx70 07/10/94 Given Poliovirus Vaccine, Jnhfigxudkg83 11/04/98 Given Poliovirus Vaccine, Vnauaxlbgzp32 03/12/96 Given Poliovirus Vaccine, Sdtfyjbdmik36 05/08/95 Given Poliovirus Vaccine, Ubtpphaflgg04 07/10/94 Given Diphth/Pertussis, Whl Cell/Tet(oldterm)15 11/04/98 Given [...] (old term) 93 Given 1Early/Late Reason: Accommodate D/C2Eoufr Note: TLBSFI9Rycij Note: VIS given4 Admin Note: VIS IIFRS0Dcmsa Note: VIS GIVEN---MENACTRA, SANOFI XOHGTUX1Gjfty Note: SANOFI PASTEUR VIS GIVEN FMOSV3Fadgu Note: vis nispk2Inohg Note: HX VARICELLA '959Admin Note: GIY32Ibgmd Note: YIG00Tmusq Note: IPV/EPM30Kimsi Note: IPV/HBU72Yqbiv Note: IPV/LYM28Fdgmx Note: IPV/RHF73Opnio Note: PVN25Xkjik Note: DCM44Zbrcw Note: TZW39Akfar Note: AYT67Wiwlq Note: BCC76Fagax Note: KSM71Trkyc Note: XZF75Xyzwa Note: HEP B Medications Admelog SoloStar 100 units/mL injectable solution See Instructions, Inject 2-15 units tid w/ meals via ISS, Max dose daily dose 45 units, E10.9, # 30 mL, 6 Refills, Maintenance, 06/27/19 14:42:00 EDT, [facility] #[id number], 152.5, cm, 05/29/19 11:15:00 EDT, Height Start [...] See Instructions, # 1 each, Maintenance, Per infusion therapy nurse instructions, 12/06/14 6:03:50, Compound Start Date: [...] 3 Refills, Maintenance, 06/27/19 13:50:00 EDT, Solution, [facility] #[id number], 152.5, cm, 05/29/19 11:15:00 EDT, Height Start Date: 06/27/19 Status: OrderedLevemir FlexTouch 100 units/mL subcutaneous solution See Instructions, 15 units subQ twice daily, # 3 units, 11 Refills, Maintenance, 06/11/14 15:29:26, 15 units subQ twice daily Start Date: 06/11/14 Status: Orderedlevothyroxine 0.05 mg oral tablet 1 tablet = 50 mcg, By Mouth, Daily, # 90 tablet, 0 Refills, Maintenance, 07/23/19 13:25:00 EDT, Tablet, [facility] #[id number], 152.5, cm, 07/09/19 12:58:00 EDT, Height Start Date: 07/23/19 Status: OrderedNexplanon 68 mg subcutaneous implant 1 each = 68 mg, Subcutaneous Infusion, Once, # 1 each, 0 Refills, Soft Stop, 10/31/16 16:43:40, [id number] Start Date: 10/31/16 Status: OrderedNovoLOG FlexPen 100 units/mL subcutaneous solution See Instructions, 2-8 units Subcutaneous Injection 3 times a day, # 30 mL, 3 Refills, Maintenance, 06/27/19 13:50:00 EDT, Solution, [facility] #[id number], 152.5, cm, 05/29/19 11:15:00 EDT, Height Start [...]
--- OUTSIDE RECORDS SUMMARY | 2021-11-25 15:53 | XMS_ITS | Continuity of Care Document ---
:1995 Author Organization [facility] Address [address] [place] [phone]- Care Team Providers Name Role Phone Tutu MCINTOSH, Kelvin Duffy Primary Care Physician Encounter [facility] Date(s): 05/31/20 - 06/30/[facility] [address] [place] [address] Allergies, Adverse Reactions, Alerts Substance Reaction [...] Measles/Mumps/Rubella Virus Vaccine9 11/04/98 Given Measles/Mumps/Rubella Virus Dqakytg92 07/10/94 Given Poliovirus Vaccine, Ywdcdqvrzjt89 11/04/98 Given Poliovirus Vaccine, Lgoycmdcxsf65 03/12/96 Given Poliovirus Vaccine, Ruhjyuwevze99 05/08/95 Given Poliovirus Vaccine, Wlkibqlzxfm36 07/10/94 Given Diphth/Pertussis, Whl Cell/Tet(oldterm)15 11/04/98 Given [...] (old term) 93 Given 1Early/Late Reason: Accommodate D/Q2Iatgz Note: JKZOFV4Fowgy Note: VIS given4 Admin Note: VIS KYUST7Oclnh Note: VIS GIVEN---MENACTRA, SANOFI DJYEQOH7Fvdig Note: SANOFI PASTEUR VIS GIVEN KINMO5Ymvzo Note: vis yagef0Droco Note: HX VARICELLA '959Admin Note: GDT59Vjisk Note: UBY46Oscqe Note: IPV/ZUM06Lzbmk Note: IPV/ABX36Simwl Note: IPV/TUC68Chdgo Note: IPV/GJX29Plewk Note: MXY44Gvnum Note: XJC50Aomro Note: RFP38Nfxov Note: MWT70Jfjdc Note: LCB64Xfwec Note: ZLD80Lkyvr Note: NUK70Mqzdg Note: HEP B Medications aspirin 81 mg oral delayed release tablet 162 mg, 2, tablet, By Mouth, Daily, To start at 12 weeks gestational age, July 13, 2020, # 90 tablet, Refills 2, Tot. Refills 2, Maintenance, 06/25/20 16:23:00 EDT, Route to Pharmacy Electronically, [facility] #[id number], Partial fill upon irais... Start Date: 06/25/20 Status: OrderedContour Next EZ Test Strips See Instructions, # 725 application, Refills 4, Tot. Refills 4, Maintenance, BGM 8 times/day. 250.03, 648.03 using insulin pump, 06/03/14 15:36:12, Compound Start Date: 4/15/15 Status: OrderedContour Next EZ Test Strips See [...] 07/07/20 10:43:00 EDT, 06/23/20 10:43:00 EDT, Tablet, [facility], Partial fill upon patient request if the prescript... Start Date: 06/23/20 Stop Date: 07/07/20 Status: Orderedfamotidine 20 mg oral tablet 20 mg, 1, tablet, By Mouth, 2 times a day, # 60 tablet, Refills 0, Tot. Refills 0, Maintenance, 06/22/20 9:26:00 EDT, Route to Pharmacy Electronically, [facility], Partial fill upon patient request if the prescription is for a schedule I... Start Date: 06/22/20 Status: OrderedHandheld Electric Breast Pump See Instructions, # 1 each, Maintenance, Per building maintenance worker instructions, 12/06/14 6:03:50, Compound Start Date: [...] 0 Refills, Maintenance, 06/23/20 10:45:00 EDT, Tablet, [facility], Partial fill upon patient... [...] 0 Refills, Maintenance, 04/26/20 15:33:00 EST, Tablet, [facility] #[id number], Partial fill upon patient request if the prescription is for a schedule II opioid drug., 1 tablet By Mouth Daily, 152.5, cm, 05... Start Date: 04/26/20 Status: Orderedsucralfate 1 gm oral tablet 1 Gm, 1, tablet, By Mouth, Every 6 hours, # 56 tablet, Refills 0, Tot. Refills 0, Maintenance, 06/23/20 10:43:00 EDT, Route to Pharmacy Electronically, [facility], Partial fill upon patient request if the prescription is for a schedule I... Start Date: 06/23/20 Stop Date: 07/07/20 Status: OrderedVitamin B6 25 mg oral tablet 1 tablet = 25 mg, By Mouth, 3 times a day, PRN Nausea & Vomiting, # 90 tablet, 1 Refills, Acute 09/03/20 14:24:00 EDT, 06/03/20 14:24:00 EDT, [facility] #[id number], Partial fill upon patient request if the [...]
--- OUTSIDE RECORDS SUMMARY | 2021-11-25 15:53 | XMS_ITS | Continuity of Care Document ---
:1995 Author Organization [facility] Address [address] [place] [address]- Care Team Providers Name Role Phone Tutu MCINTOSH, Kelvin Duffy Primary Care Physician Encounter [facility] Date(s): 07/30/20 - 08/29/[address] [address]- Allergies, Adverse Reactions, Alerts Substance Reaction Severity [...] Measles/Mumps/Rubella Virus Vaccine9 11/04/98 Given Measles/Mumps/Rubella Virus Vxmvvnv26 07/10/94 Given Poliovirus Vaccine, Ezadavajstj25 11/04/98 Given Poliovirus Vaccine, Wabkxsmunvj42 03/12/96 Given Poliovirus Vaccine, Mmpdpunqljy81 05/08/95 Given Poliovirus Vaccine, Uzltgafzsyc43 07/10/94 Given Diphth/Pertussis, Whl Cell/Tet(oldterm)15 11/04/98 Given [...] (old term) 93 Given 1Early/Late Reason: Accommodate D/N7Vwgvs Note: VKCDGU4Erexg Note: VIS given4 Admin Note: VIS DCQEJ7Lytxy Note: VIS GIVEN---MENACTRA, SANOFI YXDWRAS2Xnaqt Note: SANOFI PASTEUR VIS GIVEN QQZPJ2Jwuun Note: vis tbequ8Kabmm Note: HX VARICELLA '959Admin Note: BNQ39Pvwgo Note: EDC66Phjky Note: IPV/QHI56Jmtld Note: IPV/BQC77Eclez Note: IPV/HZY14Ivbvy Note: IPV/DDZ42Qvnlw Note: ESE60Qpggy Note: SJE73Riyot Note: WNN93Opphz Note: FXB86Iwexn Note: AMR50Mrnpu Note: WOP35Tqixg Note: CNT00Esbqm Note: HEP B Medications aspirin 81 mg oral delayed release tablet 162 mg, 2, tablet, By Mouth, Daily, To start at 12 weeks gestational age, July 13, 2020, # 90 tablet, Refills 2, Tot. Refills 2, Maintenance, 08/09/20 9:35:00 EDT, Route to Pharmacy Electronically, [facility] #[id number], Partial fill upon patie... Start Date: 08/09/20 Status: OrderedContour Next EZ Test Strips See Instructions, # 750 application, Refills 4, Tot. Refills 4, Maintenance, Test 6-8 times daily. 250.03, 648.03 using insulin pump, 09/16/14 9:46:21, Compound Start Date: 09/16/14 Status: OrderedHandheld Electric Breast Pump See Instructions, # 1 each, Maintenance, Per salesperson jewelry instructions, 12/06/14 6:03:50, Compound Start Date: 12/06/14 Status: OrderedHumalog Kwik Pen 100 units/mL subcutaneous injection See Instructions, Max daily dose 30 units. E10.65, # 30 mL, 5 Refills, Maintenance, 07/12/20 13:52:00 EDT, Solution, [facility] #[id number], Partial fill upon patient request if the [...] 5 Refills, Maintenance, 08/19/20 12:01:00 EDT, Tablet, [facility] #[id number], 152.5, cm, 08/09/20 9:25:00 EDT, Height, 53, kg, 06/25/20 16:25:00 EDT, . Start Date: 08/19/20 Status: Orderedmetoclopramide 10 mg oral tablet 1 tablet = 10 mg, By Mouth, 3 times a day before meals and bedtime, PRN Nausea & Vomiting, 30 minutes before meals and at bedtime, # 50 tablet, 0 Refills, Maintenance, 07/30/20 15:26:00 EDT, Tablet, [facility] #[id number], Partial fill upon patie... Start Date: 07/30/20 Stop Date: 08/13/20 Status: OrderedPen [place], 32 G x 4 mm BD Ultra [...]
--- OUTSIDE RECORDS SUMMARY | 2021-11-25 15:53 | XMS_ITS | Continuity of Care Document ---
:1995 Author Organization [facility] Address [address] [place] [address]- Care Team Providers Name Role Phone Tutu MCINTOSH, Kelvin Duffy Primary Care Physician Encounter [facility] [place] Date(s): 07/28/21 - 08/27/21 [facility] [address] [place] [address] Allergies, Adverse Reactions, Alerts Substance Reaction [...] Inactive (IM) (oldterm)9 01/06/03 Given Measles/Mumps/Rubella Virus Pttaoci87 11/04/98 Given Measles/Mumps/Rubella Virus Gmipdwq23 07/10/94 Given Poliovirus Vaccine, Tglldbmdqlf42 11/04/98 Given Poliovirus Vaccine, Ffbrhrnoibc86 03/12/96 Given Poliovirus Vaccine, Bzdrelmbkfp62 05/08/95 Given Poliovirus Vaccine, Nebkjkatpjp40 07/10/94 Given Diphth/Pertussis, Whl Cell/Tet(oldterm)16 11/04/98 Given [...] Refuses 1Early/Late Reason: Early/Late Reason: Med Not Kmwdywtvh8Qqoqk/Late Reason: Accommodate D/J9Hpmqp Note: XFJQTR5Vybdg Note: VIS jlzoe8Fmoxv Note: VIS XMSCW8Xwcac Note: VIS GIVEN---MENACTRA, SANOFI BFBZWAU0Irpgu Note: SANOFI PASTEUR VIS GIVEN ICMWY7Qeeur Note: vis yndhh8Uqqiw Note: HX VARICELLA '9510Admin Note: TZR73Ejohg Note: UGQ90Yvpdi Note: IPV/OPV13 Admin Note: IPV/MTP69Fcuxm Note: IPV/HYC13Bcddy Note: IPV/RZX86Clmyb Note: DPT17 Admin Note: ASU59Ckfbh Note: CSA49Sgwdy Note: RPU45Dhnqr Note: YVZ67Qkkrg Note: HQV13Mfilc Note: REJ27Parvq Note: HEP B Medications acetaminophen 500 mg oral tablet 2 tablet = 1,000 mg, By Mouth, Every 6 hours, PRN for fever, # 50 tablet, 0 Refills, Maintenance, 12/28/20 9:44:00 EST, Tablet, [facility] #[id number], Partial fill upon patient request if the prescription is for a schedule II opioid drug., 155,... Start Date: 12/28/20 Status: OrderedContour Next EZ Test Strips See Instructions, # 750 application, Refills 4, Tot. Refills 4, Maintenance, Test 6-8 times daily. 250.03, 648.03 using insulin pump, 09/16/14 9:46:21, Compound Start Date: 09/16/14 Status: OrderedHandheld Electric Breast Pump See Instructions, # 1 each, Maintenance, Per codifier instructions, 12/06/14 6:03:50, Compound Start Date: 12/06/14 Status: OrderedHumaLOG 100 units/mL injectable solution See Instructions, via pump , for type 1 DM, max daily dose 50 units., # 10 mL, 6 Refills, Maintenance, 07/28/21 15:26:00 EDT, [facility] #[id number], Partial fill upon patient request if the prescription is for a schedule II opioid drug., 155, cm... Start Date: 07/28/21 Status: Orderedibuprofen 800 mg oral tablet 800 mg, 1, tablet, By Mouth, Every 8 hours, # 50 tablet, Refills 0, Tot. Refills 0, Maintenance, 12/28/20 9:44:00 EST, Route to Pharmacy Electronically, [facility] #[id number], Partial fill upon patient request if the [...] 7 Refills, Maintenance, 12/08/20 17:50:00 EDT, Tablet, [facility] #[id number], 156, cm, 12/06/20 11:33:00 EDT, Height, 56.2, kg, 11/25/20 12:46:00 EDT, D... Start Date: 12/08/20 Status: OrderedMiraLax oral powder for reconstitution = 17 Gm, By Mouth, Daily, dissolve in water before taking, # 255 Gm, 0 Refills, Maintenance, 12/28/20 9:45:00 EST, REC Powder, [facility] #[id number], Partial fill upon patient request if the prescription is for a schedule II opioid drug., 17 Gm... Start Date: 12/28/20 Status: OrderedNIFEdipine 30 mg oral tablet, extended release 30 mg, 1, tablet, By Mouth, Daily, # 30 tablet, Refills 0, Tot. Refills 0, Maintenance, 12/29/20 8:31:00 EST, Route to Pharmacy Electronically, [facility] #[id number], Partial fill upon patient request if the prescription is for a schedule II opi... Start Date: 12/29/20 Status: OrderedoxyCODONE 5 mg oral tablet 5 mg, 1, tablet, By Mouth, Every 3 hours, PRN, (7-10), # 12 tablet, Refills 0, Tot. Refills 0, Maintenance, Pain , Severe, 12/28/20 9:44:00 EST, Route to Pharmacy Electronically, [facility] #[id number], Partial fill upon patient request if the pr... Start Date: 12/28/20 Status: OrderedPen [place], 32 G x 4 mm BD Ultra [...] Maintenance, 219:44:00 EST, Route to Pharmacy Electronically, [facility] #[id number], Partial fill upon patient request if the [...]
--- OUTSIDE RECORDS SUMMARY | 2021-11-25 15:53 | XMS_ITS | Continuity of Care Document ---
:1995 Author Organization [facility] Address [address] [place] [address]- Care Team Providers Name Role Phone Not on Staff, PCP Primary Care Physician Unavailable [facility]counter [facility] Date[facility]s): 06/[facility]/20 - 06/23/[address] [address]- Encounter Diagnosis Hyperemesis (Final) - 06/21/20 (Final) - 06/21/20 Hyperemesis (Final) - 06/20/20 DKA, type 1 (Final) - 06/20/20 (Final) - 06/20/20 Discharge Disposition: A-D/C Home Attending Physician: Natalie So MD Admitting Physician: Felix Patel MD Referring Physician: Not on Staff, Referring [...] Measles/Mumps/Rubella Virus Vaccine9 11/04/98 Given Measles/Mumps/Rubella Virus Yaotxbp71 07/10/94 Given Poliovirus Vaccine, Bvjxpphbvqe29 11/04/98 Given Poliovirus Vaccine, Kqwznydxzes56 03/12/96 Given Poliovirus Vaccine, Qcxaoafcdgm66 05/08/95 Given Poliovirus Vaccine, Aymswelqzad04 07/10/94 Given Diphth/Pertussis, Whl Cell/Tet(oldterm)15 11/04/98 Given [...] (old term) 93 Given 1Early/Late Reason: Accommodate D/B2Hwrxf Note: XESZQC8Swrro Note: VIS given4 Admin Note: VIS JUJGA3Cyleg Note: VIS GIVEN---MENACTRA, SANOFI AHDECRC4Zqigk Note: SANOFI PASTEUR VIS GIVEN LGHLD7Ygdjj Note: vis mylul9Fupro Note: HX VARICELLA '959Admin Note: UEH05Cfftg Note: CHE54Xcsaf Note: IPV/YZO16Qrran Note: IPV/SEU39Yaqyd Note: IPV/NKT02Iqxih Note: IPV/CVL27Jnerg Note: NWK55Zzlzi Note: NFT54Moyon Note: RRR57Mhmjc Note: MYF40Dwhkb Note: FFS65Kgqol Note: LHI19Alzjd Note: LPV58Rynra Note: HEP B Medications Contour Next EZ [...] 07/07/20 10:43:00 EDT, 06/23/20 10:43:00 EDT, Tablet, [facility], Partial fill upon patient request if the prescript... Start Date: 06/23/20 Stop Date: 07/07/20 Status: Orderedfamotidine 20 mg oral tablet 20 mg, 1, tablet, By Mouth, 2 times a day, # 60 tablet, Refills 0, Tot. Refills 0, Maintenance, 06/22/20 9:26:00 EDT, Route to Pharmacy Electronically, [facility], Partial fill upon patient request if the prescription is for a schedule I... Start Date: 06/22/20 Status: OrderedHandheld Electric Breast Pump See Instructions, # 1 each, Maintenance, Per auto appraiser instructions, 12/06/14 6:03:50, Compound Start Date: 12/06/14 [...] 0 Refills, Maintenance, 06/23/20 10:45:00 EDT, Tablet, [facility], Partial fill upon patient... Start Date: 06/23/20 Stop Date: 07/07/20 Status: OrderedPen [place], 32 G x 4 mm BD Ultra [...] 0 Refills, Maintenance, 04/26/20 15:33:00 EST, Tablet, [facility] #[id number], Partial fill upon patient request if the prescription is for a schedule II opioid drug., 1 tablet By Mouth Daily, 152.5, cm, 05... Start Date: 04/26/20 Status: Orderedsucralfate 1 gm oral tablet 1 Gm, 1, tablet, By Mouth, Every 6 hours, # 56 tablet, Refills 0, Tot. Refills 0, Maintenance, 06/23/20 10:43:00 EDT, Route to Pharmacy Electronically, [facility], Partial fill upon patient request if the prescription is for a schedule I... Start Date: 06/23/20 Stop Date: 07/07/20 Status: OrderedVitamin B6 25 mg oral tablet 1 tablet = 25 mg, By Mouth, 3 times a day, PRN Nausea & Vomiting, # 90 tablet, 1 Refills, Acute 09/03/20 14:24:00 EDT, 06/03/20 14:24:00 EDT, [facility] #[id number], Partial fill upon patient request if the prescription is for a schedule II opioi... Start Date: 06/03/20 Stop Date: 09/03/20 Status: Ordered Problem List Condition Effective Dates Status Health Status Informant Depression(Confirmed) Active Diabetes mellitus type 1(Confirmed) Active Fibroadenoma(Confirmed) 07/05/12 Active Hyperthyroidism(Confirmed) Active Iron deficiency anemia(Confirmed) Active Microalbuminuria(Confirmed) Active Hypertension in , Active preeclampsia, severe(Confirmed) Vital Signs Most recent to oldest [Reference 1 2 3 Range]: Weight 53 kg 53 kg (06/20/20 9:00 PM) (06/20/20 5:08 PM) Oxygen Saturation [94-100 %] 100 % 97 % 98 % (06/23/20 7:53 AM) (06/22/20 11:00 PM) (06/22/20 7:00 PM) Pulse Rate [55-90 bpm] 71 bpm 86 bpm 82 bpm (06/23/20 7:53 AM) (06/22/20 11:00 PM) (06/22/20 7:00 PM) Blood Pressure [90-138/55-84 mm 111/73 mm Hg 115/62 mm Hg 106/69 mm Hg Hg] (06/23/20 7:53 AM) (06/22/20 11:00 PM) (06/22/20 7:00 PM) Respiratory Rate [16-30 br/min] 18 br/min 18 br/min 18 br/min (06/23/20 7:53 AM) (06/22/20 11:00 PM) (06/22/20 7:00 PM) Temperature [96.8-100.4 DegF] 99.0 DegF 98.9 DegF 98 .0 DegF (06/23/20 7:53 AM) (06/22/20 11:00 PM) (06/22/20 7:00 PM) Mode of Delivery (Oxygen) Room air Room air Room a ir (06/23/20 7:53 AM) (06/22/20 11:00 PM) (06/22/20 7:00 PM) Blood pressure sites Arm, left Arm, left Arm, left (06/23/20 7:53 AM) (06/22/20 11:00 PM) (06/22/20 7:00 PM) Temperature Route Oral Oral Oral (06/23/20 7:53 AM) (06/22/20 11:00 PM) (06/22/20 7:00 PM) Social History Social History Type Response Smoking Status Never smoker entered on: 01/08/14 Sex Female
--- OUTSIDE RECORDS SUMMARY | 2021-11-25 15:53 | XMS_ITS | Continuity of Care Document ---
:1995 Author Organization [facility] Address [address] [place] [address]- Care Team Providers Name Role Phone Tutu MCINTOSH, Kelvin Duffy Primary Care Physician [facility]counter [facility] Date(s): 04/11/20 - 05/11/[address] [address]- Allergies, Adverse Reactions, Alerts Substance Reaction Severity [...] Measles/Mumps/Rubella Virus Vaccine9 11/04/98 Given Measles/Mumps/Rubella Virus Cbsryuj56 07/10/94 Given Poliovirus Vaccine, Mayiyudokgp43 11/04/98 Given Poliovirus Vaccine, Fixzrlxqgkw64 03/12/96 Given Poliovirus Vaccine, Qopgacbdbhj14 05/08/95 Given Poliovirus Vaccine, Uzqscmunmbx39 07/10/94 Given Diphth/Pertussis, Whl Cell/Tet(oldterm)15 11/04/98 Given [...] (old term) 93 Given 1Early/Late Reason: Accommodate D/L4Afmys Note: TSJRTL2Budhb Note: VIS given4 Admin Note: VIS VIHHQ2Soniw Note: VIS GIVEN---MENACTRA, SANOFI DMJYQJN8Wgzmw Note: SANOFI PASTEUR VIS GIVEN IWCWI8Lxhfd Note: vis slwii1Nmkzc Note: HX VARICELLA '959Admin Note: UIT04Ciqzm Note: HTP91Xawft Note: IPV/FYA41Hyydp Note: IPV/XJO30Nobqv Note: IPV/UHX89Mgnem Note: IPV/YMA19Bckdt Note: RHD68Diptt Note: CQB03Qifik Note: LVJ23Drqmb Note: HIW50Gbnjj Note: PAH06Lgjtq Note: JEI97Dwbst Note: EJW09Plxdd Note: HEP B Medications Contour Next EZ [...] See Instructions, # 1 each, Maintenance, Per real estate office supervisor instructions, 12/06/14 6:03:50, Compound Start Date: 12/06/14 Status: OrderedHucecilia Kwik Pen 100 units/mL subcutaneous injection See Instructions, Inject 3 times/day with meals per sliding scale. Max daily dose 75 units, # 30 mL,5 Refills, Maintenance, 05/10/20 14:14:00 EDT, [facility] #[id number], Partial fill upon patient request if the [...] 3 Refills, Maintenance, 06/27/19 13:50:00 EDT, Solution, [facility] #[id number], 152.5, cm, 05/29/19 11:15:00 EDT, Height Start Date: 06/27/19 Status: Orderedlevothyroxine 0.05 mg oral tablet 1 tablet = 50 mcg, By Mouth, Daily, # 90 tablet, 0 Refills, Maintenance, 07/23/19 13:25:00 EDT, Tablet, [facility] #[id number], 152.5, cm, 07/09/19 12:58:00 EDT, Height Start Date: 07/23/19 Status: OrderedNexplanon 68 mg subcutaneous implant 1 each = 68 mg, Subcutaneous Infusion, Once, # 1 each, 0 Refills, Soft Stop, 10/31/16 16:43:40, [id number] Start Date: 10/31/16 Status: OrderedPen [place], 32 G x 4 mm BD Ultra [...] 0 Refills, Maintenance, 04/26/20 15:33:00 EST, Tablet, [facility] #[id number], Partial fill upon patient request if the [...]
--- OUTSIDE RECORDS SUMMARY | 2021-11-25 15:53 | XMS_ITS | Continuity of Care Document ---
:1995 Author Organization [facility] Address [address] [place] [address]- Care Team Providers Name Role Phone Tutu MCINTOSH, Kelvin Duffy Primary Care Physician [facility] Date(s): 05/29/19 - 06/08/[address] [address]- [facility] Attending Physician: Jacklyn Franco Admitting Physician: Jacklyn [...] Measles/Mumps/Rubella Virus Vaccine9 11/04/98 Given Measles/Mumps/Rubella Virus Ltfblyt52 07/10/94 Given Poliovirus Vaccine, Lsnsahjvkzq46 11/04/98 Given Poliovirus Vaccine, Iiiemsxnjgn85 03/12/96 Given Poliovirus Vaccine, Orbhmxsfnol57 05/08/95 Given Poliovirus Vaccine, Xpkmdzofdna70 07/10/94 Given Diphth/Pertussis, Whl Cell/Tet(oldterm)15 11/04/98 Given [...] (old term) 93 Given 1Early/Late Reason: Accommodate D/X2Pyhfl Note: KBPAJG9Cleki Note: VIS given4 Admin Note: VIS ECSMF9Kgwmn Note: VIS GIVEN---MENACTRA, SANOFI VNMHZGM1Cdlup Note: SANOFI PASTEUR VIS GIVEN WMNFC4Rxhvh Note: vis mbpuo7Xfwlc Note: HX VARICELLA '959Admin Note: NTO14Nbnon Note: GFU29Cwbdz Note: IPV/LXB56Vuzwc Note: IPV/RFD71Cwmao Note: IPV/QBH52Yshfc Note: IPV/JYP22Tdvps Note: LTR27Jjfcx Note: PWA37Bycxd Note: BBV08Gpzqq Note: ICQ71Onjvf Note: COQ71Zhxxr Note: PKN72Emslg Note: QDR62Sbjdr Note: HEP B Medications Contour Next EZ [...] See Instructions, # 1 each, Maintenance, Per door worker instructions, 12/06/14 6:03:50, Compound Start Date: [...] Start Date: 08/12/14 Stop Date: 08/07/15 Status: OrderedLevemir FlexTouch 100 units/mL subcutaneous solution See Instructions, 15 units subQ twice daily, # 3 units, 11 Refills, Maintenance, 06/11/14 15:29:26, 15 units subQ twice daily Start Date: 06/11/14 Status: OrderedNexplanon 68 mg subcutaneous implant 1 each = 68 mg, Subcutaneous Infusion, Once, # 1 each, 0 Refills, Soft Stop, 10/31/16 16:43:40, [id number] Start Date: 10/31/16 Status: OrderedPen [place], 32 G x 4 mm BD Ultra [...]
--- OUTSIDE RECORDS SUMMARY | 2021-11-25 15:53 | XMS_ITS | Continuity of Care Document ---
:1995 Author Organization [facility] Address [address] [place] [address]- Care Team Providers Name Role Phone Tutu MCINTOSH, Kelvin Duffy Primary Care Physician [place] [facility] [place] 12/11/19 [facility] [address] [place] [address]- [facility] Attending Physician: Jacklyn Franco Admitting Physician: AdmtrJacklyn Referring Physician: AdmtrJacklyn Allergies, Adverse Reactions, Alerts [...] Measles/Mumps/Rubella Virus Vaccine9 11/04/98 Given Measles/Mumps/Rubella Virus Hmjmuwx23 07/10/94 Given Poliovirus Vaccine, Garqdxhktge38 11/04/98 Given Poliovirus Vaccine, Lkolvrfxpzf88 03/12/96 Given Poliovirus Vaccine, Ftqntvfdftm89 05/08/95 Given Poliovirus Vaccine, Fakidsqaggv62 07/10/94 Given Diphth/Pertussis, Whl Cell/Tet(oldterm)15 11/04/98 Given [...] (old term) 93 Given 1Early/Late Reason: Accommodate D/E8Tvauk Note: YWRJLI3Mywuh Note: VIS given4 Admin Note: VIS FIFZQ8Ioymr Note: VIS GIVEN---MENACTRA, SANOFI SJCYCWO5Oekux Note: SANOFI PASTEUR VIS GIVEN EMDPV1Wmctk Note: vis jcynm0Qglxk Note: HX VARICELLA '959Admin Note: FBH92Ckthr Note: ZYY73Vlmzq Note: IPV/RUL68Rjmzy Note: IPV/FDY27Ebvrj Note: IPV/RGX99Ngbte Note: IPV/UDE61Gpoul Note: KYT74Aummr Note: RXJ41Axdhr Note: HYS29Qtwir Note: RSK77Rzlse Note: ICT19Paxtq Note: KXP36Xssfu Note: LYR19Eyone Note: HEP B Medications Admelog SoloStar 100 units/mL injectable solution See Instructions, Inject 2-15 units tid w/ meals via ISS, Max dose daily dose 45 units, E10.9, # 30 mL, 6 Refills, Maintenance, 06/27/19 14:42:00 EDT, [facility] #[id number], 152.5, cm, 05/29/19 11:15:00 EDT, Height Start [...] See Instructions, # 1 each, Maintenance, Per therapeutic program worker instructions, 12/06/14 6:03:50, Compound Start Date: [...] 3 Refills, Maintenance, 06/27/19 13:50:00 EDT, Solution, [facility] #[id number], 152.5, cm, 05/29/19 11:15:00 EDT, Height Start Date: 06/27/19 Status: OrderedLevemir FlexTouch 100 units/mL subcutaneous solution See Instructions, 15 units subQ twice daily, # 3 units, 11 Refills, Maintenance, 06/11/14 15:29:26, 15 units subQ twice daily Start Date: 06/11/14 Status: Orderedlevothyroxine 0.05 mg oral tablet 1 tablet = 50 mcg, By Mouth, Daily, # 90 tablet, 0 Refills, Maintenance, 07/23/19 13:25:00 EDT, Tablet, [facility] #[id number], 152.5, cm, 07/09/19 12:58:00 EDT, Height Start Date: 07/23/19 Status: OrderedNexplanon 68 mg subcutaneous implant 1 each = 68 mg, Subcutaneous Infusion, Once, # 1 each, 0 Refills, Soft Stop, 10/31/16 16:43:40, [id number] Start Date: 10/31/16 Status: OrderedNovoLOG FlexPen 100 units/mL subcutaneous solution See Instructions, 2-8 units Subcutaneous Injection 3 times a day, # 30 mL, 3 Refills, Maintenance, 06/27/19 13:50:00 EDT, Solution, [facility] #[id number], 152.5, cm, 05/29/19 11:15:00 EDT, Height Start Date: 06/27/19 Status: OrderedPen [place], 32 G x 4 mm BD Ultra [...]
--- OUTSIDE RECORDS SUMMARY | 2021-11-25 15:54 | XMS_ITS | Continuity of Care Document ---
:[address] Author Organization [facility] ic Address [address] [place] [address]- Care Team Providers Name Role Phone Tutu MCINTOSH, Kelvin Duffy Primary Care Physician [facility]counter [facility] Date(s): 10/12/20 - 11/11/[address] [address]- Allergies, Adverse Reactions, Alerts Substance Reaction Severity [...] Measles/Mumps/Rubella Virus Vaccine9 11/04/98 Given Measles/Mumps/Rubella Virus Vqdzwhg44 07/10/94 Given Poliovirus Vaccine, Jkcrsuvyyxq75 11/04/98 Given Poliovirus Vaccine, Qussigbvmip26 03/12/96 Given Poliovirus Vaccine, Uuezkjegurr38 05/08/95 Given Poliovirus Vaccine, Aqrhnejiznh64 07/10/94 Given Diphth/Pertussis, Whl Cell/Tet(oldterm)15 11/04/98 Given [...] (old term) 93 Given 1Early/Late Reason: Accommodate D/N4Nnark Note: HGBFGV0Zqqdz Note: VIS given4 Admin Note: VIS AWMNY3Vufzk Note: VIS GIVEN---MENACTRA, SANOFI ELNEGDG5Zuuln Note: SANOFI PASTEUR VIS GIVEN ORMWQ6Nhsqg Note: vis cjfxz8Kitbp Note: HX VARICELLA '959Admin Note: QUB63Nfcgm Note: TMO82Xsfmj Note: IPV/YLG97Wdvjw Note: IPV/TPH21Opvvr Note: IPV/LDR33Vwhkb Note: IPV/YUG17Aezys Note: LVF50Iumll Note: AKI40Gwxdv Note: GBC02Ucyrb Note: QLG20Cwokk Note: ZKO94Wkrfk Note: ULX06Lczum Note: YEA03Swpuq Note: HEP B Medications aspirin 81 mg oral delayed release tablet 162 mg, 2, tablet, By Mouth, Daily, To start at 12 weeks gestational age, July 13, 2020, # 90 tablet, Refills 2, Tot. Refills 2, Maintenance, 08/09/20 9:35:00 EDT, Route to Pharmacy Electronically, [facility] #[id number], Partial fill upon patie... Start Date: 08/09/20 [...] tablet, 3 Refills, Maintenance, 11/01/20 16:56:00 EDT, [facility] #[id number], Partial fill upon patient request if the prescription is for a schedule II opioid drug., 150, cm, 11/01/20 9:32:00 EDT... Start Date: 11/01/20 Status: OrderedHandheld Electric Breast Pump See Instructions, # 1 each, Maintenance, Per electrical experimental mechanic instructions, 12/06/14 6:03:50, Compound Start Date: 12/06/14 Status: OrderedHumalog Kwik Pen 100 units/mL subcutaneous injection See Instructions, 12 units before breakfast; 12 units before lunch; 20 units before dinner, # 30 mL,5 Refills, Maintenance, 07/12/20 13:52:00 EDT, Solution, [facility] #[id number], Partial fill upon patient request if the [...] 5 Refills, Maintenance, 08/19/20 12:01:00 EDT, Tablet, [facility] #89897, 152.5, cm, 08/09/20 9:25:00 EDT, Height, 53, kg, 06/25/20 16:25:00 EDT, Start Date: 08/19/20 Status: Orderedmetoclopramide 10 mg oral tablet 1 tablet = 10 mg, By Mouth, 3 times a day before meals and bedtime, PRN Nausea & Vomiting, 30 minutes before meals and at bedtime, # 50 tablet, 0 Refills, Maintenance, 07/30/20 15:26:00 EDT, Tablet, [facility] #[id number], Partial fill upon patie... Start Date: 07/30/20 Stop Date: 08/13/20 Status: OrderedPen [place], 32 G x 4 mm BD [...] 09/03/20 11:11:00 EDT, Route to Pharmacy Electronically, [facility], Partial fill upon patient request [...]
--- OUTSIDE RECORDS SUMMARY | 2021-11-25 15:54 | XMS_ITS | Continuity of Care Document ---
:1995 Author Organization [facility] Address [address] [place] [address]- Care Team Providers Name Role Phone Tutu MCINTOSH, Kelvin Duffy Primary Care Physician [place] [facility] [place](s): 11/26/20 - 01/01/[address] [address] Attending Physician: Wanda Carter NP Admitting Physician: [...] Inactive (IM) (oldterm)9 01/06/03 Given Measles/Mumps/Rubella Virus Oveeutv46 11/04/98 Given Measles/Mumps/Rubella Virus Alyozjy58 07/10/94 Given Poliovirus Vaccine, Dwrmuwuuwbt98 11/04/98 Given Poliovirus Vaccine, Mbtrgddoias99 03/12/96 Given Poliovirus Vaccine, Fsgbvzgprfb55 05/08/95 Given Poliovirus Vaccine, Hnrtjahgmsa89 07/10/94 Given Diphth/Pertussis, Whl Cell/Tet(oldterm)16 11/04/98 Given [...] Given 1Early/Late Reason: Early/Late Reason: Med Not Uvotvompq2Jgupk/Late Reason: Accommodate D/T3Xnrmq Note: BDCELJ5Ujasu Note: VIS rmuvd2Keoab Note: VIS CFHUU0Uctge Note: VIS GIVEN---MENACTRA, SANOFI RSJLVER8Poysr Note: SANOFI PASTEUR VIS GIVEN TCBQT2Otgbx Note: vis isnub2Yfvpu Note: HX VARICELLA '9510Admin Note: AMS55Mnzbd Note: JKD89Khvec Note: IPV/OPV13 Admin Note: IPV/UVS66Fnjjg Note: IPV/GIE99Udrdf Note: IPV/XPT23Rprue Note: DPT17 Admin Note: BRQ59Izqmp Note: FEW16Eexuo Note: EHG00Iijam Note: XGE96Adeha Note: QCN57Orygu Note: PYU15Vgpsa Note: HEP B Medications acetaminophen 500 mg oral tablet 2 tablet = 1,000 mg, By Mouth, Every 6 hours, PRN for fever, # 50 tablet, 0 Refills, Maintenance, 12/28/20 9:44:00 EST, Tablet, [facility] #[id number], Partial fill upon patient request if the prescription is for a schedule II opioid drug., 155,... Start Date: 12/28/20 Status: OrderedContour Next EZ Test Strips See Instructions, # 750 application, Refills 4, Tot. Refills 4, Maintenance, Test 6-8 times daily. 250.03, 648.03 using insulin pump, 09/16/14 9:46:21, Compound Start Date: 09/16/14 Status: OrderedHandheld Electric Breast Pump See Instructions, # 1 each, Maintenance, Per lure maker instructions, 12/06/14 6:03:50, Compound Start Date: 12/06/14 [...] 12/28/20 9:44:00 EST, Route to Pharmacy Electronically, [email or web address] #[id number], Partial fill upon patient request if the [...] 7 Refills, Maintenance, 12/08/20 17:50:00 EDT, Tablet, [email or web address] #[id number], 156, cm, 12/06/20 11:33:00 EDT, Height, 56.2, kg, 11/25/20 12:46:00 EDT, D... Start Date: 12/08/20 Status: OrderedMiraLax oral powder for reconstitution = 17 Gm, By Mouth, Daily, dissolve in water before taking, # 255 Gm, 0 Refills, Maintenance, 12/28/20 9:45:00 EST, REC Powder, [email or web address] #[id number], Partial fill upon patient request if the prescription is for a schedule II opioid drug., 17 Gm... Start Date: 12/28/20 Status: OrderedNIFEdipine 30 mg oral tablet, extended release 30 mg, 1, tablet, By Mouth, Daily, # 30 tablet, Refills 0, Tot. Refills 0, Maintenance, 12/29/20 8:31:00 EST, Route to Pharmacy Electronically, [email or web address] #[id number], Partial fill upon patient request if the prescription is for a schedule II opi... Start Date: 12/29/20 Status: OrderedoxyCODONE 5 mg oral tablet 5 mg, 1, tablet, By Mouth, Every 3 hours, PRN, (7-10), # 12 tablet, Refills 0, Tot. Refills 0, Maintenance, Pain , Severe, 12/28/20 9:44:00 EST, Route to Pharmacy Electronically, [email or web address] #[id number], Partial fill upon patient request if the pr... Start Date: 12/28/20 Status: OrderedPen [place], 32 G x 4 mm BD Ultra [...] to Pharmacy Electronically, [facility] #[id number], Partial fill upon patient request if the [...]
--- OUTSIDE RECORDS SUMMARY | 2021-11-25 15:54 | XMS_ITS | Continuity of Care Document ---
:1995 Author Organization [facility] Address [address] [place] [address]- Care Team Providers Name Role Phone Tutu MCINTOSH, Kelvin Duffy Primary Care Physician [place] [facility] [place] 11[place]05[place]20 - 12/11/[address] [address] Attending Physician: Wanda Carter NP Admitting Physician: Wanda Carter NP Referring Physician: Wadna Carter NP Allergies, Adverse Reactions, Alerts Substance [...] Inactive (IM) (oldterm)9 01/06/03 Given Measles/Mumps/Rubella Virus Lajimup70 11/04/98 Given Measles/Mumps/Rubella Virus Gubwmoh78 07/10/94 Given Poliovirus Vaccine, Ubcwyertiio80 11/04/98 Given Poliovirus Vaccine, Dsplgknidpv67 03/12/96 Given Poliovirus Vaccine, Twcbnrsvbfj53 05/08/95 Given Poliovirus Vaccine, Hzwotxkdqwg30 07/10/94 Given Diphth/Pertussis, Whl Cell/Tet(oldterm)16 11/04/98 Given [...] Given 1Early/Late Reason: Early/Late Reason: Med Not Ybzovepyq3Wzrgp/Late Reason: Accommodate D/C6Nkpkk Note: ZWYYGE6Ynaew Note: VIS fkugg3Jpuvj Note: VIS XLMXO3Nqzad Note: VIS GIVEN---MENACTRA, SANOFI DJZAQUK5Rjujm Note: SANOFI PASTEUR VIS GIVEN WENJM7Iajpw Note: vis rarnv7Jxinr Note: HX VARICELLA '9510Admin Note: IKY31Fvlqx Note: BXG92Cxqgb Note: IPV/OPV13 Admin Note: IPV/EEH90Vcvwm Note: IPV/RWY52Kwprn Note: IPV/RXK87Gzgkz Note: DPT17 Admin Note: DTV91Vtvhh Note: VIG32Liwvx Note: JWW41Tjlhm Note: KYN53Vhlyw Note: ZHY60Vdtjg Note: PZO07Tjvrm Note: HEP B Medications aspirin 81 mg oral delayed release tablet 162 mg, 2, tablet, By Mouth, Daily, To start at 12 weeks gestational age, July 13, 2020, # 90 tablet, Refills 2, Tot. Refills 2, Maintenance, 08/09/20 9:35:00 EDT, Route to Pharmacy Electronically, [facility] #[id number], Partial fill upon patie... Start Date: 08/09/20 [...] tablet, 3 Refills, Maintenance, 11/01/20 16:56:00 EDT, [facility] #[id number], Partial fill upon patient request if the prescription is for a schedule II opioid drug., 150, cm, 11/01/20 9:32:00 EDT... Start Date: 11/01/20 Status: OrderedHandheld Electric Breast Pump See Instructions, # 1 each, Maintenance, Per adaptive physical education specialist instructions, 12/06/14 6:03:50, Compound Start Date: [...] 7 Refills, Maintenance, 12/08/20 17:50:00 EDT, Tablet, [facility] #[id number], 156, cm, 12/06/20 11:33:00 EDT, Height, 56.2, kg, 11/25/20 12:46:00 EDT, D... Start Date: 12/08/20 Status: Orderedmetoclopramide 10 mg oral tablet 1 tablet = 10 mg, By Mouth, 3 times a day before meals and bedtime, PRN Nausea & Vomiting, 30 minutes before meals and at bedtime, # 50 tablet, 0 Refills, Maintenance, 07/30/20 15:26:00 EDT, Tablet, [facility] #[id number], Partial fill upon patie... Start Date: 07/30/20 Stop Date: 08/13/20 Status: OrderedPen [place], 32 G x 4 mm BD Ultra [...] 09/03/20 11:11:00 EDT, Route to Pharmacy Electronically, [facility], Partial fill upon patient [...]
--- OUTSIDE RECORDS SUMMARY | 2021-11-25 15:54 | XMS_ITS | Continuity of Care Document ---
:1995 Author Organization [facility] Address [address] [place] [address]- Care Team Providers Name Role Phone Tutu MCINTOSH, Kelvin Duffy Primary Care Physician [facility] Date[facility]s): 09/[facility]20 - 10/06/[facility] [address] [place] [id number] Allergies, Adverse Reactions, Alerts Substance [...] Measles/Mumps/Rubella Virus Vaccine9 11/04/98 Given Measles/Mumps/Rubella Virus Grcdbwo13 07/10/94 Given Poliovirus Vaccine, Lglfwqdzjwi90 11/04/98 Given Poliovirus Vaccine, Vxkrsrgskbl63 03/12/96 Given Poliovirus Vaccine, Nsvcvzidein47 05/08/95 Given Poliovirus Vaccine, Lqksrocccqt03 07/10/94 Given Diphth/Pertussis, Whl Cell/Tet(oldterm)15 11/04/98 Given [...] (old term) 93 Given 1Early/Late Reason: Accommodate D/P9Ctsyk Note: JMTDYE2Yohch Note: VIS given4 Admin Note: VIS OCDLN0Dwwbc Note: VIS GIVEN---MENACTRA, SANOFI PIILJFS5Fulrw Note: SANOFI PASTEUR VIS GIVEN BQMRV0Kukyg Note: vis zoqsy1Ftvdd Note: HX VARICELLA '959Admin Note: GNL65Mnsav Note: NDU49Pfcvp Note: IPV/AEV89Meqme Note: IPV/XDE30Ckqer Note: IPV/TAZ87Ihdif Note: IPV/PPY59Vebim Note: XMJ86Fdouw Note: NSM85Cwtuc Note: JRI54Vvjsn Note: DNR03Psrcn Note: UIA99Paebr Note: MQP26Fcyvn Note: VPU45Zshhe Note: HEP B Medications aspirin 81 mg oral delayed release tablet 162 mg, 2, tablet, By Mouth, Daily, To start at 12 weeks gestational age, July 13, 2020, # 90 tablet, Refills 2, Tot. Refills 2, Maintenance, 08/09/20 9:35:00 EDT, Route to Pharmacy Electronically, [facility] #[id number], Partial fill upon patie... Start Date: 08/09/20 Status: OrderedContour Next EZ Test Strips See Instructions, # 750 application, Refills 4, Tot. Refills 4, Maintenance, Test 6-8 times daily. 250.03, 648.03 using insulin pump, 09/16/14 9:46:21, Compound Start Date: 09/16/14 Status: OrderedHandheld Electric Breast Pump See Instructions, # 1 each, Maintenance, Per bariatric nurse instructions, 12/06/14 6:03:50, Compound Start Date: 12/06/14 Status: OrderedHumalog Kwik Pen 100 units/mL subcutaneous injection See Instructions, Max daily dose 30 units. E10.65, # 30 mL, 5 Refills, Maintenance, 07/12/20 13:52:00 EDT, Solution, [facility] #[id number], Partial fill upon patient request if the [...] 5 Refills, Maintenance, 08/19/20 12:01:00 EDT, Tablet, [facility] #[id number], 152.5, cm, 08/09/20 9:25:00 EDT, Height, 53, kg, 06/25/20 16:25:00 EDT, . Start Date: 08/19/20 Status: Orderedmetoclopramide 10 mg oral tablet 1 tablet = 10 mg, By Mouth, 3 times a day before meals and bedtime, PRN Nausea & Vomiting, 30 minutes before meals and at bedtime, # 50 tablet, 0 Refills, Maintenance, 07/30/20 15:26:00 EDT, [id number], Partial fill upon patie... Start Date: 07/30/20 Stop Date: 08/13/20 Status: Orderedondansetron 4 mg oral tablet, disintegrating 1 tablet = 4 mg, By Mouth, Every 8 hours, PRN as needed for nausea/vomiting, # 25 tablet, 0 Refills,Maintenance, 09/03/20 14:41:00 EDT, DIS Tablet, [facility], Partial fill upon patient request if the prescription is for a schedule II o... Start Date: 09/03/20 Status: OrderedPen [place], 32 G x 4 mm BD Ultra [...] 0 Refills, Maintenance, 09/03/20 14:41:00 EDT, Tablet, [facility], Partial fill upon patient request if the prescription is for a schedule II opioid drug., 150, cm, 0... Start Date: 09/03/20 Status: OrderedVitamin B6 50 mg oral tablet 25 mg, 0.5, tablet, By Mouth, 3 times a day, # 100 tablet, Refills 0, Tot. Refills 0, Maintenance, 09/03/20 11:11:00 EDT, Route to Pharmacy Electronically, [facility], Partial fill upon patient request [...]
--- OUTSIDE RECORDS SUMMARY | 2021-11-25 15:54 | XMS_ITS | Continuity of Care Document ---
:1995 Author Organization [facility] Address [address] [place] [address]- Care Team Providers Name Role Phone Tutu MCINTOSH, Kelvin Duffy Primary Care Physician [facility] Date[facility]s): 04/09/20 - 05/22/[address] [address]- Attending Physician: Not on Staff, Attending MD [...] Measles/Mumps/Rubella Virus Vaccine9 11/04/98 Given Measles/Mumps/Rubella Virus Qdcqahf86 07/10/94 Given Poliovirus Vaccine, Mgoncwtzokd76 11/04/98 Given Poliovirus Vaccine, Ofzfqorpyfy34 03/12/96 Given Poliovirus Vaccine, Jijeqgrdtvx19 05/08/95 Given Poliovirus Vaccine, Fyolycqbfjg25 07/10/94 Given Diphth/Pertussis, Whl Cell/Tet(oldterm)15 11/04/98 Given [...] (old term) 93 Given 1Early/Late Reason: Accommodate D/O2Hrxee Note: FIIXOZ1Zckej Note: VIS given4 Admin Note: VIS WSKRW8Dcvcf Note: VIS GIVEN---MENACTRA, SANOFI CUSDKUE0Auzbq Note: SANOFI PASTEUR VIS GIVEN YASRP7Dfjmy Note: vis yunnd1Ekzgp Note: HX VARICELLA '959Admin Note: WPT50Mqljs Note: XNW95Mlmbm Note: IPV/PAU45Uuocy Note: IPV/GSZ18Rikah Note: IPV/LXW17Vjhqf Note: IPV/RJZ81Tvqch Note: NCA16Uxibb Note: UGM45Wjohf Note: DEF89Xfsom Note: PCM83Afclf Note: JOX90Igawe Note: WZC92Qkvco Note: TIU25Gsybh Note: HEP B Medications Contour Next EZ [...] See Instructions, # 1 each, Maintenance, Per meat cooler instructions, 12/06/14 6:03:50, Compound Start Date: 12/06/14 Status: OrderedHumalog Kwik Pen 100 units/mL subcutaneous injection See Instructions, Inject 3 times/day with meals per sliding scale. Max daily dose 75 units, # 30 mL,5 Refills, Maintenance, 05/10/20 14:14:00 EDT, [facility] #[id number], Partial fill upon patient request if the [...] 3 Refills, Maintenance, 06/27/19 13:50:00 EDT, Solution, [facility] #[id number], 152.5, cm, 05/29/19 11:15:00 EDT, Height Start Date: 06/27/19 Status: Orderedlevothyroxine 0.05 mg oral tablet 1 tablet = 50 mcg, By Mouth, Daily, # 90 tablet, 0 Refills, Maintenance, 07/23/19 13:25:00 EDT, Tablet, [facility] #[id number], 152.5, cm, 07/09/19 12:58:00 EDT, Height Start Date: 07/23/19 Status: OrderedNexplanon 68 mg subcutaneous implant 1 each = 68 mg, Subcutaneous Infusion, Once, # 1 each, 0 Refills, Soft Stop, 10/31/16 16:43:40, [id number] Start Date: 10/31/16 Status: OrderedPen [place], 32 G x 4 mm BD Ultra [...] 0 Refills, Maintenance, 04/26/20 15:33:00 EST, Tablet, [facility] #[id number], Partial fill upon patient request if the [...]
--- OUTSIDE RECORDS SUMMARY | 2021-11-25 15:54 | XMS_ITS | Continuity of Care Document ---
:1995 Author Organization [facility] Address [address] [place] [address]- Care Team Providers Name Role Phone Tutu MCINTOSH, Kelvin Duffy Primary Care Physician [place] [facility] [place] 09/03/20 - 10/16/[facility] [address] [place] [address] Attending Physician: Arnold Pate MD Admitting Physician: Arnold Pate MD Referring Physician: Adelia Porter MD Allergies, Adverse Reactions, Alerts Substance Reaction [...] Measles/Mumps/Rubella Virus Vaccine9 11/04/98 Given Measles/Mumps/Rubella Virus Eeoevkn49 07/10/94 Given Poliovirus Vaccine, Wlrthgnyavi53 11/04/98 Given Poliovirus Vaccine, Xlrdbxcjloe68 03/12/96 Given Poliovirus Vaccine, Qjjzhlfkdht58 05/08/95 Given Poliovirus Vaccine, Xmemacjpcjt64 07/10/94 Given Diphth/Pertussis, Whl Cell/Tet(oldterm)15 11/04/98 Given [...] (old term) 93 Given 1Early/Late Reason: Accommodate D/P1Aisjy Note: PCEBLQ7Eygus Note: VIS given4 Admin Note: VIS VQEAQ3Mrfss Note: VIS GIVEN---MENACTRA, SANOFI UXDLSYK1Xleoo Note: SANOFI PASTEUR VIS GIVEN IZSGT4Lpwkt Note: vis orrbs2Xjsff Note: HX VARICELLA '959Admin Note: PWA14Ejdzy Note: UTR21Nthwt Note: IPV/URG34Xfexd Note: IPV/XWH67Junje Note: IPV/JHX42Qwsed Note: IPV/YHD73Focap Note: PLM47Dangi Note: WZB20Vmxqk Note: ZUH19Xqcny Note: ZLE70Ufjgl Note: WRE73Jrzbp Note: DOB67Iqirb Note: YHT25Yswar Note: HEP B Medications aspirin 81 mg oral delayed release tablet 162 mg, 2, tablet, By Mouth, Daily, To start at 12 weeks gestational age, July 13, 2020, # 90 tablet, Refills 2, Tot. Refills 2, Maintenance, 08/09/20 9:35:00 EDT, Route to Pharmacy Electronically, [facility] #[id number], Partial fill upon patie... Start Date: 08/09/20 Status: OrderedContour Next EZ Test Strips See Instructions, # 750 application, Refills 4, Tot. Refills 4, Maintenance, Test 6-8 times daily. 250.03, 648.03 using insulin pump, 09/16/14 9:46:21, Compound Start Date: 09/16/14 Status: OrderedHandheld Electric Breast Pump See Instructions, # 1 each, Maintenance, Per product development manager instructions, 12/06/14 6:03:50, Compound Start Date: 12/06/14 Status: OrderedHumalog Kwik Pen 100 units/mL subcutaneous injection See Instructions, Max daily dose 30 units. E10.65, # 30 mL, 5 Refills, Maintenance, 07/12/20 13:52:00 EDT, Solution, [facility] #[id number], Partial fill upon patient request if the [...] 5 Refills, Maintenance, 08/19/20 12:01:00 EDT, Tablet, [facility] #[id number], 152.5, cm, 08/09/20 9:25:00 EDT, Height, 53, kg, 06/25/20 16:25:00 EDT, . Start Date: 08/19/20 Status: Orderedmetoclopramide 10 mg oral tablet 1 tablet = 10 mg, By Mouth, 3 times a day before meals and bedtime, PRN Nausea & Vomiting, 30 minutes before meals and at bedtime, # 50 tablet, 0 Refills, Maintenance, 07/30/20 15:26:00 EDT, Tablet, [facility] #[id number], Partial fill upon patie... Start Date: 07/30/20 Stop Date: 08/13/20 Status: Orderedondansetron 4 mg oral tablet, disintegrating 1 tablet = 4 mg, By Mouth, Every 8 hours, PRN as needed for nausea/vomiting, # 25 tablet, 0 Refills,Maintenance, 09/03/20 14:41:00 EDT, DIS Tablet, [facility], Partial fill upon patient request if the prescription is for a schedule II o... Start Date: 09/03/20 Status: OrderedPen [place], 32 G x 4 mm BD Ultra [...] 0 Refills, Maintenance, 09/03/20 14:41:00 EDT, Tablet, [facility], Partial fill upon patient request if the prescription is for a schedule II opioid drug., 150, cm, 0... Start Date: 09/03/20 Status: OrderedVitamin B6 50 mg oral tablet 25 mg, 0.5, tablet, By Mouth, 3 times a day, # 100 tablet, Refills 0, Tot. Refills 0, Maintenance, 09/03/20 11:11:00 EDT, Route to Pharmacy Electronically, [facility], Partial fill upon patient request [...]
--- OUTSIDE RECORDS SUMMARY | 2021-11-25 15:54 | XMS_ITS | Continuity of Care Document ---
:1995 Author Organization [facility] Address [address] [place] [address]- Care Team Providers Name Role Phone Tutu MCINTOSH, Kelvin Duffy Primary Care Physician [facility] Date[facility]s): 05/10[facility]20 - 06/09/20 [facility] [address] [place] [address]- Allergies, Adverse Reactions, Alerts Substance Reaction Severity [...] Measles/Mumps/Rubella Virus Vaccine9 11/04/98 Given Measles/Mumps/Rubella Virus Bkosevz40 07/10/94 Given Poliovirus Vaccine, Naebkdtrwcu00 11/04/98 Given Poliovirus Vaccine, Xtejhtwdbcy80 03/12/96 Given Poliovirus Vaccine, Lyaooxjlpjf89 05/08/95 Given Poliovirus Vaccine, Wrtsgafihzr86 07/10/94 Given Diphth/Pertussis, Whl Cell/Tet(oldterm)15 11/04/98 Given [...] (old term) 93 Given 1Early/Late Reason: Accommodate D/J7Wktet Note: DZSKYL4Glyov Note: VIS given4 Admin Note: VIS ZKAZZ8Worrq Note: VIS GIVEN---MENACTRA, SANOFI UCXZNLV8Nywnz Note: SANOFI PASTEUR VIS GIVEN GSWIC8Xbcvd Note: vis wbgtp4Nabvx Note: HX VARICELLA '959Admin Note: VPP84Huhsd Note: YXS68Wwthk Note: IPV/HLV39Wkkva Note: IPV/QIT80Rnrmg Note: IPV/UEL86Onlfa Note: IPV/IPS01Uempi Note: YYM62Kzzzg Note: ZCA15Qcqxy Note: DAN57Zxjtn Note: ZIE96Prbxc Note: OHC72Jzyrk Note: GXK06Evzjg Note: WZO63Bdquf Note: HEP B Medications Contour Next EZ [...] See Instructions, # 1 each, Maintenance, Per hot plate press operator instructions, 12/06/14 6:03:50, Compound Start Date: 12/06/14 Status: OrderedHumalog Kwik Pen 100 units/mL subcutaneous injection See Instructions, Inject 3 times/day with meals per sliding scale. Max daily dose 75 units, # 30 mL,5 Refills, Maintenance, 05/10/20 14:14:00 EDT, [facility] #[id number], Partial fill upon patient request if the [...] 3 Refills, Maintenance, 06/27/19 13:50:00 EDT, Solution, [facility] #[id number], 152.5, cm, 05/29/19 11:15:00 EDT, Height Start Date: 06/27/19 Status: Orderedlevothyroxine 0.05 mg oral tablet 1 tablet = 50 mcg, By Mouth, Daily, # 90 tablet, 0 Refills, Maintenance, 07/23/19 13:25:00 EDT, Tablet, [facility] #[id number], 152.5, cm, 07/09/19 12:58:00 EDT, Height Start Date: 07/23/19 Status: OrderedNexplanon 68 mg subcutaneous implant 1 each = 68 mg, Subcutaneous Infusion, Once, # 1 each, 0 Refills, Soft Stop, 10/31/16 16:43:40, [id number] Start Date: 10/31/16 Status: OrderedPen [place], 32 G x 4 mm BD Ultra [...] 0 Refills, Maintenance, 04/26/20 15:33:00 EST, Tablet, [facility] #[id number], Partial fill upon patient request if the prescription is for a schedule II opioid drug., 1 tablet By Mouth Daily, 152.5, cm, 05... Start Date: 04/26/20 Status: OrderedUnisom 25 mg oral tablet 1 tablet = 25 mg, By Mouth, Daily at bedtime, PRN Nausea & Vomiting, # 1 tablet, 1 Refills, Acute 09/03/20 14:25:00 EDT, 06/03/20 14:24:00 EDT, [facility] #[id number], Partial fill upon patient request if the prescription is for a schedule II opi... Start Date: 06/03/20 Stop Date: 09/03/20 Status: OrderedVitamin B6 25 mg oral tablet 1 tablet = 25 mg, By Mouth, 3 times a day, PRN Nausea & Vomiting, # 90 tablet, 1 Refills, Acute 09/03/20 14:24:00 EDT, 06/03/20 14:24:00 EDT, [facility] #[id number], Partial fill upon patient request if the [...]
--- OUTSIDE RECORDS SUMMARY | 2021-11-25 15:54 | XMS_ITS | Continuity of Care Document ---
:1995 Author Organization [facility] Address [address] [place] [address]- Care Team Providers Name Role Phone Tutu MCINTOSH, Kelvin Duffy Primary Care Physician [facility] Date[facility]s): 11/03[facility]20 - 12/03/[facility] [address] [place] [id number] Allergies, Adverse Reactions, Alerts Substance [...] Inactive (IM) (oldterm)9 01/06/03 Given Measles/Mumps/Rubella Virus Ziadwwm16 11/04/98 Given Measles/Mumps/Rubella Virus Upqjmqt59 07/10/94 Given Poliovirus Vaccine, Ihudwzrvxxx90 11/04/98 Given Poliovirus Vaccine, Wuulrbhbykh81 03/12/96 Given Poliovirus Vaccine, Dtivuoyoidk20 05/08/95 Given Poliovirus Vaccine, Ohfkaywnmvo11 07/10/94 Given Diphth/Pertussis, Whl Cell/Tet(oldterm)16 11/04/98 Given [...] Given 1Early/Late Reason: Early/Late Reason: Med Not Jollmpzgp2Tctjw/Late Reason: Accommodate D/S0Jojos Note: DAXGTM4Urhgc Note: VIS bqkzr0Cncby Note: VIS NBEMT6Vfsaj Note: VIS GIVEN---MENACTRA, SANOFI XHMJYIM2Myewp Note: SANOFI PASTEUR VIS GIVEN UVMAE2Thmja Note: vis mqvqg3Ofmel Note: HX VARICELLA '9510Admin Note: DYW32Uxpaq Note: DSC94Irmoe Note: IPV/OPV13 Admin Note: IPV/MDF92Ukbrd Note: IPV/RCZ86Cdzyb Note: IPV/XXD65Wlzav Note: DPT17 Admin Note: DNS90Bjifc Note: RKS95Glrkv Note: AOJ93Qqowo Note: IEY64Onkwp Note: ZTO20Mputy Note: EFB71Bgumd Note: HEP B Medications aspirin 81 mg oral delayed release tablet 162 mg, 2, tablet, By Mouth, Daily, To start at 12 weeks gestational age, July 13, 2020, # 90 tablet, Refills 2, Tot. Refills 2, Maintenance, 08/09/20 9:35:00 EDT, Route to Pharmacy Electronically, [facility] #[id number], Partial fill upon patie... Start Date: 08/09/20 [...] tablet, 3 Refills, Maintenance, 11/01/20 16:56:00 EDT, [facility] #[id number], Partial fill upon patient request if the prescription is for a schedule II opioid drug., 150, cm, 11/01/20 9:32:00 EDT... Start Date: 11/01/20 Status: OrderedHandheld Electric Breast Pump See Instructions, # 1 each, Maintenance, Per assistant professor of german instructions, 12/06/14 6:03:50, Compound Start Date: 12/06/14 [...] 5 Refills, Maintenance, 08/19/20 12:01:00 EDT, Tablet, [facility] #[id number], 152.5, cm, 08/09/20 9:25:00 EDT, Height, 53, kg, 06/25/20 16:25:00 EDT, Start Date: 08/19/20 Status: Orderedmetoclopramide 10 mg oral tablet 1 tablet = 10 mg, By Mouth, 3 times a day before meals and bedtime, PRN Nausea & Vomiting, 30 minutes before meals and at bedtime, # 50 tablet, 0 Refills, Maintenance, 07/30/20 15:26:00 EDT, Tablet, [facility] #[id number], Partial fill upon patie... Start Date: 07/30/20 Stop Date: 08/13/20 Status: OrderedPen [place], 32 G x 4 [...] 09/03/20 11:11:00 EDT, Route to Pharmacy Electronically, [facility], Partial fill upon [...]
--- OUTSIDE RECORDS SUMMARY | 2021-11-25 15:54 | XMS_ITS | Continuity of Care Document ---
:1995 Author Organization [facility] Address [address] [place] [address]- Care Team Providers Name Role Phone Tutu MCINTOSH, Kelvin Duffy Primary Care Physician [facility] Date[facility]s): 05/12/21 - 07/20/[address] [address]- Attending Physician: Not on Staff, Attending MD [...] Inactive (IM) (oldterm)9 01/06/03 Given Measles/Mumps/Rubella Virus Cdknwgk54 11/04/98 Given Measles/Mumps/Rubella Virus Imfmqfl79 07/10/94 Given Poliovirus Vaccine, Izacevxujrd20 11/04/98 Given Poliovirus Vaccine, Ukftedkdvke93 03/12/96 Given Poliovirus Vaccine, Ierjujheydl09 05/08/95 Given Poliovirus Vaccine, Fnnvkbgrjzy24 07/10/94 Given Diphth/Pertussis, Whl Cell/Tet(oldterm)16 11/04/98 Given [...] Refuses 1Early/Late Reason: Early/Late Reason: Med Not Suhyuoxco5Qyogm/Late Reason: Accommodate D/F2Svkwv Note: VNSJXL7Leflm Note: VIS nstqx0Skwuy Note: VIS WOPNJ4Azgyc Note: VIS GIVEN---MENACTRA, SANOFI AOWTWYK6Tdkwj Note: SANOFI PASTEUR VIS GIVEN EIWUU5Bhevy Note: vis rykkg0Dirgh Note: HX VARICELLA '9510Admin Note: WBU55Cdslg Note: PHV09Boola Note: IPV/OPV13 Admin Note: IPV/GLM88Kvdir Note: IPV/KUY13Wjqce Note: IPV/PRC70Udszf Note: DPT17 Admin Note: VAP38Icvfa Note: ZKV03Macmi Note: RGG21Cgwaw Note: HOJ43Ldhxz Note: KOP98Ygxlc Note: SFL24Oxcwb Note: HEP B Medications acetaminophen 500 mg oral tablet 2 tablet = 1,000 mg, By Mouth, Every 6 hours, PRN for fever, # 50 tablet, 0 Refills, Maintenance, 12/28/20 9:44:00 EST, Tablet, [facility] #[id number], Partial fill upon patient request if the prescription is for a schedule II opioid drug., 155,... Start Date: 12/28/20 Status: OrderedContour Next EZ Test Strips See Instructions, # 750 application, Refills 4, Tot. Refills 4, Maintenance, Test 6-8 times daily. 250.03, 648.03 using insulin pump, 09/16/14 9:46:21, Compound Start Date: 09/16/14 Status: OrderedHandheld Electric Breast Pump See Instructions, # 1 each, Maintenance, Per control systems engineer instructions, 12/06/14 6:03:50, Compound Start Date: 12/06/14 Status: OrderedHumaLOG 100 units/mL injectable solution See Instructions, via pump , for type 1 DM, max daily dose 50 units., # 10 mL, 3 Refills, Maintenance, 01/11/21 11:25:00 EST, [facility] #[id number], Partial fill upon patient request if the [...] 12/28/20 9:44:00 EST, Route to Pharmacy Electronically, [facility] #[id number], Partial fill upon patient request if the [...] 7 Refills, Maintenance, 12/08/20 17:50:00 EDT, Tablet, [facility] #[id number], 156, cm, 12/06/20 11:33:00 EDT, Height, 56.2, kg, 11/25/20 12:46:00 EDT, D... Start Date: 12/08/20 Status: OrderedMiraLax oral powder for reconstitution = 17 Gm, By Mouth, Daily, dissolve in water before taking, # 255 Gm, 0 Refills, Maintenance, 12/28/20 9:45:00 EST, REC Powder, [facility] #[id number], Partial fill upon patient request if the prescription is for a schedule II opioid drug., 17 Gm... Start Date: 12/28/20 Status: OrderedNIFEdipine 30 mg oral tablet, extended release 30 mg, 1, tablet, By Mouth, Daily, # 30 tablet, Refills 0, Tot. Refills 0, Maintenance, 12/29/20 8:31:00 EST, Route to Pharmacy Electronically, [facility] #[id number], Partial fill upon patient request if the prescription is for a schedule II opi... Start Date: 12/29/20 Status: OrderedoxyCODONE 5 mg oral tablet 5 mg, 1, tablet, By Mouth, Every 3 hours, PRN, (7-10), # 12 tablet, Refills 0, Tot. Refills 0, Maintenance, Pain , Severe, 12/28/20 9:44:00 EST, Route to Pharmacy Electronically, [facility] #[id number], Partial fill upon patient request if the pr... Start Date: 12/28/20 Status: OrderedPen [place], 32 G x 4 mm BD Ultra [...] Maintenance, 219:44:00 EST, Route to Pharmacy Electronically, [facility] #[id number], Partial fill upon patient request if the [...]
--- OUTSIDE RECORDS SUMMARY | 2021-11-25 15:54 | XMS_ITS | Continuity of Care Document ---
:1995 Author Organization [facility] Address [address] [place] [address]- Care Team Providers Name Role Phone Tutu MCINTOSH, Kelvin Duffy Primary Care Physician Encounter [facility] Date(s): 12/11/20 - 01/16/[address] [address] Attending Physician: Wanda Carter NP Admitting [...] Inactive (IM) (oldterm)9 01/06/03 Given Measles/Mumps/Rubella Virus Mytvxnc22 11/04/98 Given Measles/Mumps/Rubella Virus Oxowvgk93 07/10/94 Given Poliovirus Vaccine, Gwbyqqxdkcs62 11/04/98 Given Poliovirus Vaccine, Xatrkvzdkqy19 03/12/96 Given Poliovirus Vaccine, Jjktxphaols39 05/08/95 Given Poliovirus Vaccine, Stujaopvfbz94 07/10/94 Given Diphth/Pertussis, Whl Cell/Tet(oldterm)16 11/04/98 Given [...] Refuses 1Early/Late Reason: Early/Late Reason: Med Not Sloaizpiv4Cnqlk/Late Reason: Accommodate D/Y8Nsdyd Note: MWZADV1Rjvdn Note: VIS velky2Izwbk Note: VIS GLRFH5Izhpz Note: VIS GIVEN---MENACTRA, SANOFI RZQITVD0Ngnuv Note: SANOFI PASTEUR VIS GIVEN RWZEG4Wqvzp Note: vis zjada8Yzyoa Note: HX VARICELLA '9510Admin Note: LAY80Uiryh Note: NNQ07Zcfhe Note: IPV/OPV13 Admin Note: IPV/XEJ19Vyskk Note: IPV/EXU11Ospks Note: IPV/RNB73Upmqp Note: DPT17 Admin Note: KOB29Guasb Note: WRR41Rwphu Note: DDU52Elpzy Note: IGG52Wakdt Note: ZUV38Xmiae Note: NKI25Krale Note: HEP B Medications acetaminophen 500 mg oral tablet 2 tablet = 1,000 mg, By Mouth, Every 6 hours, PRN for fever, # 50 tablet, 0 Refills, Maintenance, 12/28/20 9:44:00 EST, Tablet, [facility] #[id number], Partial fill upon patient request if the [...] Instructions, # 1 each, Maintenance, Per medical advisor instructions, 12/06/14 6:03:50, Compound Start Date: 12/06/14 Status: OrderedHumaLOG 100 units/mL injectable solution See Instructions, via pump , for type 1 DM, max daily dose 50 units., # 10 mL, 3 Refills, Maintenance, 01/11/21 11:25:00 EST, [facility] #[id number], Partial fill upon patient request if the [...] 12/28/20 9:44:00 EST, Route to Pharmacy Electronically, [facility] #[id number], Partial fill upon patient request if the [...] 7 Refills, Maintenance, 12/08/20 17:50:00 EDT, Tablet, [facility] #[id number], 156, cm, 12/06/20 11:33:00 EDT, Height, 56.2, kg, 11/25/20 12:46:00 EDT, D... Start Date: 12/08/20 Status: OrderedMiraLax oral powder for reconstitution = 17 Gm, By Mouth, Daily, dissolve in water before taking, # 255 Gm, 0 Refills, Maintenance, 12/28/20 9:45:00 EST, REC Powder, [facility] #[id number], Partial fill upon patient request if the prescription is for a schedule II opioid drug., 17 Gm... Start Date: 12/28/20 Status: OrderedNIFEdipine 30 mg oral tablet, extended release 30 mg, 1, tablet, By Mouth, Daily, # 30 tablet, Refills 0, Tot. Refills 0, Maintenance, 12/29/20 8:31:00 EST, Route to Pharmacy Electronically, [facility] #[id number], Partial fill upon patient request if the prescription is for a schedule II opi... Start Date: 12/29/20 Status: OrderedoxyCODONE 5 mg oral tablet 5 mg, 1, tablet, By Mouth, Every 3 hours, PRN, (7-10), # 12 tablet, Refills 0, Tot. Refills 0, Maintenance, Pain , Severe, 12/28/20 9:44:00 EST, Route to Pharmacy Electronically, [facility] #[id number], Partial fill upon patient request if the pr... Start Date: 12/28/20 Status: OrderedPen [place], 32 G x 4 mm BD Ultra [...] Maintenance, 219:44:00 EST, Route to Pharmacy Electronically, [facility] #[id number], Partial fill upon patient request if the [...]
--- OUTSIDE RECORDS SUMMARY | 2021-11-25 15:54 | XMS_ITS | Continuity of Care Document ---
:1995 Author Organization [facility] Address [address] [place] [phone]- Care Team Providers Name Role Phone Tutu MCINTOSH, Kelvin Duffy Primary Care Physician [place] [facility] [place] 02/03/21 [facility] [address] [place] [address] Attending Physician: Tim Angulo MD Admitting [...] Inactive (IM) (oldterm)9 11/18/03 Given Measles/Mumps/Rubella Virus Ngyynzn48 11/04/98 Given Measles/Mumps/Rubella Virus Zlasjdy39 07/10/94 Given Poliovirus Vaccine, Jzcqlhwvyvv44 11/04/98 Given Poliovirus Vaccine, Wktgnbaiqcm37 03/12/96 Given Poliovirus Vaccine, Oeutbdologi41 05/08/95 Given Poliovirus Vaccine, Jlthgxhzowd14 07/10/94 Given Diphth/Pertussis, Whl Cell/Tet(oldterm)16 11/04/98 Given [...] Refuses 1Early/Late Reason: Early/Late Reason: Med Not Txtesepqx1Mpiza/Late Reason: Accommodate D/L4Bwtfc Note: KKTCHW5Imfal Note: VIS bgcau6Lhrae Note: VIS TQKJX1Jtukb Note: VIS GIVEN---MENACTRA, SANOFI WCVSQCC0Lqrzq Note: SANOFI PASTEUR VIS GIVEN QLZTZ5Ajyhp Note: vis qapsk7Ljwsf Note: HX VARICELLA '9510Admin Note: NCL88Apvdb Note: YQS78Ytnkd Note: IPV/OPV13 Admin Note: IPV/WOM86Akjby Note: IPV/UVB80Bgnzg Note: IPV/MRP49Jyfim Note: DPT17 Admin Note: GAT17Usbnl Note: FZQ38Tvyju Note: VCH70Qyftw Note: VSZ99Ftyvr Note: MHU25Kurgc Note: WLQ24Bvcfu Note: HEP B Medications acetaminophen 500 mg oral tablet 2 tablet = 1,000 mg, By Mouth, Every 6 hours, PRN for fever, # 50 tablet, 0 Refills, Maintenance, 12/28/20 9:44:00 EST, Tablet, [facility] #[id number], Partial fill upon patient request if the prescription is for a schedule II opioid drug., 155,... Start Date: 12/28/20 Status: OrderedContour Next EZ Test Strips See Instructions, # 750 application, Refills 4, Tot. Refills 4, Maintenance, Test 6-8 times daily. 250.03, 648.03 using insulin pump, 09/16/14 9:46:21, Compound Start Date: 09/16/14 Status: OrderedHandheld Electric Breast Pump See Instructions, # 1 each, Maintenance, Per machine stitcher instructions, 12/06/14 6:03:50, Compound Start Date: 12/06/14 Status: OrderedHumaLOG 100 units/mL injectable solution See Instructions, via pump , for type 1 DM, max daily dose 50 units., # 10 mL, 3 Refills, Maintenance, 01/11/21 11:25:00 EST, [facility] #[id number], Partial fill upon patient request if the [...] 12/28/20 9:44:00 EST, Route to Pharmacy Electronically, [facility] #[id number], Partial fill upon patient request if the [...] 7 Refills, Maintenance, 12/08/20 17:50:00 EDT, Tablet, [facility] #[id number], 156, cm, 12/06/20 11:33:00 EDT, Height, 56.2, kg, 11/25/20 12:46:00 EDT, D... Start Date: 12/08/20 Status: OrderedMiraLax oral powder for reconstitution = 17 Gm, By Mouth, Daily, dissolve in water before taking, # 255 Gm, 0 Refills, Maintenance, 12/28/20 9:45:00 EST, REC Powder, [facility] #[id number], Partial fill upon patient request if the prescription is for a schedule II opioid drug., 17 Gm... Start Date: 12/28/20 Status: OrderedNIFEdipine 30 mg oral tablet, extended release 30 mg, 1, tablet, By Mouth, Daily, # 30 tablet, Refills 0, Tot. Refills 0, Maintenance, 12/29/20 8:31:00 EST, Route to Pharmacy Electronically, [facility] #[id number], Partial fill upon patient request if the prescription is for a schedule II opi... Start Date: 12/29/20 Status: OrderedoxyCODONE 5 mg oral tablet 5 mg, 1, tablet, By Mouth, Every 3 hours, PRN, (7-10), # 12 tablet, Refills 0, Tot. Refills 0, Maintenance, Pain , Severe, 12/28/20 9:44:00 EST, Route to Pharmacy Electronically, [facility] #[id number], Partial fill upon patient request if the pr... Start Date: 12/28/20 Status: OrderedPen [place], 32 G x 4 mm BD Ultra [...] Maintenance, 219:44:00 EST, Route to Pharmacy Electronically, [facility] #[id number], Partial fill upon patient request if the [...]
--- OUTSIDE RECORDS SUMMARY | 2021-11-25 15:54 | XMS_ITS | Continuity of Care Document ---
:1995 Author Organization [facility] Address [address] [place] [phone]- Care Team Providers Name Role Phone Tutu MCINTOSH, Kelvin Duffy Primary Care Physician [place] [facility] [place] 04/29/20 - 05/29/20 [facility] [address] [place] [id number]- Allergies, Adverse Reactions, Alerts Substance Reaction Severity [...] Measles/Mumps/Rubella Virus Vaccine9 11/04/98 Given Measles/Mumps/Rubella Virus Kdgowrx29 07/10/94 Given Poliovirus Vaccine, Rzpqmqjeyao93 11/04/98 Given Poliovirus Vaccine, Zykokjqgnzf10 03/12/96 Given Poliovirus Vaccine, Fezjmtoguun13 05/08/95 Given Poliovirus Vaccine, Wkpghrxslts71 07/10/94 Given Diphth/Pertussis, Whl Cell/Tet(oldterm)15 11/04/98 Given [...] (old term) 93 Given 1Early/Late Reason: Accommodate D/W6Ahsgc Note: EINHQS8Fbpid Note: VIS given4 Admin Note: VIS NHBOP6Wgwtz Note: VIS GIVEN---MENACTRA, SANOFI KKWOJAI1Gnwym Note: SANOFI PASTEUR VIS GIVEN SYSUX4Zgsnt Note: vis uocma2Qboeh Note: HX VARICELLA '959Admin Note: ZRU55Bihos Note: QHF93Toaff Note: IPV/EKV85Hpffv Note: IPV/QLX04Dmckl Note: IPV/RBM07Sirjl Note: IPV/VHX80Wyyvn Note: ZNC72Lemwz Note: HTG52Qtorc Note: DDI48Mglan Note: NEW09Qrxmn Note: SUO99Hzetx Note: AEC16Iagld Note: SMZ48Qdchu Note: HEP B Medications Contour Next EZ [...] See Instructions, # 1 each, Maintenance, Per field operator instructions, 12/06/14 6:03:50, Compound Start Date: 12/06/14 Status: OrderedHucecilia Kwik Pen 100 units/mL subcutaneous injection See Instructions, Inject 3 times/day with meals per sliding scale. Max daily dose 75 units, # 30 mL,5 Refills, Maintenance, 05/10/20 14:14:00 EDT, [facility] #[id number], Partial fill upon patient request if the [...] 3 Refills, Maintenance, 06/27/19 13:50:00 EDT, Solution, [facility] #[id number], 152.5, cm, 05/29/19 11:15:00 EDT, Height Start Date: 06/27/19 Status: Orderedlevothyroxine 0.05 mg oral tablet 1 tablet = 50 mcg, By Mouth, Daily, # 90 tablet, 0 Refills, Maintenance, 07/23/19 13:25:00 EDT, Tablet, [facility] #[id number], 152.5, cm, 07/09/19 12:58:00 EDT, Height Start Date: 07/23/19 Status: OrderedNexplanon 68 mg subcutaneous implant 1 each = 68 mg, Subcutaneous Infusion, Once, # 1 each, 0 Refills, Soft Stop, 10/31/16 16:43:40, [id number] Start Date: 10/31/16 Status: OrderedPen [place], 32 G x 4 mm BD Ultra [...] 0 Refills, Maintenance, 04/26/20 15:33:00 EST, Tablet, [facility] #[id number], Partial fill upon patient request if the [...]
== END 2021-11-25 18:01 | disposition home or self-care (01) ==
PROVIDERS: Emergency Provider Emergency Medicine Emergency Medical Services
DX: S09.90XA Unspecified injury of head, initial encounter (principal); R51.9 Headache, unspecified; M54.2 Cervicalgia; W01.0XXA Fall on same level from slipping, tripping and stumbling without subsequent striking against object, initial encounter; Y93.9 Activity, unspecified; Y92.9 Unspecified place or not applicable; Y99.0 Civilian activity done for income or pay
CPT/HCPCS: 70450; 72125; 99282; 99283; 99284